=== PATIENT | male | born 1955 | race Hispanic/Latino ===

== ENCOUNTER 2020-08-20 14:26 | Emergency (ER) | payer SELFPAY ==
--- OUTSIDE RECORDS SUMMARY | 2020-08-20 14:30 | XMS REPORT | Continuity of Care Document ---
:1955 Author Organization [facility] t Address [address] [place] [address] Care Team Providers Name Role Phone UNKNOWN, REFFERING Primary Care Physician Unavailable Sky Michel MD Attending Clinician Claudia Kuhn Attending Clinician Unavailable Zay Knapp Attending Clinician Unavailable Orville Attending Clinician Unavailable Evelio Attending Clinician Unavailable ERIC Attending Clinician Unavailable Johana Attending Clinician Unavailable Mona Domingo Attending Clinician Unavailable Clair Attending Clinician Unavailable Sandy Vargas Attending Clinician Unavailable Justa Attending Clinician Unavailable Sandy ONEIL Attending Clinician Unavailable ERIC Admitting Clinician Unavailable Advance Directives Directive Decision Effective Date Termination Date Comments Sour ce Yes N/A [facility] Problems Condition Condition Condition Status Onset Resolution Last Treating Co mments Source Name Details Category Date Date Treatment Clinician Date Illness, Illness, 35081-7 Active 2020-03-04 unspecifie unspecifie 03-04 13:04:04 d d 00:00: (R69)Onset 00 : 04-Mar-2020 Encounter Encounter 50451-3 Active 2019-05-03 for for 05-02 20:46:01 observatio observatio 00:00: n for n for 00 other other suspected suspected diseases diseases and and conditions conditions ruled out ruled out (Z03.89)On set: 03-May-2019 Encounter Encounter 08915-6 Active 2018-07-24 for for 07-24 21:41:52 observatio observatio 00:00: n for n for 00 other other suspected suspected diseases diseases and and conditions conditions ruled out ruled out (Z03.89)On set: 9 Diagnosis Diagnosis 40009-5 Active 2016-09-09 deferred deferred 09-09 01:03:27 on axis II on axis 00:00: IIOnset: 00 7 Deferred Deferred 39920-4 Active 2015-03-11 diagnosis diagnosis 03-11 22:53:15 on axis II on axis 00:00: IIOnset: 00 6 Personalit Personalit 22494-0 Active 2013-04-20 y D/O NOS- y D/O NOS- 04-19 10:31:18 Cluster B Cluster 00:00: BOnset: 00 4 Personalit Personalit 36456-8 Active 2012-022013-02-19 y Disorder y Disorder 04-22 22:10:33 NOS NOSOnset: 00:00: 00 3 Diagnosis Diagnosis 03610-2 Active 2012-11-16 Deferred Deferred 11-16 00:20:04 on [place] II [place] 00:00: IIOnset: 00 3 Diagnosis Diagnosis 11980-4 Active 2012-08-03 Deferred Deferred 08-03 16:20:04 [place] II [place] 00:00: IIOnset: 00 03-Aug-2012 Diagnosis Diagnosis 46075-5 Active 2012-12-31 Deferred Deferred 21:59:45 on [place] II on [place] II History of Past Illness Condition Condition Condition Status Onset Resolution Last Treating Co mments Source Name Details Category Date Date Treatment Clinician Date Diagnosis Diagnosis 80736-3 Inactiv 2013-04-19 2013-04-19 Deferred Deferred e 07:39:37 07:39:37 on [place] II on [place] IIStatus: Inactive as of 4 7:39 Allergies, Adverse Reactions, Alerts This patient has no known allergies or adverse reactions. Social History Smoking Status Start Date Stop Date Source Tobacco smoking consumption [facility] unknown Medications Ordered Filled Start Stop Current Ordering Indication Dosage Frequency Signature Comments Components Source Medication Medication Date Date Medication? Clinician (SIG) Name Name TraZODone* 2020- Yes [id number] 50mg TraZODone* 03-12 [id number] ; 50 mg 08:34: PO/By 00 mouth for sleep Take 1 tablet by mouth at bedtime for insomnia (CRU)Start : 1Ordered: 1GJoaquin bowden Prazosin* 2020- Yes [id number] 2mg Prazosin*; 03-12 158963 2 mg PO/By 08:33: mouth for 00 nightmares Take 1 tablet by mouth at bedtime for nightmares (CRU)Start : 1Ordered: 1GJoaquin bowden QUEtiapine* Yes [id number] 200mg QUEtiapine 03-12 [id number] *; 200 mg 08:33: PO/By 00 mouth for psychosis Take 1 tablet by mouth twice daily and 2 tablets at bedtime for psychosis (CRU)Start : 1Ordered: 1GJoaquin bowden Milk of 2020-0 Yes [id number] 30ml Milk of NTE 120 Magnesia 1 102722 Magnesia; mL in 24 11:56: 30 ml PO hours 00 PRN q4hr for Constipati on NTE 120 mL in 24 hours RoutineSta rt: 05-Mar-2020 Ordered: 05-Mar-2020 Joaquin Jenkins ments: NTE 120 mL in 24 hours QUEtiapine Yes [id number] 50mg QUEtiapine NTE 2 00 03-05 [id number] ; 50 mg PO mg PRN 11:56: PRN q6hr Quetiapin 00 for midl e in 24 agitation hr period NTE 200 mg PRN Quetiapine in 24 hr period RoutineSta rt: 05-Mar-2020 Ordered: 05-Mar-2020 Joaquin Jenkins ments: NTE 200 mg PRN Quetiapine in 24 hr period SEROquel No [id number] 0 SEROquel 400 mg oral 03-04 [id number] 400 mg tablet 11:35: oral 31 tablet; qhsQuantit y: 0 Refills: 0Ordered: Evelyn ParisiGeneric Substituti on Allowed prazosin 2 No [id number] 0 prazosin 2 Home mg oral 03-04 [id number] mg oral Medicatio capsule 11:35: capsule; n stored 31 orally in once a day Pharmacy (at bedtime)Qu antity: 0 Refills: 0Ordered: 03-May-2019 Anetor, Linda KGeneric Substituti on AllowedCom ments: Home Medication stored in Pharmacy SEROquel No [id number] 0 SEROquel 300 mg oral 03-04 [id number] 300 mg tablet 11:35: oral 31 tablet; qamQuantit y: 0 Refills: 0Ordered: Evelyn ParisiGeneric Substituti on Allowed QUEtiapine No [id number] 0 QUEtiapine 100 mg oral 09-08 [id number] 100 mg tablet 23:20: oral 27 tablet; orallyQuan tity: 0 Refills: 0Ordered: [address] [place] [address] us: OtherGener ic Substituti on Allowed Zoloft 50 No [id number] 1{tab(s Zoloft 50 mg oral 09-08 534467 )} mg oral tablet 23:20: tablet; 1 27 tab(s) orally once a dayQuantit y: 0 Refills: 0Ordered: [address] [place] [address] [facility] us: OtherGener ic Substituti on Allowed Benadryl 25 No [id number] 0 Benadryl mg oral 09-08 [id number] 25 mg oral capsule 23:20: capsule; 27 orally onceQuanti ty: 0 Refills: 0Ordered: [address] [place] [address] [facility] us: OtherGener ic Substituti on Allowed traZODone No [id number] 0 traZODone 50 mg oral 09-08 [id number] 50 mg oral tablet 23:20: tablet; 27 orally onceQuanti ty: 0 Refills: 0Ordered: 6HJayna romero us: OtherGener ic Substituti on Allowed lisinopril No [id number] 1{tab(s lisinopril 10 mg oral 09-08 [id number] )} 10 mg oral tablet 23:20: tablet; 1 20 tab(s) orally once a dayQuantit y: 0 Refills: 0Ordered: 7Moore, TeriStart: 7Generic Substituti on Allowed Seroquel No [id number] 0 Seroquel 200mg 04-18 [id number] 200mg; po 00:00: qam and 00 qhs pt. received last dose at [facility] on 04/18/13 at 09:25Quant ity: 0 Refills: 0Ordered: 4Moore, TeriStart: 4Status: OtherGener ic Substituti on Allowed Zoloft No [id number] 0 Zoloft 100ng 04-18 [id number] 100ng; po 00:00: qam pt. 00 received last dose at [facility] on 04/18/13 at 0905Quanti ty: 0 Refills: 0Ordered: 4Moore, TeriStart: 4Status: OtherGener ic Substituti on Allowed Pt reports 2012-02 No [id number] 0 Pt reports "I have 04-22 "I have been off my 11:30: been off meds for 3 29 my meds years." for 3 years."Hayes ntity: 0 Refills: 0Ordered: 03-Aug-2012 Augustus Trammell us: Discontinu edGeneric Substituti on Allowed zoloft 100 2012-02 No [id number] 0 zoloft mg 04-22 [id number] 100 mg; po 00:00: everyday 00 last dose at home 02/18/13 , at [facility] 02/19/13Q uantity: 0 Refills: 0Ordered: 3DMary stantonStart: 3Status: Discontinu edGeneric Substituti on Allowed Risperdal 2 2012-02 No [id number] 1 Risperdal mg oral 04-22 [id number] 2 mg oral tablet 00:00: tablet; 1 00 orally Q AM LAST DOSE AT [facility] , AT HOME LAST DOSE 02/18/13Qu antity: 0 Refills: 0Ordered: Mary GuadarramaStart: 3Status: Discontinu edGeneric Substituti on Allowed Risperdal 4 2012-02 No [id number] 1 Risperdal mg oral 04-22 [id number] 4 mg oral tablet 00:00: tablet; 1 00 orally LAST DOSE 02/18/13 AT [facility] , AT HOME 02/17/13Q uantity: 0 Refills: 0Ordered: Mary GuadarramaStart: 3Status: Discontinu edGeneric Substituti on Allowed ATARX 25 2012-02 No [id number] 0 ATARX 25 MG 04-22 [id number] MG; PO 00:00: BID PRN 00 [facility] [facility] [place] Refills: 0Ordered: Mary GuadarramaStart: 3Status: Discontinu edGeneric Substituti on Allowed ATARAX 25 2012-02 No [id number] 0 ATARAX 25 MG 04-22 [id number] MG; PO 00:00: TID LAST 00 DOSE AT [facility] 02/19/13Qu antity: 0 Refills: 0Ordered: Mary GuadarramaStart: 3Status: Discontinu edGeneric Substituti on Allowed MULTI 2012-02 No [id number] 0 MULTI VITAMIN , 04-22 [id number] VITAMIN , FOLIC ACID 00:00: FOLIC 1 MG , 00 ACID 1 THIAMINE MG , 100 MG THIAMINE 100 MG; PO everyday [facility] Refills: 0Ordered: Mary GuadarramaStart: 3Status: Discontinu edGeneric Substituti on Allowed DENIES 2012-02 No [id number] 0 DENIES OTC/HERBAL 04-22 [id number] OTC/HERBAL HOME MEDS 00:00: HOME 00 MEDSQuanti ty: 0 Refills: 0Ordered: 3DMary stantonStart: 3Status: Discontinu edGeneric Substituti on Allowed Pt. denies No [id number] 0 Pt. denies current 11-15 [id number] current medications 00:00: medication 00 sQuantity: 0 Refills: 0Ordered: 3MCoteiStart: 3Status: Discontinu edGeneric Substituti on Allowed Procedures Procedure Date / Time Performed Performing Clinician Sourc e EKG and Rhythm Strip 2016-09-09 08:00:00 Mallory Martinez Bedswap/Room Change 2013-02-28 02:16:00 Jacob Dos Santos Bedswap/Room Change 2013-01-06 11:36:00 Jayna Durand Bedswap/Room Change 2012-08-10 08:31:00 Saniya Bal Bedswap/Room Change 2012-08-03 15:47:00 Katina Kapoor Plan of Care Planned Activity Planned Date Details Comments Source Diagnostic Test Pending 2020-03-15 10:19:00 Discharge Patient [code = DischargePatient] Diagnostic Test Pending 2020-03-13 11:40:00 Hepatic Function Panel [code = HepaticFunctionPanel] Diagnostic Test Pending 2020-03-11 13:05:00 Other-Nursing [code = Other-Nursing] Diagnostic Test Pending 2020-03-10 00:00:00 Transfer Patient Out [code = TransferPatientOut] Diagnostic Test Pending 2020-03-07 13:03:00 Brief Individual Intervention - Adult [code = BriefIndividualInterventi on-Adult] Diagnostic Test Pending 2020-03-06 11:13:00 Cardiac Diet/AHA (low fat/2g Na) [code = CardiacDiet/AHA(lowfat/2g Na)] Diagnostic Test Pending 2020-03-06 11:12:00 Dental Consult [code = DentalConsult] Diagnostic Test Pending 2020-03-06 11:12:00 Health Shakes [code = HealthShakes] Diagnostic Test Pending 2020-03-04 17:07:00 Management of Emotions [code = ManagementofEmotions] Diagnostic Test Pending 2020-03-04 17:07:00 Mgmt of Mental Illness (On Unit) [code = MgmtofMentalIllness(OnUni t)] Diagnostic Test Pending 2020-03-04 17:07:00 Spirituality [code = Spirituality] Diagnostic Test Pending 2020-03-04 17:07:00 Therapeutic Recreation [code = TherapeuticRecreation] Diagnostic Test Pending 2020-03-04 17:07:00 Substance Use Group 3B [code = GrapmmwluYykYvxgy0U] Diagnostic Test Pending 2020-03-04 16:33:00 Assess and involve in group therapy [code = Assessandinvolveingroupth erapy] Diagnostic Test Pending 2020-03-04 16:32:00 Special Observations [code = SpecialObservations] Diagnostic Test Pending 2020-03-04 16:32:00 Vital Signs [code = VitalSigns] Encounters Start End Encounter Admission Attending Care Care Encounter Source Date/Time Date/Time Type Type Clinicians Facility Department ID 2020-06-27 2020-06-27 Emergency [facility] [id number] 09:14:00 11:54:00 Sky Berry [id number] [place] [id number] [place] [id number] 2020-03-04 2020-03-15 Inpatient Kuhn, 1 [facility]-73- 0000 [id number] [place] 13:27:00 11:29:00 Claudia Xavier 36 [facility] 2019-07-27 2019-07-27 Inpatient Kuhn, 1 [facility]-1A-01- 0000 [id number] [place] 17:10:00 17:10:00 Claudia Guerrero A 18 [facility] 2019-07-22 2019-07-22 Inpatient Ra, 1 [facility]1A [id number] [place] 11:01:00 11:01:00 Bhavna [facility] 2019-07-21 2019-07-21 Inpatient Ra, 1 [facility]- [id number] [place] 23:27:00 23:27:00 Bhavna Xavier 45 [facility] 2019-05-03 2019-05-10 Inpatient Orville, 1 [facility]-77- [id number] [place] 21:27:00 11:12:00 Ady Xavier 36 [facility] 2019-05-04 2019-05-04 Emergency E [facility] [id number] [facility] 23:29:00 23:29:00 2019-05-03 2019-05-03 Emergency E [facility] 7502 [facility] 13:06:00 13:06:00 2018-07-24 2018-08-01 Inpatient Hattie, 1 [facility]-76- 0000 [id number] [place] 21:29:00 10:51:00 Claudia Villegas 67 [facility] 2017-11-14 2017-11-14 Inpatient Abeba Fraser 1 [facility]-06- 0 [id number] [place] 17:44:00 17:44:00 A 43 [facility] 2017-11-14 2017-11-14 Emergency [facility] [id number] [place] 06:19:00 06:19:00 [facility] 2017-08-19 2017-08-19 Outpatient [facility] [id number] [place] 00:00:00 00:00:00 [facility] 2017-07-28 2017-07-28 Outpatient [facility] [id number] [place] 00:00:00 00:00:00 [facility] 2017-06-16 2017-06-16 Outpatient [facility] [id number] [place] 00:00:00 00:00:00 [facility] 2017-06-06 2017-06-06 Emergency E [facility] [id number] 19:31:00 19:31:00 [facility] 2017-06-05 2017-06-05 Emergency E RASSOLI, [facility] [id number] 17:19:00 17:19:00 AMIR [facility] 2017-05-16 2017-05-16 Outpatient [facility] [id number] [place] 00:00:00 00:00:00 Health 2017-05-03 2017-05-03 Outpatient [facility] [id number] [place] 00:00:00 00:00:00 Health 2017-04-28 2017-04-28 Outpatient [facility] [id number] Call 15:13:12 15:13:12 [facility] 2016-12-30 2016-12-30 Outpatient [facility] [id number] Call 00:00:00 00:00:00 [facility] 2016-12-09 2016-12-09 Outpatient [facility] [id number] Call 00:00:00 00:00:00 [facility] 2016-12-09 2016-12-09 Outpatient [facility] [id number] Call 00:00:00 00:00:00 [facility] 2016-12-02 2016-12-02 Outpatient [facility] [id number] Call 08:56:02 08:56:02 [facility] 2016-12-02 2016-12-02 Outpatient [facility] [id number] Call 00:00:00 00:00:00 [facility] 2016-12-02 2016-12-02 Outpatient [facility] [id number] Call 00:00:00 00:00:00 [facility] 2016-11-19 2016-11-19 Outpatient [facility] [id number] Call 10:25:44 10:25:44 [facility] 2016-10-22 2016-10-22 Outpatient [facility] [id number] [place] 11:25:55 11:25:55 [facility] 2016-10-05 2016-10-05 Outpatient [facility] [id number] [place] 09:11:02 09:11:02 [facility] 2016-09-08 2016-09-23 Inpatient Kuhn, 1 [facility] 0000 [id number] [place] 22:39:00 10:35:00 Claudia Xavier 53 [facility] 2015-03-11 2015-03-20 Inpatient Annabellek, 1 [facility]-61- 0 [id number] [place] 16:12:00 13:16:00 Karlie Xavier 89 [facility] 2013-04-18 2013-04-24 Inpatient Smeal, 1 [facility] 0000 [id number] [place] 18:25:00 14:35:00 Sherrie Villegas 60 [facility] 2013-02-19 2013-03-06 Inpatient Smeal, 1 [facility]-78- 0000 [id number] [place] 10:26:00 17:35:00 Sherrie Xavier 34 [facility] 2012-12-30 2013-01-15 Inpatient Keenmon, 1 [facility]-67- 228 [id number] [place] 20:01:00 16:50:00 Stock[place] B 88 [facility] 2012-11-15 2012-11-29 Inpatient Sam, 1 [facility]-76- 0 [id number] Call 20:08:00 13:10:00 Tian Villegas 27 [facility] 2012-08-03 2012-08-10 Inpatient Adhia, 1 [facility]-2D-31- 0000 [id number] Call 14:39:00 15:15:00 Ritchie Duc 70 [facility] 1987-09-19 1987-09-23 Inpatient PAZZAGLIA, 1 [facility]-87- 0 [id number] Call 15:00:00 16:00:00 SHEELA Xavier 77 [facility] Results Test Description Test Time Test Comments Results Result Comments Source CBC w/ Diff w/ Plt 2020-03-08 15:10:00 Test Item Value Reference Range Interpretation Comme nts WBC Count (test code = WBCCount) 5.7 {x10E3/uL} zzzRBC Count (test code = zzzRBCCount) 4.05 {x10E6/uL} Hemoglobin (test code = Hemoglobin) 12.3 g/dL zzzHematocrit (test code = zzzHematocrit) 37.0 % MCV (test code = MCV) 91 fL MCH (test code = MCH) 30.4 pg MCHC (test code = MCHC) 33.2 g/dL RDW (test code = RDW) 13.9 % Platelets (test code = Platelets) 168 {x10E3/uL} Neutrophils (test code = Neutrophils) 38 % Lymphs (test code = Lymphs) 43 % Monocytes (test code = Monocytes) 12 % Eosinophils (test code = Eosinophils) 5 % Basophils (test code = Basophils) 1 % Neutrophils (Absolute) (test code = Neutrophils(Absolute)) 2.2 {x10 E3/uL} Lymphs(Absolute) (test code = Lymphs(Absolute)) 2.5 {x10E3/uL} Monocytes(Absolute) (test code = Monocytes(Absolute)) 0.7 {x10E3/uL } Eosinophils(Absolute) (test code = Eosinophils(Absolute)) 0.3 {x10E 3/uL} Basophils(Absolute) (test code = Basophils(Absolute)) 0.1 {x10E3/uL } Immature Granulocytes (test code = ImmatureGranulocytes) 1 % Immature Grans (Abs) (test code = ImmatureGrans(Abs)) 0.0 {x10E3/uL } Comprehensive Metabolic [id number] 14:47:00 Test Item Value Reference Range Interpretation Comments Glucose,Serum (test 99 mg/dL code = Glucose,Serum) BUN (test code = BUN) 12 mg/dL Creatinine,Serum 0.75 mg/dL (test code = Creatinine,Serum) eGFR If NonAfrican Am 98 mL/min/1.73 (001113) (test code = eGFRIfNonAfricanAm( 0791)) eGFR If Am 114 mL/min/1.73 (249651) (test code = eGFRIfAfricanAm(33832 7)) BUN/Creat Ratio (test 16 code = BUN/CreatRatio) Sodium (test code = 141 mmol/L Sodium) Potassium (test code 4.6 mmol/L = Potassium) Chloride (test code = 103 mmol/L Chloride) zzzCO2 (test code = 29 mmol/L zzzCO2) Calcium (test code = 9.1 mg/dL Calcium) Protein, Total (test 6.0 g/dL code = Protein,Total) Albumin (test code = 3.5 g/dL Albumin) Globulin, Total (test 2.5 g/dL code = Globulin,Total) A/G Ratio (test code 1.4 = A/GRatio) Bilirubin, Total <0.2 (test code = Bilirubin,Total) Alkaline Phosphatase 94 {IU/L} (test code = AlkalinePhosphatase) AST (test code = AST) 115 {IU/L} ALT (test code = ALT) 201 {IU/L} Client Requested Flag [id number] 14:47:00 Test Item Value Reference Range Interpretation Comments TSH (116592) (test code = 2.010 {uIU/mL} TSH(333029)) Lipid Panel with LDL/HDL [id number] 14:47:00 Test Item Value Reference Range Interpretation Comments zzzCholesterol, Total 146 mg/dL (test code = zzzCholesterol,Total) Triglycerides (test code 88 mg/dL = Triglycerides) zzzHDL Cholesterol (test 41 mg/dL code = zzzHDLCholesterol) VLDL Cholesterol 17 mg/dL Calculated (test code = VLDLCholesterolCalculate d) LDL Cholesterol ROSALIND 88 mg/dL ([facility]) (test code = LDLCholesterolCAL([facility])) LDL/HDL Ratio (229801) 2.1 {ratio} . (test code = LDL/HDLRatio(443441)) LDL/HDL Ratio Men Women 1/ 2 Avg.Risk 1.0 1.5 Avg.Risk 3.6 3.2 2X Avg.Risk 6.2 5.0 3X Avg.Risk 8.0 6.1 Comprehensive Metabolic [id number] 01:43:55 Test Item Value Reference Range Interpretation Comments Sodium Level (test code = Sodium 138.0 mmol/L 135.0-145.0 Level) Potassium Level (test code = 4.4 mmol/L 3.5-5.1 Potassium Level) Chloride Level (test code = 98 mmol/L 98-105 Chloride Level) CO2 (test code = CO2) 26 mmol/L 22-29 Anion Gap (test code = Anion 14 mmol/L 7-16 Gap) BUN (test code = BUN) 14.40 mg/dL 8.00-23.00 Creatinine Level (test code = 1.10 mg/dL 0.70-1.20 Creatinine Level) BUN/Creat Ratio (test code = 13 N BUN/Creat Ratio) Glucose Level (test code = 76 mg/dL 70-115 Glucose Level) Calcium Level (test code = 9.1 mg/dL 8.3-10.6 Calcium Level) Alk Phos (test code = Alk Phos) 92 U/L 40-129 Bilirubin Total (test code = 0.7 mg/dL 0.1-0.9 Bilirubin Total) Albumin Level (test code = 5.0 g/dL 3.5-5.2 Albumin Level) Protein Total (test code = 8.1 g/dL 6.4-8.3 Protein Total) ALT (test code = ALT) 175 U/L 1-41 H AST (test code = AST) 54 U/L 1-40 H Globulin (test code = Globulin) 3.1 g/dL 2.9-3.1 A/G Ratio (test code = A/G 1.6 ratio N Ratio) Comprehensive Metabolic [id number] 01:43:55 Test Item Value Reference Range Interpretation Comments Sodium Level (test 138.0 mmol/L 135.0-145.0 code = Sodium Level) Potassium Level 4.4 mmol/L 3.5-5.1 (test code = Potassium Level) Chloride Level (test 98 mmol/L 98-105 code = Chloride Level) CO2 (test code = 26 mmol/L 22-29 CO2) Anion Gap (test code 14 mmol/L 7-16 = Anion Gap) BUN (test code = 14.40 mg/dL 8.00-23.00 BUN) Creatinine Level 1.10 mg/dL 0.70-1.20 (test code = Creatinine Level) BUN/Creat Ratio 13 N (test code = BUN/Creat Ratio) Glucose Level (test 76 mg/dL 70-115 code = Glucose Level) Calcium Level (test 9.1 mg/dL 8.3-10.6 code = Calcium Level) Alk Phos (test code 92 U/L 40-129 = Alk Phos) Bilirubin Total 0.7 mg/dL 0.1-0.9 (test code = Bilirubin Total) Albumin Level (test 5.0 g/dL 3.5-5.2 code = Albumin Level) Protein Total (test 8.1 g/dL 6.4-8.3 code = Protein Total) ALT (test code = 175 U/L 1-41 H ALT) AST (test code = 54 U/L 1-40 H AST) Globulin (test code 3.1 g/dL 2.9-3.1 = Globulin) A/G Ratio (test code 1.6 ratio N = A/G Ratio) eGFR AA (test code = >60 N eGFR (e stimated eGFR AA) mL/min/1.73 m2 Glomerular Filtration Rate ) is an estimated va lue, calculated from the patient's serum creatinine usin g the MDRD equation. It is NOT the patient 's actual GFR. The eGFR provides a more clinically usef ul measure of kidn ey disease than se rum creatinine alone.This calculation rufino es sex and race in to account, if the information is provided. If th e race is not provided, and t he patient is -Sherrie n, multiply by 1.2 12. If sex is not provided, and t he patient is fema le, multiply by 0.7 42. Results for pat ients <18 years of ag e have not been validated by th e MDRD study and should be interpreted wit h caution. eGFR R esult Interpretation: eGFR > or = 60 is in the Normal RangeeGF R < 60 may mean kid mihir diseaseeGFR < 1 5 may mean kidney failure Rang es recommended by the National Kidney Foundation, http://nkdep.ni h.gov Alcohol [id number] 01:43:55 Test Item Value Reference Range Interpretation Comments Ethanol Level (test 0.17 g/dL 0.00-0.01 H Intoxica marek 0.080 g/dL code = Ethanol or more Level) Ethanol Inst (test 168 N code = Ethanol Inst) Comprehensive Metabolic [id number] 01:43:55 Test Item Value Reference Range Interpretation Comments Sodium Level (test 138.0 mmol/L 135.0-145.0 code = Sodium Level) Potassium Level 4.4 mmol/L 3.5-5.1 (test code = Potassium Level) Chloride Level (test 98 mmol/L 98-105 code = Chloride Level) CO2 (test code = 26 mmol/L 22-29 CO2) Anion Gap (test code 14 mmol/L 7-16 = Anion Gap) BUN (test code = 14.40 mg/dL 8.00-23.00 BUN) Creatinine Level 1.10 mg/dL 0.70-1.20 (test code = Creatinine Level) BUN/Creat Ratio 13 N (test code = BUN/Creat Ratio) Glucose Level (test 76 mg/dL 70-115 code = Glucose Level) Calcium Level (test 9.1 mg/dL 8.3-10.6 code = Calcium Level) Alk Phos (test code 92 U/L 40-129 = Alk Phos) Bilirubin Total 0.7 mg/dL 0.1-0.9 (test code = Bilirubin Total) Albumin Level (test 5.0 g/dL 3.5-5.2 code = Albumin Level) Protein Total (test 8.1 g/dL 6.4-8.3 code = Protein Total) ALT (test code = 175 U/L 1-41 H ALT) AST (test code = 54 U/L 1-40 H AST) Globulin (test code 3.1 g/dL 2.9-3.1 = Globulin) A/G Ratio (test code 1.6 ratio N = A/G Ratio) eGFR AA (test code = >60 N eGFR (e stimated eGFR AA) mL/min/1.73 m2 Glomerular Filtration Rate ) is an estimated va lue, calculated from the patient's serum creatinine usin g the MDRD equation. It is NOT the patient 's actual GFR. The eGFR provides a more clinically usef ul measure of kidn ey disease than se rum creatinine alone.This calculation rufino es sex and race in to account, if the information is provided. If th e race is not provided, and t he patient is -Sherrie n, multiply by 1.2 12. If sex is not provided, and t he patient is fema le, multiply by 0.7 42. Results for pat ients <18 years of ag e have not been validated by [facility] MDRD study and should be interpreted wit h caution. eGFR R esult Interpretation: eGFR > or = 60 is in the Normal RangeeGF R < 60 may mean kid mihir diseaseeGFR < 1 5 may mean kidney failure Rang es recommended by the National Kidney Foundation, http://nkdep.ni h.gov eGFR Non-AA (test >60.00 N eGFR (carissa mated code = eGFR Non-AA) mL/min/1.73 m2 Glomer ular Filtration Rate ) is an estimated va lue, calculated from the patient's serum creatinine usin g the MDRD equation. It is NOT the patient 's actual GFR. The eGFR provides a more clinically usef ul measure of kidn ey disease than se rum creatinine alone.This calculation rufino es sex and race in to account, if the information is provided. If th e race is not provided, and t he patient is -Sherrie n, multiply by 1.2 12. If sex is not provided, and t he patient is fema le, multiply by 0.7 42. Results for pat ients <18 years of ag e have not been validated by [facility] MDRD study and should be interpreted wit h caution. eGFR R esult Interpretation: eGFR > or = 60 is in the Normal RangeeGF R < 60 may mean kid mihir diseaseeGFR < 1 5 may mean kidney failure Rang es recommended by the National Kidney Foundation, http://nkdep.ni h.gov Complete Blood Count with [id number] 01:03:37 Test Item Value Reference Range Interpretation Comments WBC (test code = WBC) 8.2 x10 4.4-10.5 RBC (test code = RBC) 4.50 x10 4.10-5.70 Hgb (test code = Hgb) 13.7 g/dL 13.4-17.4 MCV (test code = MCV) 95.30 fL 80.00-100.00 Hct (test code = Hct) 42.9 % 38.7-52.0 MCHC (test code = 31.90 g/dL 32.00-37.50 L MCHC) RDW CV (test code = 16.2 % 11.5-14.5 H RDW CV) MCH (test code = MCH) 30.4 pg 27.0-32.5 Platelets (test code = 301.0 x10 140.0-440.0 Platelets) MPV (test code = MPV) 8.9 fL N Slide Review (test Auto Auto Result cr eated by code = Slide Review) GL_SJM_ SLIDE_REV_AUTO nRBC (test code = 0 N nRBC) NRBC Abs (test code = 0.00 x10 N NRBC Abs) IPF (test code = IPF) 0 % N Automated [id number] 01:03:37 Test Item Value Reference Range Interpretation Comments Neutro Auto (test code = Neutro 47.3 % 36.0-70.0 Auto) Lymph Auto (test code = Lymph Auto) 33.3 % 12.0-44.0 Blaine Auto (test code = Blaine Auto) 12.4 % 0.0-11.0 H Eos, Auto (test code = Eos, Auto) 5.6 % 0.0-7.0 Basophil Auto (test code = Basophil 1.2 % 0.0-2.0 Auto) Neutro Absolute (test code = Neutro 3.9 x10 1.6-7.4 Absolute) Lymph Absolute (test code = Lymph 2.73 x10 .50-4.60 Absolute) Blaine Absolute (test code = Blaine 1.02 x10 .00-1.20 Absolute) Eos Absolute (test code = Eos 0.46 x10 0.00-0.74 Absolute) Baso Absolute (test code = Baso 0.10 x10 0.00-0.21 Absolute) IG [id number] 01:03:37 Test Item Value Reference Range Interpretation Comments IG (test code = IG) 0.2 % 0.0-5.0 IG Abs (test code = IG Abs) 0 x10 N Urine Drug Screen [id number] 13:08:00 Test Item Value Reference Interpretation Comments Range Amphetamine Negative Amphetamine Methamphetmine test includes 929550 (test code = Amphetam ine and AmphetamineMethamphe Methamp hetamine [id number]) . Barbiturate (611416) Negative (test code = Barbiturate(414451)) Benzodiazepines Positive (742748) (test code = Benzodiazepines(7148 32)) Cocaine Metabolite Negative (157861) (test code = CocaineMetabolite(71 4857)) Phencyclidine Negative (875170) (test code = Phencyclidine(279479 )) Drug Screen Comment NOTE : .This analysis (test code = is performed by DrugScreenComment) immunoassay. Positivefindings are unconfirmed analytical test results; ifresults do not support expected clinical finding,confirmation by an alternate methodology is recommended.Patient metabolic variables, specific drug chemistry, andspecimen characteristics can affect test outcome.Technical consultation is available [email or web address], or call toll free [phone]. Cannabinoid (653631) Negative (test code = Cannabinoid(791326)) Opiates (582443) Negative Opiate test (test code = includes Opiates(871840)) Codeine and Morphine only. Comprehensive Metabolic [id number] 20:00:00 Test Item Value Reference Range Interpretation Comments Glucose,Serum (test code = 73 mg/dL Glucose,Serum) BUN (test code = BUN) 10 mg/dL Creatinine,Serum (test code = 0.85 mg/dL Creatinine,Serum) eGFR If NonAfrican Am 95 mL/min/1.73 (730652) (test code = eGFRIfNonAfricanAm(339293)) eGFR If Am (624700) 109 mL/min/1.73 (test code = eGFRIfAfricanAm(443389)) BUN/Creat Ratio (test code = 12 BUN/CreatRatio) Sodium (test code = Sodium) 145 mmol/L Potassium (test code = 3.9 mmol/L Potassium) Chloride (test code = 105 mmol/L Chloride) CO2 (test code = CO2) 20 mmol/L Calcium (test code = Calcium) 9.4 mg/dL Protein, Total (test code = 6.3 g/dL Protein,Total) Albumin (test code = Albumin) 4.2 g/dL Globulin, Total (test code = 2.1 g/dL Globulin,Total) A/G Ratio (test code = 2.0 A/GRatio) Bilirubin, Total (test code = 0.3 mg/dL Bilirubin,Total) Alkaline Phosphatase (test 92 {IU/L} code = AlkalinePhosphatase) AST (test code = AST) 71 {IU/L} ALT (test code = ALT) 83 {IU/L} Lipid Panel with LDL/HDL [id number] 20:00:00 Test Item Value Reference Range Interpretation Comments Cholesterol, Total (test 137 mg/dL code = Cholesterol,Total) Triglycerides (test code 53 mg/dL = Triglycerides) HDL Cholesterol (test 54 mg/dL code = HDLCholesterol) Cholesterol, VLDL 11 mg/dL (calculated) (test code = Cholesterol,VLDL(calcula marek)) Cholesterol, LDL 72 mg/dL (calculated) (test code = Cholesterol,LDL(calculat ed)) LDL/HDL Ratio (664441) 1.3 {ratio} . (test code = LDL/HDLRatio(914945)) LDL/HDL Ratio Men Women 1/ 2 Avg.Risk 1.0 1.5 Avg.Risk 3.6 3.2 2X Avg.Risk 6.2 5.0 3X Avg.Risk 8.0 6.1 Drug Screen, Urine # [id number] 14:29:00 Test Item Value Reference Interpretation Comments Range Amphetamine Negative Amphetamine Methamphetmine test includes 278772 (test code = Amphetam ine and AmphetamineMethamphe Methamp hetamine [id number]) . Barbiturate (427234) Negative (test code = Barbiturate(942289)) Benzodiazepines Negative (556706) (test code = Benzodiazepines(7148 32)) Cannabinoid (738841) Negative (test code = Cannabinoid(056899)) Cocaine Metabolite Negative (645484) (test code = CocaineMetabolite(71 4857)) Opiates (992565) Negative Opiate test (test code = includes Opiates(461518)) Codeine, Morphine, Hydromorphone, Hydrocodone. Phencyclidine Negative (868904) (test code = Phencyclidine(393118 )) Methadone Screen Negative (493638) (test code = MethadoneScreen(1234 57)) Propoxyphene, Urine Negative (858936) (test code = Propoxyphene,Urine(7 91178)) Drug Screen Comment NOTE : .This analysis (test code = is performed by DrugScreenComment) immunoassay. Positivefindings are unconfirmed analytical test results; ifresults do not support expected clinical finding,confirmation by an alternate methodology is recommended.Patient metabolic variables, specific drug chemistry, andspecimen characteristics can affect test outcome.Technical consultation is available [email or web address], or call toll free [phone]. [id number] 14:06:00 Test Item Value Reference Range Interpretation Comments TSH (039324) (test code = 1.770 {uIU/mL} TSH(555938)) CBC w/ Diff w/ [id number] 12:00:00 Test Item Value Reference Range Interpretation Comments WBC Count (test code = 7.2 {x10E3/uL} WBCCount) RBC Count (test code = 4.48 RBCCount) {x10E6/uL} Hemoglobin (test code 14.1 g/dL = Hemoglobin) Hematocrit (test code 40.3 % = Hematocrit) MCV (test code = MCV) 90 fL MCH (test code = MCH) 31.5 pg MCHC (test code = 35.0 g/dL MCHC) RDW (test code = RDW) 14.8 % Platelets (test code = 201 {x10E3/uL} P lease note Platelets) reference inter nhung change Neutrophils (test code 36 % = Neutrophils) Lymphs (test code = 46 % Lymphs) Monocytes (test code = 7 % Monocytes) Eosinophils (test code 10 % = Eosinophils) Basophils (test code = 1 % Basophils) Neutrophils (Absolute) 2.6 {x10E3/uL} (test code = Neutrophils(Absolute)) Lymphs(Absolute) (test 3.3 {x10E3/uL} code = Lymphs(Absolute)) Monocytes(Absolute) 0.5 {x10E3/uL} (test code = Monocytes(Absolute)) Eosinophils(Absolute) 0.7 {x10E3/uL} (test code = Eosinophils(Absolute)) Basophils(Absolute) 0.0 {x10E3/uL} (test code = Basophils(Absolute)) Immature Granulocytes 0 % (test code = ImmatureGranulocytes) Immature Grans (Abs) 0.0 {x10E3/uL} (test code = ImmatureGrans(Abs)) [id number] 22:27:00 Test Item Value Reference Range Interpretation Comments Potassium (test code = K) 4.0 mmol/L 3.5-5.1 N Alcohol/Ethanol, [id number] 19:26:00 Test Item Value Reference Range Interpretation Comments Alcohol, Ethyl 0.14 g/dL 0.00-0.01 H Intoxicated 0.080 g/dL (test code = ETOH) or more [id number] 19:06:00 Test Item Value Reference Range Interpretation Comments Amphetamine (test code Negative Negative N For d iagnostic purposes = AMPH) only, positive results should always b e assessedin conjunctionwith the patient's medic al history,clinica l examination and otherfindings.T o fulfill legal requirements, a more specific altern ate chemical method must be used inorder to obtain a Confirmed juaquin lytical result. GC/MS i s the preferred confi rmatory method. Barbiturates (test Negative Negative N code = TIA) Benzodiazepine (test Negative Negative N code = LOREN) Cocaine (test code = POSITIVE Negative A COCA) Methadone (test code = Negative Negative N MTHD) Opiates (test code = Negative Negative N OPIA) PCP (test code = PCP) Negative Negative N Propoxyphene (test Negative Negative N code = PROPOX) THC (test code = THC) Negative Negative N Urinalysis [id number] 19:06:00 Test Item Value Reference Range Interpretation Comments Color (test code = Yellow Yellow,Straw,Pl N COLOR) yellow Clarity (test code = Clear Clear N CLAR) Specific [place] (test 1.010 1.001-1.035 N code = SPGR) pH (test code = PH) 5.0 5.0-9.0 N Ketone (test code = 50 mg/dL Negative A KET) Glucose (test code = Negative mg/dL Negative N GLUCUR) Protein (test code = 500 mg/dL Negative A PROT) Bilirubin (test code = Negative mg/dL Negative N BILI) Occult Blood (test code Large Negative A = UDOB) Urobilinogen (test code 0.2 mg/dL 0.2-1.0 N = UROB) Nitrite (test code = Negative Negative N NIT) Leuk Esterase (test Negative Negative N code = LEUK) Ictotest (test code = Negative Negative,Confirmed N ICTOTEST) Negative Clinitest (test code = Not Indicated CLINITEST) Micros Exam (test code Indicated = MEXAM) Epithelial Cells (test 0-2 /LPF 0-30 A code = EPI) WBC, Urine (test code = 2-5 /HPF 0-5 A UWBC) RBC, Urine (test code = 2-5 /HPF 0-5 A URBC) Amorph Deposit (test None /HPF code = AMORD) Mucous, Urine (test Few /HPF code = UMUC) Bacteria (test code = Few /HPF BACT) Yeast (test code = None Seen /HPF YEAST) Trichomonas (test code None Seen /HPF = TRICH) Casts (test code = 0-2 Hyaline 0-1 CASTS) Fine Granular /HPF Crystals (test code = None /HPF SANTANA) Comprehensive Metabolic [id number] 19:05:00 Test Item Value Reference Range Interpretation Comments Sodium (test code = 127 mmol/L 135-145 L NA) Potassium (test 5.5 mmol/L 3.5-5.1 H grossly hemo lyzed code = K) Chloride (test code 81 mmol/L 98-105 L = CL) Carbon Dioxide 22 mmol/L 22-29 N (test code = CO2) Glucose (test code 118 mg/dL 70-115 H = GLU) Blood Urea Nitrogen 13 mg/dL 6-20 N (test code = BUN) Creatinine (test 0.9 mg/dL 0.7-1.2 N code = CREAT) Calcium (test code 9.3 mg/dL 8.3-10.5 N = CA) Prot Total (test 8.1 g/dL 6.4-8.3 N code = TP) Albumin (test code 4.8 g/dL 3.5-5.2 N = ALB) A/G Ratio (test 1.5 Ratio code = AGRATIO) Globulin (test code 3.3 2.9-3.1 H = GLOB) Bili Total (test 1.1 mg/dL 0.1-0.9 H code = TBIL) Alk Phos (test code 71 U/L 40-129 N = APHOS) AST (test code = 419 U/L 1-40 H AST) ALT (test code = 239 U/L 1-41 H ALT) BUN/Creatinine 14.4 Ratio (test code = BCRATIO) Anion Gap (test 24 mmol/L 7-16 H code = AGAP) Estimated GFR (test >60 eGFR (es timated code = GFR) mL/min/1.73m2 Glomerular Renato tration Rate) is an est imated value,calculate d from the patient's s butch creatinine usin g the MDRD equation.I t is NOT the patient 's actual GFR. The eGFR provides a more clinicallyusefu l measure of kidn ey disease than se rum creatinine alone.This calculation rufino es sex and race into account, if the informationis provided. If th e race is not provided , and the patient isAfrican-Ameri can, multiply by 1.2 12. If sex is not prov ided, and thepatient is female, multipl y by 0.742. Results for patients <18 ye ars ofage have not been validated by th e MDRD study and shoul d be interpretedwith caution.eGFR Re sult Interpretation: eGFR > or = 60 is in t he Normal RangeeGF R < 60 may mean kidney diseaseeGFR < 1 5 may mean kidney failureRange s recommended by the National Kidney Foundation,http ://nkd ep.nih.gov CBC with [id number] 18:49:00 Test Item Value Reference Range Interpretation Comments WBC (test code = WBC) 7.6 K/cumm 4.4-10.5 N RBC (test code = RBC) 5.51 M/cumm 4.10-5.70 N Hemoglobin (test code = HGB) 16.3 gm/dL 13.4-17.4 N Hematocrit (test code = HCT) 48.4 % 38.7-52.0 N MCV (test code = MCV) 87.8 fL 80-100 N MCH (test code = MCH) 29.5 pg 27.0-32.5 N MCHC (test code = MCHC) 33.6 g/dL 32.0-37.5 N RDW (test code = RDW) 13.7 % 11.5-14.5 N Platelet Count (test code = 126 K/cumm 140-440 L PLTCT) MPV (test code = MPV) 9.6 fL Diff Method (test code = DIFFM) Auto Neutrophil (test code = NEUT) 81.5 % 36-70 H Lymphocyte (test code = LYMPH) 11.6 % 12-44 L Monocyte (test code = MONO) 5.3 % 0-11 N Eosinophil (test code = EOS) 1.3 % 0-7 N Basophil (test code = BASO) 0.2 % 0-2 N Neutro Abs (test code = ANEUT) 6.2 K/cumm 1.6-7.4 N Lymph Abs (test code = ALYMPH) 0.9 K/cumm 0.5-4.6 N Blaine Abs (test code = AMONO) 0.4 K/cumm 0.0-1.2 N Eos Abs (test code = AEOS) 0.10 K/cumm 0.00-0.74 N Baso Abs (test code = ABASO) 0.0 K/cumm 0.00-0.21 N [place] [id number] 16:08:00 Test Item Value Reference Range Interpretation Comments [place] Level (test 0.6 mmol/L Detectio n Limit = 0.1 code = LithiumLevel) <0.1 indicates None Detected [id number] 16:25:00 Test Item Value Reference Range Interpretation Comments TSH (660521) (test code = 2.710 {uIU/mL} TSH(099183)) Drug Screen, Urine # [id number] 11:58:00 Test Item Value Reference Interpretation Comments Range Amphetamine Negative Amphetamine Methamphetmine test includes 858632 (test code = Amphetam ine AmphetamineMethamph and [id number]) Methamphetamin e. Barbiturate Negative (362003) (test code = Barbiturate(130883) ) Benzodiazepines Positive (457624) (test code = Benzodiazepines(714 832)) Cannabinoid Negative (691215) (test code = Cannabinoid(005864) ) Cocaine Metabolite Negative (327404) (test code = CocaineMetabolite(7 12440)) Opiates (002124) Negative Opiate test (test code = includes Opiates(483475)) Codeine, Morphine, Hydromorphone, Hydrocodone. Phencyclidine Negative (923088) (test code = Phencyclidine(13787 1)) Methadone Screen Negative (935448) (test code = MethadoneScreen(798 464)) Propoxyphene, Urine Negative (214907) (test code = Propoxyphene,Urine( 430071)) Drug Screen Comment NOTE : This assay (test code = provides a preliminary DrugScreenComment) unconfirmed analyticaltest result that may be suitable for the clinicalmanagement of patients in certain situations. [facility], preliminary positivefindings should always be confirmed by an alternativemethod. Some krcg-fkh-vywprqr medications, as well asadulterants, may cause inaccurate results. Screen Onlytesting does not meet the [employer]rine Drug Testing Program requirements as aforensic urine drug test for workplace testing. All clientsmust ensure that their testing program conforms toapplicable state and federal laws and employmentagreements. [id number] 11:46:00 Test Item Value Reference Range Interpretation Comments Specific [place] (test 1.005 code = SpecificGravity) pH (test code = pH) 8.0 Urine Color (test code Yellow = UrineColor) Appearance (test code = Clear Appearance) WBC Esterase (test code Negative = WBCEsterase) Protein,Urine (test Negative code = Protein,Urine) Glucose, Urine (test Negative code = Glucose,Urine) Ketones (test code = Negative Ketones) Occult Blood (test code Negative = OccultBlood) Bilirubin, Urine (test Negative code = Bilirubin,Urine) Urobilinogen (test code 0.2 mg/dL = Urobilinogen) Nitrite, Urine (test Negative code = Nitrite,Urine) Microscopic Exam (test NOTE : Microscopic not code = MicroscopicExam) indicated and not performed. Comprehensive Metabolic [id number] 11:34:00 Test Item Value Reference Range Interpretation Comments Glucose,Serum (test code = 101 mg/dL Glucose,Serum) BUN (test code = BUN) 7 mg/dL Creatinine,Serum (test code = 0.68 mg/dL Creatinine,Serum) eGFR If NonAfrican Am 105 mL/min/1.73 (725031) (test code = eGFRIfNonAfricanAm(302572)) eGFR If Am (121674) 122 mL/min/1.73 (test code = eGFRIfAfricanAm(450698)) BUN/Creat Ratio (test code = 10 BUN/CreatRatio) Sodium (test code = Sodium) 140 mmol/L Potassium (test code = 4.0 mmol/L Potassium) Chloride (test code = 99 mmol/L Chloride) CO2 (test code = CO2) 29 mmol/L Calcium (test code = Calcium) 9.8 mg/dL Protein, Total (test code = 7.0 g/dL Protein,Total) Albumin (test code = Albumin) 4.2 g/dL Globulin, Total (test code = 2.8 g/dL Globulin,Total) A/G Ratio (test code = 1.5 A/GRatio) Bilirubin, Total (test code = 0.4 mg/dL Bilirubin,Total) Alkaline Phosphatase (test 125 {IU/L} code = AlkalinePhosphatase) AST (test code = AST) 95 {IU/L} ALT (test code = ALT) 178 {IU/L} Lipid Panel with LDL/HDL [id number] 11:34:00 Test Item Value Reference Range Interpretation Comments Cholesterol, Total 204 mg/dL (test code = Cholesterol,Total) Triglycerides (test 186 mg/dL code = Triglycerides) HDL Cholesterol (test 63 mg/dL code = HDLCholesterol) Cholesterol, VLDL 37 mg/dL (calculated) (test code = Cholesterol,VLDL(calcul ated)) Cholesterol, LDL 104 mg/dL (calculated) (test code = Cholesterol,LDL(calcula marek)) LDL/HDL Ratio (843569) 1.7 {ratio . (test code = units} LDL/HDLRatio(181170)) LDL/HDL Ratio Men Women 1/2 Avg.Risk 1.0 1.5 Avg.Risk 3.6 3.2 2X Avg.Risk 6.2 5.0 3X Avg.Risk 8.0 6.1 CBC w/ Diff w/ [id number] 11:25:00 Test Item Value Reference Range Interpretation Comments WBC Count (test code = 4.1 {x10E3/uL} WBCCount) RBC Count (test code = 4.66 {x10E6/uL} RBCCount) Hemoglobin (test code = 14.9 g/dL Hemoglobin) Hematocrit (test code = 42.6 % Hematocrit) MCV (test code = MCV) 91 fL MCH (test code = MCH) 32.0 pg MCHC (test code = MCHC) 35.0 g/dL RDW (test code = RDW) 13.4 % Platelets (test code = 113 {x10E3/uL} Platelets) Neutrophils (test code = 43 % Neutrophils) Lymphs (test code = Lymphs) 40 % Monocytes (test code = 8 % Monocytes) Eosinophils (test code = 8 % Eosinophils) Basophils (test code = 1 % Basophils) Neutrophils (Absolute) (test 1.8 {x10E3/uL} code = Neutrophils(Absolute)) Lymphs(Absolute) (test code = 1.6 {x10E3/uL} Lymphs(Absolute)) Monocytes(Absolute) (test 0.3 {x10E3/uL} code = Monocytes(Absolute)) Eosinophils(Absolute) (test 0.3 {x10E3/uL} code = Eosinophils(Absolute)) Basophils(Absolute) (test 0.0 {x10E3/uL} code = Basophils(Absolute)) Immature Granulocytes (test 0 % code = ImmatureGranulocytes) Immature Grans (Abs) (test 0.0 {x10E3/uL} code = ImmatureGrans(Abs)) Drug Screen, Urine # [id number] 14:17:00 Test Item Value Reference Interpretation Comments Range Amphetamine (test Negative code = Amphetamine) Barbiturates (test Negative code = Barbiturates) Benzodiazepines Positive (test code = Benzodiazepines) Cannabinoid (test Negative code = Cannabinoid) Cocaine Metabolite Negative (test code = CocaineMetabolite) Opiate Screen (test Negative Opiate t est code = OpiateScreen) include s Codeine, Morphine, Hydromorphon e, Hydrocodone. Phencyclidine Negative (153805) (test code = Phencyclidine(204974 )) Methadone Level Negative (test code = MethadoneLevel) Propoxyphene, Urine Negative (514569) (test code = Propoxyphene,Urine(7 55228)) Drug Screen Comment NOTE : This assay (test code = provides a preliminary DrugScreenComment) unconfirmed analyticaltest result that may be suitable for the clinicalmanagement of patients in certain situations. [facility], preliminary positivefindings should always be confirmed by an alternativemethod. Some hexc-cxq-rhtvqhc medications, as well asadulterants, may cause inaccurate results. Screen Onlytesting does not meet the [employer] Urine Drug Testing Program requirements as aforensic urine drug test for workplace testing. All clientsmust ensure that their testing program conforms toapplicable state and federal laws and employmentagreements. [id number] 12:50:00 Test Item Value Reference Range Interpretation Comments TSH (966237) (test code = 1.930 {uIU/mL} TSH(157486)) CBC w/ Diff w/ [id number] 12:25:00 Test Item Value Reference Range Interpretation Comments WBC Count (test code = 7.5 {x10E3/uL} WBCCount) RBC Count (test code = 4.98 {x10E6/uL} RBCCount) Hemoglobin (test code = 14.9 g/dL Hemoglobin) Hematocrit (test code = 43.8 % Hematocrit) MCV (test code = MCV) 88 fL MCH (test code = MCH) 29.9 pg MCHC (test code = MCHC) 34.0 g/dL RDW (test code = RDW) 13.9 % Platelets (test code = 297 {x10E3/uL} Platelets) Neutrophils (test code = 40 % Neutrophils) Lymphs (test code = Lymphs) 38 % Monocytes (test code = 11 % Monocytes) Eosinophils (test code = 10 % Eosinophils) Basophils (test code = 1 % Basophils) Neutrophils (Absolute) (test 3.0 {x10E3/uL} code = Neutrophils(Absolute)) Lymphs(Absolute) (test code = 2.8 {x10E3/uL} Lymphs(Absolute)) Monocytes(Absolute) (test 0.8 {x10E3/uL} code = Monocytes(Absolute)) Eosinophils(Absolute) (test 0.8 {x10E3/uL} code = Eosinophils(Absolute)) Basophils(Absolute) (test 0.1 {x10E3/uL} code = Basophils(Absolute)) Immature Granulocytes (test 0 % code = ImmatureGranulocytes) Immature Grans (Abs) (test 0.0 {x10E3/uL} code = ImmatureGrans(Abs)) Comprehensive Metabolic [id number] 12:18:00 Test Item Value Reference Range Interpretation Comments Glucose,Serum (test code = 87 mg/dL Glucose,Serum) BUN (test code = BUN) 13 mg/dL Creatinine,Serum (test code = 0.89 mg/dL Creatinine,Serum) eGFR If NonAfrican Am 96 mL/min/1.73 (297458) (test code = eGFRIfNonAfricanAm(603071)) eGFR If Am (765522) 111 mL/min/1.73 (test code = eGFRIfAfricanAm(439422)) BUN/Creat Ratio (test code = 15 BUN/CreatRatio) Sodium (test code = Sodium) 138 mmol/L Potassium (test code = 4.5 mmol/L Potassium) Chloride (test code = 102 mmol/L Chloride) CO2 (test code = CO2) 26 mmol/L Calcium (test code = Calcium) 9.6 mg/dL Protein, Total (test code = 6.5 g/dL Protein,Total) Albumin (test code = Albumin) 4.0 g/dL Globulin, Total (test code = 2.5 g/dL Globulin,Total) A/G Ratio (test code = 1.6 A/GRatio) Bilirubin, Total (test code = 0.1 mg/dL Bilirubin,Total) Alkaline Phosphatase (test 68 {IU/L} code = AlkalinePhosphatase) AST (test code = AST) 12 {IU/L} ALT (test code = ALT) 25 {IU/L} Drug Screen, Urine # [id number] 14:27:00 Test Item Value Reference Interpretation Comments Range Amphetamine (test Negative code = Amphetamine) Barbiturates (test Negative code = Barbiturates) Benzodiazepines Negative (test code = Benzodiazepines) Cannabinoid (test Negative code = Cannabinoid) Cocaine Metabolite Negative (test code = CocaineMetabolite) Opiate Screen (test Negative Opiate t est code = OpiateScreen) include s Codeine, Morphine, Hydromorphon e, Hydrocodone. Phencyclidine Negative (224191) (test code = Phencyclidine(465708 )) Methadone Level Negative (test code = MethadoneLevel) Propoxyphene, Urine Negative (274006) (test code = Propoxyphene,Urine(7 [address])) Drug Screen Comment NOTE : This assay (test code = provides a preliminary DrugScreenComment) unconfirmed analyticaltest result that may be suitable for the clinicalmanagement of patients in certain situations. [facility], preliminary positivefindings should always be confirmed by an alternativemethod. Some arao-vdw-rhyabfh medications, as well asadulterants, may cause inaccurate results. Screen Onlytesting does not meet the [employer] requirements as aforensic urine drug test for workplace testing. All clientsmust ensure that their testing program conforms toapplicable state and federal laws and employmentagreements. [id number] 11:57:00 Test Item Value Reference Range Interpretation Comments Specific [place] (test 1.013 code = SpecificGravity) pH (test code = pH) 6.5 Urine Color (test code Yellow = UrineColor) Appearance (test code = Clear Appearance) WBC Esterase (test code Negative = WBCEsterase) Protein,Urine (test Negative code = Protein,Urine) Glucose, Urine (test Negative code = Glucose,Urine) Ketones (test code = Negative Ketones) Occult Blood (test code Negative = OccultBlood) Bilirubin, Urine (test Negative code = Bilirubin,Urine) Urobilinogen (test code 0.2 mg/dL = Urobilinogen) Nitrite, Urine (test Negative code = Nitrite,Urine) Microscopic Exam (test NOTE : Microscopic code = MicroscopicExam) follows if indicated. Drug Screen, Urine # [id number] 13:01:00 Test Item Value Reference Interpretation Comments Range Amphetamine (test Negative code = Amphetamine) Barbiturates (test Negative code = Barbiturates) Benzodiazepines Positive (test code = Benzodiazepines) Cannabinoid (test Negative code = Cannabinoid) Cocaine Metabolite Negative (test code = CocaineMetabolite) Opiate Screen (test Negative Opiate t est code = OpiateScreen) include s Codeine, Morphine, Hydromorphon e, Hydrocodone. Phencyclidine Negative (727716) (test code = Phencyclidine(406822 )) Methadone Level Negative (test code = MethadoneLevel) Propoxyphene, Urine Negative (966403) (test code = Propoxyphene,Urine(7 77854)) Drug Screen Comment NOTE : This assay (test code = provides a preliminary DrugScreenComment) unconfirmed analyticaltest result that may be suitable for the clinicalmanagement of patients in certain situations. Forworkplace drug testing programs, preliminary positivefindings should always be confirmed by an alternativemethod. Some uksb-ftt-lwsosqi medications, as well asadulterants, may cause inaccurate results. Screen Onlytesting does not meet the [employer] Testing [employer] requirements as aforensic urine drug test for workplace testing. All clientsmust ensure that their testing program conforms toapplicable state and federal laws and employmentagreements. [id number] 11:57:00 Test Item Value Reference Range Interpretation Comments Specific [place] (test 1.010 code = SpecificGravity) pH (test code = pH) 7.5 Urine Color (test code Yellow = UrineColor) Appearance (test code = Clear Appearance) WBC Esterase (test code Negative = WBCEsterase) Protein,Urine (test Negative code = Protein,Urine) Glucose, Urine (test Negative code = Glucose,Urine) Ketones (test code = Negative Ketones) Occult Blood (test code Negative = OccultBlood) Bilirubin, Urine (test Negative code = Bilirubin,Urine) Urobilinogen (test code 0.2 mg/dL = Urobilinogen) Nitrite, Urine (test Negative code = Nitrite,Urine) Microscopic Exam (test NOTE : Microscopic code = MicroscopicExam) follows if indicated. [id number] 14:12:00 Test Item Value Reference Range Interpretation Comments TSH (191847) (test code = 4.590 {uIU/mL} TSH(370132)) Comprehensive Metabolic [id number] 13:09:00 Test Item Value Reference Range Interpretation Comments Glucose,Serum (test code = 77 mg/dL Glucose,Serum) BUN (test code = BUN) 14 mg/dL Creatinine,Serum (test code = 0.87 mg/dL Creatinine,Serum) eGFR If NonAfrican Am 97 mL/min/1.73 (177651) (test code = eGFRIfNonAfricanAm(064389)) eGFR If Am (397420) 112 mL/min/1.73 (test code = eGFRIfAfricanAm(418652)) BUN/Creat Ratio (test code = 16 BUN/CreatRatio) Sodium (test code = Sodium) 140 mmol/L Potassium (test code = 4.2 mmol/L Potassium) Chloride (test code = 102 mmol/L Chloride) CO2 (test code = CO2) 23 mmol/L Calcium (test code = Calcium) 9.5 mg/dL Protein, Total (test code = 6.7 g/dL Protein,Total) Albumin (test code = Albumin) 4.2 g/dL Globulin, Total (test code = 2.5 g/dL Globulin,Total) A/G Ratio (test code = 1.7 A/GRatio) Bilirubin, Total (test code = 0.2 mg/dL Bilirubin,Total) Alkaline Phosphatase (test 72 {IU/L} code = AlkalinePhosphatase) AST (test code = AST) 23 {IU/L} ALT (test code = ALT) 33 {IU/L} CBC w/ Diff w/ [id number] 12:45:00 Test Item Value Reference Range Interpretation Comments WBC Count (test code = 9.1 {x10E3/uL} WBCCount) RBC Count (test code = 4.44 {x10E6/uL} RBCCount) Hemoglobin (test code = 13.4 g/dL Hemoglobin) Hematocrit (test code = 39.1 % Hematocrit) MCV (test code = MCV) 88 fL MCH (test code = MCH) 30.2 pg MCHC (test code = MCHC) 34.3 g/dL RDW (test code = RDW) 14.0 % Platelets (test code = 279 {x10E3/uL} Platelets) Neutrophils (test code = 47 % Neutrophils) Lymphs (test code = Lymphs) 33 % Monocytes (test code = 13 % Monocytes) Eosinophils (test code = 7 % Eosinophils) Basophils (test code = 0 % Basophils) Neutrophils (Absolute) (test 4.2 {x10E3/uL} code = Neutrophils(Absolute)) Lymphs(Absolute) (test code = 3.0 {x10E3/uL} Lymphs(Absolute)) Monocytes(Absolute) (test 1.2 {x10E3/uL} code = Monocytes(Absolute)) Eosinophils(Absolute) (test 0.6 {x10E3/uL} code = Eosinophils(Absolute)) Basophils(Absolute) (test 0.0 {x10E3/uL} code = Basophils(Absolute)) Immature Granulocytes (test 0 % code = ImmatureGranulocytes) Immature Grans (Abs) (test 0.0 {x10E3/uL} code = ImmatureGrans(Abs)) [place] [id number] 15:35:00 Test Item Value Reference Range Interpretation Comments [place] Level (test 0.5 mmol/L Detectio n Limit = 0.1 code = LithiumLevel) <0.1 indicates None Detected [id number] 13:40:00 Test Item Value Reference Range Interpretation Comments TSH (616650) (test code = 4.220 {uIU/mL} TSH(836141)) [id number] 13:40:00 Test Item Value Reference Range Interpretation Comments TSH (334925) (test code = 4.220 {uIU/mL} TSH(639881)) Basic Metabolic [id number] 12:47:00 Test Item Value Reference Range Interpretation Comments Glucose,Serum (test 66 mg/dL code = Glucose,Serum) BUN (test code = 12 mg/dL BUN) Creatinine,Serum 0.92 mg/dL (test code = Creatinine,Serum) BUN/Creat Ratio 13 (test code = BUN/CreatRatio) Sodium (test code = 144 mmol/L Sodium) Potassium (test code 4.4 mmol/L = Potassium) Chloride (test code 103 mmol/L = Chloride) CO2 (test code = 21 mmol/L Effective July CO2) 2012, the reference inter nhung for Carbon Dioxid e, Total will be changing to: 0 - 7 days 18 - 28 8 - 30 days 17 - 31 d - 5 months 15 - 6 m - up to 1 year 1 - 1 2 years - > 12 years Calcium (test code = 9.5 mg/dL Calcium) eGFR If NonAfrican 94 mL/min/1.73 Am (303968) (test code = eGFRIfNonAfricanAm(1 66219)) eGFR If Am 109 mL/min/1.73 (200429) (test code = eGFRIfAfricanAm(1007 97)) Comprehensive Metabolic [id number] 12:15:00 Test Item Value Reference Range Interpretation Comments Glucose,Serum (test 80 mg/dL code = Glucose,Serum) BUN (test code = BUN) 13 mg/dL Creatinine,Serum 0.93 mg/dL (test code = Creatinine,Serum) eGFR If NonAfrican Am 93 mL/min/1.73 (010241) (test code = eGFRIfNonAfricanAm(10 91)) eGFR If Am 107 mL/min/1.73 (002448) (test code = eGFRIfAfricanAm(82394 7)) BUN/Creat Ratio (test 14 code = BUN/CreatRatio) Sodium (test code = 140 mmol/L Sodium) Potassium (test code 4.2 mmol/L = Potassium) Chloride (test code = 101 mmol/L Chloride) CO2 (test code = CO2) 26 mmol/L Effe ctive August 14, 2012, the reference inter nhung for Carbon Dioxi de, Total will be changing to: 0 - 7 days 18 - 28 8 - 30 d ays 17 - 27 3 1 d - 5 months 15 - 26 6 m - u p to 1 year 15 - 25 1 - 12 yea rs 17 - 26 > 12 years 19 - 28 Calcium (test code = 9.7 mg/dL Calcium) Protein, Total (test 7.0 g/dL code = Protein,Total) Albumin (test code = 4.3 g/dL Albumin) Globulin, Total (test 2.7 g/dL code = Globulin,Total) A/G Ratio (test code 1.6 = A/GRatio) Bilirubin, Total 0.2 mg/dL (test code = Bilirubin,Total) Alkaline Phosphatase 70 {IU/L} (test code = AlkalinePhosphatase) AST (test code = AST) 42 {IU/L} ALT (test code = ALT) 60 {IU/L} CBC w/ Diff w/ [id number] 12:10:00 Test Item Value Reference Range Interpretation Comments WBC Count (test code = 8.4 {x10E3/uL} WBCCount) RBC Count (test code = 4.75 {x10E6/uL} RBCCount) Hemoglobin (test code = 14.6 g/dL Hemoglobin) Hematocrit (test code = 44.4 % Hematocrit) MCV (test code = MCV) 94 fL MCH (test code = MCH) 30.7 pg MCHC (test code = MCHC) 32.9 g/dL RDW (test code = RDW) 13.7 % Platelets (test code = 231 {x10E3/uL} Platelets) Neutrophils (test code = 57 % Neutrophils) Lymphs (test code = Lymphs) 28 % Monocytes (test code = 10 % Monocytes) Eosinophils (test code = 4 % Eosinophils) Basophils (test code = 1 % Basophils) Neutrophils (Absolute) (test 4.8 {x10E3/uL} code = Neutrophils(Absolute)) Lymphs(Absolute) (test code = 2.4 {x10E3/uL} Lymphs(Absolute)) Monocytes(Absolute) (test 0.8 {x10E3/uL} code = Monocytes(Absolute)) Eosinophils(Absolute) (test 0.4 {x10E3/uL} code = Eosinophils(Absolute)) Basophils(Absolute) (test 0.0 {x10E3/uL} code = Basophils(Absolute)) Immature Granulocytes (test 0 % code = ImmatureGranulocytes) Immature Grans (Abs) (test 0.0 {x10E3/uL} code = ImmatureGrans(Abs)) Drug Screen, Urine # [id number] 14:49:00 Test Item Value Reference Interpretation Comments Range Amphetamine (test Negative code = Amphetamine) Barbiturates (test Negative code = Barbiturates) Benzodiazepines Negative (test code = Benzodiazepines) Cannabinoid (test Negative code = Cannabinoid) Cocaine Metabolite Positive (test code = CocaineMetabolite) Opiate Screen (test Negative Opiate t est code = OpiateScreen) include s Codeine, Morphine, Hydromorphon e, Hydrocodone. Phencyclidine Negative (868174) (test code = Phencyclidine(241207 )) Methadone Level Negative (test code = MethadoneLevel) Propoxyphene, Urine Negative (705907) (test code = Propoxyphene,Urine(6 83309)) Drug Screen Comment NOTE : This assay (test code = provides a preliminary DrugScreenComment) unconfirmed analyticaltest result that may be suitable for the clinicalmanagement of patients in certain situations. Forworkplace drug testing programs, preliminary positivefindings should always be confirmed by an alternativemethod. Some mvoo-woi-jdmsesw medications, as well asadulterants, may cause inaccurate results. Screen Onlytesting does not meet the [employer] requirements as aforensic urine drug test for workplace testing. All clientsmust ensure that their testing program conforms toapplicable state and federal laws and employmentagreements. [id number] 14:09:00 Test Item Value Reference Range Interpretation Comments Specific [place] (test 1.011 code = SpecificGravity) pH (test code = pH) 8.0 Urine Color (test code Yellow = UrineColor) Appearance (test code = Turbid Appearance) WBC Esterase (test code Negative = WBCEsterase) Protein,Urine (test Negative code = Protein,Urine) Glucose, Urine (test Negative code = Glucose,Urine) Ketones (test code = Negative Ketones) Occult Blood (test code Negative = OccultBlood) Bilirubin, Urine (test Negative code = Bilirubin,Urine) Urobilinogen (test code 0.2 mg/dL = Urobilinogen) Nitrite, Urine (test Negative code = Nitrite,Urine) Microscopic Exam (test NOTE : Microscopic code = MicroscopicExam) follows if indicated.
[2020-08-20] MEDS ORDERED: NA CHLORIDE 0.9% 1,000 ML ONE (15:40)
[2020-08-20] MEDS ORDERED: ONDANSETRON 4 MG/2 ML VIAL ONE (15:40)
[2020-08-20] MEDS ORDERED: DIAZEPAM 10 MG/2 ML INJ SYRINGE ONE (15:40)
[2020-08-20 15:45] LABS: Absolute Lymphocytes (CBC) 1.1 K/uL (0.7-4.9); Basophils % 4.8 % (0-1.3); Hematocrit 43.6 % (39.6-49.0); Lymphocytes % 26.9 % (15.3-44.8); RBC Red Blood Cell Count 4.88 M/uL (4.33-5.43)
[2020-08-20 16:13] LABS: Albumin 4.1 g/dL (3.4-5.0); Alkaline Phosphatase 111 U/L (45-117); BUN Blood Urea Nitrogen 9 mg/dL (7-18); Bicarbonate 21 mmol/L (21-32); Bilirubin Direct < 0.1 mg/dL (0-0.2); Bilirubin Total 0.7 mg/dL (0.2-1.0); Glucose Level 80 mg/dL (74-106); Lipase 603 U/L (73-393); Protein, Total 8.4 g/dL (6.4-8.2); Sodium Level 132 mmol/L (136-145)
[2020-08-20 16:16] LABS: AST/SGOT 308 U/L (15-37); Potassium 4.4 mmol/L (3.5-5.1)
[2020-08-20 16:17] LABS: White Blood Cell Scan OK (OK)
[2020-08-20 16:18] LABS: Blood Morphology Comment NOT SEEN (NOT SEEN); Platelet Estimate ADEQ
[2020-08-20 16:19] LABS: ALT/SGPT 351 U/L (12-78)
--- NOTE | 2020-08-20 16:47 | EDPHYS ---
Physician Documentation [facility] Name: Jose Armando Gilliland Age: 64 yrs Sex: Male : 1955 Arrival Date: 08/20/2020 Time: 14:29 Bed 16 Private MD: None, None ED Physician Dalton Sharp HPI: 08/20 15:07 This 64 yrs old Male presents to ER via Wheelchair with complaints of Alcohol rn Detox. 15:14 Reports on a 20 day binge after was at detox facility. Drinks about 18 tallboys a day, rn last drink about an hour ago. Reports needs to quit. Has been to multiple detox facilities or taken for help and leaves prior to treatment. Reports "feels like crap", but no fever/chest pain/vomiting/diarrhea.. Onset: The symptoms/episode began/occurred at an unknown time. Severity of symptoms: At their worst the symptoms were moderate in the emergency department the symptoms are unchanged. The patient has experienced similar episodes in the past. The patient has not recently seen a physician. Historical: - Allergies: 14:51 No Known Allergies; tw2 - Home Meds: 14:51 trazodone 50 mg oral tab 1 tab 2 times per day [Active]; Seroquel 400 mg oral tab 1 tab tw2 2 times per day [Active]; - PMHx: 14:51 PTSD; Bipolar disorder; Alcoholism; Hypertension; tw2 - Immunization history:: Adult Immunizations. - Social history:: Smoking status: Patient reports the use of cigarette tobacco products, smokes two packs cigarettes per day. Patient uses alcohol, patient/guardian reports chronic longstanding heavy alcohol consumption. - Family history:: not pertinent. - Hospitalizations: : No recent hospitalization is reported. ROS: 15:14 Constitutional: Negative for fever, chills, and weight loss, Eyes: Negative for injury, rn pain, redness, and discharge, Neck: Negative for injury, pain, and swelling, Cardiovascular: Negative for chest pain, palpitations, and edema, Respiratory: Negative for shortness of breath, cough, wheezing, and pleuritic chest pain, Abdomen/GI: Negative for abdominal pain, nausea, vomiting, diarrhea, and constipation, Back: Negative for injury and pain, : Negative for injury, bleeding, discharge, and swelling, MS/Extremity: Negative for injury and deformity, Skin: Negative for injury, rash, and discoloration, Neuro: Negative for headache, numbness, tingling, and seizure. Exam: 15:14 Constitutional: This is a well developed, well nourished patient who is awake, alert, rn seems anxious. Head/Face: Normocephalic, atraumatic. Eyes: Periorbital areas with no swelling, redness, or edema. ENT: dry MM Cardiovascular: Tachycardic, regular. No pulse deficits. Respiratory: No increased work of breathing, no retractions or nasal flaring. Abdomen/GI: soft, non-tender Skin: Warm, dry MS/ Extremity: Pulses equal, no cyanosis. Neuro: Awake and alert, GCS 15, oriented to person, place, time, and situation. Slurred speech. Cranial nerves II-XII grossly intact. Motor strength 5/5 in all extremities. Sensory grossly intact. Vital Signs: 14:45 BP 162 / 103; Pulse 102; Resp 18; Temp 98.6(TE); Pulse Ox 96% on R/A; Weight 76.2 kg tw2 (R); Height 5 ft. 5 in. (165.10 cm); 16:30 BP 158 / 102; Pulse 78; Pulse Ox 98% on R/A; tr6 14:45 Body Mass Index 27.96 (76.20 kg, 165.10 cm) tw2 MDM: 14:54 Patient medically screened. rn 16:44 Differential Diagnosis alcohol intoxication, dehydration, ETOH dependence. . Data rn reviewed: vital signs, nurses notes, lab test result(s), and as a result, I will discharge patient. Counseling: I had a detailed discussion with the patient and/or guardian regarding: the historical points, exam findings, and any diagnostic results supporting the discharge/admit diagnosis, lab results, the need for outpatient follow up, to return to the emergency department if symptoms worsen or persist or if there are any questions or concerns that arise at home. Response to treatment: the patient's symptoms have mildly improved after treatment, and as a result, I will discharge patient. Special discussion: I discussed with the patient/guardian in detail that at this point there is no indication for admission to the hospital. It is understood, however, that if the symptoms persist or worsen the patient needs to return immediately for re-evaluation. ED course: Pt with ETOH dependence, is argumentative with staff and intoxicated, no signs of ETOH withdrawal at this time, patient not cooperative, will rehydrate and pre-medicate to ensure does not withdraw while here, will send back to group home given no current signs of withdrawal and patient non-compliant and not cooperative with treatment. Pt plans to go back to group home and continue to drink.. 08/20 15:06 Order name: CBC with Diff rn 08/20 15:06 Order name: Basic Metabolic Panel rn 08/20 15:06 Order name: LFT's rn 08/20 15:06 Order name: Lipase rn 08/20 15:06 Order name: ETOH Level rn 08/20 15:53 Order name: CBC with Automated Diff; Complete Time: 16:40 EDMS 08/20 16:18 Order name: CBC Smear Scan; Complete Time: 16:40 EDMS 08/20 16:20 Order name: Basic Metabolic Panel; Complete Time: 16:40 EDMS 08/20 16:20 Order name: Liver (Hepatic) Function; Complete Time: 16:40 EDMS 08/20 16:20 Order name: Lipase; Complete Time: 16:40 EDMS 08/20 16:44 Order name: Alcohol Serum/Plasma; Complete Time: 16:44 EDMS 08/20 15:06 Order name: IV Start; Complete Time: 15:11 rn 08/20 15:06 Order name: EKG; Complete Time: 15:06 rn 08/20 15:06 Order name: EKG - Nurse/Tech; Complete Time: 15:54 rn Administered Medications: 15:54 Drug: NS 0.9% 1000 ml Route: IV; Rate: 1000 ml; Site: left wrist; tr6 17:57 Follow up: Response: No adverse reaction; IV Intake: 1000ml tr6 15:54 Drug: Valium (diazepam) 5 mg Route: IVP; Site: left wrist; tr6 15:54 Drug: Zofran (Ondansetron) 4 mg Route: IVP; Site: left wrist; tr6 16:29 Drug: Banana Bag - (NS 0.9% 1000 ml, foLIC Acid 1 mg, Thiamine 100 mg, Multivitamin 1 tr6 amp) Route: IV; Rate: calculated rate; Site: left wrist; 16:52 Drug: Ativan (LORazepam) 1 mg Route: IVP; Site: left wrist; tr6 17:49 Follow up: Response: No adverse reaction; Anxiety unchanged tr6 Disposition: 08/20/20 16:47 Discharged to Home. Impression: Alcohol dependence with alcohol-induced mood disorder, Dehydration. - Condition is Stable. - Discharge Instructions: Chemical Dependency, Finding Treatment for Addiction, Alcohol Use Disorder, Dehydration, Adult. - Medication Reconciliation Form, Thank You Letter, Antibiotic Education, Prescription Opioid Use form. - Follow up: Private Physician; When: As needed; Reason: Recheck today's complaints, Re-evaluation by your physician. - Problem is new. - Symptoms have improved. Signatures: Dispatcher [employer] EDMS Dalton Sharp MD MD rn Wise, Tara, RN RN tw2 Ale Mcgrath RN RN tr6 Corrections: (The following items were deleted from the chart) 18:53 16:47 08/20/2020 16:47 Discharged to Home. Impression: Alcohol dependence with tr6 alcohol-induced mood disorder; Dehydration. Condition is Stable. Forms are Medication Reconciliation Form, Thank You Letter, Antibiotic Education, Prescription Opioid Use. Follow up: Private Physician; When: As needed; Reason: Recheck today's complaints, Re-evaluation by your physician. Problem is new. Symptoms have improved. rn
--- NOTE | 2020-08-20 16:47 | ER ---
Nurse's Notes [facility] Name: Jose Armando Gilliland Age: 64 yrs Sex: Male : 1955 Arrival Date: 08/20/2020 Time: 14:29 Bed 16 Private MD: None, None Diagnosis: Alcohol dependence with alcohol-induced mood disorder;Dehydration Presentation: 08/20 14:45 Chief complaint: Patient states: i actually have been drinking over 20 days. i got to tw2 the intermediate on the June. i drink bud ice which is 5.9 alcohol content and i drink about 3- 6pks a day. he stays at a intermediate and has been drinking for 20 days straight says licensed midwife of a intermediate. Coronavirus screen: At this time, the client does not indicate any symptoms associated with coronavirus-19. Ebola Screen: Patient denies travel to an Ebola-affected area in the 21 days before illness onset. Initial Sepsis Screen: Does the patient meet any 2 criteria? No. Patient's initial sepsis screen is negative. Does the patient have a suspected source of infection? No. Patient's initial sepsis screen is negative. Risk Assessment: Do you want to hurt yourself or someone else? Patient reports no desire to harm self or others. Onset of symptoms was August 20, 2020. 14:45 Method Of Arrival: Wheelchair tw2 14:45 Acuity: YESSENIA 2 tw2 Triage Assessment: 14:52 General: Appears in no apparent distress. Behavior is cooperative, appropriate for age, tw2 anxious. Pain: Denies pain. Historical: - Allergies: 14:51 No Known Allergies; tw2 - Home Meds: 14:51 trazodone 50 mg oral tab 1 tab 2 times per day [Active]; Seroquel 400 mg oral tab 1 tab tw2 2 times per day [Active]; - PMHx: 14:51 PTSD; Bipolar disorder; Alcoholism; Hypertension; tw2 - Immunization history:: Adult Immunizations. - Social history:: Smoking status: Patient reports the use of cigarette tobacco products, smokes two packs cigarettes per day. Patient uses alcohol, patient/guardian reports chronic longstanding heavy alcohol consumption. - Family history:: not pertinent. - Hospitalizations: : No recent hospitalization is reported. Screenin:52 Nutritional screening: No deficits noted. Tuberculosis screening: No symptoms or risk tr6 factors identified. Fall Risk Fall in past 12 months (25 points). Assessment: 16:00 General: Appears distressed, uncomfortable, unkempt, Behavior is cooperative, restless, tr6 Smells of alcohol. Pain: Denies pain. Neuro: Oriented to forgetful. Cardiovascular: No deficits noted. Respiratory: No deficits noted. GI: No deficits noted. : No deficits noted. EENT: No deficits noted. Derm: No deficits noted. Musculoskeletal: No deficits noted. 16:44 Reassessment: Patient and/or family updated on plan of care and expected duration. Pain tr6 level reassessed. pt requesting medications, states "i'm going through shakes." pt informed that he received meds recently and RN will inform MD of the way he is feeling. Pt in room screaming "this is bullshit!" Birdie monie called and pt informed that he will receive medications in a timely manner. MD Sharp at bedside to inform pt of results and POC. pt currently calm and resting comfortably in bed. Will continue to monitor. 17:41 Reassessment: pts ride called for shrimp picker by RNCathy Barr on his way shortly to pick pt tr6 up. 18:51 Reassessment: discharge instructions reviewed with pt. f/u care reviewed with pt and tr6 caregiver at bedside in length. pt verbalized understanding and states he will f/u with a clinic. Vital Signs: 14:45 BP 162 / 103; Pulse 102; Resp 18; Temp 98.6(TE); Pulse Ox 96% on R/A; Weight 76.2 kg tw2 (R); Height 5 ft. 5 in. (165.10 cm); 16:30 BP 158 / 102; Pulse 78; Pulse Ox 98% on R/A; tr6 14:45 Body Mass Index 27.96 (76.20 kg, 165.10 cm) tw2 ED Course: 14:29 Patient arrived in ED. ds1 14:30 None, None is Private Physician. ds1 14:48 Triage completed. tw2 14:52 Arm band placed on. tw2 14:54 Dalton Sharp MD is Attending Physician. rn 14:54 Ale Mcgrath, ANGELIQUE is Primary Nurse. tr6 18:52 No provider procedures requiring assistance completed. IV discontinued, intact, tr6 bleeding controlled, No redness/swelling at site. Pressure dressing applied. 18:53 Patient has correct armband on for positive identification. Bed in low position. Call tr6 light in reach. Side rails up X 1. Administered Medications: 15:54 Drug: NS 0.9% 1000 ml Route: IV; Rate: 1000 ml; Site: left wrist; tr6 17:57 Follow up: Response: No adverse reaction; IV Intake: 1000ml tr6 15:54 Drug: Valium (diazepam) 5 mg Route: IVP; Site: left wrist; tr6 15:54 Drug: Zofran (Ondansetron) 4 mg Route: IVP; Site: left wrist; tr6 16:29 Drug: Banana Bag - (NS 0.9% 1000 ml, foLIC Acid 1 mg, Thiamine 100 mg, Multivitamin 1 tr6 amp) Route: IV; Rate: calculated rate; Site: left wrist; 16:52 Drug: Ativan (LORazepam) 1 mg Route: IVP; Site: left wrist; tr6 17:49 Follow up: Response: No adverse reaction; Anxiety unchanged tr6 Intake: 17:57 IV: 1000ml; Total: 1000ml. tr6 Outcome: 16:47 Discharge ordered by . rn 18:52 Discharged to home ambulatory, with friend, friend, jose, at bedside tr6 18:52 Condition: unchanged 18:52 Discharge instructions given to patient, supervisor kennel, Instructed on discharge instructions, follow up and referral plans. no drinking with medication, safety practices, Demonstrated understanding of instructions, follow-up care. 18:53 Patient left the ED. tr6 Signatures: Jacqueline Gutierrez ds1 Dalton Sharp MD MD rn Wise, Tara, RN RN tw2 Ale Mcgrath RN RN tr6 Corrections: (The following items were deleted from the chart) 17:42 17:41 Reassessment: pts ride called for shrimp picker by RN tr6 tr6
[2020-08-20] MEDS ORDERED: FOLIC ACID 1 MG, MULTIVITAMINS INJ 10 ML, THIAMINE HCL 100 MG in NA CHLORIDE 0.9% 1,000 ML IV ONE (17:00)
[2020-08-20] MEDS ORDERED: LORazepam 2 MG/ML VIAL ONE (17:10)
[2020-08-20 19:24] VITALS: TEMP 98.6
[2020-08-20 19:25] VITALS: BP 158/102; O2SAT 98
--- NOTE | 2020-08-21 10:34 | EKG ---
Test Date: 2020-08-20 Test Time: 15:30:43 Engineering Aid: TTR MEASUREMENT RESULTS: Intervals: Rate: 80 UT: 180 QRSD: 114 QT: 396 QTc: 456 [place]: P: 47 UT: 180 QRS: 20 T: 28 INTERPRETIVE STATEMENTS: Normal sinus rhythm Normal ECG No previous ECG available for comparison Electronically Signed On 08-21-20 10:31:47 CDT by Nishant Kenney
--- NOTE | 2020-08-21 10:34 | EKG ---
Test Date: 2020-08-20 Test Time: 15:29:20 Musical Instrument Maker Or Repairer: TTR MEASUREMENT RESULTS: Intervals: Rate: 80 HI: 154 QRSD: 104 QT: 382 QTc: 440 [place]: P: HI: 154 QRS: 24 T: 36 INTERPRETIVE STATEMENTS: Normal sinus rhythm Normal ECG No previous ECG available for comparison Electronically Signed On 08-21-20 10:31:48 CDT by Nishant Kenney
== END 2020-08-20 18:53 | disposition home or self-care (01) ==
LOC: ER 14:26
DX: E86.0 Dehydration (principal); I10 Essential (primary) hypertension; F17.210 Nicotine dependence, cigarettes, uncomplicated
CPT/HCPCS: 36415; 80048; 80076; 80320; 83690; 85025; 93005; J2405; J3360; J3411; J7030

== ENCOUNTER 2020-08-25 18:11 | Emergency (ER) | payer SELFPAY ==
--- OUTSIDE RECORDS SUMMARY | 2020-08-25 18:14 | XMS REPORT | Continuity of Care Document ---
:1955 Author Organization [facility] t Address [address] [place] [address] Care Team Providers Name Role Phone UNKNOWN, [...] Termination Date Comments Sour ce Yes N/A [facility] Problems Condition Condition Condition Status Onset Resolution Last Treating Co mments Source Name Details Category Date Date Treatment Clinician Date Illness, Illness, 11266-4 Active 2020-03-04 unspecifie unspecifie 03-04 13:04:04 d d 00:00: (R69)Onset 00 : 04-Mar-2020 Encounter Encounter 65192-9 Active 2019-05-03 for for 05-02 20:46:01 observatio observatio 00:00: n for n for 00 other other suspected suspected diseases diseases and and conditions conditions ruled out ruled out (Z03.89)On set: 03-May-2019 Encounter Encounter 48095-7 Active 2018-07-24 for for 07-24 21:41:52 observatio observatio 00:00: n for n for 00 other other suspected suspected diseases diseases and and conditions conditions ruled out ruled out (Z03.89)On set: 9 Diagnosis Diagnosis 21194-9 Active 2016-09-09 deferred deferred 09-09 01:03:27 on axis II on axis 00:00: IIOnset: 00 7 Deferred Deferred 81099-9 Active 2015-03-11 diagnosis diagnosis 03-11 22:53:15 on axis II on axis 00:00: IIOnset: 00 6 Personalit Personalit 70586-6 Active 2013-04-20 y D/O NOS- y D/O NOS- 04-19 10:31:18 Cluster B Cluster 00:00: BOnset: 00 4 Personalit Personalit 22379-6 Active 2012-022013-02-19 y Disorder y Disorder 04-22 22:10:33 NOS NOSOnset: 00:00: 00 3 Diagnosis Diagnosis 83700-8 Active 2012-11-16 Deferred Deferred 11-16 00:20:04 on [place] II on [place] 00:00: IIOnset: 00 3 Diagnosis Diagnosis 36736-1 Active 2012-08-03 Deferred Deferred 08-03 16:20:04 on [place] II on [place] 00:00: IIOnset: 00 03-Aug-2012 Diagnosis Diagnosis 07555-7 Active 2012-12-31 Deferred Deferred 21:59:45 on [place] II on [place] II History of Past Illness Condition Condition Condition Status Onset Resolution Last Treating Co mments Source Name Details Category Date Date Treatment Clinician Date Diagnosis Diagnosis 62613-5 Inactiv 2013-04-19 2013-04-19 Deferred Deferred e 07:39:37 07:39:37 on [place] II on [place] IIStatus: Inactive as of 4 7:39 Allergies, Adverse Reactions, Alerts This patient has no known allergies or adverse reactions. Social History Smoking Status Start Date Stop Date Source Tobacco smoking consumption [facility] unknown Medications Ordered Filled Start Stop Current Ordering Indication Dosage Frequency Signature Comments Components Source Medication Medication Date Date Medication? Clinician (SIG) Name Name TraZODone* 2020- Yes [id number] 50mg TraZODone* 03-12 707258 ; 50 mg 08:34: PO/By 00 mouth for sleep Take 1 tablet by mouth at bedtime for insomnia (CRU)Start : 1Ordered: 1Gdennise Joaquin Rashawn Prazosin* 2020- Yes [id number] 2mg Prazosin*; 03-12 327352 2 mg PO/By 08:33: mouth for 00 nightmares Take 1 tablet by mouth at bedtime for nightmares (CRU)Start : 1Ordered: 1Gdennise Joaquin Morocho QUEtiapine* Yes [id number] 200mg QUEtiapine 03-12 099228 *; 200 mg 08:33: PO/By 00 mouth for psychosis Take 1 tablet by mouth twice daily and 2 tablets at bedtime for psychosis (CRU)Start : 1Ordered: 1GJoaquin bowden Milk of 0 Yes [id number] 30ml Milk of NTE 120 Magnesia 03-05 950630 Magnesia; mL in 24 11:56: 30 ml PO hours 00 PRN q4hr for Constipati on NTE 120 mL in 24 hours RoutineSta rt: 05-Mar-2020 Ordered: 05-Mar-2020 Joaquin Jenkins ments: NTE 120 mL in 24 hours QUEtiapine Yes [id number] 50mg QUEtiapine NTE 2 00 03-05 043697 ; 50 mg PO mg PRN 11:56: PRN q6hr Quetiapin 00 for midl e in 24 agitation hr period NTE 200 mg PRN Quetiapine in 24 hr period RoutineSta rt: 05-Mar-2020 Ordered: 05-Mar-2020 Joaquin Jenkins ments: NTE 200 mg PRN Quetiapine in 24 hr period SEROquel No [id number] 0 SEROquel 400 mg oral 03-04 990363 400 mg tablet 11:35: oral 31 tablet; qhsQuantit y: 0 Refills: 0Ordered: Evelyn ParisiGeneric Substituti on Allowed prazosin 2 No [id number] 0 prazosin 2 Home mg oral 1- 399036 mg oral Medicatio capsule 11:35: capsule; n stored 31 orally in once a day Pharmacy (at bedtime)Qu antity: 0 Refills: 0Ordered: 03-May-2019 Anetor, Linda KGeneric Substituti on AllowedCom ments: Home Medication stored in Pharmacy SEROquel No [id number] 0 SEROquel 300 mg oral 03-04 831916 300 mg tablet 11:35: oral 31 tablet; qamQuantit y: 0 Refills: 0Ordered: Evelyn ParisiGeneric Substituti on Allowed QUEtiapine No [id number] 0 QUEtiapine 100 mg oral 09-08 153636 100 mg tablet 23:20: oral 27 tablet; orallyQuan tity: 0 Refills: 0Ordered: [address] [place] [address] us: OtherGener ic Substituti on Allowed Zoloft 50 No [id number] 1{tab(s Zoloft 50 mg oral 09-08 879593 )} mg oral tablet 23:20: tablet; 1 27 tab(s) orally once a dayQuantit y: 0 Refills: 0Ordered: [address] [place] [address] [facility] us: OtherGener ic Substituti on Allowed Benadryl 25 No [id number] 0 Benadryl mg oral 09-08 494886 25 mg oral capsule 23:20: capsule; 27 orally onceQuanti ty: 0 Refills: 0Ordered: [address] [place] [address] [facility] us: OtherGener ic Substituti on Allowed traZODone No [id number] 0 traZODone 50 mg oral 09-08 274240 50 mg oral tablet 23:20: tablet; 27 orally onceQuanti ty: 0 Refills: 0Ordered: [address] [place] [address] [facility] us: OtherGener ic Substituti on Allowed lisinopril No [id number] 1{tab(s lisinopril 10 mg oral 09-08 070788 )} 10 mg oral tablet 23:20: tablet; 1 20 tab(s) orally once a dayQuantit y: 0 Refills: 0Ordered: 7Moore, TeriStart: 7Generic Substituti on Allowed Seroquel No [id number] 0 Seroquel 200mg 04-18 043769 200mg; po 00:00: qam and 00 qhs pt. received last dose at [facility] on 04/18/13 at 09:25Quant ity: 0 Refills: 0Ordered: 4Moore, TeriStart: 4Status: OtherGener ic Substituti on Allowed Zoloft No [id number] 0 Zoloft 100ng 04-18 426337 100ng; po 00:00: qam pt. 00 received last dose at [facility] on 04/18/13 at 0905Quanti ty: 0 Refills: 0Ordered: 4Moore, TeriStart: 4Status: OtherGener ic Substituti on Allowed Pt reports 2012-02 No [id number] 0 Pt reports "I have 04-22 "I have been off my 11:30: been off meds for 3 29 my meds years." for 3 years."Hayes ntity: 0 Refills: 0Ordered: 03-Aug-2012 Augustus Trammell us: Discontinu edGeneric Substituti on Allowed zoloft 100 2012-02 No [id number] 0 zoloft mg 04-22 274745 100 mg; po 00:00: everyday 00 last dose at home 02/18/13 , at [facility] 02/19/13Q uantity: 0 Refills: 0Ordered: 3DMary stantonStart: 3Status: Discontinu edGeneric Substituti on Allowed Risperdal 2 2012-02 No [id number] 1 Risperdal mg oral 04-22 265778 2 mg oral tablet 00:00: tablet; 1 00 orally Q AM LAST DOSE AT [facility] , AT HOME LAST DOSE 02/18/13Qu antity: 0 Refills: 0Ordered: Mary GuadarramaStart: 3Status: Discontinu edGeneric Substituti on Allowed Risperdal 4 2012-02 No [id number] 1 Risperdal mg oral 04-22 326215 4 mg oral tablet 00:00: tablet; 1 00 orally LAST DOSE 02/18/13 AT [facility] , AT HOME 02/17/13Q uantity: 0 Refills: 0Ordered: Mary GuadarramaStart: 3Status: Discontinu edGeneric Substituti on Allowed ATARX 25 2012-02 No [id number] 0 ATARX 25 MG 04-22 845405 MG; PO 00:00: BID PRN 00 LAST DOSE 02/18/13 AT HOMEQuanti ty: 0 Refills: 0Ordered: Mary GuadarramaStart: 3Status: Discontinu edGeneric Substituti on Allowed ATARAX 25 2012-02 No [id number] 0 ATARAX 25 MG 04-22 759530 MG; PO 00:00: TID LAST 00 DOSE AT [facility] 02/19/13Qu antity: 0 Refills: 0Ordered: Mary GuadarramaStart: 3Status: Discontinu edGeneric Substituti on Allowed MULTI 2012-02 No [id number] 0 MULTI VITAMIN , 04-22 254606 VITAMIN , FOLIC ACID 00:00: FOLIC 1 MG , 00 ACID 1 THIAMINE MG , 100 MG THIAMINE 100 MG; PO everyday [facility] Refills: 0Ordered: Mary GuadarramaStart: 3Status: Discontinu edGeneric Substituti on Allowed DENIES 2012-02 No [id number] 0 DENIES OTC/HERBAL 04-22 [id number] OTC/HERBAL HOME MEDS 00:00: HOME 00 MEDSQuanti ty: 0 Refills: 0Ordered: 3DKate stantonconstantine SalStart: 3Status: Discontinu edGeneric Substituti on Allowed Pt. denies No [id number] 0 Pt. denies current 11-15 081370 current medications 00:00: medication 00 sQuantity: 0 Refills: 0Ordered: 3Moore, TeriStart: 3Status: Discontinu edGeneric Substituti on Allowed Procedures [...] 17:07:00 Substance Use Group 3B [code = KtvccgotgZcpRvbyj9Y] Diagnostic Test Pending 2020-03-04 16:33:00 Assess and involve in group therapy [code = Assessandinvolveingroupth erapy] Diagnostic Test Pending 2020-03-04 16:32:00 Special Observations [code = SpecialObservations] Diagnostic Test Pending 2020-03-04 16:32:00 Vital Signs [code = VitalSigns] Encounters Start End Encounter Admission Attending Care Care Encounter Source Date/Time Date/Time Type Type Clinicians Facility Department ID 2020-06-27 2020-06-[address] [facility] [id number] 09:14:00 [facility]54:[id number] [place] [id number] [place] [id number] 2020-03-04 2020-03-15 Inpatient Kuhn, 1 [facility]-73- 0000 [id number] [place] 13:27:00 11:29:00 Claudia Guerrero A 36 [facility] 2019-07-27 2019-07-27 Inpatient Kuhn, 1 [facility]-01- 0000 [id number] [place] 17:10:00 17:10:00 Claudia T A 20 [facility] 2019-07-22 2019-07-22 Inpatient Ra, 1 [facility]- [id number] [place] 11:01:00 11:01:00 Rania M A 93 [facility] Psychia tric [facility] 2019-07-21 2019-07-21 Inpatient Ra, 1 [facility] [id number] [place] 23:27:00 23:27:00 Rania M A 45 [facility] Psychia tric Ctr 2019-05-03 2019-05-10 Inpatient Orville, 1 [facility]-77- [id number] [place] 21:27:00 11:12:00 Ady Xavier 36 [facility] Psychia tric Ctr 2019-05-04 2019-05-04 Emergency E [facility] [id number] [facility] 23:29:00 23:29:00 2019-05-03 2019-05-03 Emergency E [facility] 7502 [facility] 13:06:00 13:06:00 2018-07-24 2018-08-01 Inpatient Hattie, 1 [facility]-76- 0000 [id number] [place] 21:29:00 10:51:00 Claudia Villegas 69 [facility] Psychia tric Ctr 2017-11-14 2017-11-14 Inpatient Abeba Fraser 1 [facility]-06- 0 [id number] [place] 17:44:00 17:44:00 A 43 [facility] Psychia tric Ctr 2017-11-14 2017-11-14 Emergency [facility] MED [id number] [place] 06:19:00 06:19:00 [facility] 2017-08-19 2017-08-19 Outpatient [facility] [id number] [place] 00:00:00 00:00:00 [facility] 2017-07-28 2017-07-28 Outpatient [facility] [id number] [place] 00:00:00 00:00:00 [facility] 2017-06-16 2017-06-16 Outpatient [facility] [id number] [place] 00:00:00 00:00:00 [facility] 2017-06-06 2017-06-06 Emergency E [facility] MED [id number] 19:31:00 19:31:00 [facility] 2017-06-05 2017-06-05 Emergency E MICHOLI, [facility] MED [id number] 17:19:00 17:19:00 AMIR [facility] 2017-05-16 2017-05-16 Outpatient [facility] [id number] [place] 00:00:00 00:00:00 [facility] 2017-05-03 2017-05-03 Outpatient [facility] [id number] [place] 00:00:00 00:00:00 Health 2017-04-28 2017-04-28 Outpatient [facility] [id number] [place] 15:13:12 15:13:12 [facility] 2016-12-30 2016-12-30 Outpatient [facility] [id number] Call 00:00:00 00:00:00 [facility] 2016-12-09 2016-12-09 Outpatient [facility] [id number] Call 00:00:00 00:00:00 [facility] 2016-12-09 2016-12-09 Outpatient [facility] [id number] Call 00:00:00 00:00:00 [facility] 2016-12-02 2016-12-02 Outpatient [facility] [id number] [place] 08:56:02 08:56:02 [facility] 2016-12-02 2016-12-02 Outpatient [facility] [id number] [place] 00:00:00 00:00:00 [facility] 2016-12-02 2016-12-02 Outpatient [facility] [id number] Call 00:00:00 00:00:00 [facility] 2016-11-19 2016-11-19 Outpatient [facility] [id number] [place] 10:25:44 10:25:44 [facility] 2016-10-22 2016-10-22 Outpatient [facility] [id number] [place] 11:25:55 11:25:55 [facility] 2016-10-05 2016-10-05 Outpatient [facility] [id number] [place] 09:11:02 09:11:02 [facility] 2016-09-08 2016-09-23 Inpatient Kuhn, 1 [facility]- 0000 [id number] [place] 22:39:00 10:35:00 Claudia Xavier 53 [facility] Psych[facility] 2015-03-11 2015-03-20 Inpatient Scoutiak, 1 [facility]-61- 0 [id number] [place] 16:12:00 13:16:00 Karlie Xavier 89 [facility] Psychia tric [facility] 2013-04-18 2013-04-24 Inpatient Smeal, 1 [facility]- 0000 [id number] [place] 18:25:00 14:35:00 Sherrie Villegas 60 [facility] 2013-02-19 2013-03-06 Inpatient Smeal, 1 [facility]-78- 0000 [id number] [place] 10:26:00 17:35:00 Sherrie Xavier 36 [facility] 2012-12-30 2013-01-15 Inpatient Keenmon, 1 [facility]-67- [id number] [place] 20:01:00 16:50:00 Alice Villegas 88 [facility] Psychia tric Ctr 2012-11-15 2012-11-29 Inpatient Sam, 1 [facility]-76- 0 [id number] Call 20:08:00 13:10:00 Tian Villegas 29 [facility] Psychia [facility] Ctr 2012-08-03 2012-08-10 Inpatient Adhia, 1 [facility]2D-31- 0000 [id number] Call 14:39:00 15:15:00 Ritchie Xavier 70 [facility] Psychia tric Ctr 1987-09-19 1987-09-23 Inpatient PAZZAGLIA, 1 [facility]-87- 0 [id number] Call 15:00:00 16:00:00 SHEELA Delgado Duc 77 [facility] Psychia tric Ctr Results Test Description [...] = ImmatureGrans(Abs)) 0.0 {x10E3/uL } Comprehensive Metabolic [id number] 14:47:00 Test Item Value Reference Range Interpretation Comments Glucose,Serum (test 99 mg/dL code = Glucose,Serum) BUN (test code = BUN) 12 mg/dL Creatinine,Serum 0.75 mg/dL (test code = Creatinine,Serum) eGFR If NonAfrican Am 98 mL/min/1.73 (465633) (test code = eGFRIfNonAfricanAm(12 0491)) eGFR If Am 114 mL/min/1.73 (055222) (test code = eGFRIfAfricanAm(46596 7)) BUN/Creat Ratio (test 16 code = [...] = ALT) 201 {IU/L} Client Requested Flag [id number] 14:47:00 Test Item Value Reference Range Interpretation Comments TSH (300122) (test code = 2.010 {uIU/mL} TSH(593921)) Lipid Panel with LDL/HDL [id number] 14:47:00 Test Item Value Reference Range Interpretation Comments zzzCholesterol, Total 146 mg/dL (test code = zzzCholesterol,Total) Triglycerides (test code 88 mg/dL = Triglycerides) zzzHDL Cholesterol (test 41 mg/dL code = zzzHDLCholesterol) VLDL Cholesterol 17 mg/dL Calculated (test code = VLDLCholesterolCalculate d) LDL Cholesterol ROSALIND 88 mg/dL ([facility]) (test code = LDLCholesterolCAL([facility])) LDL/HDL Ratio (280016) 2.1 {ratio} . (test code = LDL/HDLRatio(939867)) LDL/HDL Ratio Men Women 1/ 2 Avg.Risk 1.0 1.5 Avg.Risk 3.6 3.2 2X Avg.Risk 6.2 5.0 3X Avg.Risk 8.0 6.1 Comprehensive Metabolic [id number] 01:43:55 Test Item Value Reference Range Interpretation [...] A/G 1.6 ratio N Ratio) Comprehensive Metabolic [id number] 01:43:55 Test Item Value Reference Range Interpretation [...] ag e have not been validated by e MDRD study and should be interpreted wit h caution. eGFR R esult Interpretation: eGFR > or = 60 is in the Normal RangeeGF R < 60 may mean kid mihir diseaseeGFR < 1 5 may mean kidney failure Rang es recommended by the National Kidney Foundation, http://nkdep.ni h.gov Alcohol [id number] 01:43:55 Test Item Value Reference Range Interpretation Comments Ethanol Level (test 0.17 g/dL 0.00-0.01 H Intoxica marek 0.080 g/dL code = Ethanol or more Level) Ethanol Inst (test 168 N code = Ethanol Inst) Comprehensive Metabolic [id number] 01:43:55 Test Item Value Reference Range Interpretation [...] ag e have not been validated by [facility] MDRD study and should be interpreted wit [...] ag e have not been validated by [facility] MDRD study and should be interpreted wit h caution. eGFR R esult Interpretation: eGFR > or = 60 is in the Normal RangeeGF R < 60 may mean kid mihir diseaseeGFR < 1 5 may mean kidney failure Rang es recommended by the National Kidney Foundation, http://nkdep.ni h.gov Complete Blood Count with [id number] 01:03:37 Test Item Value Reference Range Interpretation [...] code = IPF) 0 % N Automated [id number] 01:03:37 Test Item Value Reference Range Interpretation Comments Neutro Auto (test code = Neutro 47.3 % 36.0-70.0 Auto) Lymph Auto (test code = Lymph Auto) 33.3 % 12.0-44.0 Evans Auto (test code = Evans Auto) 12.4 % 0.0-11.0 H Eos, Auto (test code = Eos, Auto) 5.6 % 0.0-7.0 Basophil Auto (test code = Basophil 1.2 % 0.0-2.0 Auto) Neutro Absolute (test code = Neutro 3.9 x10 1.6-7.4 Absolute) Lymph Absolute (test code = Lymph 2.73 x10 .50-4.60 Absolute) Evans Absolute (test code = Evans 1.02 x10 .00-1.20 Absolute) Eos Absolute (test code = Eos 0.46 x10 0.00-0.74 Absolute) Baso Absolute (test code = Baso 0.10 x10 0.00-0.21 Absolute) IG [id number] 01:03:37 Test Item Value Reference Range Interpretation Comments IG (test code = IG) 0.2 % 0.0-5.0 IG Abs (test code = IG Abs) 0 x10 N Urine Drug Screen [id number] 13:08:00 Test Item Value Reference Interpretation Comments Range Amphetamine Negative Amphetamine Methamphetmine test includes 885648 (test code = Amphetam ine and AmphetamineMethamphe Methamp hetamine [id number]) . Barbiturate (988129) Negative (test code = Barbiturate(487355)) Benzodiazepines Positive (669210) (test code = Benzodiazepines(7148 32)) Cocaine Metabolite Negative (090441) (test code = CocaineMetabolite(71 4857)) Phencyclidine Negative (035759) (test code = Phencyclidine(533849 )) Drug Screen Comment NOTE : .This analysis (test code = is performed by DrugScreenComment) immunoassay. Positivefindings are unconfirmed analytical test results; ifresults do not support expected clinical finding,confirmation by an alternate methodology is recommended.Patient metabolic variables, specific drug chemistry, andspecimen characteristics can affect test outcome.Technical consultation is available [email or web address], or call toll free [phone]. Cannabinoid (500198) Negative (test code = Cannabinoid(222806)) Opiates (483242) Negative Opiate test (test code = includes Opiates(066399)) Codeine and Morphine only. Comprehensive Metabolic [id number] 20:00:00 Test Item Value Reference Range Interpretation Comments Glucose,Serum (test code = 73 mg/dL Glucose,Serum) BUN (test code = BUN) 10 mg/dL Creatinine,Serum (test code = 0.85 mg/dL Creatinine,Serum) eGFR If NonAfrican Am 95 mL/min/1.73 (840470) (test code = eGFRIfNonAfricanAm(652825)) eGFR If Am (892113) 109 mL/min/1.73 (test code = eGFRIfAfricanAm(257999)) BUN/Creat Ratio (test code = 12 BUN/CreatRatio) [...] ALT) 83 {IU/L} Lipid Panel with LDL/HDL [id number] 20:00:00 Test Item Value Reference Range Interpretation Comments Cholesterol, Total (test 137 mg/dL code = Cholesterol,Total) Triglycerides (test code 53 mg/dL = Triglycerides) HDL Cholesterol (test 54 mg/dL code = HDLCholesterol) Cholesterol, VLDL 11 mg/dL (calculated) (test code = Cholesterol,VLDL(calcula marek)) Cholesterol, LDL 72 mg/dL (calculated) (test code = Cholesterol,LDL(calculat ed)) LDL/HDL Ratio (579444) 1.3 {ratio} . (test code = LDL/HDLRatio(000225)) LDL/HDL Ratio Men Women 1/ 2 Avg.Risk 1.0 1.5 Avg.Risk 3.6 3.2 2X Avg.Risk 6.2 5.0 3X Avg.Risk 8.0 6.1 Drug Screen, Urine # [id number] 14:29:00 Test Item Value Reference Interpretation Comments Range Amphetamine Negative Amphetamine Methamphetmine test includes 417086 (test code = Amphetam ine and AmphetamineMethamphe Methamp hetamine [id number]) . Barbiturate (934749) Negative (test code = Barbiturate(928845)) Benzodiazepines Negative (703798) (test code = Benzodiazepines(7148 32)) Cannabinoid (599023) Negative (test code = Cannabinoid(161506)) Cocaine Metabolite Negative (483272) (test code = CocaineMetabolite(71 4857)) Opiates (123445) Negative Opiate test (test code = includes Opiates(108029)) Codeine, Morphine, Hydromorphone, Hydrocodone. Phencyclidine Negative (512754) (test code = Phencyclidine(620711 )) Methadone Screen Negative (370036) (test code = MethadoneScreen(7680 71)) Propoxyphene, Urine Negative (652039) (test code = Propoxyphene,Urine(7 82185)) Drug Screen Comment NOTE : .This analysis (test code = is performed by DrugScreenComment) immunoassay. Positivefindings are unconfirmed analytical test results; ifresults do not support expected clinical finding,confirmation by an alternate methodology is recommended.Patient metabolic variables, specific drug chemistry, andspecimen characteristics can affect test outcome.Technical consultation is available [email or web address], or call toll free [phone]. [id number] 14:06:00 Test Item Value Reference Range Interpretation Comments TSH (438725) (test code = 1.770 {uIU/mL} TSH(206584)) CBC w/ Diff w/ [id number] 12:00:00 Test Item Value Reference Range Interpretation [...] (Abs) 0.0 {x10E3/uL} (test code = ImmatureGrans(Abs)) [id number] 22:27:00 Test Item Value Reference Range Interpretation Comments Potassium (test code = K) 4.0 mmol/L 3.5-5.1 N Alcohol/Ethanol, [id number] 19:26:00 Test Item Value Reference Range Interpretation Comments Alcohol, Ethyl 0.14 g/dL 0.00-0.01 H Intoxicated 0.080 g/dL (test code = ETOH) or more [id number] 19:06:00 Test Item Value Reference Range Interpretation [...] code = THC) Negative Negative N Urinalysis [id number] 19:06:00 Test Item Value Reference Range Interpretation Comments Color (test code = Yellow Yellow,Straw,Pl N COLOR) yellow Clarity (test code = Clear Clear N CLAR) Specific [place] (test 1.010 1.001-1.035 N code = SPGR) [...] code = None /HPF SANTANA) Comprehensive Metabolic [id number] 19:05:00 Test Item Value Reference Range Interpretation [...] National Kidney Foundation,http ://nkd ep.nih.gov CBC with [id number] 18:49:00 Test Item Value Reference Range Interpretation [...] code = ALYMPH) 0.9 K/cumm 0.5-4.6 N Evans Abs (test code = AMONO) 0.4 K/cumm 0.0-1.2 N Eos Abs (test code = AEOS) 0.10 K/cumm 0.00-0.74 N Baso Abs (test code = ABASO) 0.0 K/cumm 0.00-0.21 N [place] [id number] 16:08:00 Test Item Value Reference Range Interpretation Comments [place] Level (test 0.6 mmol/L Detectio n Limit = 0.1 code = LithiumLevel) <0.1 indicates None Detected [id number] 16:25:00 Test Item Value Reference Range Interpretation Comments TSH (488788) (test code = 2.710 {uIU/mL} TSH(320061)) Drug Screen, Urine # [id number] 11:58:00 Test Item Value Reference Interpretation Comments Range Amphetamine Negative Amphetamine Methamphetmine test includes 505857 (test code = Amphetam ine AmphetamineMethamph and kbmsgx310031) Methamphetamin e. Barbiturate Negative (285517) (test code = Barbiturate(188676) ) Benzodiazepines Positive (701013) (test code = Benzodiazepines(714 832)) Cannabinoid Negative (168554) (test code = Cannabinoid(400839) ) Cocaine Metabolite Negative (207075) (test code = CocaineMetabolite(7 88093)) Opiates (155353) Negative Opiate test (test code = includes Opiates(630391)) Codeine, Morphine, Hydromorphone, Hydrocodone. Phencyclidine Negative (575549) (test code = Phencyclidine(97264 1)) Methadone Screen Negative (474124) (test code = MethadoneScreen(792 464)) Propoxyphene, Urine Negative (701556) (test code = Propoxyphene,Urine( 155594)) Drug Screen Comment NOTE : This assay (test code = provides a preliminary DrugScreenComment) unconfirmed analyticaltest result that may be suitable for the clinicalmanagement of patients in certain situations. [facility], preliminary positivefindings should always be confirmed by an alternativemethod. Some wqcj-dxa-fxwdmah medications, as well asadulterants, may cause inaccurate results. Screen Onlytesting does not meet the [employer] Testing [employer] requirements as aforensic urine drug test for workplace testing. All clientsmust ensure that their testing program conforms toapplicable state and federal laws and employmentagreements. [id number] 11:46:00 Test Item Value Reference Range Interpretation Comments Specific [place] (test 1.005 code = SpecificGravity) pH (test [...] MicroscopicExam) indicated and not performed. Comprehensive Metabolic [id number] 11:34:00 Test Item Value Reference Range Interpretation Comments Glucose,Serum (test code = 101 mg/dL Glucose,Serum) BUN (test code = BUN) 7 mg/dL Creatinine,Serum (test code = 0.68 mg/dL Creatinine,Serum) eGFR If NonAfrican Am 105 mL/min/1.73 (538745) (test code = eGFRIfNonAfricanAm(006826)) eGFR If Am (401920) 122 mL/min/1.73 (test code = eGFRIfAfricanAm(354418)) BUN/Creat Ratio (test code = 10 BUN/CreatRatio) [...] ALT) 178 {IU/L} Lipid Panel with LDL/HDL [id number] 11:34:00 Test Item Value Reference Range Interpretation Comments Cholesterol, Total 204 mg/dL (test code = Cholesterol,Total) Triglycerides (test 186 mg/dL code = Triglycerides) HDL Cholesterol (test 63 mg/dL code = HDLCholesterol) Cholesterol, VLDL 37 mg/dL (calculated) (test code = Cholesterol,VLDL(calcul ated)) Cholesterol, LDL 104 mg/dL (calculated) (test code = Cholesterol,LDL(calcula marek)) LDL/HDL Ratio (350620) 1.7 {ratio . (test code = units} LDL/HDLRatio(166856)) LDL/HDL Ratio Men Women 1/2 Avg.Risk 1.0 1.5 Avg.Risk 3.6 3.2 2X Avg.Risk 6.2 5.0 3X Avg.Risk 8.0 6.1 CBC w/ Diff w/ [id number] 11:25:00 Test Item Value Reference Range Interpretation [...] code = ImmatureGrans(Abs)) Drug Screen, Urine # [id number] 14:17:00 Test Item Value Reference Interpretation Comments Range Amphetamine (test Negative code = Amphetamine) Barbiturates (test Negative code = Barbiturates) Benzodiazepines Positive (test code = Benzodiazepines) Cannabinoid (test Negative code = Cannabinoid) Cocaine Metabolite Negative (test code = CocaineMetabolite) Opiate Screen (test Negative Opiate t est code = OpiateScreen) include s Codeine, Morphine, Hydromorphon e, Hydrocodone. Phencyclidine Negative (749751) (test code = Phencyclidine(053041 )) Methadone Level Negative (test code = MethadoneLevel) Propoxyphene, Urine Negative (021058) (test code = Propoxyphene,Urine(7 12671)) Drug Screen Comment NOTE : This assay (test code = provides a preliminary DrugScreenComment) unconfirmed analyticaltest result that may be suitable for the clinicalmanagement of patients in certain situations. [facility], preliminary positivefindings should always be confirmed by an alternativemethod. Some nldk-cor-epbddpd medications, as well asadulterants, may cause inaccurate results. Screen Onlytesting does not meet the [employer]rine Drug Testing [employer] requirements as aforensic urine drug test for workplace testing. All clientsmust ensure that their testing program conforms toapplicable state and federal laws and employmentagreements. [id number] 12:50:00 Test Item Value Reference Range Interpretation Comments TSH (284897) (test code = 1.930 {uIU/mL} TSH(645382)) CBC w/ Diff w/ [id number] 12:25:00 Test Item Value Reference Range Interpretation [...] 0.0 {x10E3/uL} code = ImmatureGrans(Abs)) Comprehensive Metabolic [id number] 12:18:00 Test Item Value Reference Range Interpretation Comments Glucose,Serum (test code = 87 mg/dL Glucose,Serum) BUN (test code = BUN) 13 mg/dL Creatinine,Serum (test code = 0.89 mg/dL Creatinine,Serum) eGFR If NonAfrican Am 96 mL/min/1.73 (502528) (test code = eGFRIfNonAfricanAm(485345)) eGFR If Am (596173) 111 mL/min/1.73 (test code = eGFRIfAfricanAm(845958)) BUN/Creat Ratio (test code = 15 BUN/CreatRatio) [...] ALT) 25 {IU/L} Drug Screen, Urine # [id number] 14:27:00 Test Item Value Reference Interpretation Comments Range Amphetamine (test Negative code = Amphetamine) Barbiturates (test Negative code = Barbiturates) Benzodiazepines Negative (test code = Benzodiazepines) Cannabinoid (test Negative code = Cannabinoid) Cocaine Metabolite Negative (test code = CocaineMetabolite) Opiate Screen (test Negative Opiate t est code = OpiateScreen) include s Codeine, Morphine, Hydromorphon e, Hydrocodone. Phencyclidine Negative (611714) (test code = Phencyclidine(927243 )) Methadone Level Negative (test code = MethadoneLevel) Propoxyphene, Urine Negative (235389) (test code = Propoxyphene,Urine(7 36108)) Drug Screen Comment NOTE : This assay (test code = provides a preliminary DrugScreenComment) unconfirmed analyticaltest result that may be suitable for the clinicalmanagement of patients in certain situations. [facility], preliminary positivefindings should always be confirmed by an alternativemethod. Some ngnf-qlu-hvfcxhw medications, as well asadulterants, may cause inaccurate results. Screen Onlytesting does not meet the [facility]rine Drug Testing Program requirements as aforensic urine drug test for workplace testing. All clientsmust ensure that their testing program conforms toapplicable state and federal laws and employmentagreements. [id number] 11:57:00 Test Item Value Reference Range Interpretation Comments Specific [place] (test 1.013 code = SpecificGravity) pH (test [...] follows if indicated. Drug Screen, Urine # [id number] 13:01:00 Test Item Value Reference Interpretation Comments Range Amphetamine (test Negative code = Amphetamine) Barbiturates (test Negative code = Barbiturates) Benzodiazepines Positive (test code = Benzodiazepines) Cannabinoid (test Negative code = Cannabinoid) Cocaine Metabolite Negative (test code = CocaineMetabolite) Opiate Screen (test Negative Opiate t est code = OpiateScreen) include s Codeine, Morphine, Hydromorphon e, Hydrocodone. Phencyclidine Negative (155487) (test code = Phencyclidine(069222 )) Methadone Level Negative (test code = MethadoneLevel) Propoxyphene, Urine Negative (354084) (test code = Propoxyphene,Urine(7 97445)) Drug Screen Comment NOTE : This assay (test code = provides a preliminary DrugScreenComment) unconfirmed analyticaltest result that may be suitable for the clinicalmanagement of patients in certain situations. [facility], preliminary positivefindings should always be confirmed by an alternativemethod. Some nnxp-mbo-glotvfn medications, as well asadulterants, may cause inaccurate results. Screen Onlytesting does not meet the [employer] [facility] Urine Drug Testing Program requirements as aforensic urine drug test for workplace testing. All clientsmust ensure that their testing program conforms toapplicable state and federal laws and employmentagreements. [id number] 11:57:00 Test Item Value Reference Range Interpretation Comments Specific [place] (test 1.010 code = SpecificGravity) pH (test [...] Microscopic code = MicroscopicExam) follows if indicated. [id number] 14:12:00 Test Item Value Reference Range Interpretation Comments TSH (517286) (test code = 4.590 {uIU/mL} TSH(274979)) Comprehensive Metabolic [id number] 13:09:00 Test Item Value Reference Range Interpretation Comments Glucose,Serum (test code = 77 mg/dL Glucose,Serum) BUN (test code = BUN) 14 mg/dL Creatinine,Serum (test code = 0.87 mg/dL Creatinine,Serum) eGFR If NonAfrican Am 97 mL/min/1.73 (956033) (test code = eGFRIfNonAfricanAm(533285)) eGFR If Am (133306) 112 mL/min/1.73 (test code = eGFRIfAfricanAm(862177)) BUN/Creat Ratio (test code = 16 BUN/CreatRatio) [...] ALT) 33 {IU/L} CBC w/ Diff w/ [id number] 12:45:00 Test Item Value Reference Range Interpretation [...] (Abs) (test 0.0 {x10E3/uL} code = ImmatureGrans(Abs)) [place] [id number] 15:35:00 Test Item Value Reference Range Interpretation Comments [place] Level (test 0.5 mmol/L Detectio n Limit = 0.1 code = LithiumLevel) <0.1 indicates None Detected [id number] 13:40:00 Test Item Value Reference Range Interpretation Comments TSH (981742) (test code = 4.220 {uIU/mL} TSH(604025)) [id number] 13:40:00 Test Item Value Reference Range Interpretation Comments TSH (899314) (test code = 4.220 {uIU/mL} TSH(133058)) Basic Metabolic [id number] 12:47:00 Test Item Value Reference Range Interpretation [...] CO2 (test code = 21 mmol/L Effective Katja CO2) 2012, the reference inter nhung for Carbon Dioxid e, Total will be changing to: 0 - 7 days 18 - 28 8 - 30 days 31 d - 5 months 15 - 6 m - up to 1 year 1 - 1 2 years - > 12 years Calcium (test code = 9.5 mg/dL Calcium) eGFR If NonAfrican 94 mL/min/1.73 Am (220076) (test code = eGFRIfNonAfricanAm(1 38517)) eGFR If Am 109 mL/min/1.73 (644023) (test code = eGFRIfAfricanAm(1007 97)) Comprehensive Metabolic [id number] 12:15:00 Test Item Value Reference Range Interpretation Comments Glucose,Serum (test 80 mg/dL code = Glucose,Serum) BUN (test code = BUN) 13 mg/dL Creatinine,Serum 0.93 mg/dL (test code = Creatinine,Serum) eGFR If NonAfrican Am 93 mL/min/1.73 (475720) (test code = eGFRIfNonAfricanAm(10 91)) eGFR If Am 107 mL/min/1.73 (968037) (test code = eGFRIfAfricanAm(76109 7)) BUN/Creat Ratio (test 14 code = [...] ALT) 60 {IU/L} CBC w/ Diff w/ [id number] 12:10:00 Test Item Value Reference Range Interpretation [...] code = ImmatureGrans(Abs)) Drug Screen, Urine # [id number] 14:49:00 Test Item Value Reference Interpretation Comments Range Amphetamine (test Negative code = Amphetamine) Barbiturates (test Negative code = Barbiturates) Benzodiazepines Negative (test code = Benzodiazepines) Cannabinoid (test Negative code = Cannabinoid) Cocaine Metabolite Positive (test code = CocaineMetabolite) Opiate Screen (test Negative Opiate t est code = OpiateScreen) include s Codeine, Morphine, Hydromorphon e, Hydrocodone. Phencyclidine Negative (711501) (test code = Phencyclidine(658731 )) Methadone Level Negative (test code = MethadoneLevel) Propoxyphene, Urine Negative (488972) (test code = Propoxyphene,Urine(2 85349)) Drug Screen Comment NOTE : This assay (test code = provides a preliminary DrugScreenComment) unconfirmed analyticaltest result that may be suitable for the clinicalmanagement of patients in certain situations. [facility], preliminary positivefindings should always be confirmed by an alternativemethod. Some ifsz-npe-vgcandy medications, as well asadulterants, may cause inaccurate results. Screen Onlytesting does not meet the [employer] Urine Drug Testing Program requirements as aforensic urine drug test for workplace testing. All clientsmust ensure that their testing program conforms toapplicable state and federal laws and employmentagreements. [id number] 14:09:00 Test Item Value Reference Range Interpretation Comments Specific [place] (test 1.011 code = SpecificGravity) pH (test [...]
--- NOTE | 2020-08-25 19:09 | RAD REPORT ---
EXAM DESCRIPTION: RAD - Chest Single View - 08/25/2020 6:52 pm CLINICAL HISTORY: syncope COMPARISON: None TECHNIQUE: AP portable chest image was obtained 08/25/2020 6:52 pm . FINDINGS: Lungs are clear. Heart and vasculature are normal. No measurable pleural effusion and no p neumothorax. No acute bony abnormality seen. No acute aortic findings suspected. IMPRESSION: No acute cardiopulmonary process.
[2020-08-25] MEDS ORDERED: LORazepam 2 MG/ML VIAL ONE ×2 (19:24→21:15)
[2020-08-25] MEDS ORDERED: THIAMINE 200 MG/2 ML INJ ONE (19:32)
[2020-08-25 19:33] LABS: Absolute Lymphocytes (CBC) 0.6 K/uL (0.7-4.9); Basophils % 1.3 % (0-1.3); Hematocrit 37.1 % (39.6-49.0); Lymphocytes % 25.4 % (15.3-44.8); MPV 8.3 fL (7.6-11.3); RBC Red Blood Cell Count 4.16 M/uL (4.33-5.43)
[2020-08-25] MEDS ORDERED: FOLIC ACID 5 MG/ML VIAL ONE (19:33)
[2020-08-25] MEDS ORDERED: MULTIVITAMINS 10 ML VIAL (INJ) IV ONE (19:33)
[2020-08-25] MEDS ORDERED: NA CHLORIDE 0.9% 1,000 ML ONE (19:33)
[2020-08-25 19:36] LABS: Protime INR 0.91
[2020-08-25 19:49] LABS: AST/SGOT 266 U/L (15-37); Albumin 3.5 g/dL (3.4-5.0); Alkaline Phosphatase 124 U/L (45-117); BUN Blood Urea Nitrogen 11 mg/dL (7-18); Bicarbonate 28 mmol/L (21-32); Bilirubin Direct 0.2 mg/dL (0-0.2); Bilirubin Total 0.5 mg/dL (0.2-1.0); Glucose Level 137 mg/dL (74-106); Magnesium 1.6 mg/dL (1.8-2.4); NT PRO-BNP 19 pg/mL (<125); Potassium 3.4 mmol/L (3.5-5.1); Sodium Level 136 mmol/L (136-145); Troponin (Emerg Dept Use Only) < 0.02 ng/mL (0.0-0.045)
[2020-08-25 19:51] LABS: ALT/SGPT 329 U/L (12-78)
--- NOTE | 2020-08-25 19:54 | RAD REPORT ---
EXAM DESCRIPTION: CT - CTHCSPWOC - 08/25/2020 7:14 pm CLINICAL HISTORY: SYNCOPE COMPARISON: No comparisons TECHNIQUE: Axial 5 mm thick images of the head were obtained. Axial 2 mm thick images of the cervic al spine were obtained with sagittal and coronal reconstruction images generated and reviewed. All CT scans are performed using dose optimization technique as appropriate and may include automated exposure control or mA/KV adjustment according to patient size. FINDINGS: No intracranial hemorrhage, mass, edema or acute intracranial finding. No suspicion for ac kendell infarction. No extra-axial fluid collections. Mild atrophy and chronic ischemic changes are prese nt. Ventricles are normal. Arterial calcifications are present. Mastoid air cells are clear. Mild muc osal thickening in the paranasal sinuses. No air-fluid level. No globe or orbit abnormality seen. No acute cervical fracture. Height loss and C5 is believed to be part of degenerative change. Patient has advanced C4-5, C5-6 and C6-7 disc space narrowing and degenerative change. Mild bony foraminal e ncroachment present at these levels. Central canal is borderline stenotic at C5-6. No pathologic bone process. Central canal detail is inherently limited. No paraspinal mass or hematoma. IMPRESSION: Mild atrophy and chronic ischemic change with no acute finding. Prominent cervical spine degenerative change without acute finding.
[2020-08-25 20:54] LABS: Blood Morphology Comment NOT SEEN (NOT SEEN); Platelet Estimate DECR; White Blood Cell Scan OK (OK)
--- NOTE | 2020-08-25 22:40 | ER ---
Nurse's Notes [facility] Name: Jose Armando Gilliland Age: 64 yrs Sex: Male : 1955 Arrival Date: 08/25/2020 Time: 18:19 Bed 7 Private MD: Diagnosis: Syncope Near; Alcohol abuse; Unspecified superficial injury of other part of head Presentation: 08/25 18:22 Chief complaint: EMS states: At [facility] for alcohol withdrawal and rehab since Tuesday, nurse called EMS for multiple syncopal episodes r/t possible accidental Seroquel overdose, EMS on scene witnessed one syncopal episode from chair that lasted approx 4 minutes followed by vomit x 1 and confusion. Small abrasion to left side of head from fall from chair. BP 80/64, SPO2 90 on RA, BGL 111. Coronavirus screen: At this time, the client does not indicate any symptoms associated with coronavirus-19. Ebola Screen: No symptoms or risks identified at this time. Initial Sepsis Screen: Does the patient meet any 2 criteria? No. Patient's initial sepsis screen is negative. Does the patient have a suspected source of infection? No. Patient's initial sepsis screen is negative. Risk Assessment: Do you want to hurt yourself or someone else? Patient reports no desire to harm self or others. Onset of symptoms was August 25, 2020. 18:22 Method Of Arrival: EMS: [facility] 18:22 Acuity: YESSENIA 2 hb Historical: - Allergies: 18:26 No Known Allergies; hb - Home Meds: 18:26 Seroquel 400 mg Oral tab 1 tab 2 times per day [Active]; trazodone 50 mg Oral tab 1 tab hb 2 times per day [Active]; - PMHx: 18:26 Bipolar disorder; Hypertension; PTSD; Alcoholism; hb - Immunization history:: Adult Immunizations up to date. - Social history:: Smoking status: Patient/guardian denies using tobacco. Screenin:26 Abuse screen: Denies threats or abuse. Denies injuries from another. Nutritional sv screening: No deficits noted. Tuberculosis screening: No symptoms or risk factors identified. Fall Risk None identified. Assessment: 18:24 Reassessment: Pt covered in vomit, cleaned and changed into pt gown. QASIM granados notified. 18:25 General: Appears in no apparent distress. Behavior is cooperative. Pain: Denies pain. hb Neuro: Level of Consciousness is awake, obeys commands, confused, Oriented to person, place, situation. Cardiovascular: Patient's skin is warm and dry. Respiratory: Respiratory effort is even, unlabored, Respiratory pattern is regular, symmetrical. GI: No signs and/or symptoms were reported involving the gastrointestinal system. : No signs and/or symptoms were reported regarding the genitourinary system. EENT: No signs and/or symptoms were reported regarding the EENT system. Derm: Skin is pink, warm \\T\\ dry. Musculoskeletal: No signs and/or symptoms reported regarding the musculoskeletal system. 18:45 Reassessment: Pt has needle phobia, has refused all bloodwork. COMFORT FILLER Lasha aware. hb 19:30 Reassessment: Patient appears in no apparent distress at this time. Patient and/or ad5 family updated on plan of care and expected duration. Pain level reassessed. Patient is alert, oriented x 3, equal unlabored respirations, skin warm/dry/pink. 19:30 General: Appears in no apparent distress. Behavior is calm, cooperative, appropriate ad5 for age. Neuro: No deficits noted. Cardiovascular: No deficits noted. Cardiovascular: Capillary refill < 3 seconds Patient's skin is warm and dry. Respiratory: No deficits noted. Airway is patent Respiratory effort is even, unlabored, Respiratory pattern is regular, symmetrical. 20:35 Reassessment: Patient appears in no apparent distress at this time. No changes from ad5 previously documented assessment. Patient and/or family updated on plan of care and expected duration. Pain level reassessed. Pt request for additional "ativan", provider aware. Pt resting comfortably in stretcher, resp with ease. VS remain stable. Bed low and locked, bedrails x 2, call light within reach. Will continue to monitor. 21:30 Reassessment: Patient appears in no apparent distress at this time. Pt given sandwich, ad5 jello and po fluids per request. NAD noted, will continue to monitor. 22:41 Reassessment: Shane [id number]. ea 23:07 Reassessment: Patient appears in no apparent distress at this time. Patient and/or ad5 family updated on plan of care and expected duration. Pain level reassessed. Patient is alert, oriented x 3, equal unlabored respirations, skin warm/dry/pink. Patient states feeling better. Vital Signs: 18:22 BP 108 / 60; Pulse 68; Resp 16; Temp 97.8; Pulse Ox 100% on R/A; Pain 2/10; hb 19:30 BP 110 / 83; Pulse 65; Resp 16 S; Pulse Ox 96% on R/A; ad5 20:32 BP 121 / 90; Pulse 69; Resp 18; Pulse Ox 98% ; ea 21:30 BP 134 / 93; Pulse 102; Resp 18 S; Pulse Ox 99% on R/A; ad5 22:20 BP 130 / 81; Pulse 76; Resp 18 S; Pulse Ox 95% on R/A; ad5 ED Course: 18:19 Patient arrived in ED. ds1 18:20 Alayna Boucher, ANGELIQUE is Primary Nurse. hb 18:25 Triage completed. hb 18:26 Lasha Coronado NP is PHCP. pm1 18:26 Dalton Sharp MD is Attending Physician. pm1 18:26 Arm band placed on. sv 18:26 Patient has correct armband on for positive identification. Bed in low position. Call sv light in reach. Side rails up X2. Pulse ox on. NIBP on. Door closed. Head of bed elevated. 18:51 XRAY Chest (1 view) In Process Unspecified. EDMS 18:58 EKG done, by ED staff, reviewed by Lasha Coronado NP. sv 19:00 Inserted saline lock: 22 gauge in right antecubital area, using aseptic technique. hb Blood collected. 19:06 Report given to Carrie MERINO and Sean MERINO. sv 19:14 Head C Spine Mpr Wo Con In Process Unspecified. EDMS 23:07 No provider procedures requiring assistance completed. IV discontinued, intact, ad5 bleeding controlled, No redness/swelling at site. Pressure dressing applied. Administered Medications: 19:04 Drug: Ativan (LORazepam) 1 mg Route: IVP; Site: right antecubital; hb 19:24 Follow up: Response: No adverse reaction ad5 19:20 Drug: Banana Bag - (NS 0.9% 1000 ml, foLIC Acid 1 mg, Thiamine 100 mg, Multivitamin 1 ea amp) Route: IV; Rate: calculated rate; Site: right antecubital; 22:55 Follow up: IV Status: Completed infusion; IV Intake: 1000ml ad5 21:10 Drug: Ativan (LORazepam) 1 mg Route: IVP; Site: right antecubital; ad5 22:55 Follow up: Response: No adverse reaction ad5 Intake: 22:55 IV: 1000ml; Total: 1000ml. ad5 Outcome: 22:40 Discharge ordered by . pm1 23:07 Discharged to Rehab Facility ad5 23:07 Condition: stable 23:07 Discharge instructions given to patient, Instructed on discharge instructions, follow up and referral plans. Demonstrated understanding of instructions, follow-up care. 23:22 Patient left the ED. ea Signatures: Dispatcher [employer] EDMS Poppy Cordoba RN RN Jacqueline Templeton ds1 Lasha Coronado NP COMFORT FILLER pm1 Alayna Boucher RN RN hb Antunez, Elena, RN RN ea Davidson, Andrea ad5 Corrections: (The following items were deleted from the chart) 18:26 18:22 Chief complaint: EMS states: At [facility] for alcohol withdrawal and rehab hb since Tuesday, nurse called EMS for multiple syncopal episodes r/t possible accidental Seroquel overdose, EMS on scene witnessed one syncopal episode from chair that lasted approx 4 minutes followed by vomit x 1 and confusion. Small abrasion to left side of head from fall from chair. hb
--- NOTE | 2020-08-25 22:40 | EDPHYS ---
Physician Documentation [facility] Name: Jose Armando Gilliland Age: 64 yrs Sex: Male : 1955 Arrival Date: 08/25/2020 Time: 18:19 Bed 7 Private MD: ED Physician Dalton Sharp Historical: - Allergies: 08/25 18:26 No Known Allergies; hb - Home Meds: 18:26 Seroquel 400 mg Oral tab 1 tab 2 times per day [Active]; trazodone 50 mg Oral tab 1 tab hb 2 times per day [Active]; - PMHx: 18:26 Bipolar disorder; Hypertension; PTSD; Alcoholism; hb - Immunization history:: Adult Immunizations up to date. - Social history:: Smoking status: Patient/guardian denies using tobacco. Vital Signs: 18:22 BP 108 / 60; Pulse 68; Resp 16; Temp 97.8; Pulse Ox 100% on R/A; Pain 2/10; hb 19:30 BP 110 / 83; Pulse 65; Resp 16 S; Pulse Ox 96% on R/A; ad5 20:32 BP 121 / 90; Pulse 69; Resp 18; Pulse Ox 98% ; ea 21:30 BP 134 / 93; Pulse 102; Resp 18 S; Pulse Ox 99% on R/A; ad5 22:20 BP 130 / 81; Pulse 76; Resp 18 S; Pulse Ox 95% on R/A; ad5 MDM: 18:36 Patient medically screened. pm1 22:39 Data reviewed: vital signs. Data interpreted: Pulse oximetry: on room air is 95 %. pm1 Interpretation: normal. Counseling: I had a detailed discussion with the patient and/or guardian regarding: the historical points, exam findings, and any diagnostic results supporting the discharge/admit diagnosis, lab results, radiology results, the need for outpatient follow up, to return to the emergency department if symptoms worsen or persist or if there are any questions or concerns that arise at home. 08/25 18:40 Order name: Basic Metabolic Panel; Complete Time: 20:02 pm1 08/25 18:40 Order name: CBC with Diff; Complete Time: 21:23 pm1 08/25 18:40 Order name: LFT's; Complete Time: 20:02 pm1 08/25 18:40 Order name: Magnesium; Complete Time: 20:02 pm1 08/25 18:40 Order name: NT PRO-BNP; Complete Time: 20:02 pm1 08/25 18:40 Order name: PT-INR; Complete Time: 20:02 pm1 08/25 18:40 Order name: Troponin (emerg Dept Use Only); Complete Time: 20:02 pm1 08/25 18:40 Order name: XRAY Chest (1 view); Complete Time: 19:12 pm1 08/25 18:47 Order name: ETOH Level; Complete Time: 20:02 pm1 08/25 19:11 Order name: Head C Spine Mpr Wo Con; Complete Time: 20:02 EDMS 08/25 20:25 Order name: CBC Smear Scan; Complete Time: 21:23 EDMS 08/25 18:40 Order name: EKG; Complete Time: 18:41 pm1 08/25 18:40 Order name: Cardiac monitoring; Complete Time: 18:47 pm1 08/25 18:40 Order name: EKG - Nurse/Tech; Complete Time: 19:00 pm1 08/25 18:40 Order name: IV Saline Lock; Complete Time: 18:47 pm08/25 18:40 Order name: Labs collected and sent; Complete Time: 19:00 pm1 08/25 18:40 Order name: O2 Per Protocol; Complete Time: 18:47 pm1 08/25 18:40 Order name: O2 Sat Monitoring; Complete Time: 18:47 pm1 Administered Medications: 19:04 Drug: Ativan (LORazepam) 1 mg Route: IVP; Site: right antecubital; hb 19:24 Follow up: Response: No adverse reaction ad5 19:20 Drug: Banana Bag - (NS 0.9% 1000 ml, foLIC Acid 1 mg, Thiamine 100 mg, Multivitamin 1 ea amp) Route: IV; Rate: calculated rate; Site: right antecubital; 22:55 Follow up: IV Status: Completed infusion; IV Intake: 1000ml ad5 21:10 Drug: Ativan (LORazepam) 1 mg Route: IVP; Site: right antecubital; ad5 22:55 Follow up: Response: No adverse reaction ad5 Disposition: 08/25/20 22:40 Discharged to Home. Impression: Syncope Near, Alcohol abuse, Unspecified superficial injury of other part of head. - Condition is Stable. - Discharge Instructions: Finding Treatment for Addiction, Syncope, Alcohol Abuse and Nutrition. - Medication Reconciliation Form, Thank You Letter, Antibiotic Education, Prescription Opioid Use form. - Follow up: Emergency Department; When: As needed; Reason: Worsening of condition. Follow up: Private Physician; When: 2 - 3 days; Reason: Recheck today's complaints, Continuance of care, Re-evaluation by your physician. - Problem is new. - Symptoms have improved. Addendum: 08/26/2020 09:54 Co-signature as Attending Physician, Dalton perez n 15:00 Addendum: HPI: This 64 yrs old Male presents to the ED via EMS with complaints of p m1 syncope. The patient presents with sleepiness and syncope. Onset: the symptoms started prior to arrival. Context: Patient is in rehabilitation for ETOH. He took his first dose of Seroquel. He has not taken it for 1 month and reports the Seroquel has to be titrated up slowly for him so that he does not get sleepy and pass out. This has happened to him before when he restarted taking Seroquel. Modifying factors: The symptoms are aggravated by restarting Seroquel. Associated signs and symptoms: positive for abrasion to left side of forehead. Patient fell to the floor. negative for abdominal pain, chest pain, shortness of breath. Severity of symptoms: the symptoms are resolved. Pain is 3/10 to left side of forehead. Patient took his first dose of Librium with Seroquel and vomited it. Patient is requesting a dose of Librium in th ER. 15:25 Addendum: ROS: Constitutional: negative for fever, chills, and weight loss. Neck: p m1 Negative for pain and decreased range of motion. Cardiovascular: negative for chest pain, palpitations, and edema. Respiratory: Negative for shortness of breath, cough. Back: Negative for injury and pain, Skin: positive for contusion left side of forehead. Negative for rash. Neuro: positive for headache and syncope, negative for weakness, numbness, and tingling. Abdomen/GI: Negative for abdominal pain and diarrhea. All other systems are negative. 15:27 Addendum: Exam: Constitutional: This is a well developed, well nourished patient who is p m1 awake, alert, and in no acute distress. Head/Face: Normocephalic. Mild contusion present to left side of forehead. Eyes: EOMI, conjunctiva normal, negative for injection. No discharge. ENT: Mouth, lips: Normal, mucous membranes pink moist intact. Neck: supple, no tenderness, FROM without pain. Chest/Axilla: Normal chest wall appearance and motion. Nontender. No crepitus. Cardiovascular: RRR, no pulse deficits. Respiratory: CTA bilaterally. No respiratory distress. No SOB. Abdomen: Appearance normal. Palpation: soft and non-tender in all quadrants. Back: No spinal tenderness. FROM. Skin: Warm, dry with normal turgor. Normal color with no rashes, no lesions, and no evidence of cellulitis. Neuro: Orientation is normal. Mentation is normal. Motor: moves all fours, strength 5/5 to all extremities. Sensation: No obvious gross deficits. Signatures: Dispatcher [employer] EDMS Dalton Sharp MD MD rn Marinas, Patrick, [employer] pm1 Alayna Boucher RN RN hb Antunez, Elena, RN RN ea Davidson, Andrea ad5 Corrections: (The following items were deleted from the chart) 08/25 19:11 18:41 Head Brain Wo [id number] ordered. [facility] EDTX 23:22 22:40 08/25/2020 22:40 Discharged to Home. Impression: Syncope and collapse; Alcohol ea abuse; Unspecified superficial injury of other part of head. Condition is Stable. Forms are Medication Reconciliation Form, Thank You Letter, Antibiotic Education, Prescription Opioid Use. Follow up: Emergency Department; When: As needed; Reason: Worsening of condition. Follow up: Private Physician; When: 2 - 3 days; Reason: Recheck today's complaints, Continuance of care, Re-evaluation by your physician. Problem is new. Symptoms have improved. pm1
[2020-08-25 23:28] VITALS: TEMP 97.8
[2020-08-25 23:34] VITALS: BP 130/81; O2SAT 95
--- NOTE | 2020-08-26 12:57 | EKG ---
Test Date: 2020-08-25 Test Time: 18:58:01 Naval Architect: PHOEBE MEASUREMENT RESULTS: Intervals: Rate: 62 IN: 226 QRSD: 110 QT: 410 QTc: 416 [place]: P: 51 IN: 226 QRS: 39 T: 52 INTERPRETIVE STATEMENTS: Sinus rhythm with 1st degree AV block Otherwise normal ECG Compared to ECG 08/20/2020 15:30:43 First degree AV block now present Electronically Signed On 08-26-20 12:53:56 CDT by Nishant Kenney
== END 2020-08-25 23:22 | disposition home or self-care (01) ==
LOC: ER 18:11
DX: S00.80XA Unspecified superficial injury of other part of head, initial encounter (principal); F10.20 Alcohol dependence, uncomplicated; I10 Essential (primary) hypertension
CPT/HCPCS: 36415; 70450; 71045; 72125; 80048; 80076; 80320; 83735; 83880; 84484; 85025; 85610; 93005; 96365; 96366; 96375; 99284; J3411; J7030

== ENCOUNTER 2021-02-05 12:18 | Emergency (ER) | payer SELFPAY ==
--- OUTSIDE RECORDS SUMMARY | 2021-02-05 12:24 | XMS REPORT | Continuity of Care Document ---
:[address] [facility] t Address [address] [place] [address] Care Team Providers Name Role Phone UNKNOWN, REFFERING Primary Care Physician Unavailable Guicho Michel MD Attending Clinician GUICHO MICHEL Attending Clinician Unavailable Claudia Kuhn Attending Clinician Unavailable Zay Knapp Attending Clinician Unavailable Orville Attending Clinician Unavailable Scott LEE Attending Clinician Unavailable HAYLIE OROPEZA Attending Clinician Unavailable Evelio Attending Clinician Unavailable ERIC Attending Clinician Unavailable Johana Attending Clinician Unavailable Mona Domingo Attending Clinician Unavailable Clair Attending Clinician Unavailable Sandy Vargas Attending Clinician Unavailable Justa Attending Clinician Unavailable Sandy ONEIL Attending Clinician Unavailable ERIC Admitting Clinician Unavailable Advance Directives Directive Decision Effective Date Termination Date Comments Sour ce Yes N/A [facility] Problems Condition Condition Condition Status Onset Resolution Last Treating Co mments Source Name Details Category Date Date Treatment Clinician Date Illness, Illness, 08596-4 Active 2020-03-04 unspecifie unspecifie 03-04 13:04:04 d d 00:00: (R69)Onset 00 : 04-Mar-2020 Encounter Encounter 83787-7 Active 2019-05-03 for for 05-02 20:46:01 observatio observatio 00:00: n for n for 00 other other suspected suspected diseases diseases and and conditions conditions ruled out ruled out (Z03.89)On set: 03-May-2019 Encounter Encounter 24155-5 Active 2018-07-24 for for 07-24 21:41:52 observatio observatio 00:00: n for n for 00 other other suspected suspected diseases diseases and and conditions conditions ruled out ruled out (Z03.89)On set: 9 Diagnosis Diagnosis 78549-6 Active 2016-09-09 deferred deferred 09-09 01:03:27 on axis II on axis 00:00: IIOnset: 00 7 Deferred Deferred 71142-6 Active 2015-03-11 diagnosis diagnosis 03-11 22:53:15 on axis II on axis 00:00: IIOnset: 00 6 Personalit Personalit 26346-3 Active 2013-04-20 y D/O NOS- y D/O NOS- 04-19 10:31:18 Cluster B Cluster 00:00: BOnset: 00 4 Personalit Personalit 83928-1 Active 2012-022013-02-19 y Disorder y Disorder 04-22 22:10:33 NOS NOSOnset: 00:00: 00 3 Diagnosis Diagnosis 29518-3 Active 2012-11-16 Deferred Deferred 11-16 00:20:04 [place] 00:00: IIOnset: 00 3 Diagnosis Diagnosis 75228-8 Active 2012-08-03 Deferred Deferred 08-03 16:20:04 [place] 00:00: IIOnset: 00 03-Aug-2012 Diagnosis Diagnosis 54144-9 Active 2012-12-31 Deferred Deferred 21:59:45 [place] II History of Past Illness Condition Condition Condition Status Onset Resolution Last Treating Co mments Source Name Details Category Date Date Treatment Clinician Date Diagnosis Diagnosis 13353-5 Inactiv 2013-04-19 2013-04-19 Deferred Deferred e 07:39:37 07:39:37 [place] IIStatus: Inactive as of 4 7:39 Allergies, Adverse Reactions, Alerts Allergy Allergy Status Severity Reaction(s) Onset Inactive Treating Comm ents Source Name Type Date Date Clinician NO KNOWN Drug Active Univers ALLERGJOSE L [facility] Social History Smoking Status Start Date Stop Date Source Tobacco smoking consumption [facility] unknown Medications Ordered Filled Start Stop Current Ordering Indication Dosage Frequency Signature Comments Components Source Medication Medication Date Date Medication? Clinician (SIG) Name Name TraZODone* 2020- Yes [id number] 50mg TraZODone* 03-12 404975 ; 50 mg 08:34: PO/By 00 mouth for sleep Take 1 tablet by mouth at bedtime for insomnia (CRU)Start : 1Ordered: 1GJoaquin bowden Prazosin* Yes [id number] 2mg Prazosin*; 03-12 950409 2 mg PO/By 08:33: mouth for 00 nightmares Take 1 tablet by mouth at bedtime for nightmares (CRU)Start : 1Ordered: 1GJoaquin bowden QUEtiapine* 2020- Yes [id number] 200mg QUEtiapine 03-12 256948 *; 200 mg 08:33: PO/By 00 mouth for psychosis Take 1 tablet by mouth twice daily and 2 tablets at bedtime for psychosis (CRU)Start : 1Ordered: 1GJoaquin bowden Milk of 2020-0 Yes [id number] 30ml Milk of NTE 120 Magnesia 03-05 399512 Magnesia; mL in 24 11:56: 30 ml PO hours 00 PRN q4hr for Constipati on NTE 120 mL in 24 hours RoutineSta rt: 05-Mar-2020 Ordered: 05-Mar-2020 Joaquin Jenkinsom ments: NTE 120 mL in 24 hours QUEtiapine Yes [id number] 50mg QUEtiapine NTE 2 00 03-05 507614 ; 50 mg PO mg PRN 11:56: PRN q6hr Quetiapin 00 for midl e in 24 agitation hr period NTE 200 mg PRN Quetiapine in 24 hr period RoutineSta rt: 05-Mar-2020 Ordered: 05-Mar-2020 Joaquin JenkinsKentondequan ments: NTE 200 mg PRN Quetiapine in 24 hr period SEROquel No [id number] 0 SEROquel 400 mg oral 1-05 068970 400 mg tablet 11:35: oral 31 tablet; qhsQuantit y: 0 Refills: 0Ordered: Evelyn ParisiGeneric Substituti on Allowed prazosin 2 No [id number] 0 prazosin 2 Home mg oral - 993043 mg oral Medicatio capsule 11:35: capsule; n stored 31 orally in once a day Pharmacy (at bedtime)Qu antity: 0 Refills: 0Ordered: 03-May-2019 Linda Shields KGeneric Substituti on AllowedCom ments: Home Medication [facility] [id number] 0 SEROquel 300 mg oral - 181713 300 mg tablet 11:35: oral 31 tablet; qamQuantit y: 0 Refills: 0Ordered: Evelny ParisiGeneric Substituti on Allowed QUEtiapine No [id number] 0 QUEtiapine 100 mg oral 09-08 842725 100 mg tablet 23:20: oral 27 tablet; orallyQuan tity: 0 Refills: 0Ordered: [address] [place] [address] [facility] us: OtherGener ic Substituti on Allowed Zoloft 50 No [id number] 1{tab(s Zoloft 50 mg oral 09-08 568144 )} mg oral tablet 23:20: tablet; 1 27 tab(s) orally once a dayQuantit y: 0 Refills: 0Ordered: [address] [place] [address] Jayna [facility] us: OtherGener ic Substituti on Allowed Benadryl 25 No [id number] 0 Benadryl mg oral 09-08 133300 25 mg oral capsule 23:20: capsule; 27 orally onceQuanti ty: 0 Refills: 0Ordered: 6HJayna roemro us: OtherGener ic Substituti on Allowed traZODone No [id number] 0 traZODone 50 mg oral 09-08 891856 50 mg oral tablet 23:20: tablet; 27 orally onceQuanti ty: 0 Refills: 0Ordered: 6HJayna romero us: OtherGener ic Substituti on Allowed lisinopril No [id number] 1{tab(s lisinopril 10 mg oral 09-08 031732 )} 10 mg oral tablet 23:20: tablet; 1 20 tab(s) orally once a dayQuantit y: 0 Refills: 0Ordered: 7Moore, TeriStart: 7Generic Substituti on Allowed Seroquel No [id number] 0 Seroquel 200mg 04-18 148067 200mg; po 00:00: qam and 00 qhs pt. received last dose at [facility] on 04/18/13 at 09:25Quant ity: 0 Refills: 0Ordered: 4Moore, TeriStart: 4Status: OtherGener ic Substituti on Allowed Zoloft No [id number] 0 Zoloft 100ng 04-18 860576 100ng; po 00:00: qam pt. 00 received last dose at [facility] on 04/18/13 at 0905Quanti ty: 0 Refills: 0Ordered: 4Moore, TeriStart: 4Status: OtherGener ic Substituti on Allowed Pt reports 2012-02 No [id number] 0 Pt reports "I have 04-22 "I have been off my 11:30: been off meds for 3 29 my meds years." for 3 years."Hayes ntity: 0 Refills: 0Ordered: 03-Aug-2012 Augustus Trammell us: Discontinu edGeneric Substituti on Allowed zoloft 100 2012-02 No [id number] 0 zoloft mg 04-22 579394 100 mg; po 00:00: everyday 00 last dose at home 02/18/13 , at [facility] 02/19/13Q uantity: 0 Refills: 0Ordered: Mary GuadarramaStart: 3Status: Discontinu edGeneric Substituti on Allowed Risperdal 2 2012-02 No [id number] 1 Risperdal mg oral 2- 485671 2 mg oral tablet 00:00: tablet; 1 00 orally Q AM LAST DOSE AT [facility] , AT HOME LAST DOSE 02/18/13Qu antity: 0 Refills: 0Ordered: Mary GuadarramaStart: 3Status: Discontinu edGeneric Substituti on Allowed Risperdal 4 2012-02 No [id number] 1 Risperdal mg oral 2- 763705 4 mg oral tablet 00:00: tablet; 1 00 orally LAST DOSE 02/18/13 AT [facility] , AT HOME 02/17/13Q uantity: 0 Refills: 0Ordered: Mary GuadarramaStart: 3Status: Discontinu edGeneric Substituti on Allowed ATARX 25 2012-02 No [id number] 0 ATARX 25 MG 2-23 916254 MG; PO 00:00: BID PRN 00 LAST DOSE 02/18/13 AT HOMEQuanti ty: 0 Refills: 0Ordered: Mary GuadarramaStart: 3Status: Discontinu edGeneric Substituti on Allowed ATARAX 25 2012-02 No [id number] 0 ATARAX 25 MG 2-23 413946 MG; PO 00:00: TID LAST 00 DOSE AT [facility] 02/19/13Qu antity: 0 Refills: 0Ordered: Mary GuadarramaStart: 3Status: Discontinu edGeneric Substituti on Allowed MULTI 2012-02 No [id number] 0 MULTI VITAMIN , 2-23 620115 VITAMIN , FOLIC ACID 00:00: FOLIC 1 MG , 00 ACID 1 THIAMINE MG , 100 MG THIAMINE 100 MG; PO everyday LAST DOSE 02/19/13 AT NPCQuantit y: 0 Refills: 0Ordered: 3DMary stantonStart: 3Status: Discontinu edGeneric Substituti on Allowed DENIES 2012-02 No [id number] 0 DENIES OTC/HERBAL 04-22 234100 OTC/HERBAL HOME MEDS 00:00: HOME 00 MEDSQuanti ty: 0 Refills: 0Ordered: 3DMary stantonStart: 3Status: Discontinu edGeneric Substituti on Allowed Pt. denies No [id number] 0 Pt. denies current 11-15 227375 current medications 00:00: medication 00 sQuantity: 0 Refills: 0Ordered: 3Moore, TeriStart: 3Status: Discontinu edGeneric Substituti on Allowed Procedures Procedure Date / Time Performed Performing Clinician Sour e EKG and Rhythm Strip 2016-09-09 08:00:00 Michelle Mallory Bedswap/Room Change 2013-02-28 02:16:00 Jacob Dos Santos Bedswap/Room Change 2013-01-06 11:36:00 Jayna Durand Bedswap/Room Change 2012-08-10 08:31:00 ValerianoSaniya cardoza Kaitlin Bedswap/Room Change 2012-08-03 15:47:00 Katina Kapoor Plan [...] 17:07:00 Substance Use Group 3B [code = AmmdxjibiNpsHpllx8H] Diagnostic Test Pending 2020-03-04 16:33:00 Assess and involve in group therapy [code = Assessandinvolveingroupth erapy] Diagnostic Test Pending 2020-03-04 16:32:00 Special Observations [code = SpecialObservations] Diagnostic Test Pending 2020-03-04 16:32:00 Vital Signs [code = VitalSigns] Encounters Start End Encounter Admission Attending Care Care Encounter Source Date/Time Date/Time Type Type Clinicians Facility Department ID 2020-06-27 2020-06-27 [id number] 09:14:00 11:54:00 Guicho Hays [id number] [place] [id number] [place] [id number] 2020-06-27 2020-06-27 [facility] [id number] Univers 09:14:00 09:14:00 GUICHO chambelrain [facility] 2020-03-04 2020-03-15 [facility] [id number] [place] 13:27:00 11:29:00 Claudia Xavier [facility] 2019-07-27 2019-07-27 Inpatient Kuhn, 1 [facility]-1A-01- 0000 [id number] [place] 17:10:00 17:10:00 Claudia Xavier [facility] 2019-07-22 2019-07-22 Inpatient Ra, 1 [facility] [id number] [place] 11:01:00 11:01:00 Vin[facility] 2019-07-21 2019-07-21 Inpatient Ra, 1 [facility] [id number] [place] 23:27:00 23:27:00 Vinia Zay [facility] 2019-05-03 2019-05-10 Inpatient Orville, 1 [facility]-1B-77- [id number] [place] 21:27:00 11:12:00 Ady [facility] 2019-05-04 2019-05-04 Emergency E JESUS, [facility] [id number] [facility] 23:29:00 23:29:00 ZA 2019-05-03 2019-05-03 Emergency E SANDIP, [facility]NW [facility] 7502 [facility] 13:06:00 15:43:00 CASSELBERRY 2018-07-24 2018-08-01 Inpatient Kuhn, 1 [facility]-3B-76- 0000 [id number] [place] 21:29:00 10:51:00 Claudia Villegas 69 [place] [facility] 2017-11-14 2017-11-14 Inpatient Abeba Fraser 1 [facility]-1A-06- 0 [id number] [place] 17:44:00 17:44:00 [facility] 2017-11-14 2017-11-14 Emergency [facility] [id number] [place] 06:19:00 06:19:00 [facility] 2017-08-19 2017-08-19 Outpatient [facility] [id number] [place] 00:00:00 00:00:00 [facility] 2017-07-28 2017-07-28 Outpatient [facility] [id number] [place] 00:00:00 00:00:00 [facility] 2017-06-16 2017-06-16 Outpatient [facility] [id number] [place] 00:00:00 00:00:00 [facility] 2017-06-06 2017-06-06 Emergency E [facility] [id number] 19:31:00 19:31:00 [facility] 2017-06-05 2017-06-05 Emergency E ERIC, [facility] [id number] 17:19:00 17:19:[address] [facility] 2017-05-16 2017-05-16 Outpatient [facility] [id number] Call 00:00:00 00:00:00 Health 2017-05-03 2017-05-03 Outpatient [facility] [id number] Call 00:00:00 00:00:00 Health 2017-04-28 2017-04-28 Outpatient [facility] [id number] [place] 15:13:12 15:13:12 [facility] 2016-12-30 2016-12-30 Outpatient [facility] [id number] Call 00:00:00 00:00:00 [facility] 2016-12-09 2016-12-09 Outpatient [facility] [id number] [place] 00:00:00 00:00:00 [facility] 2016-12-09 2016-12-09 Outpatient [facility] [id number] Call 00:00:00 00:00:00 [facility] 2016-12-02 2016-12-02 Outpatient [facility] [id number] [place] 08:56:02 08:56:02 [facility] 2016-12-02 2016-12-02 Outpatient [facility] [id number] [place] 00:00:00 00:00:00 [facility] 2016-12-02 2016-12-02 Outpatient [facility] [id number] Call 00:00:00 00:00:00 [facility] 2016-11-19 2016-11-19 Outpatient [facility] [id number] [place] 10:25:44 10:25:44 Health 2016-10-22 2016-10-22 Outpatient [facility] [id number] Call 11:25:55 11:25:55 Health 2016-10-05 2016-10-05 Outpatient [facility] [id number] Call 09:11:02 09:11:02 [facility] 2016-09-08 2016-09-23 Inpatient Hattie, 1 [facility]-3B-72- 0000 [id number] Call 22:39:00 10:35:00 Claudia Xavier [facility] 2015-03-11 2015-03-20 Inpatient Johana, 1 [facility]-3E-61- 0 [id number] Call 16:12:00 13:16:00 Karlie Hernandez [facility]tr 2013-04-18 2013-04-24 Inpatient Smeal, 1 [facility]72- 0000 [id number] [place] 18:25:00 14:35:00 Sherrie Dunn B 60 [place] Psychia tric [facility] 2013-02-19 2013-03-06 Inpatient Smeal, 1 [facility]-2B-78- 0000 [id number] [place] 10:26:00 17:35:00 Sherrie Dunn A 36 Count Psychia tric [facility] 2012-12-30 2013-01-15 Inpatient Keenmon, 1 [facility]-2E-67- 104 [id number] [place] 20:01:00 16:50:00 Alice B 88 [facility] Psychia tric [facility] 2012-11-15 2012-11-29 Inpatient Sam, 1 [facility]76- 0 [id number] [place] 20:08:00 13:10:00 Tian Villegas 29 [address] Psychia tric [facility] 2012-08-03 2012-08-10 Inpatient Adhia, 1 [facility]-2D-31- 0000 [id number] [place] 14:39:00 15:15:00 Ritchie A 70 [facility] Psychia tric [facility] 1987-09-19 1987-09-23 Inpatient PAZZAGLIA, 1 [facility]-1B-87- 0 [id number] [place] 15:00:00 16:00:00 SHEELA Xavier 77 [facility] Psychia tric [facility] Results Test Description Test Time Test Comments [...] = ImmatureGrans(Abs)) 0.0 {x10E3/uL } Comprehensive Metabolic [id number] 14:47:00 Test Item Value Reference Range Interpretation Comments Glucose,Serum (test 99 mg/dL code = Glucose,Serum) BUN (test code = BUN) 12 mg/dL Creatinine,Serum 0.75 mg/dL (test code = Creatinine,Serum) eGFR If NonAfrican Am 98 mL/min/1.73 (748689) (test code = eGFRIfNonAfricanAm(10 0791)) eGFR If Am 114 mL/min/1.73 (190324) (test code = eGFRIfAfricanAm(81933 7)) BUN/Creat Ratio (test 16 code = [...] = ALT) 201 {IU/L} Client Requested Flag [id number] 14:47:00 Test Item Value Reference Range Interpretation Comments TSH (858827) (test code = 2.010 {uIU/mL} TSH(453850)) Lipid Panel with LDL/HDL [id number] 14:47:00 Test Item Value Reference Range Interpretation Comments zzzCholesterol, Total 146 mg/dL (test code = zzzCholesterol,Total) Triglycerides (test code 88 mg/dL = Triglycerides) zzzHDL Cholesterol (test 41 mg/dL code = zzzHDLCholesterol) VLDL Cholesterol 17 mg/dL Calculated (test code = VLDLCholesterolCalculate d) LDL Cholesterol ROSALIND 88 mg/dL ([facility]) (test code = LDLCholesterolCAL([facility])) LDL/HDL Ratio (913098) 2.1 {ratio} . (test code = LDL/HDLRatio(805952)) LDL/HDL Ratio Men Women 1/ 2 Avg.Risk 1.0 1.5 Avg.Risk 3.6 3.2 2X Avg.Risk 6.2 5.0 3X Avg.Risk 8.0 6.1 Comprehensive Metabolic [id number] 01:43:55 Test Item Value Reference Range Interpretation [...] A/G 1.6 ratio N Ratio) Comprehensive Metabolic [id number] 01:43:55 Test Item Value Reference Range Interpretation [...] the National Kidney Foundation, http://nkdep.ni h.gov Alcohol [id number] 01:43:55 Test Item Value Reference Range Interpretation Comments Ethanol Level (test 0.17 g/dL 0.00-0.01 H Intoxica marek 0.080 g/dL code = Ethanol or more Level) Ethanol Inst (test 168 N code = Ethanol Inst) Comprehensive Metabolic [id number] 01:43:55 Test Item Value Reference Range Interpretation [...] disease than se rum creatinine alone.This calculation ruifno es sex and race in to account, [...] Foundation, http://nkdep.ni h.gov Complete Blood Count with [id number] 01:03:37 Test Item Value Reference Range Interpretation [...] code = IPF) 0 % N Automated [id number] 01:03:37 Test Item Value Reference Range Interpretation Comments Neutro Auto (test code = Neutro 47.3 % 36.0-70.0 Auto) Lymph Auto (test code = Lymph Auto) 33.3 % 12.0-44.0 Jack Auto (test code = Jack Auto) 12.4 % 0.0-11.0 H Eos, Auto (test code = Eos, Auto) 5.6 % 0.0-7.0 Basophil Auto (test code = Basophil 1.2 % 0.0-2.0 Auto) Neutro Absolute (test code = Neutro 3.9 x10 1.6-7.4 Absolute) Lymph Absolute (test code = Lymph 2.73 x10 .50-4.60 Absolute) Jack Absolute (test code = Jack 1.02 x10 .00-1.20 Absolute) Eos Absolute (test code = Eos 0.46 x10 0.00-0.74 Absolute) Baso Absolute (test code = Baso 0.10 x10 0.00-0.21 Absolute) IG [id number] 01:03:37 Test Item Value Reference Range Interpretation Comments IG (test code = IG) 0.2 % 0.0-5.0 IG Abs (test code = IG Abs) 0 x10 N Urine Drug Screen [id number] 13:08:00 Test Item Value Reference Interpretation Comments Range Amphetamine Negative Amphetamine Methamphetmine test includes 484676 (test code = Amphetam ine and AmphetamineMethamphe Methamp hetamine [id number]) . Barbiturate (376703) Negative (test code = Barbiturate(334427)) Benzodiazepines Positive (425514) (test code = Benzodiazepines(7148 32)) Cocaine Metabolite Negative (860141) (test code = CocaineMetabolite(71 4857)) Phencyclidine Negative (750178) (test code = Phencyclidine(832592 )) Drug Screen Comment NOTE : .This analysis (test code = is performed by DrugScreenComment) immunoassay. Positivefindings are unconfirmed analytical test results; ifresults do not support expected clinical finding,confirmation by an alternate methodology is recommended.Patient metabolic variables, specific drug chemistry, andspecimen characteristics can affect test outcome.Technical consultation is available [email or web address], or call toll free [phone]. Cannabinoid (516024) Negative (test code = Cannabinoid(191779)) Opiates (919069) Negative Opiate test (test code = includes Opiates(022412)) Codeine and Morphine only. Comprehensive Metabolic [id number] 20:00:00 Test Item Value Reference Range Interpretation Comments Glucose,Serum (test code = 73 mg/dL Glucose,Serum) BUN (test code = BUN) 10 mg/dL Creatinine,Serum (test code = 0.85 mg/dL Creatinine,Serum) eGFR If NonAfrican Am 95 mL/min/1.73 (181998) (test code = eGFRIfNonAfricanAm(160403)) eGFR If Am (736040) 109 mL/min/1.73 (test code = eGFRIfAfricanAm(601236)) BUN/Creat Ratio (test code = 12 BUN/CreatRatio) [...] ALT) 83 {IU/L} Lipid Panel with LDL/HDL [id number] 20:00:00 Test Item Value Reference Range Interpretation Comments Cholesterol, Total (test 137 mg/dL code = Cholesterol,Total) Triglycerides (test code 53 mg/dL = Triglycerides) HDL Cholesterol (test 54 mg/dL code = HDLCholesterol) Cholesterol, VLDL 11 mg/dL (calculated) (test code = Cholesterol,VLDL(calcula marek)) Cholesterol, LDL 72 mg/dL (calculated) (test code = Cholesterol,LDL(calculat ed)) LDL/HDL Ratio (360878) 1.3 {ratio} . (test code = LDL/HDLRatio(202204)) LDL/HDL Ratio Men Women 1/ 2 Avg.Risk 1.0 1.5 Avg.Risk 3.6 3.2 2X Avg.Risk 6.2 5.0 3X Avg.Risk 8.0 6.1 Drug Screen, Urine # [id number] 14:29:00 Test Item Value Reference Interpretation Comments Range Amphetamine Negative Amphetamine Methamphetmine test includes 107157 (test code = Amphetam ine and AmphetamineMethamphe Methamp hetamine [id number]) . Barbiturate (753794) Negative (test code = Barbiturate(703500)) Benzodiazepines Negative (037572) (test code = Benzodiazepines(7148 32)) Cannabinoid (030507) Negative (test code = Cannabinoid(691371)) Cocaine Metabolite Negative (917065) (test code = CocaineMetabolite(71 4857)) Opiates (427827) Negative Opiate test (test code = includes Opiates(739985)) Codeine, Morphine, Hydromorphone, Hydrocodone. Phencyclidine Negative (713420) (test code = Phencyclidine(098810 )) Methadone Screen Negative (616548) (test code = MethadoneScreen(7978 54)) Propoxyphene, Urine Negative (473468) (test code = Propoxyphene,Urine(7 69938)) Drug Screen Comment NOTE : .This analysis (test code = is performed by DrugScreenComment) immunoassay. Positivefindings are unconfirmed analytical test results; ifresults do not support expected clinical finding,confirmation by an alternate methodology is recommended.Patient metabolic variables, specific drug chemistry, andspecimen characteristics can affect test outcome.Technical consultation is available [email or web address], or call toll free [phone]. [id number] 14:06:00 Test Item Value Reference Range Interpretation Comments TSH (964929) (test code = 1.770 {uIU/mL} TSH(967557)) CBC w/ Diff w/ [id number] 12:00:00 Test Item Value Reference Range Interpretation [...] (Abs) 0.0 {x10E3/uL} (test code = ImmatureGrans(Abs)) [id number] 22:27:00 Test Item Value Reference Range Interpretation Comments Potassium (test code = K) 4.0 mmol/L 3.5-5.1 N Alcohol/Ethanol, [id number] 19:26:00 Test Item Value Reference Range Interpretation Comments Alcohol, Ethyl 0.14 g/dL 0.00-0.01 H Intoxicated 0.080 g/dL (test code = ETOH) or more [id number] 19:06:00 Test Item Value Reference Range Interpretation [...] code = THC) Negative Negative N Urinalysis [id number] 19:06:00 Test Item Value Reference Range Interpretation Comments Color (test code = Yellow Yellow,Straw,Pl N COLOR) yellow Clarity (test code = Clear Clear N CLAR) Specific [place] (test 1.010 1.001-1.035 N code = SPGR) [...] code = None /HPF SANTANA) Comprehensive Metabolic [id number] 19:05:00 Test Item Value Reference Range Interpretation [...] validated by th e MDRD study and newul d be interpretedwith caution.eGFR Re sult Interpretation: eGFR > or = 60 is in t he Normal RangeeGF R < 60 may mean kidney diseaseeGFR < 1 5 may mean kidney failureRange s recommended by the National Kidney Foundation,http ://nkd ep.nih.gov CBC with [id number] 18:49:00 Test Item Value Reference Range Interpretation [...] code = ALYMPH) 0.9 K/cumm 0.5-4.6 N Jack Abs (test code = AMONO) 0.4 K/cumm 0.0-1.2 N Eos Abs (test code = AEOS) 0.10 K/cumm 0.00-0.74 N Baso Abs (test code = ABASO) 0.0 K/cumm 0.00-0.21 N Harding [id number] 16:08:00 Test Item Value Reference Range Interpretation Comments Harding Level (test 0.6 mmol/L Detectio n Limit = 0.1 code = LithiumLevel) <0.1 indicates None Detected [id number] 16:25:00 Test Item Value Reference Range Interpretation Comments TSH (965308) (test code = 2.710 {uIU/mL} TSH(284683)) Drug Screen, Urine # [id number] 11:58:00 Test Item Value Reference Interpretation Comments Range Amphetamine Negative Amphetamine Methamphetmine test includes 270854 (test code = Amphetam ine AmphetamineMethamph and [id number]) Methamphetamin e. Barbiturate Negative (884880) (test code = Barbiturate(772772) ) Benzodiazepines Positive (129498) (test code = Benzodiazepines(714 832)) Cannabinoid Negative (232758) (test code = Cannabinoid(020165) ) Cocaine Metabolite Negative (767900) (test code = CocaineMetabolite(7 94680)) Opiates (403146) Negative Opiate test (test code = includes Opiates(998162)) Codeine, Morphine, Hydromorphone, Hydrocodone. Phencyclidine Negative (522084) (test code = Phencyclidine(98473 1)) Methadone Screen Negative (992012) (test code = MethadoneScreen(796 464)) Propoxyphene, Urine Negative (275752) (test code = Propoxyphene,Urine( 870166)) Drug Screen Comment NOTE : This assay (test code = provides a preliminary DrugScreenComment) unconfirmed analyticaltest result that may be suitable for the clinicalmanagement of patients in certain situations. [facility], preliminary positivefindings should always be confirmed by an alternativemethod. Some zats-ucw-tdgxxat medications, as well asadulterants, may cause inaccurate results. Screen Onlytesting does not meet the [employer] Drug Testing Program requirements as aforensic urine drug test for workplace testing. All clientsmust ensure that their testing program conforms toapplicable state and federal laws and employmentagreements. [id number] 11:46:00 Test Item Value Reference Range Interpretation Comments Specific [place] (test 1.005 code = SpecificGravity) pH (test [...] MicroscopicExam) indicated and not performed. Comprehensive Metabolic [id number] 11:34:00 Test Item Value Reference Range Interpretation Comments Glucose,Serum (test code = 101 mg/dL Glucose,Serum) BUN (test code = BUN) 7 mg/dL Creatinine,Serum (test code = 0.68 mg/dL Creatinine,Serum) eGFR If NonAfrican Am 105 mL/min/1.73 (409305) (test code = eGFRIfNonAfricanAm(957819)) eGFR If Am (889115) 122 mL/min/1.73 (test code = eGFRIfAfricanAm(161493)) BUN/Creat Ratio (test code = 10 BUN/CreatRatio) [...] ALT) 178 {IU/L} Lipid Panel with LDL/HDL [id number] 11:34:00 Test Item Value Reference Range Interpretation Comments Cholesterol, Total 204 mg/dL (test code = Cholesterol,Total) Triglycerides (test 186 mg/dL code = Triglycerides) HDL Cholesterol (test 63 mg/dL code = HDLCholesterol) Cholesterol, VLDL 37 mg/dL (calculated) (test code = Cholesterol,VLDL(calcul ated)) Cholesterol, LDL 104 mg/dL (calculated) (test code = Cholesterol,LDL(calcula marek)) LDL/HDL Ratio (374916) 1.7 {ratio . (test code = units} LDL/HDLRatio(638455)) LDL/HDL Ratio Men Women 1/2 Avg.Risk 1.0 1.5 Avg.Risk 3.6 3.2 2X Avg.Risk 6.2 5.0 3X Avg.Risk 8.0 6.1 CBC w/ Diff w/ [id number] 11:25:00 Test Item Value Reference Range Interpretation [...] code = ImmatureGrans(Abs)) Drug Screen, Urine # [id number] 14:17:00 Test Item Value Reference Interpretation Comments Range Amphetamine (test Negative code = Amphetamine) Barbiturates (test Negative code = Barbiturates) Benzodiazepines Positive (test code = Benzodiazepines) Cannabinoid (test Negative code = Cannabinoid) Cocaine Metabolite Negative (test code = CocaineMetabolite) Opiate Screen (test Negative Opiate t est code = OpiateScreen) include s Codeine, Morphine, Hydromorphon e, Hydrocodone. Phencyclidine Negative (969740) (test code = Phencyclidine(431113 )) Methadone Level Negative (test code = MethadoneLevel) Propoxyphene, Urine Negative (547762) (test code = Propoxyphene,Urine(7 67525)) Drug Screen Comment NOTE : This assay (test code = provides a preliminary DrugScreenComment) unconfirmed analyticaltest result that may be suitable for the clinicalmanagement of patients in certain situations. [facility], preliminary positivefindings should always be confirmed by an alternativemethod. Some ezee-rlh-xjwdvgf medications, as well asadulterants, may cause inaccurate results. Screen Onlytesting does not meet the [employer] Drug Testing Program requirements as aforensic urine drug test for workplace testing. All clientsmust ensure that their testing program conforms toapplicable state and federal laws and employmentagreements. [id number] 12:50:00 Test Item Value Reference Range Interpretation Comments TSH (358771) (test code = 1.930 {uIU/mL} TSH(437292)) CBC w/ Diff w/ [id number] 12:25:00 Test Item Value Reference Range Interpretation [...] 0.0 {x10E3/uL} code = ImmatureGrans(Abs)) Comprehensive Metabolic [id number] 12:18:00 Test Item Value Reference Range Interpretation Comments Glucose,Serum (test code = 87 mg/dL Glucose,Serum) BUN (test code = BUN) 13 mg/dL Creatinine,Serum (test code = 0.89 mg/dL Creatinine,Serum) eGFR If NonAfrican Am 96 mL/min/1.73 (365934) (test code = eGFRIfNonAfricanAm(195990)) eGFR If Am (307897) 111 mL/min/1.73 (test code = eGFRIfAfricanAm(504579)) BUN/Creat Ratio (test code = 15 BUN/CreatRatio) [...] ALT) 25 {IU/L} Drug Screen, Urine # [id number] 14:27:00 Test Item Value Reference Interpretation Comments Range Amphetamine (test Negative code = Amphetamine) Barbiturates (test Negative code = Barbiturates) Benzodiazepines Negative (test code = Benzodiazepines) Cannabinoid (test Negative code = Cannabinoid) Cocaine Metabolite Negative (test code = CocaineMetabolite) Opiate Screen (test Negative Opiate t est code = OpiateScreen) include s Codeine, Morphine, Hydromorphon e, Hydrocodone. Phencyclidine Negative (445445) (test code = Phencyclidine(591453 )) Methadone Level Negative (test code = MethadoneLevel) Propoxyphene, Urine Negative (177028) (test code = Propoxyphene,Urine(7 94077)) Drug Screen Comment NOTE : This assay (test code = provides a preliminary DrugScreenComment) unconfirmed analyticaltest result that may be suitable for the clinicalmanagement of patients in certain situations. [facility], preliminary positivefindings should always be confirmed by an alternativemethod. Some wmwi-dbj-xwqyhcm medications, as well asadulterants, may cause inaccurate results. Screen Onlytesting does not meet the [employer] Urine Drug Testing Program requirements as aforensic urine drug test for workplace testing. All clientsmust ensure that their testing program conforms toapplicable state and federal laws and employmentagreements. [id number] 11:57:00 Test Item Value Reference Range Interpretation Comments Specific [place] (test 1.013 code = SpecificGravity) pH (test [...] follows if indicated. Drug Screen, Urine # [id number] 13:01:00 Test Item Value Reference Interpretation Comments Range Amphetamine (test Negative code = Amphetamine) Barbiturates (test Negative code = Barbiturates) Benzodiazepines Positive (test code = Benzodiazepines) Cannabinoid (test Negative code = Cannabinoid) Cocaine Metabolite Negative (test code = CocaineMetabolite) Opiate Screen (test Negative Opiate t est code = OpiateScreen) include s Codeine, Morphine, Hydromorphon e, Hydrocodone. Phencyclidine Negative (641282) (test code = Phencyclidine(609668 )) Methadone Level Negative (test code = MethadoneLevel) Propoxyphene, Urine Negative (743943) (test code = Propoxyphene,Urine(7 10036)) Drug Screen Comment NOTE : This assay (test code = provides a preliminary DrugScreenComment) unconfirmed analyticaltest result that may be suitable for the clinicalmanagement of patients in certain situations. [facility], preliminary positivefindings should always be confirmed by an alternativemethod. Some yflp-vdu-xiwrksr medications, as well asadulterants, may cause inaccurate results. Screen Onlytesting does not meet the [employer] Urine Drug Testing Program requirements as aforensic urine drug test for workplace testing. All clientsmust ensure that their testing program conforms toapplicable state and federal laws and employmentagreements. [id number] 11:57:00 Test Item Value Reference Range Interpretation Comments Specific [place] (test 1.010 code = SpecificGravity) pH (test [...] Microscopic code = MicroscopicExam) follows if indicated. [id number] 14:12:00 Test Item Value Reference Range Interpretation Comments TSH (153210) (test code = 4.590 {uIU/mL} TSH(217851)) Comprehensive Metabolic [id number] 13:09:00 Test Item Value Reference Range Interpretation Comments Glucose,Serum (test code = 77 mg/dL Glucose,Serum) BUN (test code = BUN) 14 mg/dL Creatinine,Serum (test code = 0.87 mg/dL Creatinine,Serum) eGFR If NonAfrican Am 97 mL/min/1.73 (585614) (test code = eGFRIfNonAfricanAm(788429)) eGFR If Am (993345) 112 mL/min/1.73 (test code = eGFRIfAfricanAm(496309)) BUN/Creat Ratio (test code = 16 BUN/CreatRatio) [...] ALT) 33 {IU/L} CBC w/ Diff w/ [id number] 12:45:00 Test Item Value Reference Range Interpretation [...] (Abs) (test 0.0 {x10E3/uL} code = ImmatureGrans(Abs)) Harding [id number] 15:35:00 Test Item Value Reference Range Interpretation Comments Harding Level (test 0.5 mmol/L Detectio n Limit = 0.1 code = LithiumLevel) <0.1 indicates None Detected [id number] 13:40:00 Test Item Value Reference Range Interpretation Comments TSH (981062) (test code = 4.220 {uIU/mL} TSH(334890)) [id number] 13:40:00 Test Item Value Reference Range Interpretation Comments TSH (565186) (test code = 4.220 {uIU/mL} TSH(216529)) Basic Metabolic [id number] 12:47:00 Test Item Value Reference Range Interpretation [...] 30 days 31 d - 5 months 6 m - up to 1 year 1 - 1 2 years > 12 years Calcium (test code = 9.5 mg/dL Calcium) eGFR If NonAfrican 94 mL/min/1.73 Am (890328) (test code = eGFRIfNonAfricanAm(1 07743)) eGFR If Am 109 mL/min/1.73 (550225) (test code = eGFRIfAfricanAm(1007 97)) Comprehensive Metabolic [id number] 12:15:00 Test Item Value Reference Range Interpretation Comments Glucose,Serum (test 80 mg/dL code = Glucose,Serum) BUN (test code = BUN) 13 mg/dL Creatinine,Serum 0.93 mg/dL (test code = Creatinine,Serum) eGFR If NonAfrican Am 93 mL/min/1.73 (165688) (test code = eGFRIfNonAfricanAm(10 0791)) eGFR If Am 107 mL/min/1.73 (682308) (test code = eGFRIfAfricanAm(28639 7)) BUN/Creat Ratio (test 14 code = [...] - 28 8 - 30 d ays 3 1 d - 5 months 6 m - u p to 1 year 1 - 12 yea rs > 12 years Calcium (test code = 9.7 mg/dL Calcium) [...] ALT) 60 {IU/L} CBC w/ Diff w/ [id number] 12:10:00 Test Item Value Reference Range Interpretation [...] code = ImmatureGrans(Abs)) Drug Screen, Urine # [id number] 14:49:00 Test Item Value Reference Interpretation Comments Range Amphetamine (test Negative code = Amphetamine) Barbiturates (test Negative code = Barbiturates) Benzodiazepines Negative (test code = Benzodiazepines) Cannabinoid (test Negative code = Cannabinoid) Cocaine Metabolite Positive (test code = CocaineMetabolite) Opiate Screen (test Negative Opiate t est code = OpiateScreen) include s Codeine, Morphine, Hydromorphon e, Hydrocodone. Phencyclidine Negative (644497) (test code = Phencyclidine(367180 )) Methadone Level Negative (test code = MethadoneLevel) Propoxyphene, Urine Negative (959912) (test code = Propoxyphene,Urine(7 49946)) Drug Screen Comment NOTE : This assay (test code = provides a preliminary DrugScreenComment) unconfirmed analyticaltest result that may be suitable for the clinicalmanagement of patients in certain situations. [facility], preliminary positivefindings should always be confirmed by an alternativemethod. Some dgdb-pvj-zbdyfox medications, as well asadulterants, may cause inaccurate results. Screen Onlytesting does not meet the [employer] Urine Drug Testing Program requirements as aforensic urine drug test for workplace testing. All clientsmust ensure that their testing program conforms toapplicable state and federal laws and employmentagreements. [id number] 14:09:00 Test Item Value Reference Range Interpretation Comments Specific [place] (test 1.011 code = SpecificGravity) pH (test [...]
[2021-02-05] MEDS ORDERED: HYDROMORPHONE HCL 1 MG/ML INJ ONE ×3 (12:37→13:55)
[2021-02-05] MEDS ORDERED: ONDANSETRON 4 MG/2 ML VIAL ONE (12:38)
--- NOTE | 2021-02-05 13:13 | RAD REPORT ---
EXAM DESCRIPTION: CT - CTHCSPWOC - 02/05/2021 12:52 pm CLINICAL HISTORY: SMASH INJURY COMPARISON: Head C Spine Mpr Wo Con dated 08/25/2020 TECHNIQUE: Axial 5 mm thick images of the head were obtained. Axial 2 mm thick images of the cervic al spine were obtained with sagittal and coronal reconstruction images generated and reviewed. All CT scans are performed using dose optimization technique as appropriate and may include automated exposure control or mA/KV adjustment according to patient size. FINDINGS: No intracranial hemorrhage, mass, edema or acute intracranial finding. No suspicion for ac chefornak infarction. No extra-axial fluid collections. Mastoid air cells are clear. Patchy ethmoid air phil l mucosal thickening present. No globe or orbit abnormality seen. Patient has very minimal atrophy an d chronic ischemic change. Intracranial findings are similar to August 25. Cervical bodies are normal in height. No fracture or acute vertebral body finding seen. Slight anteri or subluxation C3 on C4 noted stable. C4-5, C5-6 and C6-7 levels show significant degenerative endpla te change and disc space narrowing. There are associated endplate spurs with bony foraminal encroachm ent. Prominent facet joint degenerative changes are present this patient. No fracture or acute bony a bnormality. Cervical spine findings are similar to comparison study. Central canal detail is inherent ly limited. No paraspinal mass or hematoma. IMPRESSION: Negative CT head examination for acute or significant finding. No significant change fro m August 17. Negative CT cervical spine examination for acute finding. Patient has prominent cervical spine degen erative change as detailed. No significant change from August 25.
--- NOTE | 2021-02-05 13:15 | RAD REPORT ---
EXAM DESCRIPTION: RAD - Shoulder Left 2 View - 02/05/2021 1:05 pm CLINICAL HISTORY: SMASH INJURY COMPARISON: No comparisons TECHNIQUE: Internal and external rotation views of the left shoulder were obtained. FINDINGS: Oblique fracture is present through the midshaft left clavicle with at least 1 free fractu re fragment present. No significant distraction or angulation component seen. Degenerative changes ar e present at the AC joint with no AC separation. Sternoclavicular joint intact. Degenerative change p resent at the glenohumeral joint and slight narrowing of the acromial humeral joint space. No patholo gic bone process. No pneumothorax is seen. IMPRESSION: Comminuted midshaft left clavicle fracture without significant distraction or angulation .
--- NOTE | 2021-02-05 13:18 | RAD REPORT ---
EXAM DESCRIPTION: CT - Thorax Wo Con - 02/05/2021 12:52 pm CLINICAL HISTORY: SMASH INJURY COMPARISON: Shoulder Left 2 View dated 02/05/2021 TECHNIQUE: Axial 5 mm thick images of the chest were obtained without IV contrast. All CT scans are performed using dose optimization technique as appropriate and may include automated exposure control or mA/KV adjustment according to patient size. FINDINGS: No mass or infiltrate in the lung parenchyma. No pleural thickening or pleural effusion. N o pneumothorax. No abnormal mediastinal or hilar masses or lymphadenopathy seen. No gross aortic or pulmonary artery finding suspected. Assessment is limited in the absence of IV contrast. No cardiomegaly or pericardi al effusion. Patient has a comminuted fracture in the lateral shaft. There is 115 millimeter free fracture fragmen t. No significant distraction or angulation component seen. Sternoclavicular and acromioclavicular radha ints is are intact. There is degenerative change at the left AC joint and glenohumeral joint. No kp articular mass or hematoma. No other fracture changes seen. Patient has prominent spurs in the mid and lower thoracic spine but n o compression deformity. Sternum and scapula are intact. IMPRESSION: Comminuted fracture in the lateral shaft of the left clavicle without significant distra ction or angulation component.
--- NOTE | 2021-02-05 13:43 | EDPHYS ---
Physician Documentation [facility] Name: Jose Armando Gilliland Age: 65 yrs Sex: Male : 1955 Arrival Date: 02/05/2021 Time: 12:19 Bed 14 Private MD: ED Physician Julio Cesar Mane HPI: 02/05 12:34 This 65 yrs old Male presents to ER via Wheelchair with complaints of Fall sp3 Injury. 12:34 65-year-old male with history of hypertension presents immediately after a fall injury sp3 off a ladder on a second story level. Patient landed on his left shoulder and then hit his head posteriorly on the ground. Patient says he "saw stars" but did not have loss of consciousness. No other injuries reported. Patient denies neck pain, shortness of breath, back pain, abdominal pain, nausea, vomiting, diarrhea, or any other ROS at this time. Patient has had reconstruction surgery on his left forearm from a prior fall. Fall was entirely mechanical and patient denies any medical symptoms or syncope prior to the event. Fall was witnessed by a coworker.. Historical: - Allergies: 12:37 No Known Allergies; ss - PMHx: 12:37 Alcoholism; Bipolar disorder; Hypertension; PTSD; ss - Immunization history:: Client reports receiving the 2nd dose of the Covid vaccine. - Social history:: Smoking status: Patient reports the use of cigarette tobacco products, smokes one-half pack cigarettes per day. ROS: 12:39 Constitutional: Negative for fever, chills, and weight loss, Eyes: Negative for injury, sp3 pain, redness, and discharge, ENT: Negative for injury, pain, and discharge, Neck: Negative for injury, pain, and swelling, Cardiovascular: Negative for chest pain, palpitations, and edema, Respiratory: Negative for shortness of breath, cough, wheezing, and pleuritic chest pain, Abdomen/GI: Negative for abdominal pain, nausea, vomiting, diarrhea, and constipation, Back: Negative for injury and pain, Skin: Negative for injury, rash, and discoloration, Neuro: Negative for headache, weakness, numbness, tingling, and seizure. 12:39 All other systems are negative. Exam: 12:40 Constitutional: This is a well developed, well nourished patient who is awake, alert, sp3 and in no acute distress. Head/Face: Normocephalic, atraumatic. Eyes: Pupils equal round and reactive to light, extra-ocular motions intact. Lids and lashes normal. Conjunctiva and sclera are non-icteric and not injected. Cornea within normal limits. Periorbital areas with no swelling, redness, or edema. ENT: Nares patent. No nasal discharge, no septal abnormalities noted. External auditory canals are clear. Oropharynx with no redness, swelling, or masses, exudates, or evidence of obstruction, uvula midline. Mucous membranes moist. Neck: Trachea midline, no thyromegaly or masses palpated, and no cervical lymphadenopathy. Supple, full range of motion without nuchal rigidity, or vertebral point tenderness. No Meningismus. Cardiovascular: Regular rate and rhythm with a normal S1 and S2. No gallops, murmurs, or rubs. Normal PMI, no JVD. No pulse deficits. Respiratory: Lungs have equal breath sounds bilaterally, clear to auscultation and percussion. No rales, rhonchi or wheezes noted. No increased work of breathing, no retractions or nasal flaring. Abdomen/GI: Soft, non-tender, with normal bowel sounds. No distension or tympany. No guarding or rebound. No evidence of tenderness throughout. Skin: Warm, dry with normal turgor. Normal color with no rashes, no lesions, and no evidence of cellulitis. Neuro: Awake and alert, GCS 15, oriented to person, place, time, and situation. Cranial nerves II-XII grossly intact. Motor strength 5/5 in all extremities. Sensory grossly intact. Cerebellar exam normal. Normal gait. Psych: Awake, alert, with orientation to person, place and time. Behavior, mood, and affect are within normal limits. 12:40 Chest/axilla: Left upper anterior shoulder painful to palpation diffusely. No crepitus noted.. 12:40 Musculoskeletal/extremity: Left upper extremity with pain on abduction and pain on palpation to the anterior and superior shoulder as well as the lateral left clavicle. Distal pulses in the left upper extremity are normal patient can make an okay sign.. Vital Signs: 12:20 BP 182 / 102; Pulse 74; Resp 23; Temp 97.9(O); Pulse Ox 97% on R/A; Weight 75.75 kg; ss Height 5 ft. 5 in. (165.10 cm); Pain 10/10; 12:45 BP 182 / 102; Pulse 77; Resp 18; Pulse Ox 98% on R/A; ld1 13:59 BP 165 / 84; Pulse 74; Resp 18; Pulse Ox 98% on R/A; ld1 12:20 Body Mass Index 27.79 (75.75 kg, 165.10 cm) ss [place] Coma Score: 12:20 Eye Response: spontaneous(4). Verbal Response: oriented(5). Motor Response: obeys ss commands(6). Total: 15. Trauma Score (Adult): 12:20 Eye Response: spontaneous(1); Verbal Response: oriented(1); Motor Response: obeys ss commands(2); Systolic BP: > 89 mm Hg(4); Respiratory Rate: 10 to 29 per min(4); Francy Score: 15; Trauma Score: 12 MDM: 12:33 Patient medically screened. sp3 12:41 Data reviewed: vital signs, nurses notes. ED course: Trauma alert was called after sp3 mechanism of injury identified by nursing staff. Will obtain CT scans of the head, C-spine, chest and x-rays of the left shoulder. Dilaudid and Zofran for IV pain control. Laboratory values pending. I meant highly suspicious the patient has a critical injury ultimate disposition is based on imaging results.. 13:42 ED course: CT scans all negative except for lateral clavicle comminuted fracture on the sp3 left side. Will place patient in a sling and have him follow-up with orthopedics. Pain medicine prescription will be given.. 12 12:33 Order name: CT Head C Spine; Complete Time: 13:34 sp3 02/05 12:33 Order name: CT Chest Wo Con; Complete Time: 13:34 sp3 12 12:33 Order name: Shoulder Left (2 View) XRAY; Complete Time: 13:34 sp3 02/05 12:33 Order name: IV Saline Lock; Complete Time: 12:41 sp3 12 13:42 Order name: Sling; Complete Time: 13:48 sp3 Administered Medications: 12:41 Drug: Dilaudid (HYDROmorphone) 1 mg Route: IVP; Site: right antecubital; ld1 12:42 Follow up: Response: No adverse reaction ld1 12:41 Drug: Zofran (Ondansetron) 4 mg Route: IVP; Site: right antecubital; ld1 12:42 Follow up: Response: No adverse reaction ld1 13:03 Drug: Dilaudid (HYDROmorphone) 1 mg Route: IVP; Site: right antecubital; ld1 13:04 Follow up: Response: No adverse reaction ld1 13:59 Drug: Dilaudid (HYDROmorphone) 1 mg Route: IVP; Site: right antecubital; ld1 13:59 Follow up: Response: No adverse reaction ld1 Disposition Summary: 02/05/21 13:43 Discharge Ordered Location: Home sp3 Condition: Stable sp3 Diagnosis - Fracture of clavicle sp3 Followup: sp3 - With: Casey Vega MD - When: Upon discharge from the Emergency Department - Reason: Recheck today's complaints Discharge Instructions: - Discharge Summary Sheet sp3 - Clavicle Fracture sp3 Forms: - Medication Reconciliation Form sp3 - Thank You Letter sp3 - Antibiotic Education sp3 - Prescription Opioid Use sp3 Prescriptions: - Tramadol 50 mg Oral Tablet - take 1 tablet by ORAL route every 8 hours as needed; 12 tablet; Refills: 0, sp3 Product Selection Permitted Signatures: Dispatcher [employer] Ella Lambert RN RN ss Barbara Weldon RN RN ld1 Julio Cesar Mane MD MD sp3 Corrections: (The following items were deleted from the chart) 12:46 12:34 C Spine Wo Con+CT.RAD.BRZ ordered. EDMS EDMS
--- NOTE | 2021-02-05 13:43 | ER ---
Nurse's Notes [facility] Name: Jose Armando Gilliland Age: 65 yrs Sex: Male : 1955 Arrival Date: 02/05/2021 Time: 12:19 Bed 14 Private MD: Diagnosis: Fracture of clavicle Presentation: 02/05 12:20 Chief complaint: Patient states: Fell 5 feet off of a ladder. Pt reports he slammed his ss L shoulder into the wall before falling onto his back on the floor and hit the back of his head. Denies LOC. Pt states that his most pain is to his L shoulder/ clavicle. Care prior to arrival: None. Mechanism of Injury: Fall from ladder. Trauma event details: Injury occurred in the [facility], Injury occurred: February 05, 2021. 12:20 Acuity: YESSENIA 2 ss 12:20 Method Of Arrival: Wheelchair ss 12:20 Coronavirus screen: Client denies travel out of the [place] in the last 14 days. Ebola ss Screen: Patient denies exposure to infectious person. Patient denies travel to an Ebola-affected area in the 21 days before illness onset. Initial Sepsis Screen: Does the patient meet any 2 criteria? No. Patient's initial sepsis screen is negative. Does the patient have a suspected source of infection? No. Patient's initial sepsis screen is negative. Risk Assessment: Do you want to hurt yourself or someone else? Patient reports no desire to harm self or others. Onset of symptoms was February 05, 2021. Trauma Activation: Alert Physician: ED Physician; Name: ; Notified At: ; Arrived At: Physician: General Surgeon; Name: ; Notified At: ; Arrived At: Physician: Radiology; Name: ; Notified At: ; Arrived At: Physician: Respiratory; Name: ; Notified At: ; Arrived At: Physician: Lab; Name: ; Notified At: ; Arrived At: Historical: - Allergies: 12:37 No Known Allergies; ss - PMHx: 12:37 Alcoholism; Bipolar disorder; Hypertension; PTSD; ss - Immunization history:: Client reports receiving the 2nd dose of the Covid vaccine. - Social history:: Smoking status: Patient reports the use of cigarette tobacco products, smokes one-half pack cigarettes per day. Screenin:20 Abuse screen: Denies threats or abuse. Denies injuries from another. Tuberculosis ss screening: Never had TB. 12:45 Nutritional screening: No deficits noted. Fall Risk None identified. ld1 Primary Survey: 12:20 NO uncontrolled hemorrhage observed. A: The patient is alert. Airway: patent, No ss supplemental oxygen in use on arrival. Oral cavity: clear, Trachea midline. Breathing/Chest: Respiratory pattern: regular, Respiratory effort: spontaneous, unlabored, Chest inspection: symmetrical rise and fall of the chest. Circulation: Pulses: palpable right radial artery, right posterior tibial artery, left radial artery and left posterior tibial artery. Skin temperature: warm. Disability Alert. Exposure/Environment: There is no evidence of uncontrolled external bleeding. Secondary Survey: 12:20 HEENT: Face No injury/deformity Eyes: No injury or deformity noted. Ears: clear Nose: ss clear Throat: No injury or deformity noted. Gastrointestinal: Abdomen is soft, Palpation No deficit noted. : No signs and/or symptoms were reported regarding the genitourinary system. Musculoskeletal: Circulation, motion, and sensation intact. Range of motion: limited in left shoulder. Assessment: 12:45 General: Appears in no apparent distress. uncomfortable, Behavior is cooperative, ld1 appropriate for age, agitated, anxious. Pain: Complains of pain in scalp and left arm Pain does not radiate. Pain currently is 10 out of 10 on a pain scale. Quality of pain is described as sharp, stabbing, throbbing, Pain began suddenly, Is continuous. 12:45 Neuro: Level of Consciousness is awake, alert, obeys commands, Oriented to person, ld1 place, time, situation, Appropriate for age. Cardiovascular: Capillary refill < 3 seconds Patient's skin is warm and dry. Cardiovascular: Rhythm is regular. Respiratory: Airway is patent Respiratory effort is even, unlabored, Respiratory pattern is regular, symmetrical. GI: Abdomen is round non-distended. : No signs and/or symptoms were reported regarding the genitourinary system. EENT: No signs and/or symptoms were reported regarding the EENT system. Derm: No signs and/or symptoms reported regarding the dermatologic system. Musculoskeletal: Range of motion: limited in left shoulder. 13:59 Reassessment: Patient appears in no apparent distress at this time. Patient and/or ld1 family updated on plan of care and expected duration. Pain level reassessed. Patient is alert, oriented x 3, equal unlabored respirations, skin warm/dry/pink. Vital Signs: 12:20 BP 182 / 102; Pulse 74; Resp 23; Temp 97.9(O); Pulse Ox 97% on R/A; Weight 75.75 kg; ss Height 5 ft. 5 in. (165.10 cm); Pain 10/10; 12:45 BP 182 / 102; Pulse 77; Resp 18; Pulse Ox 98% on R/A; ld1 13:59 BP 165 / 84; Pulse 74; Resp 18; Pulse Ox 98% on R/A; ld1 12:20 Body Mass Index 27.79 (75.75 kg, 165.10 cm) ss Francy Coma Score: 12:20 Eye Response: spontaneous(4). Verbal Response: oriented(5). Motor Response: obeys ss commands(6). Total: 15. Trauma Score (Adult): 12:20 Eye Response: spontaneous(1); Verbal Response: oriented(1); Motor Response: obeys ss commands(2); Systolic BP: > 89 mm Hg(4); Respiratory Rate: 10 to 29 per min(4); Francy Score: 15; Trauma Score: 12 ED Course: 12:19 Patient arrived in ED. ds1 12:20 Patient has correct armband on for positive identification. Bed in low position. Call ss light in reach. Side rails up X 1. campus monitor on. Pulse ox on. NIBP on. 12:20 Patient maintains SpO2 saturation greater than 95% on room air. Thermoregulation: warm ss blanket given to patient. 12:21 Julio Cesar Mane MD is Attending Physician. sp3 12:23 aBrbara Weldon, ANGELIQUE is Primary Nurse. ld1 12:33 Triage completed. ss 12:37 Arm band placed on right wrist. ss 12:41 Inserted saline lock: 20 gauge in right antecubital area, using aseptic technique. ld1 Blood collected. 12:52 CT Chest Wo Con In Process Unspecified. EDMS 12:52 CT Head C Spine In Process Unspecified. EDMS 13:05 Shoulder Left (2 View) XRAY In Process Unspecified. EDMS 13:43 Casey Vega MD is Referral Physician. sp3 13:59 No provider procedures requiring assistance completed. IV discontinued, intact, ld1 bleeding controlled, No redness/swelling at site. Administered Medications: 12:41 Drug: Dilaudid (HYDROmorphone) 1 mg Route: IVP; Site: right antecubital; ld1 12:42 Follow up: Response: No adverse reaction ld1 12:41 Drug: Zofran (Ondansetron) 4 mg Route: IVP; Site: right antecubital; ld1 12:42 Follow up: Response: No adverse reaction ld1 13:03 Drug: Dilaudid (HYDROmorphone) 1 mg Route: IVP; Site: right antecubital; ld1 13:04 Follow up: Response: No adverse reaction ld1 13:59 Drug: Dilaudid (HYDROmorphone) 1 mg Route: IVP; Site: right antecubital; ld1 13:59 Follow up: Response: No adverse reaction ld1 Outcome: 13:43 Discharge ordered by . sp3 13:59 Discharged to home via wheelchair, with friend. ld1 13:59 Condition: stable 13:59 Discharge instructions given to patient, family, Instructed on discharge instructions, follow up and referral plans. medication usage, Demonstrated understanding of instructions, follow-up care, medications, Prescriptions given X 1. 14:07 Patient left the ED. ld1 Signatures: Dispatcher [employer] EDLA Jacqueline Gutierrez ds1 Ella Guardado RN RN ss Barbara Weldon RN RN ld1 Julio Cesar Mane MD MD sp3
[2021-02-05 14:17] VITALS: TEMP 97.9
[2021-02-05 14:18] VITALS: O2SAT 98
[2021-02-05 14:19] VITALS: BP 165/84
== END 2021-02-05 14:07 | disposition home or self-care (01) ==
LOC: ER 12:18
DX: S42.022A Displaced fracture of shaft of left clavicle, initial encounter for closed fracture (principal); W11.XXXA Fall on and from ladder, initial encounter; I10 Essential (primary) hypertension; F10.20 Alcohol dependence, uncomplicated; F17.210 Nicotine dependence, cigarettes, uncomplicated
CPT/HCPCS: 70450; 71250; 72125; 96374; 96375; 99285; J1170; J2405

== ENCOUNTER 2021-07-16 18:17 | Emergency (ER) | payer OTHER, SELFPAY ==
--- OUTSIDE RECORDS SUMMARY | 2021-07-16 18:21 | XMS REPORT | Continuity of Care Document ---
:1955 Author Organization [facility] t Address [address] [place] [address] Care Team Providers Name Role Phone Pcp, Patient Does Not Have A Primary Care Physician [id number] Franki CARTER S Attending Clinician Doctor Unassigned, Name Attending Clinician Unavailable Raffy HAMPTON L Attending Clinician Silvana DOAN Attending Clinician Unavailable Anand HAMPTON Attending Clinician Yolanda Kuhn Attending Clinician Unavailable Zay Knapp Attending Clinician Unavailable Orville Attending Clinician Unavailable Scott LEE Attending Clinician Unavailable HAYLIE OROPEZA Attending Clinician Unavailable Evelio Attending Clinician Unavailable ERIC Attending Clinician Unavailable Johana Attending Clinician Unavailable Mona Domingo Attending Clinician Unavailable Clair Attending Clinician Unavailable Sandy Vargas Attending Clinician Unavailable Justa Attending Clinician Unavailable Sandy ONEIL Attending Clinician Unavailable ERIC Admitting Clinician Unavailable Problems Condition Condition Condition Status Onset Resolution Last Treating Co mments Source Name Details Category Date Date Treatment Clinician Date Illness, Illness, 81001-7 Active 2020-03-04 unspecifie unspecifie 03-04 13:04:04 d d 00:00: (R69)Onset 00 : 04-Mar-2020 Encounter Encounter 83268-6 Active 2019-05-03 for for 05-02 20:46:01 observatio observatio 00:00: n for n for 00 other other suspected suspected diseases diseases and and conditions conditions ruled out ruled out (Z03.89)On set: 03-May-2019 Encounter Encounter 14731-1 Active 2018-07-24 for for 07-24 21:41:52 observatio observatio 00:00: n for n for 00 other other suspected suspected diseases diseases and and conditions conditions ruled out ruled out (Z03.89)On set: 9 Diagnosis Diagnosis 61985-4 Active 2016-09-09 deferred deferred 09-09 01:03:27 on axis II on axis 00:00: IIOnset: 00 7 Deferred Deferred 30352-8 Active 2015-03-11 diagnosis diagnosis 03-11 22:53:15 on axis II on axis 00:00: IIOnset: 00 6 Personalit Personalit 33712-5 Active 2013-04-20 y D/O NOS- y D/O NOS- -20 10:31:18 Cluster B Cluster 00:00: BOnset: 00 4 Personalit Personalit 56038-2 Active 2012-022013-02-19 y Disorder y Disorder 04-22 22:10:33 NOS NOSOnset: 00:00: 00 3 Diagnosis Diagnosis 57961-2 Active 2012-11-16 Deferred Deferred 11-16 00:20:04 on Shonto II on Shonto 00:00: IIOnset: 00 3 Diagnosis Diagnosis 37027-9 Active 2012-08-03 Deferred Deferred 08-03 16:20:04 on Shonto II on Shonto 00:00: IIOnset: 00 03-Aug-2012 Diagnosis Diagnosis 04041-2 Active 2012-12-31 Deferred Deferred 21:59:45 on Shonto II on Shonto II No known No known Disease Unive rs active active ity of problems problems [facility] History of Past Illness Condition Condition Condition Status Onset Resolution Last Treating Co mments Source Name Details Category Date Date Treatment Clinician Date Diagnosis Diagnosis 90881-1 Inactiv 2013-04-19 2013-04-19 Deferred Deferred e 07:39:37 07:39:37 on Shonto II on Shonto IIStatus: Inactive as of 4 7:39 Allergies, Adverse Reactions, Alerts Allergy Allergy Status Severity Reaction(s) Onset Inactive Treating Comm ents Source Name Type Date Date Clinician No Known Drug Active [facility] NO KNOWN Drug Active [facility] ity of [facility] Social History Social Habit Start Date Stop Date Quantity Comments Source Exposure to Not sure [facility] SARS-CoV-2 [facility] (event) Branch Tobacco use and 2021-03-17 2021-03-17 Never used Universit y of exposure 00:00:00 00:00:00 [facility] Alcohol intake 2021-03-17 2021-03-17 Lifetime University of 00:00:00 00:00:00 non-drinker [facility] (finding) [place] Sex Ass[birth year] At [birth year] Universit y of 00:00:00 00:00:00 [facility] Smoking Status Start Date Stop Date Source Tobacco smoking consumption [facility] unknown Never smoker [facility] Medications Ordered Filled Start Stop Current Ordering Indication Dosage Frequency Signature Comments Components Source Medication Medication Date Date Medication? Clinician (SIG) Name Name valarie 2020-02 Yes 4647 1{tbl} Take 1 Un roger en-codeine 2-15 tablet by ity of (TYLENOL-CO 00:00: mouth [place] DEINE #3) 00 every 4 Medical 300-30 mg (four) Branch tablet hours as needed for Pain (scale 4-6) or Pain (scale 7-10). Indication s: acute pain acetaminoph 2020-02 Yes 4647 1{tbl} Take 1 Un roger en-codeine 2-15 tablet by ity of (TYLENOL-CO 00:00: mouth [place] DEINE #3) 00 every 4 Medical 300-30 mg (four) Branch tablet hours as needed for Pain (scale 4-6) or Pain (scale 7-10). Indication s: acute pain acetaminoph 2020-02 Yes 4647 1{tbl} Take 1 Un roger en-codeine 2-15 tablet by ity of (TYLENOL-CO 00:00: mouth [place] DEINE #3) 00 every 4 Medical 300-30 mg (four) Branch tablet hours as needed for Pain (scale 4-6) or Pain (scale 7-10). Indication s: acute pain acetaminoph 2020-02 Yes 4647 1{tbl} Take 1 Un roger en-codeine 2-15 tablet by ity of (TYLENOL-CO 00:00: mouth [place] DEINE #3) 00 every 4 Medical 300-30 mg (four) Branch tablet hours as needed for Pain (scale 4-6) or Pain (scale 7-10). Indication s: acute pain acetaminoph 2020-02 Yes 4647 1{tbl} Take 1 Un roger en-codeine 2-15 tablet by ity of (TYLENOL-CO 00:00: mouth [place] DEINE #3) 00 every 4 Medical 300-30 mg (four) Branch tablet hours as needed for Pain (scale 4-6) or Pain (scale 7-10). Indication s: acute pain ibuprofen 0 Yes [id number] 600mg Take 1 U nivers 600 mg 4-30 tablet by ity of tablet 00:00: mouth [place] 00 every 6 Medical (six) Branch hours as needed for Pain (scale 4-6). ibuprofen 2020-0 Yes [id number] 600mg Take 1 U nivers 600 mg 4-30 tablet by ity of tablet 00:00: mouth [place] 00 every 6 Medical (six) Branch hours as needed for Pain (scale 4-6). ibuprofen 0 Yes [id number] 600mg Take 1 U nivers 600 mg 4-30 tablet by ity of tablet 00:00: mouth [place] 00 every 6 Medical (six) Branch hours as needed for Pain (scale 4-6). ibuprofen 2020-0 Yes [id number] 600mg Take 1 U nivers 600 mg 4-30 tablet by ity of tablet 00:00: mouth [place] 00 every 6 Medical (six) Branch hours as needed for Pain (scale 4-6). ibuprofen 2020-0 Yes [id number] 600mg Take 1 U nivers 600 mg 4-30 tablet by ity of tablet 00:00: mouth [place] 00 every 6 Medical (six) Branch hours as needed for Pain (scale 4-6). TraZODone* 2020-0 Yes [id number] 50mg TraZODone* 03-12 [id number] ; 50 mg 08:34: PO/By 00 mouth for sleep Take 1 tablet by mouth at bedtime for insomnia (CRU)Start : 1Ordered: EveclintonJoaquin Rashawn Prazosin* 2020-0 Yes [id number] 2mg Prazosin*; 03-12 [id number] 2 mg PO/By 08:33: mouth for 00 nightmares Take 1 tablet by mouth at bedtime for nightmares (CRU)Start : 1Ordered: 1GJaoquin bowden Rashawn QUEtiapine* 2020-0 Yes [id number] 200mg QUEtiapine 03-12 [id number] *; 200 mg 08:33: PO/By 00 mouth for psychosis Take 1 tablet by mouth twice daily and 2 tablets at bedtime for psychosis (CRU)Start : 1Ordered: 1GJoaquin bowden Milk of 2020-0 Yes [id number] 30ml Milk of NTE 120 Magnesia 1 034263 Magnesia; mL in 24 11:56: 30 ml PO hours 00 PRN q4hr for Constipati on NTE 120 mL in 24 hours RoutineSta rt: 05-Mar-2020 Ordered: 05-Mar-2020 Joaquin Jenkins ments: NTE 120 mL in 24 hours QUEtiapine 2020-0 Yes [id number] 50mg QUEtiapine NTE 2 00 03-05 799012 ; 50 mg PO mg PRN 11:56: PRN q6hr Quetiapin 00 for midl e in 24 agitation hr period NTE 200 mg PRN Quetiapine in 24 hr period RoutineSta rt: 05-Mar-2020 Ordered: 05-Mar-2020 Joaquin Jenkins ments: NTE 200 mg PRN Quetiapine in 24 hr period SEROquel 2020-0 No [id number] 0 SEROquel 400 mg oral 03-04 [id number] 400 mg tablet 11:35: oral 31 tablet; qhsQuantit y: 0 Refills: 0Ordered: Evelyn ParisiGeneric Substituti on Allowed prazosin 2 No [id number] 0 prazosin 2 Home mg oral - 084108 mg oral Medicatio capsule 11:35: capsule; n stored 31 orally in once a day Pharmacy (at bedtime)Qu antity: 0 Refills: 0Ordered: 03-May-2019 Anetor, Linda KGeneric Substituti on AllowedCom ments: Home Medication stored in Pharmacy SEROquel No [id number] 0 SEROquel 300 mg oral 03-04 [id number] 300 mg tablet 11:35: oral 31 tablet; qamQuantit y: 0 Refills: 0Ordered: Evelyn ParisiGeneric Substituti on Allowed QUEtiapine No [id number] 0 QUEtiapine 100 mg oral 09-08 [id number] 100 mg tablet 23:20: oral 27 tablet; orallyQuan tity: 0 Refills: 0Ordered: [address] [place] [address] us: OtherGener ic Substituti on Allowed Zoloft 50 No [id number] 1{tab(s Zoloft 50 mg oral 09-08 822871 )} mg oral tablet 23:20: tablet; 1 27 tab(s) orally once a dayQuantit y: 0 Refills: 0Ordered: [address] [place] [address] us: OtherGener ic Substituti on Allowed Benadryl 25 No [id number] 0 Benadryl mg oral 09-08 [id number] 25 mg oral capsule 23:20: capsule; 27 orally onceQuanti ty: 0 Refills: 0Ordered: [address] [place] [address] us: OtherGener ic Substituti on Allowed traZODone No [id number] 0 traZODone 50 mg oral 09-08 173949 50 mg oral tablet 23:20: tablet; 27 orally onceQuanti ty: 0 Refills: 0Ordered: [address] [place] [address] us: OtherGener ic Substituti on Allowed lisinopril No [id number] 1{tab(s lisinopril 10 mg oral 09-08 566283 )} 10 mg oral tablet 23:20: tablet; 1 20 tab(s) orally once a dayQuantit y: 0 Refills: 0Ordered: 7Moore, TeriStart: 7Generic Substituti on Allowed Seroquel No [id number] 0 Seroquel 200mg 04-18 [id number] 200mg; po 00:00: qam and 00 qhs pt. received last dose at [facility] on 04/18/13 at 09:25Quant ity: 0 Refills: 0Ordered: 4Moore, TeriStart: 4Status: OtherGener ic Substituti on Allowed Zoloft No [id number] 0 Zoloft 100ng 04-18 111160 100ng; po 00:00: qam pt. 00 received last dose at [facility] on 04/18/13 at 0905Quanti ty: 0 Refills: 0Ordered: 4Moore, TeriStart: 4Status: OtherGener ic Substituti on Allowed Pt reports 2012-02 No [id number] 0 Pt reports "I have 04-22 "I have been off my 11:30: been off meds for 3 29 my meds years." for 3 years."Hayes ntity: 0 Refills: 0Ordered: 03-Aug-2012 Augustus Trammell us: Discontinu edGeneric Substituti on Allowed zoloft 100 2012-02 No [id number] 0 zoloft mg 04-22 920517 100 mg; po 00:00: everyday 00 last dose at home 02/18/13 , at [facility] 02/19/13Q uantity: 0 Refills: 0Ordered: 3DMary stantonStart: 3Status: Discontinu edGeneric Substituti on Allowed Risperdal 2 2012-02 No [id number] 1 Risperdal mg oral 04-22 046285 2 mg oral tablet 00:00: tablet; 1 00 orally Q AM LAST DOSE AT [facility] , AT HOME LAST DOSE 02/18/13Qu antity: 0 Refills: 0Ordered: Mary GuadarramaStart: 3Status: Discontinu edGeneric Substituti on Allowed Risperdal 4 2012-02 No [id number] 1 Risperdal mg oral 04-22 845754 4 mg oral tablet 00:00: tablet; 1 00 orally LAST DOSE 02/18/13 AT [facility] , AT HOME 02/17/13Q uantity: 0 Refills: 0Ordered: Mary GuadarramaStart: 3Status: Discontinu edGeneric Substituti on Allowed ATARX 25 2012-02 No [id number] 0 ATARX 25 MG 04-22 [id number] MG; PO 00:00: BID PRN 00 LAST DOSE 02/18/13 AT [facility] [place]: 0 Refills: 0Ordered: Mary GuadarramaStart: 3Status: Discontinu edGeneric Substituti on Allowed ATARAX 25 2012-02 No [id number] 0 ATARAX 25 MG 04-22 [id number] MG; PO 00:00: TID LAST 00 DOSE AT [facility] 02/19/13Qu antity: 0 Refills: 0Ordered: Mary GuadarramaStart: 3Status: Discontinu edGeneric Substituti on Allowed MULTI 2012-02 No [id number] 0 MULTI VITAMIN , 04-22 522050 VITAMIN , FOLIC ACID 00:00: FOLIC 1 MG , 00 ACID 1 THIAMINE MG , 100 MG THIAMINE 100 MG; PO everyday [facility] Refills: 0Ordered: Mary GuadarramaStart: 3Status: Discontinu edGeneric Substituti on Allowed DENIES 2012-02 No [id number] 0 DENIES OTC/HERBAL 04-22 [id number] OTC/HERBAL HOME MEDS 00:00: HOME 00 MEDSQuanti ty: 0 Refills: 0Ordered: 3DMary stantonCathyStart: 3Status: Discontinu edGeneric Substituti on Allowed Pt. denjovan No [id number] 0 Pt. denies current 11-15 032972 current medications 00:00: medication 00 sQuantity: 0 Refills: 0Ordered: 3Moore, TeriStart: 3Status: Discontinu edGeneric Substituti on Allowed Vital Signs Vital Name Observation Time Observation Value Comments Source Systolic blood 2021-03-17 181 mm[Hg] reports [facility] pressure 19:41:00 elevated b/p [facility] Diastolic blood 2021-03-17 117 mm[Hg] reports [facility] f pressure 19:41:00 elevated b/p [facility] Heart rate 2021-03-17 86 /min University 19:41:00 [facility] Body height 2021-03-17 166.4 cm University 19:41:00 [facility] Body weight 2021-03-17 79.379 kg University of 19:41:00 [facility] BMI 2021-03-17 28.68 kg/m2 University 19:41:00 [facility] Height/Length 2021-03-17 167 cm Measured 10:41:43 Height/Length 2021-03-17 167 cm Measured 10:41:22 Height/Length 2021-03-17 167 cm Measured 10:41:21 Height/Length 2021-03-17 167 cm Measured 10:41:20 Height/Length 2019-07-31 Measured 23:52:46 Procedures Procedure Date / Time Performed Performing Clinician [facility] e REFERRAL- 2021-04-21 06:01:00 Doctor Unassigned, No [facility] REQUEST/RESPONSE Name [facility] XR CLAVICLE COMP LEFT 2021-03-17 19:58:00 Surjit Akbar [facility] EKG and Rhythm Strip 2016-09-09 08:00:00 Mallory [...] 17:07:00 Substance Use Group 3B [code = LclplahiwWoaYkeop8R] Diagnostic Test Pending 2020-03-04 16:33:00 Assess and involve in group therapy [code = Assessandinvolveingroupth erapy] Diagnostic Test Pending 2020-03-04 16:32:00 Special Observations [code = SpecialObservations] Diagnostic Test Pending 2020-03-04 16:32:00 Vital Signs [code = VitalSigns] Encounters Start End Encounter Admission Attending Care Care Encounter Source Date/Time Date/Time Type Type Clinicians Facility Department ID 2021-04-22 2021-04-22 [facility] [id number] Univers 00:00:00 00:00:00 Leonora JIMENEZ 350.1.13.10 it y of [place] 4.2.7.2.686 Gamaliel as ADELSO?BLEA [id number] Md britt GRUBER 198 [facility] OFFICE [facility] 2021-04-21 2021-04-21 Orders Doctor FELIPA [id number] Univers 00:00:00 00:00:00 Only Unassigned, WENDIE 350.1.13.10 ity of [place] [facility] 4.2.7.2.686 Gamaliel as [id number] [address] 2021-03-17 2021-03-17 [facility] [id number] Univers 13:45:48 23:59:00 Encounter Surjit JIMENEZ 350.1.13.10 [facility] 4.2.7.2.686 Gamaliel as ADELSO?BLEA [id number] Md britt GRUBER 809 [facility] 2021-03-17 2021-03-17 Outpatient R FRANKI [facility] [id number] Univers 13:30:00 14:15:06 LEONORA ity of [facility] 2021-03-17 2021-03-17 [facility] [id number] Univers 13:30:00 13:45:00 Visit Leonora JIMENEZ 350.1.13.10 it y of [place] 4.2.7.2.686 Gamaliel as ADELSO?BLEA [id number] Md britt GRU[address] 198 [facility] OFFICE [facility] 2020-06-27 2020-06-27 Emergency [facility] [id number] 09:14:00 11:54:00 Sky Richton 350.1.13.10 Olga 4.2.7.2.686 [place] [id number] 2020-03-04 2020-03-15 Inpatient Kuhn, 1 [facility]-73- 0000 [id number] [place] 13:27:00 11:29:00 Claudia Xavier [facility] 2019-07-31 2019-07-31 Emergency [facility] NATHALY [id number] 23:32:00 23:32:00 [facility] 2019-07-31 2019-07-31 Emergency [facility] [id number] 23:32:00 23:32:00 -[id number] Torres [facility] 2019-07-27 2019-07-27 Inpatient Kuhn, 1 [facility]-01- 0000 [id number] [place] 17:10:00 17:10:00 Claudia Xavier [facility] 2019-07-22 2019-07-22 Inpatient Ra, 1 [facility] [id number] [place] 11:01:00 11:01:00 Vinia M A [facility] 2019-07-21 2019-07-21 Inpatient Ra, 1 [facility]- [id number] [place] 23:27:00 23:27:00 Vinia Zay A [facility] 2019-05-03 2019-05-10 Inpatient Shahani, 1 [facility]-77- [id number] [place] 21:27:00 11:12:00 Ady A [facility] 2019-05-04 2019-05-04 [id number] 23:29:00 23:29:00 ZA 2019-05-03 2019-05-03 Emergency E SANDIP, [facility] 7502 [facility] 13:06:00 15:43:00 SLOANE 2018-07-24 2018-08-01 Inpatient Kuhn, 1 [facility]-76- 0000 [id number] [facility] [place] 21:29:00 10:51:00 Claudia Villegas [facility] 2017-11-14 2017-11-14 Inpatient Abeba Fraser 1 [facility]-06- 0 [id number] [facility] [place] 17:44:00 17:44:00 [facility] 2017-11-14 2017-11-14 Emergency [facility] [id number] [place] 06:19:00 06:19:00 [facility] 2017-08-19 2017-08-19 Outpatient [facility] [id number] Call 00:00:00 00:00:00 [facility] 2017-07-28 2017-07-28 Outpatient [facility] [id number] Call 00:00:00 00:00:00 [facility] 2017-06-16 2017-06-16 Outpatient [facility] [id number] Call 00:00:00 00:00:00 [facility] 2017-06-06 2017-06-06 Emergency E [facility] [id number] [facility] 19:31:00 19:31:00 [facility] 2017-06-05 2017-06-05 Emergency E ERIC, [facility] [id number] 17:19:00 17:19:00 AMIR [facility] 2017-05-16 2017-05-16 Outpatient [facility] [id number] Call 00:00:00 00:00:00 [facility] 2017-05-03 2017-05-03 Outpatient [facility] [id number] Call 00:00:00 00:00:00 [facility] 2017-04-28 2017-04-28 Outpatient [facility] [id number] Call 15:13:12 15:13:12 [facility] 2016-12-30 2016-12-30 Outpatient [facility] [id number] Call 00:00:00 00:00:00 [facility] 2016-12-09 2016-12-09 Outpatient [facility] [id number] Call 00:00:00 00:00:00 [facility] 2016-12-09 2016-12-09 Outpatient [facility] [id number] Call 00:00:00 00:00:00 [facility] 2016-12-02 2016-12-02 Outpatient [facility] [id number] Call 08:56:02 08:56:02 [facility] 2016-12-02 2016-12-02 Outpatient [facility] [id number] Call 00:00:00 00:00:00 [facility] 2016-12-02 2016-12-02 Outpatient [facility] [id number] Call 00:00:00 00:00:00 [facility] 2016-11-19 2016-11-19 Outpatient [facility] [id number] Call 10:25:44 10:25:44 [facility] 2016-10-22 2016-10-22 Outpatient [facility] [id number] Call 11:25:55 11:25:55 [facility] 2016-10-05 2016-10-05 Outpatient [facility] [id number] Call 09:11:02 09:11:02 Health 2016-09-08 2016-09-23 Inpatient Hattie, 1 [facility]- 0000 [id number] [place] 22:39:00 10:35:00 Claudia Xavier [facility] 2015-03-11 2015-03-20 Inpatient Johana, 1 [facility]-61- 0 [id number] [facility] [place] 16:12:00 13:16:00 Karlie Duc [address] [facility] Psychia tric [facility] 2013-04-18 2013-04-24 Inpatient Smeal, 1 [facility]72- 0000 [id number] [place] 18:25:00 14:35:00 Sherrie Villegas 60 Count y Psychia tric [facility] 2013-02-19 2013-03-06 Inpatient Smeal, 1 [facility]78- 0000 [id number] [place] 10:26:00 17:35:00 Sherrie Xavier 36 Count y Psychia tric [facility] 2012-12-30 2013-01-15 Inpatient Clair, 1 [facility]-67- [id number] [facility] [place] 20:01:00 16:50:00 Alice Villegas [address] [facility] Psychia tric [facility] 2012-11-15 2012-11-29 Inpatient Sam, 1 [facility]76- 0 [id number] [facility] 20:08:00 13:10:00 Tian Villegas 29 Coun Psychia tric [facility] 2012-08-03 2012-08-10 Inpatient Adhia, 1 [facility]- 0000 [id number] [facility] 14:39:00 15:15:00 Ritchie Xavier [address] [facility] Psychia tric [facility] 1987-09-19 1987-09-23 Inpatient PAZZAGLIA, 1 [facility]-87- 0 [id number] [facility] 15:00:00 16:00:00 SHEELA Xavier [address] [facility] Results Test Description Test [...] = ImmatureGrans(Abs)) 0.0 {x10E3/uL } Comprehensive Metabolic [id number] 14:47:00 Test Item Value Reference Range Interpretation Comments Glucose,Serum (test 99 mg/dL code = Glucose,Serum) BUN (test code = BUN) 12 mg/dL Creatinine,Serum 0.75 mg/dL (test code = Creatinine,Serum) eGFR If NonAfrican Am 98 mL/min/1.73 (210372) (test code = eGFRIfNonAfricanAm(10 0791)) eGFR If Am 114 mL/min/1.73 (911347) (test code = eGFRIfAfricanAm(13235 7)) BUN/Creat Ratio (test 16 code = [...] = ALT) 201 {IU/L} Client Requested Flag [id number] 14:47:00 Test Item Value Reference Range Interpretation Comments TSH (312112) (test code = 2.010 {uIU/mL} TSH(235850)) Lipid Panel with LDL/HDL [id number] 14:47:00 Test Item Value Reference Range Interpretation Comments zzzCholesterol, Total 146 mg/dL (test code = zzzCholesterol,Total) Triglycerides (test code 88 mg/dL = Triglycerides) zzzHDL Cholesterol (test 41 mg/dL code = zzzHDLCholesterol) VLDL Cholesterol 17 mg/dL Calculated (test code = VLDLCholesterolCalculate d) LDL Cholesterol ROSALIND 88 mg/dL ([facility]) (test code = LDLCholesterolCAL([facility])) LDL/HDL Ratio (298663) 2.1 {ratio} . (test code = LDL/HDLRatio(382845)) LDL/HDL Ratio Men Women 1/ 2 Avg.Risk 1.0 1.5 Avg.Risk 3.6 3.2 2X Avg.Risk 6.2 5.0 3X Avg.Risk 8.0 6.1 Comprehensive Metabolic [id number] 01:43:55 Test Item Value Reference Range Interpretation [...] A/G 1.6 ratio N Ratio) Comprehensive Metabolic [id number] 01:43:55 Test Item Value Reference Range Interpretation [...] the National Kidney Foundation, http://nkdep.ni h.gov Alcohol [id number] 01:43:55 Test Item Value Reference Range Interpretation Comments Ethanol Level (test 0.17 g/dL 0.00-0.01 H Intoxica marek 0.080 g/dL code = Ethanol or more Level) Ethanol Inst (test 168 N code = Ethanol Inst) Comprehensive Metabolic [id number] 01:43:55 Test Item Value Reference Range Interpretation [...] Foundation, http://nkdep.ni h.gov Complete Blood Count with [id number] 01:03:37 Test Item Value Reference Range Interpretation [...] code = IPF) 0 % N Automated [id number] 01:03:37 Test Item Value Reference Range Interpretation Comments Neutro Auto (test code = Neutro 47.3 % 36.0-70.0 Auto) Lymph Auto (test code = Lymph Auto) 33.3 % 12.0-44.0 Person Auto (test code = Person Auto) 12.4 % 0.0-11.0 H Eos, Auto (test code = Eos, Auto) 5.6 % 0.0-7.0 Basophil Auto (test code = Basophil 1.2 % 0.0-2.0 Auto) Neutro Absolute (test code = Neutro 3.9 x10 1.6-7.4 Absolute) Lymph Absolute (test code = Lymph 2.73 x10 .50-4.60 Absolute) Person Absolute (test code = Person 1.02 x10 .00-1.20 Absolute) Eos Absolute (test code = Eos 0.46 x10 0.00-0.74 Absolute) Baso Absolute (test code = Baso 0.10 x10 0.00-0.21 Absolute) IG [id number] 01:03:37 Test Item Value Reference Range Interpretation Comments IG (test code = IG) 0.2 % 0.0-5.0 IG Abs (test code = IG Abs) 0 x10 N Urine Drug Screen [id number] 13:08:00 Test Item Value Reference Interpretation Comments Range Amphetamine Negative Amphetamine Methamphetmine test includes 280861 (test code = Amphetam ine and AmphetamineMethamphe Methamp hetamine udbrt215689) . Barbiturate (234112) Negative (test code = Barbiturate(243383)) Benzodiazepines Positive (632065) (test code = Benzodiazepines(7148 32)) Cocaine Metabolite Negative (428370) (test code = CocaineMetabolite(71 4857)) Phencyclidine Negative (873468) (test code = Phencyclidine(484206 )) Drug Screen Comment NOTE : .This analysis (test code = is performed by DrugScreenComment) immunoassay. Positivefindings are unconfirmed analytical test results; ifresults do not support expected clinical finding,confirmation by an alternate methodology is recommended.Patient metabolic variables, specific drug chemistry, andspecimen characteristics can affect test outcome.Technical consultation is available [email or web address], or call toll free [phone]. Cannabinoid (847626) Negative (test code = Cannabinoid(137892)) Opiates (508930) Negative Opiate test (test code = includes Opiates(519439)) Codeine and Morphine only. Comprehensive Metabolic [id number] 20:00:00 Test Item Value Reference Range Interpretation Comments Glucose,Serum (test code = 73 mg/dL Glucose,Serum) BUN (test code = BUN) 10 mg/dL Creatinine,Serum (test code = 0.85 mg/dL Creatinine,Serum) eGFR If NonAfrican Am 95 mL/min/1.73 (831313) (test code = eGFRIfNonAfricanAm(927168)) eGFR If Am (796521) 109 mL/min/1.73 (test code = eGFRIfAfricanAm(579430)) BUN/Creat Ratio (test code = 12 BUN/CreatRatio) [...] ALT) 83 {IU/L} Lipid Panel with LDL/HDL [id number] 20:00:00 Test Item Value Reference Range Interpretation Comments Cholesterol, Total (test 137 mg/dL code = Cholesterol,Total) Triglycerides (test code 53 mg/dL = Triglycerides) HDL Cholesterol (test 54 mg/dL code = HDLCholesterol) Cholesterol, VLDL 11 mg/dL (calculated) (test code = Cholesterol,VLDL(calcula marek)) Cholesterol, LDL 72 mg/dL (calculated) (test code = Cholesterol,LDL(calculat ed)) LDL/HDL Ratio (198977) 1.3 {ratio} . (test code = LDL/HDLRatio(931147)) LDL/HDL Ratio Men Women 1/ 2 Avg.Risk 1.0 1.5 Avg.Risk 3.6 3.2 2X Avg.Risk 6.2 5.0 3X Avg.Risk 8.0 6.1 Drug Screen, Urine # [id number] 14:29:00 Test Item Value Reference Interpretation Comments Range Amphetamine Negative Amphetamine Methamphetmine test includes 653219 (test code = Amphetam ine and AmphetamineMethamphe Methamp hetamine [id number]) . Barbiturate (037038) Negative (test code = Barbiturate(639964)) Benzodiazepines Negative (654371) (test code = Benzodiazepines(7148 32)) Cannabinoid (451211) Negative (test code = Cannabinoid(715285)) Cocaine Metabolite Negative (132419) (test code = CocaineMetabolite(71 4857)) Opiates (704603) Negative Opiate test (test code = includes Opiates(356547)) Codeine, Morphine, Hydromorphone, Hydrocodone. Phencyclidine Negative (935618) (test code = Phencyclidine(981442 )) Methadone Screen Negative (631363) (test code = MethadoneScreen(9444 38)) Propoxyphene, Urine Negative (284630) (test code = Propoxyphene,Urine(1 66819)) Drug Screen Comment NOTE : .This analysis (test code = is performed by DrugScreenComment) immunoassay. Positivefindings are unconfirmed analytical test results; ifresults do not support expected clinical finding,confirmation by an alternate methodology is recommended.Patient metabolic variables, specific drug chemistry, andspecimen characteristics can affect test outcome.Technical consultation is available [email or web address], or call toll free [phone]. [id number] 14:06:00 Test Item Value Reference Range Interpretation Comments TSH (641653) (test code = 1.770 {uIU/mL} TSH(719174)) CBC w/ Diff w/ [id number] 12:00:00 Test Item Value Reference Range Interpretation [...] (Abs) 0.0 {x10E3/uL} (test code = ImmatureGrans(Abs)) [id number] 22:27:00 Test Item Value Reference Range Interpretation Comments Potassium (test code = K) 4.0 mmol/L 3.5-5.1 N Alcohol/Ethanol, [id number] 19:26:00 Test Item Value Reference Range Interpretation Comments Alcohol, Ethyl 0.14 g/dL 0.00-0.01 H Intoxicated 0.080 g/dL (test code = ETOH) or more [id number] 19:06:00 Test Item Value Reference Range Interpretation [...] code = THC) Negative Negative N Urinalysis [id number] 19:06:00 Test Item Value Reference Range Interpretation Comments Color (test code = Yellow Yellow,Straw,Pl N COLOR) yellow Clarity (test code = Clear Clear N CLAR) Specific [place] (test 1.010 1.001-1.035 N code = SPGR) [...] code = None /HPF SANTANA) Comprehensive Metabolic [id number] 19:05:00 Test Item Value Reference Range Interpretation [...] is not provided , and the patient isGenesis can, multiply by 1.2 12. If sex is not prov ided, and thepatient is female, multipl y by 0.742. Results for patients <18 ye ars ofage have not been validated by th e MDRD study and karis d be interpretedwith caution.eGFR Re sult Interpretation: eGFR > or = 60 is in t he Normal RangeeGF R < 60 may mean kidney diseaseeGFR < 1 5 may mean kidney failureRange s recommended by the National Kidney Foundation,http ://nkd ep.nih.gov CBC with [id number] 18:49:00 Test Item Value Reference Range Interpretation [...] code = ALYMPH) 0.9 K/cumm 0.5-4.6 N Person Abs (test code = AMONO) 0.4 K/cumm 0.0-1.2 N Eos Abs (test code = AEOS) 0.10 K/cumm 0.00-0.74 N Baso Abs (test code = ABASO) 0.0 K/cumm 0.00-0.21 N [place] [id number] 16:08:00 Test Item Value Reference Range Interpretation Comments [place] Level (test 0.6 mmol/L Detectio n Limit = 0.1 code = LithiumLevel) <0.1 indicates None Detected [id number] 16:25:00 Test Item Value Reference Range Interpretation Comments TSH (825457) (test code = 2.710 {uIU/mL} TSH(992891)) Drug Screen, Urine # [id number] 11:58:00 Test Item Value Reference Interpretation Comments Range Amphetamine Negative Amphetamine Methamphetmine test includes 349057 (test code = Amphetam ine AmphetamineMethamph and [id number]) Methamphetamin e. Barbiturate Negative (915648) (test code = Barbiturate(586564) ) Benzodiazepines Positive (037259) (test code = Benzodiazepines(714 832)) Cannabinoid Negative (313397) (test code = Cannabinoid(713294) ) Cocaine Metabolite Negative (883971) (test code = CocaineMetabolite(7 48947)) Opiates (273089) Negative Opiate test (test code = includes Opiates(141253)) Codeine, Morphine, Hydromorphone, Hydrocodone. Phencyclidine Negative (755462) (test code = Phencyclidine(18107 1)) Methadone Screen Negative (236583) (test code = MethadoneScreen(631 549)) Propoxyphene, Urine Negative (933571) (test code = Propoxyphene,Urine( 694882)) Drug Screen Comment NOTE : This assay (test code = provides a preliminary DrugScreenComment) unconfirmed analyticaltest result that may be suitable for the clinicalmanagement of patients in certain situations. [facility], preliminary positivefindings should always be confirmed by an alternativemethod. Some dlku-aea-iuubkwh medications, as well asadulterants, may cause inaccurate results. Screen Onlytesting does not meet the [employer] requirements as aforensic urine drug test for workplace testing. All clientsmust ensure that their testing program conforms toapplicable state and federal laws and employmentagreements. [id number] 11:46:00 Test Item Value Reference Range Interpretation Comments Specific [place] (test 1.005 code = SpecificGravity) pH (test [...] MicroscopicExam) indicated and not performed. Comprehensive Metabolic [id number] 11:34:00 Test Item Value Reference Range Interpretation Comments Glucose,Serum (test code = 101 mg/dL Glucose,Serum) BUN (test code = BUN) 7 mg/dL Creatinine,Serum (test code = 0.68 mg/dL Creatinine,Serum) eGFR If NonAfrican Am 105 mL/min/1.73 (298219) (test code = eGFRIfNonAfricanAm(473042)) eGFR If Am (227869) 122 mL/min/1.73 (test code = eGFRIfAfricanAm(933915)) BUN/Creat Ratio (test code = 10 BUN/CreatRatio) [...] ALT) 178 {IU/L} Lipid Panel with LDL/HDL [id number] 11:34:00 Test Item Value Reference Range Interpretation Comments Cholesterol, Total 204 mg/dL (test code = Cholesterol,Total) Triglycerides (test 186 mg/dL code = Triglycerides) HDL Cholesterol (test 63 mg/dL code = HDLCholesterol) Cholesterol, VLDL 37 mg/dL (calculated) (test code = Cholesterol,VLDL(calcul ated)) Cholesterol, LDL 104 mg/dL (calculated) (test code = Cholesterol,LDL(calcula marek)) LDL/HDL Ratio (787285) 1.7 {ratio . (test code = units} LDL/HDLRatio(074254)) LDL/HDL Ratio Men Women 1/2 Avg.Risk 1.0 1.5 Avg.Risk 3.6 3.2 2X Avg.Risk 6.2 5.0 3X Avg.Risk 8.0 6.1 CBC w/ Diff w/ [id number] 11:25:00 Test Item Value Reference Range Interpretation [...] code = ImmatureGrans(Abs)) Drug Screen, Urine # [id number] 14:17:00 Test Item Value Reference Interpretation Comments Range Amphetamine (test Negative code = Amphetamine) Barbiturates (test Negative code = Barbiturates) Benzodiazepines Positive (test code = Benzodiazepines) Cannabinoid (test Negative code = Cannabinoid) Cocaine Metabolite Negative (test code = CocaineMetabolite) Opiate Screen (test Negative Opiate t est code = OpiateScreen) include s Codeine, Morphine, Hydromorphon e, Hydrocodone. Phencyclidine Negative (930726) (test code = Phencyclidine(877522 )) Methadone Level Negative (test code = MethadoneLevel) Propoxyphene, Urine Negative (480887) (test code = Propoxyphene,Urine(7 76769)) Drug Screen Comment NOTE : This assay (test code = provides a preliminary DrugScreenComment) unconfirmed analyticaltest result that may be suitable for the clinicalmanagement of patients in certain situations. [facility], preliminary positivefindings should always be confirmed by an alternativemethod. Some vuer-lmg-lzsqqzx medications, as well asadulterants, may cause inaccurate results. Screen Onlytesting does not meet the [employer] requirements as aforensic urine drug test for workplace testing. All clientsmust ensure that their testing program conforms toapplicable state and federal laws and employmentagreements. [id number] 12:50:00 Test Item Value Reference Range Interpretation Comments TSH (823116) (test code = 1.930 {uIU/mL} TSH(496013)) CBC w/ Diff w/ [id number] 12:25:00 Test Item Value Reference Range Interpretation [...] 0.0 {x10E3/uL} code = ImmatureGrans(Abs)) Comprehensive Metabolic [id number] 12:18:00 Test Item Value Reference Range Interpretation Comments Glucose,Serum (test code = 87 mg/dL Glucose,Serum) BUN (test code = BUN) 13 mg/dL Creatinine,Serum (test code = 0.89 mg/dL Creatinine,Serum) eGFR If NonAfrican Am 96 mL/min/1.73 (339361) (test code = eGFRIfNonAfricanAm(915761)) eGFR If Am (323371) 111 mL/min/1.73 (test code = eGFRIfAfricanAm(248614)) BUN/Creat Ratio (test code = 15 BUN/CreatRatio) [...] ALT) 25 {IU/L} Drug Screen, Urine # [id number] 14:27:00 Test Item Value Reference Interpretation Comments Range Amphetamine (test Negative code = Amphetamine) Barbiturates (test Negative code = Barbiturates) Benzodiazepines Negative (test code = Benzodiazepines) Cannabinoid (test Negative code = Cannabinoid) Cocaine Metabolite Negative (test code = CocaineMetabolite) Opiate Screen (test Negative Opiate t est code = OpiateScreen) include s Codeine, Morphine, Hydromorphon e, Hydrocodone. Phencyclidine Negative (738718) (test code = Phencyclidine(885155 )) Methadone Level Negative (test code = MethadoneLevel) Propoxyphene, Urine Negative (705491) (test code = Propoxyphene,Urine(7 23422)) Drug Screen Comment NOTE : This assay (test code = provides a preliminary DrugScreenComment) unconfirmed analyticaltest result that may be suitable for the clinicalmanagement of patients in certain situations. [facility], preliminary positivefindings should always be confirmed by an alternativemethod. Some zzmy-rih-uqxkvqo medications, as well asadulterants, may cause inaccurate results. Screen Onlytesting does not meet the [employer] requirements as aforensic urine drug test for workplace testing. All clientsmust ensure that their testing program conforms toapplicable state and federal laws and employmentagreements. [id number] 11:57:00 Test Item Value Reference Range Interpretation Comments Specific [place] (test 1.013 code = SpecificGravity) pH (test [...] follows if indicated. Drug Screen, Urine # [id number] 13:01:00 Test Item Value Reference Interpretation Comments Range Amphetamine (test Negative code = Amphetamine) Barbiturates (test Negative code = Barbiturates) Benzodiazepines Positive (test code = Benzodiazepines) Cannabinoid (test Negative code = Cannabinoid) Cocaine Metabolite Negative (test code = CocaineMetabolite) Opiate Screen (test Negative Opiate t est code = OpiateScreen) include s Codeine, Morphine, Hydromorphon e, Hydrocodone. Phencyclidine Negative (994103) (test code = Phencyclidine(480432 )) Methadone Level Negative (test code = MethadoneLevel) Propoxyphene, Urine Negative (283014) (test code = Propoxyphene,Urine(7 16789)) Drug Screen Comment NOTE : This assay (test code = provides a preliminary DrugScreenComment) unconfirmed analyticaltest result that may be suitable for the clinicalmanagement of patients in certain situations. [facility], preliminary positivefindings should always be confirmed by an alternativemethod. Some eztm-gyw-vbmdhao medications, as well asadulterants, may cause inaccurate results. Screen Onlytesting does not meet the [employer] requirements as aforensic urine drug test for workplace testing. All clientsmust ensure that their testing program conforms toapplicable state and federal laws and employmentagreements. [id number] 11:57:00 Test Item Value Reference Range Interpretation Comments Specific [place] (test 1.010 code = SpecificGravity) pH (test [...] Microscopic code = MicroscopicExam) follows if indicated. [id number] 14:12:00 Test Item Value Reference Range Interpretation Comments TSH (032002) (test code = 4.590 {uIU/mL} TSH(331720)) Comprehensive Metabolic [id number] 13:09:00 Test Item Value Reference Range Interpretation Comments Glucose,Serum (test code = 77 mg/dL Glucose,Serum) BUN (test code = BUN) 14 mg/dL Creatinine,Serum (test code = 0.87 mg/dL Creatinine,Serum) eGFR If NonAfrican Am 97 mL/min/1.73 (047926) (test code = eGFRIfNonAfricanAm(159152)) eGFR If Am (217879) 112 mL/min/1.73 (test code = eGFRIfAfricanAm(793707)) BUN/Creat Ratio (test code = 16 BUN/CreatRatio) [...] ALT) 33 {IU/L} CBC w/ Diff w/ [id number] 12:45:00 Test Item Value Reference Range Interpretation [...] (Abs) (test 0.0 {x10E3/uL} code = ImmatureGrans(Abs)) [place] [id number] 15:35:00 Test Item Value Reference Range Interpretation Comments [place] Level (test 0.5 mmol/L Detectio n Limit = 0.1 code = LithiumLevel) <0.1 indicates None Detected [id number] 13:40:00 Test Item Value Reference Range Interpretation Comments TSH (571154) (test code = 4.220 {uIU/mL} TSH(046556)) [id number] 13:40:00 Test Item Value Reference Range Interpretation Comments TSH (492658) (test code = 4.220 {uIU/mL} TSH(792421)) Basic Metabolic [id number] 12:47:00 Test Item Value Reference Range Interpretation [...] 31 d - 5 months 15 - 26 6 m - up to 1 year 15 - 1 - 1 2 years 17 - > 12 years - Calcium (test code = 9.5 mg/dL Calcium) eGFR If NonAfrican 94 mL/min/1.73 Am (902412) (test code = eGFRIfNonAfricanAm(1 86293)) eGFR If Am 109 mL/min/1.73 (923188) (test code = eGFRIfAfricanAm(1007 97)) Comprehensive Metabolic [id number] 12:15:00 Test Item Value Reference Range Interpretation Comments Glucose,Serum (test 80 mg/dL code = Glucose,Serum) BUN (test code = BUN) 13 mg/dL Creatinine,Serum 0.93 mg/dL (test code = Creatinine,Serum) eGFR If NonAfrican Am 93 mL/min/1.73 (697774) (test code = eGFRIfNonAfricanAm(10 0791)) eGFR If Am 107 mL/min/1.73 (070016) (test code = eGFRIfAfricanAm(39344 7)) BUN/Creat Ratio (test 14 code = [...] 27 3 1 d - 5 months - 6 m - u p to 1 year 1 - 12 yea rs - > 12 years 19 - 28 Calcium [...] ALT) 60 {IU/L} CBC w/ Diff w/ [id number] 12:10:00 Test Item Value Reference Range Interpretation [...] code = ImmatureGrans(Abs)) Drug Screen, Urine # [id number] 14:49:00 Test Item Value Reference Interpretation Comments Range Amphetamine (test Negative code = Amphetamine) Barbiturates (test Negative code = Barbiturates) Benzodiazepines Negative (test code = Benzodiazepines) Cannabinoid (test Negative code = Cannabinoid) Cocaine Metabolite Positive (test code = CocaineMetabolite) Opiate Screen (test Negative Opiate t est code = OpiateScreen) include s Codeine, Morphine, Hydromorphon e, Hydrocodone. Phencyclidine Negative (940245) (test code = Phencyclidine(813911 )) Methadone Level Negative (test code = MethadoneLevel) Propoxyphene, Urine Negative (540160) (test code = Propoxyphene,Urine(7 50984)) Drug Screen Comment NOTE : This assay (test code = provides a preliminary DrugScreenComment) unconfirmed analyticaltest result that may be suitable for the clinicalmanagement of patients in certain situations. [facility], preliminary positivefindings should always be confirmed by an alternativemethod. Some zmhm-akb-tuhchjx medications, as well asadulterants, may cause inaccurate results. Screen Onlytesting does not meet the [employer] requirements as aforensic urine drug test for workplace testing. All clientsmust ensure that their testing program conforms toapplicable state and federal laws and employmentagreements. [id number] 14:09:00 Test Item Value Reference Range Interpretation Comments Specific [place] (test 1.011 code = SpecificGravity) pH (test [...]
[2021-07-16] MEDS ORDERED: LORazepam 2 MG/ML VIAL ONE (18:59)
[2021-07-16 19:01] LABS: Absolute Lymphocytes (CBC) 2.8 K/uL (0.7-4.9); Hematocrit 46.5 % (39.6-49.0); Lymphocytes % 34.7 % (15.3-44.8); MPV 6.7 fL (7.6-11.3); RBC Red Blood Cell Count 5.37 M/uL (4.33-5.43)
[2021-07-16 19:18] LABS: ALT/SGPT 45 U/L (12-78); AST/SGOT 31 U/L (15-37); Alkaline Phosphatase 111 U/L (45-117); BUN Blood Urea Nitrogen 8 mg/dL (7-18); Bicarbonate 25 mmol/L (21-32); Bilirubin Total 0.4 mg/dL (0.2-1.0); Glomerular Filtration Rate 96 ml/min (=/>90); Glucose Level 99 mg/dL (74-106); Potassium 3.8 mmol/L (3.5-5.1); Protein, Total 8.2 g/dL (6.4-8.2); Sodium Level 137 mmol/L (136-145)
[2021-07-16 19:21] LABS: Bilirubin Direct < 0.1 mg/dL (0-0.2)
[2021-07-16 19:23] LABS: Urine Blood Trace-intact (Negative); Urine Glucose Negative (Negative); Urine Protein Trace (Negative); Urine Specific Gravity <=1.005 (1.005-1.030)
[2021-07-16] MEDS ORDERED: THIAMINE 200 MG/2 ML INJ ONE (19:35)
[2021-07-16] MEDS ORDERED: NA CHLORIDE 0.9% 1,000 ML ONE (19:35)
[2021-07-16] MEDS ORDERED: MULTIVITAMINS 10 ML VIAL (INJ) IV ONE (19:36)
[2021-07-16] MEDS ORDERED: FOLIC ACID 5 MG/ML VIAL ONE (19:37)
[2021-07-16 19:45] LABS: Protime INR 0.97
[2021-07-16 19:47] LABS: Barbiturates NEGATIVE (NEGATIVE); Benzodiazepines NEGATIVE (NEGATIVE); Cocaine NEGATIVE (NEGATIVE); METHAMPHETAM NEGATIVE (NEGATIVE); Methadone NEGATIVE (NEGATIVE); Opiates NEGATIVE (NEGATIVE); Phencyclidine NEGATIVE (NEGATIVE); THC Cannibis NEGATIVE (NEGATIVE)
[2021-07-16] MEDS ORDERED: HALOPERIDOL LACT 5 MG/ML INJ ONE (20:41)
--- NOTE | 2021-07-16 23:51 | ER ---
Nurse's Notes [facility] Name: Jose Armando Gilliland Age: 65 yrs Sex: Male : 1955 Arrival Date: 07/16/2021 Time: 18:19 Bed 6 Private MD: Diagnosis: Alcohol abuse with intoxication Presentation: 07/16 18:20 Chief complaint: EMS states: drinking X 6 days, hx of PTSD, bipolar, has not been iw taking his psych meds since he started drinking. Coronavirus screen: At this time, the client does not indicate any symptoms associated with coronavirus-19. Ebola Screen: Patient negative for fever greater than or equal to 101.5 degrees Fahrenheit, and additional compatible Ebola Virus Disease symptoms Patient denies exposure to infectious person. Patient denies travel to an Ebola-affected area in the 21 days before illness onset. No symptoms or risks identified at this time. Onset of symptoms was July 16, 2021. 18:20 Method Of Arrival: EMS: [facility] iw 18:20 Acuity: YESSENIA 2 iw 18:34 Initial Sepsis Screen: Does the patient meet any 2 criteria? No. Patient's initial jl7 sepsis screen is negative. Does the patient have a suspected source of infection? No. Patient's initial sepsis screen is negative. Risk Assessment: Do you want to hurt yourself or someone else? Patient reports no desire to harm self or others. 18:37 Care prior to arrival: IV initiated. 20 GA, in the right antecubital area, Glucose jl7 check: 169. Triage Assessment: 18:34 General: Appears in no apparent distress. uncomfortable, unkempt, Behavior is jl7 cooperative, inappropriate for age, uncooperative. Pain: Denies pain. Neuro: Oriented to person, place, time, situation, Moves all extremities. Full function Gait is unsteady, Speech is slurred. Cardiovascular: Patient's skin is warm and dry. Rhythm is regular. Respiratory: Airway is patent Respiratory effort is even, unlabored, Respiratory pattern is regular, symmetrical. Derm: Skin is pink, warm \\T\\ dry. Historical: - Allergies: 18:19 No Known Allergies; iw - PMHx: 18:19 Alcoholism; Bipolar disorder; Hypertension; PTSD; iw - Immunization history:: Adult Immunizations unknown. - Social history:: Smoking status: unknown Patient uses alcohol, on a daily basis. "Round the clock." Beer, last drink this morning. Screenin:44 Abuse screen: Denies threats or abuse. Denies injuries from another. Nutritional jl7 screening: No deficits noted. Tuberculosis screening: No symptoms or risk factors identified. Fall Risk No fall in past 12 months (0 pts). Secondary diagnosis (15 points) impaired mobility, IV access (20 points). Ambulatory Aid- None/Bed Rest/Nurse Assist (0 pts). Gait- Impaired (20 pts.). Mental Status- Overestimates/Forgets Limitations (15 pts.). Total Miguel Fall Scale indicates High Risk Score (45 or more points). Fall prevention measures have been instituted. Side Rails Up X 2 Placed Close to Nursing Station Frequent Obs/Assessments Occuring As available patient and family educated on Fall Prevention Program and Strategies. Assessment: 20:12 Reassessment: Pt appears aggitated. Is pacing around the room, shouting at staff and jb4 guest as they pass. Pt shouting " I want to smoke. I know yall have a smoking area! I will just smoke here!" Pt trying to find a maintenance construction helper and attempting to light his cigarette, Birdie sullivan called. 20:35 Reassessment: Pt continues to act in an agitated manner continues pacing and shouting. jb4 Provider notified, see MAR for orders. 21:15 Reassessment: Pt has begun to calm down. Is now laying in bed. Respirations are even jb4 and unlabored. Is no longer shouting at staff and other visitors. 22:12 Reassessment: Pt is resting in bed with eyes closed, no s/s of pain or distress noted. jb4 Respirations are even and unlabored. 07/17 00:22 Reassessment: Patient appears in no apparent distress at this time. Patient and/or jb4 family updated on plan of care and expected duration. Pain level reassessed. Patient is alert, oriented x 3, equal unlabored respirations, skin warm/dry/pink. Pt called for ride home. Pt currently waiting in ER room for ride home to arrive. Psych: 07/16 18:38 [place] Suicide Severity Screening: In the past month, have you wished you were jl7 or wished you could go to sleep and not wake up? Patient responds "No." "In the past month, have you actually had any thoughts of killing yourself?" Patient responds "no." "In your lifetime, have you ever done anything, started to do anything, or prepared to do anything to end your life?" Patient responds "no.". Subjective: Patient's mood is elevated, irritable, Delusions are denied, Hallucinations are denied. Objective: Patient is cooperative, belligerent, challenging, defensive, irritable, Speech is slurred, Affect is inappropriate. Interventions: Searched person for dangerous items. Safety Checks: Personal items have not been removed. Door is open. No visitors are present at this time. Patient uses "Round the clock, beer." of beer, daily. Patient has a history of DTs. Vital Signs: 18:34 BP 186 / 114; Pulse 78; Resp 15; Temp 97.9; Pulse Ox 100% ; jl7 22:12 BP 116 / 71; Pulse 75; Resp 16; Pulse Ox 98% on R/A; jb4 ED Course: 18:19 Patient arrived in ED. 18:19 Benny Elder RN is Primary Nurse. jl7 18:20 Triage completed. 18:26 Kuldip Santana PA is PHCP. [facility] 18:26 Dalton Sharp MD is Attending Physician. [facility] 18:29 Attending Physician role handed off by Dalton Sharp MD [facility] 18:29 Cayetano Mejia MD is Attending Physician. [facility] 18:34 Arm band placed on right wrist. jl7 18:44 Patient has correct armband on for positive identification. Bed in low position. Call [facility] light in reach. Side rails up X2. Client placed on continuous cardiac and pulse oximetry monitoring. NIBP monitoring applied. 18:44 Maintain EMS IV. Dressing intact. Good blood return noted. Site clean \\T\\ dry. Gauge \\T\\ jl 7 site: 20 R AC. 19:04 EKG done, by ED staff, reviewed by Kuldip LAN. [facility] 07/17 00:22 No provider procedures requiring assistance completed. IV discontinued, intact, jb4 bleeding controlled, No redness/swelling at site. Pressure dressing applied. Administered Medications: 07/16 19:00 Drug: Ativan (LORazepam) 2 mg Route: IVP; Site: right antecubital; jl7 19:43 Drug: Banana Bag - (NS 0.9% 1000 ml, foLIC Acid 1 mg, Thiamine 100 mg, Multivitamin 1 vc1 amp) Route: IV; Rate: calculated rate; Site: right antecubital; 20:45 Drug: HALdol (haloperidol) 5 mg Route: IVP; Site: right antecubital; vc1 Medication: 18:44 VIS not applicable for this client. jl7 Outcome: 23:51 Discharge ordered by MD. del angel 07/17 01:02 Patient left the ED. jb4 Signatures: Cayetano Mejia MD MD cha Mickail, Joel, PA PA Jud Leon, ANGELIQUE RN Kaz Cole RN RN jb4 Benny Elder RN RN jl7 Bonnie Rowland [facility] Emma Morrison RN RN vc1 Corrections: (The following items were deleted from the chart) 07/16 22:18 22:12 Reassessment: Pt is resting in bed with eyes closed, no s/s of pain or distress jb4 noted. jb4
--- NOTE | 2021-07-16 23:52 | EDPHYS ---
Physician Documentation [facility] Name: Jose Armando Gilliland Age: 65 yrs Sex: Male : 1955 Arrival Date: 07/16/2021 Time: 18:19 Bed 6 Private MD: WILMA Physician Cayetano Mejia HPI: 07/16 23:48 Is a 65-year-old male with a history of alcoholism, bipolar, hypertension, PTSD the jmm presents emerged department with complaints of difficulty sleeping, alcohol intoxication wanting to receive treatment for this. Patient states he has not taken his Seroquel approximately 6 days. Denies abdominal pain, chest pain, shortness of breath, vomiting, diarrhea.. Historical: - Allergies: 18:19 No Known Allergies; iw - PMHx: 18:19 Alcoholism; Bipolar disorder; Hypertension; PTSD; iw - Immunization history:: Adult Immunizations unknown. - Social history:: Smoking status: unknown Patient uses alcohol, on a daily basis. "Round the clock." Beer, last drink this morning. ROS: 23:48 Constitutional: Negative for fever, chills, and weight loss, Cardiovascular: Negative jmm for chest pain, palpitations, and edema, Respiratory: Negative for shortness of breath, cough, wheezing, and pleuritic chest pain. 23:48 All other systems are negative. Exam: 23:48 Constitutional: This is a well developed, well nourished patient who is awake, alert, jmm and in no acute distress. Head/Face: atraumatic. Eyes: EOMI, no conjunctival erythema appreciated ENT: Moist Mucus Membranes Neck: Trachea midline, Supple Chest/axilla: Normal chest wall appearance and motion. Cardiovascular: Regular rate and rhythm. No edema appreciated Respiratory: Normal respirations, no respiratory distress appreciated Abdomen/GI: Non distended, soft Back: Normal ROM Skin: General appearance color normal MS/ Extremity: Moves all extremities, no obvious deformities appreciated, no edema noted to the lower extremities Neuro: Awake and alert 23:48 Psych: Behavior/mood is cooperative, anxious, aggressive. Vital Signs: 18:34 BP 186 / 114; Pulse 78; Resp 15; Temp 97.9; Pulse Ox 100% ; jl7 22:12 BP 116 / 71; Pulse 75; Resp 16; Pulse Ox 98% on R/A; jb4 MDM: 18:29 Patient medically screened. [facility] 23:51 Data reviewed: vital signs, nurses notes. Counseling: I had a detailed discussion with mer the patient and/or guardian regarding: the historical points, exam findings, and any diagnostic results supporting the discharge/admit diagnosis, lab results, the need for outpatient follow up, to return to the emergency department if symptoms worsen or persist or if there are any questions or concerns that arise at home. 07/16 18:40 Order name: Acetaminophen; Complete Time: 19:23 [facility] 07/16 18:40 Order name: Basic Metabolic Panel; Complete Time: 19:23 [facility] 07/16 18:40 Order name: CBC with Diff; Complete Time: 19:02 [facility] 07/16 18:40 Order name: ETOH Level; Complete Time: 19:23 [facility] 07/16 18:40 Order name: Hepatic Function; Complete Time: 19:23 [facility] 07/16 18:40 Order name: PT-INR; Complete Time: 19:54 [facility] 07/16 18:40 Order name: Ptt, Activated; Complete Time: 19:54 [facility] 07/16 18:40 Order name: Salicylate; Complete Time: 19:23 [facility] 07/16 18:40 Order name: Urine Drug Screen; Complete Time: 19:54 [facility] 07/16 18:40 Order name: EKG; Complete Time: 18:41 [facility] 07/16 19:24 Order name: Urine Dipstick-Ancillary; Complete Time: 19:25 [facility] 07/16 18:40 Order name: EKG - Nurse/Tech; Complete Time: 19:05 [facility] 07/16 18:40 Order name: IV Saline Lock; Complete Time: 18:46 [facility] 07/16 18:40 Order name: Labs collected and sent; Complete Time: 18:46 [facility] 07/16 18:40 Order name: Suicide Screening ([place]); Complete Time: 18:46 [facility] 07/16 18:40 Order name: Urine Dipstick-Ancillary (obtain specimen); Complete Time: 19:44 [facility] 07/16 19:05 Order name: Labs - recollect needed: recollect blue top please; Complete Time: 19:23 em1 Administered Medications: 19:00 Drug: Ativan (LORazepam) 2 mg Route: IVP; Site: right antecubital; jl7 19:43 Drug: Banana Bag - (NS 0.9% 1000 ml, foLIC Acid 1 mg, Thiamine 100 mg, Multivitamin 1 vc1 amp) Route: IV; Rate: calculated rate; Site: right antecubital; 20:45 Drug: HALdol (haloperidol) 5 mg Route: IVP; Site: right antecubital; vc1 Disposition Summary: 07/16/21 23:51 Discharge Ordered Location: Home [facility] Condition: Stable jm Diagnosis - Alcohol abuse with intoxication [facility] Followup: jm - With: Private Physician - When: 2 - 3 days - Reason: Recheck today's complaints, Continuance of care, Re-evaluation by your physician Discharge Instructions: - Discharge Summary Sheet [facility] - Alcohol Intoxication [facility] - Alcohol Abuse and Nutrition [facility] Forms: - Medication Reconciliation Form [facility] - Thank You Letter [facility] - Antibiotic Education [facility] - Prescription Opioid Use [facility] Prescriptions: - chlordiazepoxide HCl 25 mg Oral capsule - take 1 capsule by ORAL route as directed Please take 50 mg by mouth every 6 jmm hours on day 1, then take 25 mg every 6 hours on day 2, then take 25 mg every 12 hours on day 3, then take 25 mg at night on day 4; 15 capsule; Refills: 0, Product Selection Permitted Signatures: Dispatcher [employer] EDCayetano Silva MD MD cha Mickail, Joel, PA PA jmm Williams, Irene, RN Peter Jefferson em1 Benny Elder RN RN jl7 Emma Morrison RN RN vc1 Latisha Apple PA PA sb3
[2021-07-17 01:28] VITALS: TEMP 97.9
[2021-07-17 01:29] VITALS: BP 116/71; O2SAT 98
--- NOTE | 2021-07-18 11:08 | EKG ---
Test Date: 2021-07-16 Test Time: 18:44:23 Road Grader Operator: BOBBI MEASUREMENT RESULTS: Intervals: Rate: 77 WA: 188 QRSD: 114 QT: 362 QTc: 409 [place]: P: 70 WA: 188 QRS: 55 T: 64 INTERPRETIVE STATEMENTS: Normal sinus rhythm Normal ECG Compared to ECG 08/25/2020 18:58:01 First degree AV block no longer present Electronically Signed On 07-18-21 11:06:59 CDT by Nishant Kenney
== END 2021-07-17 01:02 | disposition home or self-care (01) ==
LOC: ER 18:17
DX: F10.229 Alcohol dependence with intoxication, unspecified (principal); F31.9 Bipolar disorder, unspecified; F43.10 Post-traumatic stress disorder, unspecified; I10 Essential (primary) hypertension
CPT/HCPCS: 36415; 80048; 80076; 80307; 80320; 80329; 81003; 85025; 85610; 85730; 93005; 96374; 96375; 99284; J1630; J3411; J7030

== ENCOUNTER 2021-08-09 19:07 | Emergency (ER) | payer SELFPAY ==
--- OUTSIDE RECORDS SUMMARY | 2021-08-09 19:12 | XMS REPORT | Continuity of Care Document ---
:1955 Author Organization [facility] t Address [address] [place] [address] Care Team Providers Name Role Phone Pcp, Patient Does Not Have A Primary Care Physician [id number] Franki CARTER S Attending Clinician Doctor Unassigned, Name Attending Clinician Unavailable Raffy HAMPTON, L Attending Clinician Silvana DOAN Attending Clinician Unavailable Anand HAMPTON Attending Clinician Chelsie Kuhn Attending Clinician Unavailable Zay Knapp Attending [...] Date Date Treatment Clinician Date Illness, Illness, 33981-7 Active 2020-03-04 unspecifie unspecifie 03-04 13:04:04 d d 00:00: (R69)Onset 00 : 04-Mar-2020 Encounter Encounter 06888-4 Active 2019-05-03 for for 05-02 20:46:01 observatio observatio 00:00: n for n for 00 other other suspected suspected diseases diseases and and conditions conditions ruled out ruled out (Z03.89)On set: 03-May-2019 Encounter Encounter 77623-0 Active 2018-07-24 for for 07-24 21:41:52 observatio observatio 00:00: n for n for 00 other other suspected suspected diseases diseases and and conditions conditions ruled out ruled out (Z03.89)On set: 9 Diagnosis Diagnosis 28859-0 Active 2016-09-09 deferred deferred 09-09 01:03:27 on axis II on axis 00:00: IIOnset: 00 7 Deferred Deferred 52195-9 Active 2015-03-11 diagnosis diagnosis 03-11 22:53:15 on axis II on axis 00:00: IIOnset: 00 6 Personalit Personalit 09621-0 Active 2013-04-20 y D/O NOS- y D/O NOS- 2-20 10:31:18 Cluster B Cluster 00:00: BOnset: 00 4 Personalit Personalit 04535-0 Active 2012-022013-02-19 y Disorder y Disorder - 22:10:33 NOS NOSOnset: 00:00: 00 3 Diagnosis Diagnosis 46040-4 Active 2012-11-16 Deferred Deferred 11-16 00:20:04 on Natalbany II on Natalbany 00:00: IIOnset: 00 3 Diagnosis Diagnosis 02125-6 Active 2012-08-03 Deferred Deferred 08-03 16:20:04 on Natalbany II on Natalbany 00:00: IIOnset: 00 03-Aug-2012 Diagnosis Diagnosis 00102-9 Active 2012-12-31 Deferred Deferred 21:59:45 on Natalbany II on Natalbany II No known No known Disease Unive rs active active ity of problems problems [facility] History of Past Illness Condition Condition Condition Status Onset Resolution Last Treating Co mments Source Name Details Category Date Date Treatment Clinician Date Diagnosis Diagnosis 29358-9 Inactiv 2013-04-19 2013-04-19 Deferred Deferred e 07:39:37 07:39:37 on Natalbany II on Natalbany IIStatus: Inactive as of 4 7:39 Allergies, Adverse Reactions, Alerts Allergy Allergy Status Severity Reaction(s) Onset Inactive Treating Comm ents Source Name Type Date Date Clinician No Known Drug [facility] Social History Social Habit Start Date Stop Date Quantity Comments Source Exposure to Not sure [facility] SARS-CoV-2 [facility] (event) Branch Tobacco use and 2021-03-17 2021-03-17 Never used Universit y of exposure 00:00:00 00:00:00 [facility] Alcohol intake 2021-03-17 2021-03-17 Lifetime University of 00:00:00 00:00:00 non-drinker [facility] (finding) [place] Sex Ass[birth year] At [birth year] Universit y of 00:00:00 00:00:00 [facility] Smoking Status Start Date Stop Date Source Tobacco smoking consumption [facility] unknown Never smoker [facility] Medications Ordered Filled Start Stop Current Ordering [...] (scale 7-10). Indication s: acute pain ibuprofen 2020-0 Yes [id number] 600mg Take 1 U nivers 600 mg 4-30 tablet by ity of tablet 00:00: mouth [place] 00 every 6 Medical (six) Branch hours as needed for Pain (scale 4-6). ibuprofen 202-0 Yes [id number] 600mg Take 1 U nivers 600 mg 4-30 tablet by ity of tablet 00:00: mouth [place] 00 every 6 Medical (six) Branch hours as needed for Pain (scale 4-6). ibuprofen 202-0 Yes [id number] 600mg Take 1 U nivers 600 mg 4-30 tablet by ity of tablet 00:00: mouth [place] 00 every 6 Medical (six) Branch hours as needed for Pain (scale 4-6). ibuprofen 202-0 Yes [id number] 600mg Take 1 U nivers 600 mg 4-30 tablet by ity of tablet 00:00: mouth [place] 00 every 6 Medical (six) Branch hours as needed for Pain (scale 4-6). ibuprofen 202-0 Yes [id number] 600mg Take 1 U nivers 600 mg 4-30 tablet by ity of tablet 00:00: mouth [place] 00 every 6 Medical (six) Branch hours as needed for Pain (scale 4-6). TraZODone* 2020-0 Yes [id number] 50mg TraZODone* 03-12 [id number] ; 50 mg 08:34: PO/By 00 mouth for sleep Take 1 tablet by mouth at bedtime for insomnia (CRU)Start : 1Ordered: 1GJoaquin bowdenchelsie Prazosin* 2020-0 Yes [id number] 2mg Prazosin*; 03-12 [id number] 2 mg PO/By 08:33: mouth for 00 nightmares Take 1 tablet by mouth at bedtime for nightmares (CRU)Start : 1Ordered: 1GJoaquin bowden QUEtiapine* 2020-0 Yes [id number] 200mg QUEtiapine 03-12 [id number] *; 200 mg 08:33: PO/By 00 mouth for psychosis Take 1 tablet by mouth twice daily and 2 tablets at bedtime for psychosis (CRU)Start : 1Ordered: 1GdenniseJoaquin Rashawn Milk of 2020-0 Yes [id number] 30ml Milk of NTE 120 Magnesia 1 [id number] Magnesia; mL in 24 11:56: 30 ml PO hours 00 PRN q4hr for Constipati on NTE 120 mL in 24 hours RoutineSta rt: 05-Mar-2020 Ordered: 05-Mar-2020 Joaquin Jenkins ments: NTE 120 mL in 24 hours QUEtiapine Yes [id number] 50mg QUEtiapine NTE 2 00 03-05 [id number] ; 50 mg PO mg PRN 11:56: PRN q6hr Quetiapin 00 for midl e in 24 agitation hr period NTE 200 mg PRN Quetiapine in 24 hr period RoutineSta rt: 05-Mar-2020 Ordered: 05-Mar-2020 Joaquin Jenkins ments: NTE 200 mg PRN Quetiapine in 24 hr period SEROquel 2020- No [id number] 0 SEROquel 400 mg oral 03-04 [id number] 400 mg tablet 11:35: oral 31 tablet; qhsQuantit y: 0 Refills: 0Ordered: Evelyn ParisiGeneric Substituti on Allowed prazosin 2 No [id number] 0 prazosin 2 Home mg oral 1- 613525 mg oral Medicatio capsule 11:35: capsule; n stored 31 orally in once a day Pharmacy (at bedtime)Qu antity: 0 Refills: 0Ordered: 03-May-2019 Anetor, Linda KGeneric Substituti on AllowedCom ments: Home Medication stored in Pharmacy SEROquel No [id number] 0 SEROquel 300 mg oral - [id number] 300 mg tablet 11:35: oral 31 tablet; qamQuantit y: 0 Refills: 0Ordered: Evelyn ParisiGeneric Substituti on Allowed QUEtiapine No [id number] 0 QUEtiapine 100 mg oral 09-08 [id number] 100 mg tablet 23:20: oral 27 tablet; orallyQuan tity: 0 Refills: 0Ordered: [address] [place] [address] us: OtherGener ic Substituti on Allowed Zoloft 50 No [id number] 1{tab(s Zoloft 50 mg oral 09-08 954533 )} mg oral tablet 23:20: tablet; 1 27 tab(s) orally once a dayQuantit y: 0 Refills: 0Ordered: [address] [place] [address] [facility] us: OtherGener ic Substituti on Allowed Benadryl 25 No [id number] 0 Benadryl mg oral 09-08 [id number] 25 mg oral capsule 23:20: capsule; 27 orally onceQuanti ty: 0 Refills: 0Ordered: [address] [place] [address] [facility] us: OtherGener ic Substituti on Allowed traZODone No [id number] 0 traZODone 50 mg oral 09-08 [id number] 50 mg oral tablet 23:20: tablet; 27 orally onceQuanti ty: 0 Refills: 0Ordered: [address] [place] [address] [facility] us: OtherGener ic Substituti on Allowed lisinopril No [id number] 1{tab(s lisinopril 10 mg oral 09-08 374491 )} 10 mg oral tablet 23:20: tablet; 1 20 tab(s) orally once a dayQuantit y: 0 Refills: 0Ordered: 7Moore, TeriStart: 7Generic Substituti on Allowed Seroquel No [id number] 0 Seroquel 200mg 04-18 787032 200mg; po 00:00: qam and 00 qhs pt. received last dose at [facility] on 04/18/13 at 09:25Quant ity: 0 Refills: 0Ordered: 4Moore, TeriStart: 4Status: OtherGener ic Substituti on Allowed Zoloft No [id number] 0 Zoloft 100ng 04-18 [id number] 100ng; po 00:00: qam pt. 00 received last dose at [facility] on 04/18/13 at 0905Quanti ty: 0 Refills: 0Ordered: 4Moore, TeriStart: 4Status: OtherGener ic Substituti on Allowed Pt reports 2012-02 No [id number] 0 Pt reports "I have 04-22 "I have been off my 11:30: been off meds for 3 29 my meds years." for 3 years."Hayes ntity: 0 Refills: 0Ordered: 03-Aug-2012 Augustus Trammell us: Discontinu edGeneric Substituti on Allowed zoloft 100 2012-02 No [id number] 0 zoloft mg 04-22 [id number] 100 mg; po 00:00: everyday 00 last dose at home 02/18/13 , at [facility] 02/19/13Q uantity: 0 Refills: 0Ordered: 3DMary stantonStart: 3Status: Discontinu edGeneric Substituti on Allowed Risperdal 2 2012-02 No [id number] 1 Risperdal mg oral 04-22 [id number] 2 mg oral tablet 00:00: tablet; 1 00 orally Q AM LAST DOSE AT [facility] , AT HOME LAST DOSE 02/18/13Qu antity: 0 Refills: 0Ordered: Mary GuadarramaStart: 3Status: Discontinu edGeneric Substituti on Allowed Risperdal 4 2012-02 No [id number] 1 Risperdal mg oral 04-22 [id number] 4 mg oral tablet 00:00: tablet; 1 00 orally LAST DOSE 02/18/13 AT [facility] , AT HOME 02/17/13Q uantity: 0 Refills: 0Ordered: Mary GuadarramaStart: 3Status: Discontinu edGeneric Substituti on Allowed ATARX 25 2012-02 No [id number] 0 ATARX 25 MG 04-22 [id number] MG; PO 00:00: BID PRN 00 [facility] Refills: 0Ordered: Mary GuadarramaStart: 3Status: Discontinu edGeneric Substituti on Allowed ATARAX 25 2012-02 No [id number] 0 ATARAX 25 MG 04-22 [id number] MG; PO 00:00: TID LAST 00 DOSE AT [facility] 02/19/13Qu antity: 0 Refills: 0Ordered: aMry GuadarramaStart: 3Status: Discontinu edGeneric Substituti on Allowed MULTI 2012-02 No [id number] 0 MULTI VITAMIN , 04-22 675612 VITAMIN , FOLIC ACID 00:00: FOLIC 1 MG , 00 ACID 1 THIAMINE MG , 100 MG THIAMINE 100 MG; PO everyday [facility] Refills: 0Ordered: Mary GuadarramaStart: 3Status: Discontinu edGeneric Substituti on Allowed DENIES 2012-02 No [id number] 0 DENIES OTC/HERBAL 04-22 [id number] OTC/HERBAL HOME MEDS 00:00: HOME 00 MEDSQuanti ty: 0 Refills: 0Ordered: 3DMary stantonStart: 3Status: Discontinu edGeneric Substituti on Allowed Pt. denies No [id number] 0 Pt. denies current 11-15 [id number] current medications 00:00: medication 00 sQuantity: 0 Refills: 0Ordered: 3Moore, TeriStart: 3Status: Discontinu edGeneric Substituti on Allowed Vital Signs Vital Name Observation Time Observation Value Comments Source Systolic blood 2021-03-17 181 mm[Hg] reports [facility] pressure 19:41:00 elevated b/p [facility] Diastolic blood 2021-03-17 117 mm[Hg] reports [place] o f pressure 19:41:00 elevated b/p [facility] Heart rate 2021-03-17 86 /min University 19:41:00 [facility] Body height 2021-03-17 166.4 cm University 19:41:00 [facility] Body weight 2021-03-17 79.379 kg University 19:41:00 [facility] BMI 2021-03-17 28.68 kg/m2 University 19:41:00 [facility] Height/Length 2021-03-17 167 cm Measured 10:41:43 Height/Length 2021-03-17 167 cm Measured 10:41:22 Height/Length 2021-03-17 167 cm Measured 10:41:21 Height/Length 2021-03-17 167 cm Measured 10:41:20 Height/Length 2019-07-31 Measured 23:52:46 Procedures Procedure Date / Time Performed Performing Clinician [facility] e REFERRAL- 2021-04-21 06:01:00 Doctor Unassigned, No [facility] REQUEST/RESPONSE Name [facility] XR CLAVICLE COMP LEFT 2021-03-17 19:58:00 Surjit Akbar [facility] EKG and Rhythm Strip 2016-09-09 08:00:00 Mallory [...] 17:07:00 Substance Use Group 3B [code = [id number]] Diagnostic Test Pending 2020-03-04 16:33:00 Assess and involve in group therapy [code = Assessandinvolveingroupth erapy] Diagnostic Test Pending 2020-03-04 16:32:00 Special Observations [code = SpecialObservations] Diagnostic Test Pending 2020-03-04 16:32:00 Vital Signs [code = VitalSigns] Encounters Start End Encounter Admission Attending Care Care Encounter Source Date/Time Date/Time Type Type Clinicians Facility Department ID 2021-04-22 2021-04-22 Telephone Franki [facility] [id number] Univers 00:00:00 00:00:00 Leonora JIMENEZ 350.1.13.10 it y of [place] 4.2.7.2.686 Gamaliel as ADELSO?BLEA [id number] Ny britt GRUBER 198 [facility] OFFICE [facility] 2021-04-21 2021-04-21 Orders Doctor FELIPA [id number] Univers 00:00:00 00:00:00 Only Unassigned, WENDIE 350.1.13.10 ity of [place] [facility] 4.2.7.2.686 Gamaliel as [id number] [address] 2021-03-17 2021-03-17 [facility] [id number] Univers 13:45:48 23:59:00 Encounter Surjit Chavez Drawn to Scale 350.1.13.10 [facility] 4.2.7.2.686 Gamaliel as ADELSO?BLEA [id number] Ny britt GRUBER 809 [facility] 2021-03-17 2021-03-17 Outpatient R FRANKI [facility] [id number] Univers 13:30:00 14:15:06 LEONORA ity of [facility] 2021-03-17 2021-03-17 [facility] [id number] Univers 13:30:00 13:45:[address] [facility] 350.1.13.10 it y of [place] 4.2.7.2.686 Gamaliel as ADELSO?BLEA [id number] Ny britt GRUBER 198 [facility] 2020-06-27 2020-06-27 [facility] [id number] 09:14:00 11:54:00 Sky [place] 350.1.13.10 [place] 4.2.7.2.686 [place] [id number] 2020-03-04 2020-03-15 Inpatient Kuhn, 1 [facility]-3B-73- 0000 [id number] [place] 13:27:00 11:29:00 Claudia Xavier [facility] 2019-07-31 2019-07-31 Emergency [facility] NATHALY [id number] 23:32:00 23:32:00 [facility] 2019-07-31 2019-07-31 Emergency [facility] N[place] [id number] 23:32:00 23:32:00 -[id number] [facility] 2019-07-27 2019-07-27 Inpatient Kuhn, 1 [facility]- 0000 [id number] [place] 17:10:00 17:10:00 Claudia Xavier [facility] 2019-07-22 2019-07-22 Inpatient Ra, 1 [facility] [id number] [place] 11:01:00 11:01:00 Vinia Zay [facility] 2019-07-21 2019-07-21 Inpatient Ra, 1 [facility] [id number] [place] 23:27:00 23:27:00 Vinia Zay A [facility] 2019-05-03 2019-05-10 Inpatient Shahani, 1 [facility]-1B-77- [id number] [place] 21:27:00 11:12:00 Ady A [facility] 2019-05-04 2019-05-04 [id number] 23:29:00 23:29:00 ZA 2019-05-03 2019-05-03 Emergency E SANDIP, [facility] 7502 [facility] 13:06:00 15:43:00 [place] 2018-07-24 2018-08-01 Inpatient Kuhn, 1 [facility]-3B-76- 0000 [id number] [place] 21:29:00 10:51:00 Claudia Villegas [facility] 2017-11-14 2017-11-14 Inpatient Abeba Fraser 1 [facility]-1A-06- 0 [id number] [place] 17:44:00 17:44:00 A [facility] 2017-11-14 2017-11-14 Emergency [facility] [id number] Call 06:19:00 06:19:00 [facility] 2017-08-19 2017-08-19 Outpatient [facility] [id number] Call 00:00:00 00:00:00 [facility] 2017-07-28 2017-07-28 Outpatient [facility] [id number] Call 00:00:00 00:00:00 [facility] 2017-06-16 2017-06-16 Outpatient [facility] [id number] Call 00:00:00 00:00:00 [facility] 2017-06-06 2017-06-06 Emergency E [facility] [id number] 19:31:00 19:31:00 [facility] 2017-06-05 2017-06-05 Emergency E RASSOLI, [facility] [id number] 17:19:00 17:19:00 AMIR [facility] 2017-05-16 2017-05-16 Outpatient [facility] [id number] Call 00:00:00 00:00:00 [facility] 2017-05-03 2017-05-03 Outpatient [facility] [id number] Call 00:00:00 00:00:00 [facility] 2017-04-28 2017-04-28 Outpatient [facility] [id number] Call 15:13:12 15:13:12 [facility] 2016-12-30 2016-12-30 Outpatient [facility] [id number] Call 00:00:00 00:00:00 [facility] 2016-12-09 2016-12-09 Outpatient [facility] [id number] Call 00:00:00 00:00:00 [facility] 2016-12-09 2016-12-09 Outpatient [facility] [id number] Call 00:00:00 00:00:00 [facility] 2016-12-02 2016-12-02 Outpatient [facility] [id number] Call 08:56:02 08:56:02 [facility] 2016-12-02 2016-12-02 Outpatient [facility] [id number] Call 00:00:00 00:00:00 [facility] 2016-12-02 2016-12-02 Outpatient [facility] [id number] Call 00:00:00 00:00:00 [facility] 2016-11-19 2016-11-19 Outpatient [facility] [id number] Call 10:25:44 10:25:44 Health 2016-10-22 2016-10-22 Outpatient [facility] [id number] Call 11:25:55 11:25:55 [facility] 2016-10-05 2016-10-05 Outpatient [facility] [id number] [place] 09:11:02 09:11:02 Health 2016-09-08 2016-09-23 Inpatient Hattie, 1 [facility]72- 0000 [id number] [place] 22:39:00 10:35:00 Claudia Xavier 53 [facility] 2015-03-11 2015-03-20 Inpatient Johana, 1 [facility]-3E-61- 0 [id number] [place] 16:12:00 13:16:00 Karlie A 89 [facility] Psychia tric [facility] 2013-04-18 2013-04-24 Inpatient Smeal, 1 [facility]72- 0000 [id number] [place] 18:25:00 14:35:00 Sherrie Villegas 60 [place] Psychia tric [facility] 2013-02-19 2013-03-06 Inpatient Smeal, 1 [facility]-2B-78- 0000 [id number] [place] 10:26:00 17:35:00 Sherrie Xavier 36 [place] Psychia tric [facility] 2012-12-30 2013-01-15 Inpatient Ceasarmon, 1 [facility]-2E-67- [id number] [place] 20:01:00 16:50:00 Alice Villegas 88 [facility] Psychia tric [facility] 2012-11-15 2012-11-29 Inpatient Sam, 1 [facility]76- 0 [id number] [place] 20:08:00 13:10:00 Tian Villegas 29 Coun Psychia tric [facility] 2012-08-03 2012-08-10 Inpatient Adhia, 1 [facility]-2D-31- 0000 [id number] [place] 14:39:00 15:15:00 Ritchie Xavier 70 [facility] Psychia tric [facility] 1987-09-19 1987-09-23 Inpatient PAZZAGLIA, 1 [facility]-1B-87- 0 [id number] [place] 15:00:00 16:00:00 SHEELA Xavier 77 [facility] Results Test Description Test Time Test Comments Results Result Comments Source LIPID PANEL 2021-08-03 01:35:20 Test Item Value Reference Range Interpretation Comme nts CHOLESTEROL (test code = 2210) 187 MG/DL <200 TRIGLYCERIDES (test code = 2232) 86 MG/DL <150 HDL CHOLESTEROL (test code = 53 MG/DL >39 2220) CALC LDL CHOL (test code = 2237) 115 MG/DL <100 H NOTE: CALCULATED LDL IS BASED ON TOMAS-ONTIVEROS METHOD WHICHINCLUDES A DJUSTABLE TRIGLYCERIDE:VL DL CHOLESTEROL RATIO.THIS FACT OR VARIES BY MEASURED TRIGLY CERIDE AND NON-HDLCHOLESTE ROL CONCENTRATIONS WITH INCREASED CALCULATED LDL SEENIN HIGHER T RIGLYCERIDE OR LOWER NON-HDL S PECIMENS. FOR MOREINFORMATION , SEE CLIENT ANNOUNCEMENT AT [email or web address] RATIO LDL/HDL (test code = 2.17 RATIO <3.55 2237) COMPREHENSIVE METABOLIC [id number] 01:35:20 Test Item Value Reference Range Interpretation Comments GLUCOSE (test code = 88 MG/DL 70-99 2216) BUN (test code = 5 MG/DL 8-23 L 2207) CREATININE (test 0.90 MG/DL 0.80-1.40 code = 2214) eGFR (2020 CKD-EPI) 96 >60 (test code = 11740) ML/MIN/1.73 CALC BUN/CREAT (test 6 RATIO 6-28 code = 2235) SODIUM (test code = 141 MEQ/L 692-114 6726) POTASSIUM (test code 4.2 MEQ/L 3.5-5.4 = 2227) CHLORIDE (test code 100 MEQ/L 95-107 = 221) CARBON DIOXIDE (test 23 MEQ/L 19-31 code = 2206) CALCIUM (test code = 9.5 MG/DL 8.5-10.5 2208) PROTEIN, TOTAL (test 8.1 G/DL 6.1-8.3 code = 2229) ALBUMIN (test code = 4.9 G/DL 3.5-5.2 2200) CALC GLOBULIN (test 3.2 G/DL 1.9-3.7 code = 2240) CALC A/G RATIO (test 1.5 RATIO 1.0-2.6 code = 2234) BILIRUBIN, TOTAL 0.4 MG/DL See_Comment [Automated message] (test code = 2207) The [employer] which generated this result transmitted ref erence range: <=1.2. T he reference range was not used to int erpret this result as normal/abnormal . ALKALINE PHOSPHATASE 119 U/L 40-123 (test code = 2204) AST (test code = 120 U/L 9-50 H 2218) ALT (test code = 148 U/L 5-50 H UNLE SS 2219) OTHERWISE INDIC ATED, ALL TESTING PER FORMED ATCLINICAL PATH [facility], I [address] [place] [address] LABORATORY DIRE CTOR: ANDERSON STEIN M.D. CLIA NUMBER [id number] CAP ACCREDITATION N O. [id number] CBC w/ Diff w/ [id number] 15:10:00 Test Item Value Reference Range Interpretation Comments WBC Count (test code = 5.7 {x10E3/uL} WBCCount) zzzRBC Count (test code = 4.05 {x10E6/uL} zzzRBCCount) Hemoglobin (test code = 12.3 g/dL Hemoglobin) zzzHematocrit (test code = 37.0 % zzzHematocrit) MCV (test code = MCV) 91 fL MCH (test code = MCH) 30.4 pg MCHC (test code = MCHC) 33.2 g/dL RDW (test code = RDW) 13.9 % Platelets (test code = 168 {x10E3/uL} Platelets) Neutrophils (test code = 38 % Neutrophils) Lymphs (test code = Lymphs) 43 % Monocytes (test code = 12 % Monocytes) Eosinophils (test code = 5 % Eosinophils) Basophils (test code = 1 % Basophils) Neutrophils (Absolute) (test 2.2 {x10E3/uL} code = Neutrophils(Absolute)) Lymphs(Absolute) (test code = 2.5 {x10E3/uL} Lymphs(Absolute)) Monocytes(Absolute) (test 0.7 {x10E3/uL} code = Monocytes(Absolute)) Eosinophils(Absolute) (test 0.3 {x10E3/uL} code = Eosinophils(Absolute)) Basophils(Absolute) (test 0.1 {x10E3/uL} code = Basophils(Absolute)) Immature Granulocytes (test 1 % code = ImmatureGranulocytes) Immature Grans (Abs) (test 0.0 {x10E3/uL} code = ImmatureGrans(Abs)) Comprehensive Metabolic [id number] 14:47:00 Test Item Value Reference Range Interpretation Comments Glucose,Serum (test 99 mg/dL code = Glucose,Serum) BUN (test code = BUN) 12 mg/dL Creatinine,Serum 0.75 mg/dL (test code = Creatinine,Serum) eGFR If NonAfrican Am 98 mL/min/1.73 (656396) (test code = eGFRIfNonAfricanAm(12 0491)) eGFR If Am 114 mL/min/1.73 (884721) (test code = eGFRIfAfricanAm(31772 7)) BUN/Creat Ratio (test 16 code = [...] = ALT) 201 {IU/L} Client Requested Flag [id number] 14:47:00 Test Item Value Reference Range Interpretation Comments TSH (776773) (test code = 2.010 {uIU/mL} TSH(248569)) Lipid Panel with LDL/HDL [id number] 14:47:00 Test Item Value Reference Range Interpretation Comments zzzCholesterol, Total 146 mg/dL (test code = zzzCholesterol,Total) Triglycerides (test code 88 mg/dL = Triglycerides) zzzHDL Cholesterol (test 41 mg/dL code = zzzHDLCholesterol) VLDL Cholesterol 17 mg/dL Calculated (test code = VLDLCholesterolCalculate d) LDL Cholesterol ROSALIND 88 mg/dL (NIH) (test code = LDLCholesterolCAL(NIH)) LDL/HDL Ratio (947626) 2.1 {ratio} . (test code = LDL/HDLRatio(079250)) LDL/HDL Ratio Men Women 1/ 2 Avg.Risk 1.0 1.5 Avg.Risk 3.6 3.2 2X Avg.Risk 6.2 5.0 3X Avg.Risk 8.0 6.1 Comprehensive Metabolic [id number] 01:43:55 Test Item Value Reference Range Interpretation [...] A/G 1.6 ratio N Ratio) Comprehensive Metabolic [id number] 01:43:55 Test Item Value Reference Range Interpretation [...] the National Kid[employer] Foundation, http://nkdep.ni h.gov Alcohol [id number] 01:43:55 Test Item Value Reference Range Interpretation Comments Ethanol Level (test 0.17 g/dL 0.00-0.01 H Intoxica marek 0.080 g/dL code = Ethanol or more Level) Ethanol Inst (test 168 N code = Ethanol Inst) Comprehensive Metabolic [id number] 01:43:55 Test Item Value Reference Range Interpretation [...] ag e have not been validated by [facility] MDRD study and should be interpreted [...] ag e have not been validated by [facility] MDRD study and should be interpreted wit h caution. eGFR R esult Interpretation: eGFR > or = 60 is in the Normal RangeeGF R < 60 may mean kid mihir diseaseeGFR < 1 5 may mean kidney failure Rang es recommended by the National Kidney Foundation, http://nkdep.ni h.gov Complete Blood Count with [id number] 01:03:37 Test Item Value Reference Range Interpretation [...] code = IPF) 0 % N Automated [id number] 01:03:37 Test Item Value Reference Range Interpretation Comments Neutro Auto (test code = Neutro 47.3 % 36.0-70.0 Auto) Lymph Auto (test code = Lymph Auto) 33.3 % 12.0-44.0 Hart Auto (test code = Hart Auto) 12.4 % 0.0-11.0 H Eos, Auto (test code = Eos, Auto) 5.6 % 0.0-7.0 Basophil Auto (test code = Basophil 1.2 % 0.0-2.0 Auto) Neutro Absolute (test code = Neutro 3.9 x10 1.6-7.4 Absolute) Lymph Absolute (test code = Lymph 2.73 x10 .50-4.60 Absolute) Hart Absolute (test code = Hart 1.02 x10 .00-1.20 Absolute) Eos Absolute (test code = Eos 0.46 x10 0.00-0.74 Absolute) Baso Absolute (test code = Baso 0.10 x10 0.00-0.21 Absolute) IG [id number] 01:03:37 Test Item Value Reference Range Interpretation Comments IG (test code = IG) 0.2 % 0.0-5.0 IG Abs (test code = IG Abs) 0 x10 N Urine Drug Screen 13:08:00 Test Item Value Reference Interpretation Comments Range Amphetamine Negative Amphetamine Methamphetmine test includes 830164 (test code = Amphetam ine and AmphetamineMethamphe Methamp hetamine [id number]) . Barbiturate (112399) Negative (test code = Barbiturate(277817)) Benzodiazepines Positive (319314) (test code = Benzodiazepines(7148 32)) Cocaine Metabolite Negative (963480) (test code = CocaineMetabolite(71 4857)) Phencyclidine Negative (992107) (test code = Phencyclidine(873892 )) Drug Screen Comment NOTE : .This analysis (test code = is performed by DrugScreenComment) immunoassay. Positivefindings are unconfirmed analytical test results; ifresults do not support expected clinical finding,confirmation by an alternate methodology is recommended.Patient metabolic variables, specific drug chemistry, andspecimen characteristics can affect test outcome.Technical consultation is available [email or web address], or call toll free [phone]. Cannabinoid (543050) Negative (test code = Cannabinoid(715754)) Opiates (765891) Negative Opiate test (test code = includes Opiates(395047)) Codeine and Morphine only. Comprehensive Metabolic [id number] 20:00:00 Test Item Value Reference Range Interpretation Comments Glucose,Serum (test code = 73 mg/dL Glucose,Serum) BUN (test code = BUN) 10 mg/dL Creatinine,Serum (test code = 0.85 mg/dL Creatinine,Serum) eGFR If NonAfrican Am 95 mL/min/1.73 (815613) (test code = eGFRIfNonAfricanAm(091915)) eGFR If Am (347798) 109 mL/min/1.73 (test code = eGFRIfAfricanAm(708230)) BUN/Creat Ratio (test code = 12 BUN/CreatRatio) [...] ALT) 83 {IU/L} Lipid Panel with LDL/HDL [id number] 20:00:00 Test Item Value Reference Range Interpretation Comments Cholesterol, Total (test 137 mg/dL code = Cholesterol,Total) Triglycerides (test code 53 mg/dL = Triglycerides) HDL Cholesterol (test 54 mg/dL code = HDLCholesterol) Cholesterol, VLDL 11 mg/dL (calculated) (test code = Cholesterol,VLDL(calcula marek)) Cholesterol, LDL 72 mg/dL (calculated) (test code = Cholesterol,LDL(calculat ed)) LDL/HDL Ratio (766190) 1.3 {ratio} . (test code = LDL/HDLRatio(063221)) LDL/HDL Ratio Men Women 1/ 2 Avg.Risk 1.0 1.5 Avg.Risk 3.6 3.2 2X Avg.Risk 6.2 5.0 3X Avg.Risk 8.0 6.1 Drug Screen, Urine # [id number] 14:29:00 Test Item Value Reference Interpretation Comments Range Amphetamine Negative Amphetamine Methamphetmine test includes 350571 (test code = Amphetam ine and AmphetamineMethamphe Methamp hetamine [id number]) . Barbiturate (083019) Negative (test code = Barbiturate(709192)) Benzodiazepines Negative (536174) (test code = Benzodiazepines(7148 32)) Cannabinoid (806682) Negative (test code = Cannabinoid(180478)) Cocaine Metabolite Negative (111288) (test code = CocaineMetabolite(71 4857)) Opiates (702190) Negative Opiate test (test code = includes Opiates(670292)) Codeine, Morphine, Hydromorphone, Hydrocodone. Phencyclidine Negative (089278) (test code = Phencyclidine(572952 )) Methadone Screen Negative (673061) (test code = MethadoneScreen(7951 37)) Propoxyphene, Urine Negative (290876) (test code = Propoxyphene,Urine(7 37715)) Drug Screen Comment NOTE : .This analysis (test code = is performed by DrugScreenComment) immunoassay. Positivefindings are unconfirmed analytical test results; ifresults do not support expected clinical finding,confirmation by an alternate methodology is recommended.Patient metabolic variables, specific drug chemistry, andspecimen characteristics can affect test outcome.Technical consultation is available [email or web address], or call toll free [phone]. [id number] 14:06:00 Test Item Value Reference Range Interpretation Comments TSH (314447) (test code = 1.770 {uIU/mL} TSH(478533)) CBC w/ Diff w/ [id number] 12:00:00 Test Item Value Reference Range Interpretation [...] (Abs) 0.0 {x10E3/uL} (test code = ImmatureGrans(Abs)) [id number] 22:27:00 Test Item Value Reference Range Interpretation Comments Potassium (test code = K) 4.0 mmol/L 3.5-5.1 N Alcohol/Ethanol, [id number] 19:26:00 Test Item Value Reference Range Interpretation Comments Alcohol, Ethyl 0.14 g/dL 0.00-0.01 H Intoxicated 0.080 g/dL (test code = ETOH) or more [id number] 19:06:00 Test Item Value Reference Range Interpretation [...] code = THC) Negative Negative N Urinalysis [id number] 19:06:00 Test Item Value Reference Range Interpretation Comments Color (test code = Yellow Yellow,Straw,Pl N COLOR) yellow Clarity (test code = Clear Clear N CLAR) Specific [place] (test 1.010 1.001-1.035 N code = SPGR) [...] code = None /HPF SANTANA) Comprehensive Metabolic [id number] 19:05:00 Test Item Value Reference Range Interpretation [...] National Kidney Foundation,http :[email or web address] ep.nih.gov CBC with [id number] 18:49:00 Test Item Value Reference Range Interpretation [...] code = ALYMPH) 0.9 K/cumm 0.5-4.6 N Hart Abs (test code = AMONO) 0.4 K/cumm 0.0-1.2 N Eos Abs (test code = AEOS) 0.10 K/cumm 0.00-0.74 N Baso Abs (test code = ABASO) 0.0 K/cumm 0.00-0.21 N [place] [id number] 16:08:00 Test Item Value Reference Range Interpretation Comments [place] Level (test 0.6 mmol/L Detectio n Limit = 0.1 code = LithiumLevel) <0.1 indicates None Detected [id number] 16:25:00 Test Item Value Reference Range Interpretation Comments TSH (834086) (test code = 2.710 {uIU/mL} TSH(458401)) Drug Screen, Urine # [id number] 11:58:00 Test Item Value Reference Interpretation Comments Range Amphetamine Negative Amphetamine Methamphetmine test includes 129515 (test code = Amphetam ine AmphetamineMethamph and [id number]) Methamphetamin e. Barbiturate Negative (615184) (test code = Barbiturate(541225) ) Benzodiazepines Positive (872426) (test code = Benzodiazepines(872 868)) Cannabinoid Negative (554236) (test code = Cannabinoid(048113) ) Cocaine Metabolite Negative (412471) (test code = CocaineMetabolite(7 17196)) Opiates (839245) Negative Opiate test (test code = includes Opiates(620432)) Codeine, Morphine, Hydromorphone, Hydrocodone. Phencyclidine Negative (244783) (test code = Phencyclidine(10863 1)) Methadone Screen Negative (822759) (test code = MethadoneScreen(851 264)) Propoxyphene, Urine Negative (979126) (test code = Propoxyphene,Urine( 297804)) Drug Screen Comment NOTE : This assay (test code = provides a preliminary DrugScreenComment) unconfirmed analyticaltest result that may be suitable for the clinicalmanagement of patients in certain situations. [facility], preliminary positivefindings should always be confirmed by an alternativemethod. Some fyip-fgn-etcykwh medications, as well asadulterants, may cause inaccurate results. Screen Onlytesting does not meet the [employer] requirements as aforensic urine drug test for workplace testing. All clientsmust ensure that their testing program conforms toapplicable state and federal laws and employmentagreements. [id number] 11:46:00 Test Item Value Reference Range Interpretation Comments Specific [place] (test 1.005 code = SpecificGravity) pH (test [...] MicroscopicExam) indicated and not performed. Comprehensive Metabolic [id number] 11:34:00 Test Item Value Reference Range Interpretation Comments Glucose,Serum (test code = 101 mg/dL Glucose,Serum) BUN (test code = BUN) 7 mg/dL Creatinine,Serum (test code = 0.68 mg/dL Creatinine,Serum) eGFR If NonAfrican Am 105 mL/min/1.73 (786910) (test code = eGFRIfNonAfricanAm(549640)) eGFR If Am (582267) 122 mL/min/1.73 (test code = eGFRIfAfricanAm(279656)) BUN/Creat Ratio (test code = 10 BUN/CreatRatio) [...] ALT) 178 {IU/L} Lipid Panel with LDL/HDL [id number] 11:34:00 Test Item Value Reference Range Interpretation Comments Cholesterol, Total 204 mg/dL (test code = Cholesterol,Total) Triglycerides (test 186 mg/dL code = Triglycerides) HDL Cholesterol (test 63 mg/dL code = HDLCholesterol) Cholesterol, VLDL 37 mg/dL (calculated) (test code = Cholesterol,VLDL(calcul ated)) Cholesterol, LDL 104 mg/dL (calculated) (test code = Cholesterol,LDL(calcula marek)) LDL/HDL Ratio (379794) 1.7 {ratio . (test code = units} LDL/HDLRatio(782705)) LDL/HDL Ratio Men Women 1/2 Avg.Risk 1.0 1.5 Avg.Risk 3.6 3.2 2X Avg.Risk 6.2 5.0 3X Avg.Risk 8.0 6.1 CBC w/ Diff w/ [id number] 11:25:00 Test Item Value Reference Range Interpretation [...] code = ImmatureGrans(Abs)) Drug Screen, Urine # [id number] 14:17:00 Test Item Value Reference Interpretation Comments Range Amphetamine (test Negative code = Amphetamine) Barbiturates (test Negative code = Barbiturates) Benzodiazepines Positive (test code = Benzodiazepines) Cannabinoid (test Negative code = Cannabinoid) Cocaine Metabolite Negative (test code = CocaineMetabolite) Opiate Screen (test Negative Opiate t est code = OpiateScreen) include s Codeine, Morphine, Hydromorphon e, Hydrocodone. Phencyclidine Negative (488129) (test code = Phencyclidine(080145 )) Methadone Level Negative (test code = MethadoneLevel) Propoxyphene, Urine Negative (903979) (test code = Propoxyphene,Urine(7 24863)) Drug Screen Comment NOTE : This assay (test code = provides a preliminary DrugScreenComment) unconfirmed analyticaltest result that may be suitable for the clinicalmanagement of patients in certain situations. Forworkplace drug testing programs, preliminary positivefindings should always be confirmed by an alternativemethod. Some jvfo-hjv-itzlkzo medications, as well asadulterants, may cause inaccurate results. Screen Onlytesting does not meet the [employer] Drug [employer] requirements as aforensic urine drug test for workplace testing. All clientsmust ensure that their testing program conforms toapplicable state and federal laws and employmentagreements. [id number] 12:50:00 Test Item Value Reference Range Interpretation Comments TSH (000195) (test code = 1.930 {uIU/mL} TSH(647034)) CBC w/ Diff w/ [id number] 12:25:00 Test Item Value Reference Range Interpretation [...] 0.0 {x10E3/uL} code = ImmatureGrans(Abs)) Comprehensive Metabolic [id number] 12:18:00 Test Item Value Reference Range Interpretation Comments Glucose,Serum (test code = 87 mg/dL Glucose,Serum) BUN (test code = BUN) 13 mg/dL Creatinine,Serum (test code = 0.89 mg/dL Creatinine,Serum) eGFR If NonAfrican Am 96 mL/min/1.73 (481724) (test code = eGFRIfNonAfricanAm(338097)) eGFR If Am (666572) 111 mL/min/1.73 (test code = eGFRIfAfricanAm(737423)) BUN/Creat Ratio (test code = 15 BUN/CreatRatio) [...] ALT) 25 {IU/L} Drug Screen, Urine # [id number] 14:27:00 Test Item Value Reference Interpretation Comments Range Amphetamine (test Negative code = Amphetamine) Barbiturates (test Negative code = Barbiturates) Benzodiazepines Negative (test code = Benzodiazepines) Cannabinoid (test Negative code = Cannabinoid) Cocaine Metabolite Negative (test code = CocaineMetabolite) Opiate Screen (test Negative Opiate t est code = OpiateScreen) include s Codeine, Morphine, Hydromorphon e, Hydrocodone. Phencyclidine Negative (515032) (test code = Phencyclidine(785291 )) Methadone Level Negative (test code = MethadoneLevel) Propoxyphene, Urine Negative (567464) (test code = Propoxyphene,Urine(2 70847)) Drug Screen Comment NOTE : This assay (test code = provides a preliminary DrugScreenComment) unconfirmed analyticaltest result that may be suitable for the clinicalmanagement of patients in certain situations. [facility], preliminary positivefindings should always be confirmed by an alternativemethod. Some oxce-qcj-yiilygr medications, as well asadulterants, may cause inaccurate results. Screen Onlytesting does not meet the [employer] Drug Testing [employer] requirements as aforensic urine drug test for workplace testing. All clientsmust ensure that their testing program conforms toapplicable state and federal laws and employmentagreements. [id number] 11:57:00 Test Item Value Reference Range Interpretation Comments Specific [place] (test 1.013 code = SpecificGravity) pH (test [...] follows if indicated. Drug Screen, Urine # [id number] 13:01:00 Test Item Value Reference Interpretation Comments Range Amphetamine (test Negative code = Amphetamine) Barbiturates (test Negative code = Barbiturates) Benzodiazepines Positive (test code = Benzodiazepines) Cannabinoid (test Negative code = Cannabinoid) Cocaine Metabolite Negative (test code = CocaineMetabolite) Opiate Screen (test Negative Opiate t est code = OpiateScreen) include s Codeine, Morphine, Hydromorphon e, Hydrocodone. Phencyclidine Negative (801082) (test code = Phencyclidine(031391 )) Methadone Level Negative (test code = MethadoneLevel) Propoxyphene, Urine Negative (869876) (test code = Propoxyphene,Urine(7 84886)) Drug Screen Comment NOTE : This assay (test code = provides a preliminary DrugScreenComment) unconfirmed analyticaltest result that may be suitable for the clinicalmanagement of patients in certain situations. [facility], preliminary positivefindings should always be confirmed by an alternativemethod. Some rjnh-wka-jaqxdpp medications, as well asadulterants, may cause inaccurate results. Screen Onlytesting does not meet the [employer] Drug Testing [employer] requirements as aforensic urine drug test for workplace testing. All clientsmust ensure that their testing program conforms toapplicable state and federal laws and employmentagreements. [id number] 11:57:00 Test Item Value Reference Range Interpretation Comments Specific [place] (test 1.010 code = SpecificGravity) pH (test [...] Microscopic code = MicroscopicExam) follows if indicated. [id number] 14:12:00 Test Item Value Reference Range Interpretation Comments TSH (869702) (test code = 4.590 {uIU/mL} TSH(637168)) Comprehensive Metabolic [id number] 13:09:00 Test Item Value Reference Range Interpretation Comments Glucose,Serum (test code = 77 mg/dL Glucose,Serum) BUN (test code = BUN) 14 mg/dL Creatinine,Serum (test code = 0.87 mg/dL Creatinine,Serum) eGFR If NonAfrican Am 97 mL/min/1.73 (552649) (test code = eGFRIfNonAfricanAm(451520)) eGFR If Am (557775) 112 mL/min/1.73 (test code = eGFRIfAfricanAm(206312)) BUN/Creat Ratio (test code = 16 BUN/CreatRatio) [...] ALT) 33 {IU/L} CBC w/ Diff w/ [id number] 12:45:00 Test Item Value Reference Range Interpretation [...] (Abs) (test 0.0 {x10E3/uL} code = ImmatureGrans(Abs)) [place] [id number] 15:35:00 Test Item Value Reference Range Interpretation Comments [place] Level (test 0.5 mmol/L Detectio n Limit = 0.1 code = LithiumLevel) <0.1 indicates None Detected [id number] 13:40:00 Test Item Value Reference Range Interpretation Comments TSH (887650) (test code = 4.220 {uIU/mL} TSH(360197)) [id number] 13:40:00 Test Item Value Reference Range Interpretation Comments TSH (324947) (test code = 4.220 {uIU/mL} TSH(463728)) Basic Metabolic [id number] 12:47:00 Test Item Value Reference Range Interpretation [...] Calcium) eGFR If NonAfrican 94 mL/min/1.73 Am (818964) (test code = eGFRIfNonAfricanAm(1 32332)) eGFR If Am 109 mL/min/1.73 (220932) (test code = eGFRIfAfricanAm(1007 97)) Comprehensive Metabolic [id number] 12:15:00 Test Item Value Reference Range Interpretation Comments Glucose,Serum (test 80 mg/dL code = Glucose,Serum) BUN (test code = BUN) 13 mg/dL Creatinine,Serum 0.93 mg/dL (test code = Creatinine,Serum) eGFR If NonAfrican Am 93 mL/min/1.73 (415296) (test code = eGFRIfNonAfricanAm(10 91)) eGFR If Am 107 mL/min/1.73 (474438) (test code = eGFRIfAfricanAm(35178 7)) BUN/Creat Ratio (test 14 code = [...] 1 d - 5 months 15 - 6 m - u p to 1 year 15 - 1 - 12 yea rs 17 - > 12 years 19 - 28 [...] ALT) 60 {IU/L} CBC w/ Diff w/ [id number] 12:10:00 Test Item Value Reference Range Interpretation [...] code = ImmatureGrans(Abs)) Drug Screen, Urine # [id number] 14:49:00 Test Item Value Reference Interpretation Comments Range Amphetamine (test Negative code = Amphetamine) Barbiturates (test Negative code = Barbiturates) Benzodiazepines Negative (test code = Benzodiazepines) Cannabinoid (test Negative code = Cannabinoid) Cocaine Metabolite Positive (test code = CocaineMetabolite) Opiate Screen (test Negative Opiate t est code = OpiateScreen) include s Codeine, Morphine, Hydromorphon e, Hydrocodone. Phencyclidine Negative (495468) (test code = Phencyclidine(992867 )) Methadone Level Negative (test code = MethadoneLevel) Propoxyphene, Urine Negative (819587) (test code = Propoxyphene,Urine(7 41444)) Drug Screen Comment NOTE : This assay (test code = provides a preliminary DrugScreenComment) unconfirmed analyticaltest result that may be suitable for the clinicalmanagement of patients in certain situations. [facility], preliminary positivefindings should always be confirmed by an alternativemethod. Some nvzd-puc-wqnuqwx medications, as well asadulterants, may cause inaccurate results. Screen Onlytesting does not meet the [employer] Drug Testing [employer] requirements as aforensic urine drug test for workplace testing. All clientsmust ensure that their testing program conforms toapplicable state and federal laws and employmentagreements. [id number] 14:09:00 Test Item Value Reference Range Interpretation Comments Specific [place] (test 1.011 code = SpecificGravity) pH (test [...]
[2021-08-09] MEDS ORDERED: PROMETHAZINE INJ 25 MG/ML AMP ONE (19:50)
[2021-08-09] MEDS ORDERED: PANTOPRAZOLE 40 MG INJ ONE (19:51)
[2021-08-09] MEDS ORDERED: LORazepam 2 MG/ML VIAL ONE ×2 (19:51→22:10)
[2021-08-09] MEDS ORDERED: THIAMINE 200 MG/2 ML INJ ONE (19:51)
[2021-08-09] MEDS ORDERED: NA CHLORIDE 0.9% 1,000 ML ONE (19:52)
[2021-08-09] MEDS ORDERED: MULTIVITAMINS 10 ML VIAL (INJ) IV ONE (19:52)
[2021-08-09] MEDS ORDERED: FOLIC ACID 5 MG/ML VIAL ONE (19:53)
[2021-08-09 20:12] LABS: Absolute Lymphocytes (CBC) 0.7 K/uL (0.7-4.9); Hematocrit 46.7 % (39.6-49.0); Lymphocytes % 9.3 % (15.3-44.8); MPV 7.4 fL (7.6-11.3); RBC Red Blood Cell Count 5.37 M/uL (4.33-5.43)
[2021-08-09 20:14] LABS: Protime INR 0.96
--- NOTE | 2021-08-09 20:40 | RAD REPORT ---
EXAM DESCRIPTION: CT - Abdomen Pelvis W Contrast - 08/09/2021 8:26 pm CLINICAL HISTORY: Abdominal pain COMPARISON: none. TECHNIQUE: Computed axial tomography of the abdomen pelvis was obtained. 100 cc Isovue-300 was admin istered intravenously. Oral contrast was not requested which limits evaluation of bowel and appendix All CT scans are performed using dose optimization technique as appropriate and may include automated exposure control or mA/KV adjustment according to patient size. FINDINGS: Markedly fatty liver. 1 centimeter enhancing lesion right lobe liver. Spleen, pancreas, adrenal and kidneys appear unremarkable. There is no evidence of diverticulitis. Normal appendix. Small bilateral inguinal hernias Small amount ascites Mild anterior subluxation L5 on S1. Spondylosis L5. Small umbilical hernia IMPRESSION: Markedly fatty liver 1 centimeter enhancing lesion right lobe of liver. MRI of the liver recommended
[2021-08-09 21:00] LABS: Albumin 3.9 g/dL (3.4-5.0); Alkaline Phosphatase 100 U/L (45-117); BUN Blood Urea Nitrogen 14 mg/dL (7-18); Bicarbonate 23 mmol/L (21-32); Bilirubin Direct 0.2 mg/dL (0-0.2); Bilirubin Total 0.9 mg/dL (0.2-1.0); Glomerular Filtration Rate 87 ml/min (=/>90); Glucose Level 85 mg/dL (74-106); Lipase 308 U/L (73-393); Potassium 4.1 mmol/L (3.5-5.1); Protein, Total 7.7 g/dL (6.4-8.2); Sodium Level 132 mmol/L (136-145)
[2021-08-09 21:10] LABS: ALT/SGPT 140 U/L (12-78); AST/SGOT 71 U/L (15-37)
[2021-08-09 21:20] LABS: Urine Blood 2+ (Negative); Urine Glucose Negative (Negative); Urine Protein 2+ (Negative); Urine Specific Gravity 1.025 (1.005-1.030); Urine pH 5.5 (5.0-7.0)
[2021-08-09 21:32] LABS: Barbiturates NEGATIVE (NEGATIVE); Benzodiazepines NEGATIVE (NEGATIVE); Cocaine NEGATIVE (NEGATIVE); METHAMPHETAM NEGATIVE (NEGATIVE); Methadone NEGATIVE (NEGATIVE); Opiates NEGATIVE (NEGATIVE); Phencyclidine NEGATIVE (NEGATIVE); THC Cannibis NEGATIVE (NEGATIVE)
[2021-08-09] MEDS ORDERED: D5 0.9 NS 1,000 ML IV ONE (22:11)
--- NOTE | 2021-08-10 00:46 | EDPHYS ---
Physician Documentation [facility] Name: Jose Armando Gilliland Age: 65 yrs Sex: Male : 1955 Arrival Date: 08/09/2021 Time: 19:15 Bed 14 Private MD: ED Physician Adrian Knutson HPI: 08/09 19:26 This 65 yrs old Male presents to ER via Unassigned with complaints of mh7 Nausea.Vomiting. Diarrhea. 19:26 The patient presents to the emergency department with nausea, that is moderate, mh7 vomiting, that is intermittent, described as clear fluid, diarrhea, that is intermittent, abdominal pain, of the suprapubic area, right lower quadrant and left lower quadrant, described as intermittent, vague,\\E\\ waxing and waning, and radiates to the right flank. Onset: The symptoms/episode began/occurred 3 day(s) ago. Possible causes: unknown. The symptoms are aggravated by alcohol, The symptoms are alleviated by nothing. Associated signs and symptoms: Pertinent negatives: anorexia, belching, constipation, dysuria, fever, flatulence, GI bleeding, hematuria. Severity of symptoms: At their worst the symptoms were moderate yesterday, in the emergency department the symptoms are unchanged. States that he usually drinks multiple large sized beers daily but has not been able to do so due to the recent vomiting.. Historical: - Allergies: 19:29 No Known Allergies; ll3 - PMHx: 19:29 Alcoholism; Bipolar disorder; Hypertension; PTSD; ll3 - Immunization history:: Client reports having NOT received the Covid vaccine. - Social history:: Smoking status: Patient reports the use of cigarette tobacco products, smokes one-half pack cigarettes per day. ROS: 19:26 Constitutional: Negative for fever, chills, and weight loss, Eyes: Negative for injury, mh7 pain, redness, and discharge, ENT: Negative for injury, pain, and discharge, Neck: Negative for injury, pain, and swelling, Cardiovascular: Negative for chest pain, palpitations, and edema, Respiratory: Negative for shortness of breath, cough, wheezing, and pleuritic chest pain, : Negative for injury, bleeding, discharge, and swelling, MS/Extremity: Negative for injury and deformity, Skin: Negative for injury, rash, and discoloration, Neuro: Negative for headache, weakness, numbness, tingling, and seizure, Psych: Negative for depression, anxiety, suicide ideation, homicidal ideation, and hallucinations, Allergy/Immunology: Negative for hives, rash, and allergies, Endocrine: Negative for neck swelling, polydipsia, polyuria, polyphagia, and marked weight changes, Hematologic/Lymphatic: Negative for swollen nodes, abnormal bleeding, and unusual bruising. Exam: 19:26 Head/Face: Normocephalic, atraumatic. Eyes: Pupils equal round and reactive to light, mh7 extra-ocular motions intact. Lids and lashes normal. Conjunctiva and sclera are non-icteric and not injected. Cornea within normal limits. Periorbital areas with no swelling, redness, or edema. Neck: Trachea midline, no thyromegaly or masses palpated, and no cervical lymphadenopathy. Supple, full range of motion without nuchal rigidity, or vertebral point tenderness. No Meningismus. Chest/axilla: Normal chest wall appearance and motion. Nontender with no deformity. No lesions are appreciated. Cardiovascular: Regular rate and rhythm with a normal S1 and S2. No gallops, murmurs, or rubs. Normal PMI, no JVD. No pulse deficits. Respiratory: Lungs have equal breath sounds bilaterally, clear to auscultation and percussion. No rales, rhonchi or wheezes noted. No increased work of breathing, no retractions or nasal flaring. 19:26 Skin: Warm, dry with normal turgor. Normal color with no rashes, no lesions, and no evidence of cellulitis. MS/ Extremity: Pulses equal, no cyanosis. Neurovascular intact. Full, normal range of motion. Neuro: Awake and alert, GCS 15, oriented to person, place, time, and situation. Cranial nerves II-XII grossly intact. Motor strength 5/5 in all extremities. Sensory grossly intact. Cerebellar exam normal. Normal gait. Psych: Awake, alert, with orientation to person, place and time. Behavior, mood, and affect are within normal limits. 19:26 Constitutional: The patient appears in no acute distress, alert, awake, uncomfortable, tremulous 19:26 Abdomen/GI: Inspection: abdomen appears normal, Bowel sounds: normal, in all quadrants, Palpation: moderate abdominal tenderness, in all quadrants, mass, is not appreciated, rebound tenderness, is not appreciated, voluntary guarding, is not appreciated, involuntary guarding, is not appreciated, no appreciated organomegaly, Rectal exam: the exam is deferred, because of patient request, Indicators: McBurney's point is not tender, Loyd's sign is negative, Rovsing's sign is negative, Obturator sign is negative, Psoas sign is negative, Liver: no appreciated palpable abnormalities, Hernia: not appreciated. 19:26 Back: normal spinal alignment noted, CVA tenderness, that is moderate, is noted on the right, vertebral tenderness, is not appreciated, muscle spasm, is not present. Vital Signs: 19:20 BP 150 / 101; Pulse 88; Resp 19; Temp 98.6(O); Pulse Ox 96% on R/A; Weight 68.95 kg ll3 (R); Height 5 ft. 5 in. (165.10 cm) (R); Pain 8/10; 21:00 BP 133 / 98; Pulse 84; Resp 20; Pulse Ox 98% on R/A; ll3 22:30 BP 145 / 89; Pulse 82; Resp 18; Pulse Ox 98% on R/A; ll3 23:50 BP 155 / 102; Pulse 64; Resp 18; Pulse Ox 97% on R/A; ll3 08/10 00:34 BP 153 / 85; Pulse 54; Resp 17; Pulse Ox 97% on R/A; ll3 08/09 19:20 Body Mass Index 25.29 (68.95 kg, 165.10 cm) ll3 MDM: 00:42 Differential diagnosis: Nonspecific abd pain, gastritis, cholecystitis, pancreatitis, mh7 appendicitis, diverticulitis, viral gastroenteritis, gastroenteritis. Data reviewed: vital signs, nurses notes, old medical records, lab test result(s), CBC, electrolytes, urinalysis, EKG, radiologic studies, CT scan. Data interpreted: Pulse oximetry: on room air is 97 %. Interpretation: normal. Counseling: I had a detailed discussion with the patient and/or guardian regarding: the historical points, exam findings, and any diagnostic results supporting the discharge/admit diagnosis, the presence of at least one elevated blood pressure reading (>120/80) during this emergency department visit, lab results, radiology results, the need for outpatient follow up, to return to the emergency department if symptoms worsen or persist or if there are any questions or concerns that arise at home. Response to treatment: the patient's symptoms have resolved after treatment, the patient's blood pressure is in an acceptable range, mental status has returned to baseline, the patient no longer shows bradycardia, the patient is not short of breath, the patient is not tachycardic, the patient's pain is gone, the patient's temperature has normalized, Tolerating PO intake without difficulty. 00:45 Patient medically screened. [facility] 00:53 ED course: Discussed findings of CT abdomen/pelvis of 1 cm liver lesion with [facility] recommendation of MRI liver and need to follow with his doctor to order the study. He verbalized that he understood the information as presented.. 08/09 19:24 Order name: Acetaminophen; Complete Time: :33 [facility] 08/09 19:24 Order name: Basic Metabolic Panel; Complete Time: :33 [facility] 08/09 19:24 Order name: CBC with Diff; Complete Time: 20:26 [facility] 08/09 19:24 Order name: ETOH Level; Complete Time: 20:44 [facility] 08/09 19:24 Order name: Hepatic Function; Complete Time: 21:33 [facility] 08/09 19:24 Order name: PT-INR; Complete Time: 20:26 [facility] 08/09 19:24 Order name: Ptt, Activated; Complete Time: 20:26 [facility] 08/09 19:24 Order name: Salicylate; Complete Time: 20:26 [facility] 08/09 19:24 Order name: Urine Drug Screen; Complete Time: 21:33 [facility] 08/09 19:24 Order name: Lipase; Complete Time: :33 [facility] 08/09 19:24 Order name: CT Abd/Pelvis - IV Contrast Only; Complete Time: 20:44 [facility] 08/09 19:25 Order name: COVID-19 SARS RT PCR (Document "Date of Onset" if Symptomatic); Complete [facility] Time: :44 08/09 21:20 Order name: Urine Dipstick-Ancillary; Complete Time: 21:33 [facility] 08/09 23:41 Order name: CREATININE WHOLE BLOOD; Complete Time: 23:41 [facility] 08/09 19:24 Order name: EKG; Complete Time: 19:25 [facility] 08/09 19:24 Order name: EKG - Nurse/Tech; Complete Time: 20:01 [facility] 08/09 19:24 Order name: IV Saline Lock; Complete Time: 19:51 [facility] 08/09 19:24 Order name: Labs collected and sent; Complete Time: 19:51 [facility] 08/09 19:24 Order name: Suicide Screening (Gillespie); Complete Time: 00:49 [facility] 08/09 19:24 Order name: Urine Dipstick-Ancillary (obtain specimen); Complete Time: 21:15 [facility] Administered Medications: 08/09 20:00 Drug: Banana Bag - (NS 0.9% 1000 ml, foLIC Acid 1 mg, Thiamine 100 mg, Multivitamin 1 ll3 amp) Route: IV; Rate: calculated rate; Site: right antecubital; 23:00 Follow up: Response: No adverse reaction; IV Status: Completed infusion; IV Intake: ll3 1000ml 20:00 Drug: ProTONIX (pantoprazole) 40 mg Route: IVP; Site: right antecubital; ll3 22:59 Follow up: Response: No adverse reaction ll3 20:05 Drug: Ativan (LORazepam) 2 mg Route: IVP; Site: right antecubital; ll3 23:00 Follow up: Response: No adverse reaction ll3 20:14 Not Given (Physician discressionn): Zofran (Ondansetron) 4 mg IVP once; over 2 minutes ll3 20:15 Drug: Phenergan (promethazine) 12.5 mg Route: IVP; Site: right antecubital; ll3 22:59 Follow up: Response: No adverse reaction ll3 22:10 Drug: Ativan (LORazepam) 2 mg Route: IVP; Site: right antecubital; ll3 22:59 Follow up: Response: No adverse reaction ll3 22:30 Drug: D5-NS 1000 ml Route: IV; Rate: bolus; Site: right antecubital; ll3 08/10 01:05 Follow up: Response: No adverse reaction; IV Status: Completed infusion; IV Intake: ll3 1000ml 01:00 Drug: Librium - chlordiazePOXIDE 50 mg Route: PO; ll3 01:18 Follow up: Response: No adverse reaction ll3 Disposition Summary: 08/10/21 00:45 Discharge Ordered Location: Home [facility] Problem: new [facility] Symptoms: have improved [facility] Condition: Stable mh7 Diagnosis - Gastroenteritis mh7 - Alcohol dependence with withdrawal [facility] Followup: [facility] - With: Private Physician - When: 1 - 2 days - Reason: Worsening of condition, Recheck today's complaints, Continuance of care, Re-evaluation by your physician Followup: [facility] - With: Oneil Kwong MD - When: 1 - 2 days - Reason: Worsening of condition, Recheck today's complaints, Continuance of care, Re-evaluation by your physician Discharge Instructions: - Discharge Summary Sheet [facility] - Viral Gastroenteritis, Adult, [id number] [facility] - Alcohol Withdrawal Syndrome, [id number] [facility] - Alcohol Abuse and Dependence Information, Adult [facility] - Fatty Liver Disease [facility] Forms: - Medication Reconciliation Form [facility] - Thank You Letter [facility] - Antibiotic Education [facility] - Prescription Opioid Use [facility] Prescriptions: - chlordiazepoxide HCl 25 mg Oral capsule - take 1 capsule by ORAL route as directed Day 1: Take 50 mg every 6 hours, Day mh7 2: take 25 mg every 6 hours, Day 3: take 25 mg every 12 hours, Day 4: take 25 mg at night; 15 capsule; Refills: 0, Product Selection Permitted - ondansetron 4 mg Oral tablet,disintegrating - place 1 tablet by TRANSLINGUAL route every 8 hours As needed; 12 tablet; [facility] Refills: 0, Product Selection Permitted - Pepcid 20 mg Oral Tablet - take 1 tablet by ORAL route once daily for 10 days; 10 tablet; Refills: 0, [facility] Product Selection Permitted Signatures: Dispatcher [employer] Adrian Cárdenas MD MD [facility] Ardian Briones RN RN ll3
--- NOTE | 2021-08-10 00:46 | ER ---
Nurse's Notes [facility] Name: Jose Armando Gilliland Age: 65 yrs Sex: Male : 1955 Arrival Date: 08/09/2021 Time: 19:15 Bed 14 Private MD: Diagnosis: Gastroenteritis;Alcohol dependence with withdrawal Presentation: 08/09 19:20 Chief complaint: EMS states: Toned out for N/V/D, cold sweats, shaking for the past 4 ll3 days, Pt states he is going to rehab on Tuesday for alcoholism, pt states he was drinking 15-17 malt liquor beers every day for the past 3-4 weeks, c/o abdominal and right flank pain 10/07. Coronavirus screen: Vaccine status: Patient reports being unvaccinated. diarrhea, vomiting. Ebola Screen: No symptoms or risks identified at this time. Initial Sepsis Screen: Does the patient meet any 2 criteria? No. Patient's initial sepsis screen is negative. Does the patient have a suspected source of infection? No. Patient's initial sepsis screen is negative. Risk Assessment: Do you want to hurt yourself or someone else? Patient reports no desire to harm self or others. Onset of symptoms is unknown. Care prior to arrival: Medication(s) given: zofran 4 mg, Thiamine 100 MG IV initiated. 20 GA, in the right antecubital area. Activity prior to arrival: vomiting. 19:20 Method Of Arrival: EMS: [facility] 3 19:20 Acuity: YESSENIA 3 ll3 Triage Assessment: 19:29 General: Appears uncomfortable, ill, Behavior is cooperative, anxious, Smells of ll3 alcohol. Pain: Complains of pain in left lower quadrant and right lower quadrant and suprapubic area Pain currently is 8 out of 10 on a pain scale. Quality of pain is described as aching, Pain began 2-3 days ago. Is continuous. Neuro: Level of Consciousness is awake, alert, obeys commands, Oriented to person, place, time, situation, Reports Shakiness . Cardiovascular: Reports vomiting, Patient's skin is warm and dry. Respiratory: Respiratory effort is even, unlabored, Respiratory pattern is regular, symmetrical. GI: Stools are reported to be diarrhea. Abdomen is tender to palpation X 4 quads. Reports lower abdominal pain, upper abdominal pain, diarrhea, intolerance of fluids, intolerance of food, nausea, vomiting, since X4 days. Derm: Skin is clammy. Historical: - Allergies: 19:29 No Known Allergies; ll3 - PMHx: 19:29 Alcoholism; Bipolar disorder; Hypertension; PTSD; ll3 - Immunization history:: Client reports having NOT received the Covid vaccine. - Social history:: Smoking status: Patient reports the use of cigarette tobacco products, smokes one-half pack cigarettes per day. Screenin:02 Abuse screen: Denies threats or abuse. Nutritional screening: No deficits noted. ll3 Tuberculosis screening: No symptoms or risk factors identified. Fall Risk No fall in past 12 months (0 pts). No secondary diagnosis (0 pts). IV access (20 points). Ambulatory Aid- None/Bed Rest/Nurse Assist (0 pts). Gait- Weak (10 pts.). Mental Status- Overestimates/Forgets Limitations (15 pts.). Total Miguel Fall Scale indicates High Risk Score (45 or more points). Fall prevention measures have been instituted. Side Rails Up X 2 Placed Close to Nursing Station Frequent Obs/Assessments Occuring As available patient and family educated on Fall Prevention Program and Strategies. Assessment: 19:34 General: See triage assessment. ll3 20:45 Reassessment: No changes from previously documented assessment. Patient and/or family ll3 updated on plan of care and expected duration. Pain level reassessed. Patient is alert, oriented x 3, equal unlabored respirations, skin warm/dry/pink. 22:00 Reassessment: Patient and/or family updated on plan of care and expected duration. Pain ll3 level reassessed. Patient is alert, oriented x 3, equal unlabored respirations, skin warm/dry/pink. Nausea has improved. 22:30 Reassessment: Pt requested food, states he hasn't been able to eat in 4 days, Dr. isra Knutson notified, VO for clear liquids and to advance as tolerated. 23:00 Reassessment: PO challenge tolerated well, pt denies and nausea or vomiting, Dr. Eamon dhaliwal notified. 08/10 00:32 Reassessment: No changes from previously documented assessment. Patient and/or family ll3 updated on plan of care and expected duration. Pain level reassessed. Patient is alert, oriented x 3, equal unlabored respirations, skin warm/dry/pink. Pt requested more nausea medicine, Dr. Knutson notifed. Vital Signs: 08/09 19:20 BP 150 / 101; Pulse 88; Resp 19; Temp 98.6(O); Pulse Ox 96% on R/A; Weight 68.95 kg ll3 (R); Height 5 ft. 5 in. (165.10 cm) (R); Pain 8/10; 21:00 BP 133 / 98; Pulse 84; Resp 20; Pulse Ox 98% on R/A; ll3 22:30 BP 145 / 89; Pulse 82; Resp 18; Pulse Ox 98% on R/A; ll3 23:50 BP 155 / 102; Pulse 64; Resp 18; Pulse Ox 97% on R/A; ll3 08/10 00:34 BP 153 / 85; Pulse 54; Resp 17; Pulse Ox 97% on R/A; ll3 08/09 19:20 Body Mass Index 25.29 (68.95 kg, 165.10 cm) ll3 ED Course: 08/09 19:15 Patient arrived in ED. jd3 19:20 Adrian Briones, RN is Primary Nurse. ll3 19:23 Adrian Knutson MD is Attending Physician. mh7 19:29 Triage completed. ll3 19:29 Arm band placed on Patient placed in an exam room, on a stretcher, on phototypesetting equipment monitor, ll3 on pulse oximetry. 19:51 Lipase Sent. zm 19:51 Basic Metabolic Panel Sent. zm 19:51 CBC with Diff Sent. zm 19:51 ETOH Level Sent. zm 19:51 Hepatic Function Sent. zm 19:51 PT-INR Sent. zm 19:51 Ptt, Activated Sent. zm 19:51 Salicylate Sent. zm 19:51 Acetaminophen Sent. zm 20:28 CT Abd/Pelvis - IV Contrast Only In Process Unspecified. EDMS 23:03 Patient has correct armband on for positive identification. Bed in low position. Call ll3 light in reach. Side rails up X2. Client placed on continuous cardiac and pulse oximetry monitoring. NIBP monitoring applied. Noise minimized. Lights dimmed. Warm blanket given. Pillow given. PO fluids given. Head of bed lowered. 08/10 00:43 Oneil Kwong MD is Referral Physician. 7 01:06 No provider procedures requiring assistance completed. IV discontinued, intact, ll3 bleeding controlled, No redness/swelling at site. Pressure dressing applied. Administered Medications: 08/09 20:00 Drug: Banana Bag - (NS 0.9% 1000 ml, foLIC Acid 1 mg, Thiamine 100 mg, Multivitamin 1 ll3 amp) Route: IV; Rate: calculated rate; Site: right antecubital; 23:00 Follow up: Response: No adverse reaction; IV Status: Completed infusion; IV Intake: ll3 1000ml 20:00 Drug: ProTONIX (pantoprazole) 40 mg Route: IVP; Site: right antecubital; ll3 22:59 Follow up: Response: No adverse reaction ll3 20:05 Drug: Ativan (LORazepam) 2 mg Route: IVP; Site: right antecubital; ll3 23:00 Follow up: Response: No adverse reaction ll3 20:14 Not Given (Physician discressionn): Zofran (Ondansetron) 4 mg IVP once; over 2 minutes ll3 20:15 Drug: Phenergan (promethazine) 12.5 mg Route: IVP; Site: right antecubital; ll3 22:59 Follow up: Response: No adverse reaction ll3 22:10 Drug: Ativan (LORazepam) 2 mg Route: IVP; Site: right antecubital; ll3 22:59 Follow up: Response: No adverse reaction ll3 22:30 Drug: D5-NS 1000 ml Route: IV; Rate: bolus; Site: right antecubital; ll3 08/10 01:05 Follow up: Response: No adverse reaction; IV Status: Completed infusion; IV Intake: ll3 1000ml 01:00 Drug: Librium - chlordiazePOXIDE 50 mg Route: PO; ll3 01:18 Follow up: Response: No adverse reaction ll3 Medication: 08/09 23:03 VIS not applicable for this client. ll3 Intake: 23:00 IV: 1000ml; Total: 1000ml. ll3 08/10 01:05 IV: 1000ml; Total: 2000ml. ll3 Outcome: 00:45 Discharge ordered by MD. vanegas 01:18 Discharged to home ambulatory. ll3 01:18 Condition: stable 01:18 Discharge instructions given to patient, Instructed on discharge instructions, follow up and referral plans. medication usage, Demonstrated understanding of instructions, follow-up care, medications, Prescriptions given X 3. 01:19 Patient left the ED. ll3 Signatures: Dispatcher [employer] Jamaal May RN RN jd3 Holmes, Maurice, MD MD 7 Adrian Briones RN RN ll3 Maeylin Patrick Corrections: (The following items were deleted from the chart) 00:30 06/ 22:45 Reassessment: Pt requested food, states he hasn't been able to eat in 4 ll3 days, Dr. Knutson notified, VO for clear liquids and to advance as tolerated. ll3 08/10 00:32 06/12 22:30 Reassessment: Pt requested food, states he hasn't been able to eat in 4 ll3 days, Dr. Knutson notified, VO for clear liquids and to advance as tolerated. ll3
[2021-08-10] MEDS ORDERED: chlordiazePOXIDE HCl 25 MG CAP ONE (01:01)
[2021-08-10 01:35] VITALS: TEMP 98.6
[2021-08-10 01:42] VITALS: O2SAT 97
[2021-08-10 01:43] VITALS: BP 153/85
--- NOTE | 2021-08-10 13:34 | EKG ---
Test Date: 2021-08-09 Test Time: 19:55:52 Industrial Energy Engineer: SALVADOR MEASUREMENT RESULTS: Intervals: Rate: 73 KS: 196 QRSD: 96 QT: 384 QTc: 423 [place]: P: 56 KS: 196 QRS: 55 T: 70 INTERPRETIVE STATEMENTS: Normal sinus rhythm Anterior infarct, age undetermined Abnormal ECG Compared to ECG 07/16/2021 18:44:23 Myocardial infarct finding now present Electronically Signed On 08-10-21 13:33:15 CDT by Alexander Vera
== END 2021-08-10 01:19 | disposition home or self-care (01) ==
LOC: ER 19:07
DX: K52.9 Noninfective gastroenteritis and colitis, unspecified (principal); F10.239 Alcohol dependence with withdrawal, unspecified; Z20.822 Contact with and (suspected) exposure to COVID-19; I10 Essential (primary) hypertension; F43.10 Post-traumatic stress disorder, unspecified; F31.9 Bipolar disorder, unspecified; F17.210 Nicotine dependence, cigarettes, uncomplicated
CPT/HCPCS: 36415; 74177; 80048; 80076; 80307; 80320; 80329; 81003; 82565; 83690; 85025; 85610; 85730; 93005; 96361; 96365; 96366; 96375; 99284; C9113; J2550; J3411; J7030; J7042; Q9967; U0003

== ENCOUNTER → 2023-05-17 | Emergency (ER) | payer OTHER, SELFPAY ==
[~2023-05-17] MED LIST: GABAPENTIN 300 MG CAP ONE; HYDROCODONE/APAP 5/325 MG TAB ONE; KETOROLAC 30 MG/ML INJ ONE; MORPHINE 4 MG/ML SYR ONE; dexAMETHasone 10 MG/ML VIAL ONE
--- OUTSIDE RECORDS SUMMARY | 2023-05-17 13:45 | XMS REPORT | Continuity of Care Document ---
Author Name Unknown Address [address] [facility] [address] [place] [address] [facility] Address [address] [facility] [address] [place] [address] Care Team Providers Care Salesperson Furs Name Role Phone PCP, PATIENT DOES NOT HAVE A Primary Care Physic beto Unavailable Leonora Kat Attending Clinician [phone] Doctor Unassigned, [place] Attending Clinician U Surjit Acharya MD Attending Clinician [phone] LEONORA DOAN Attending Clinician Unavailable GUICHO MICHEL Attending Clinician Unavailable Guicho Michel MD Attending Clinician [phone] Claudia Kuhn Attending Clinician Unavaila Bhavna Kenny Attending Clinician UnavailAdy Perez Attending Clinician Unavailable Abeba Fraser Attending Clinician Unavailable CIPRIANO REYES Attending Clinician Unavailable Karlie Vaughn Attending Clinician UnavailSherrie Andersen Attending Clinician Unavailable Alice Self Attending Clinician Unavailable Tian Vargas Attending Clinician Unavail able Ritchie Marr Attending Clinician Unavailable SHEELA ONEIL Attending Clinician Unavailab GUICHO Cochran Admitting Clinician Unavailable CIPRIANO REYES Admitting Clinician Unavailable Problems Condition Name Condition Details Condition Category Status Onset Date Resolution Date Last Treatment Date Treating Clinician Comments Source Illness, unspecifie d Illness, unspecifie d (R69)Onset : 04-Mar-2020 97351-9 Active 03-04 00:00: 00 2020-03-04 13:04:04 Encounter for observatio n for other suspected diseases and conditions ruled out Encounter for observatio n for other suspected diseases and conditions ruled out (Z03.89)On set: 03-May-2019 33648-8 Active 05-02 00:00: 00 2019-05-03 20:46:01 Encounter for observatio n for other suspected diseases and conditions ruled out Encounter for observatio n for other suspected diseases and conditions ruled out (Z03.89)On set: 9 00342-9 Active 07-24 00:00: 00 2018-07-24 21:41:52 Diagnosis deferred on axis II Diagnosis deferred on axis IIOnset: 7 00353-1 Active 09-09 00:00: 00 2016-09-09 01:03:27 Deferred diagnosis on axis II Deferred diagnosis on axis IIOnset: 6 12761-2 Active 03-11 00:00: 00 2015-03-11 22:53:15 Personalit y D/O NOS- Cluster B Personalit y D/O NOS- Cluster BOnset: 4 62853-5 Active 04-19 00:00: 00 2013-04-20 10:31:18 Personalit y Disorder NOS Personalit y Disorder NOSOnset: 3 40358-4 Active 2012-02 00:00: 00 2013-02-19 22:10:33 Diagnosis Deferred on Sasabe II Diagnosis Deferred on Sasabe IIOnset: 3 48402-1 Active 11-16 00:00: 00 2012-11-16 00:20:04 Diagnosis Deferred on Sasabe II Diagnosis Deferred on Sasabe IIOnset: 03-Aug-2012 69273-8 Active 08-03 00:00: 00 2012-08-03 16:20:04 Diagnosis Deferred on Sasabe II Diagnosis Deferred on Sasabe II 06809-3 Active 2012-12-31 21:59:45 No known active problems No known active problems Disease Univers [facility] History of Past Illness Condition Name Condition Details Condition Category Status Onset Date Resolution Date Last Treatment Date Treating Clinician Comments Source Diagnosis Deferred on Sasabe II Diagnosis Deferred on Sasabe IIStatus: Inactive as of 4 7:39 58486-2 Inactiv e 2013-04-19 07:39:37 2013-04-19 07:39:37 Allergies, Adverse Reactions, Alerts Allergy Name Allergy Type Status Severity Reaction(s) Onset Date Inactive Date Treating Clinician Comments Source No Known Medicati on Allergie s Drug Active [facility] NO KNOWN ALLERGIE S Drug Class Active [facility] Social History Social Habit Start Date Stop Date Quantity Comments Source Exposure to SARS-CoV-2 (event) Not sure [facility] Tobacco use and exposure 2021-03-17 00:00:00 2021-03-17 00:00:00 Never used [facility] Alcohol intake 2021-03-17 00:00:00 2021-03-17 00:00:00 Lifetime non-drinker (finding) [facility] Sex Assigned At 1955 00:00:00 1955 00:00:00 [facility] Smoking Status Start Date Stop Date Source Tobacco smoking consumption unknown [facility] Never smoker [facility] Medications Ordered Medication Name Filled Medication Name Start Date Stop Date Current Medication? Ordering Clinician Indication Dosage Frequency Signature (SIG) Comments Components Source acetaminoph en-codeine (TYLENOL-CO DEINE #3) 300-30 mg tablet 2020-02 00:00: 00 Yes 4647 1{tbl} Take 1 tablet by mouth every 4 (four) hours as needed for Pain (scale 4-6) or Pain (scale 7-10). Indication s: acute pain [facility] acetaminoph en-codeine (TYLENOL-CO DEINE #3) 300-30 mg tablet 2020-02 00:00: 00 Yes 4647 1{tbl} Take 1 tablet by mouth every 4 (four) hours as needed for Pain (scale 4-6) or Pain (scale 7-10). Indication s: acute pain [facility] acetaminoph en-codeine (TYLENOL-CO DEINE #3) 300-30 mg tablet 2020-02 2-15 00:00: 00 Yes 4647 1{tbl} Take 1 tablet by mouth every 4 (four) hours as needed for Pain (scale 4-6) or Pain (scale 7-10). Indication s: acute pain [facility] acetaminoph en-codeine (TYLENOL-CO DEINE #3) 300-30 mg tablet 2020-02 2-15 00:00: 00 Yes 4647 1{tbl} Take 1 tablet by mouth every 4 (four) hours as needed for Pain (scale 4-6) or Pain (scale 7-10). Indication s: acute pain [facility] acetaminoph en-codeine (TYLENOL-CO DEINE #3) 300-30 mg tablet 2020-0215 00:00: 00 Yes 4647 1{tbl} Take 1 tablet by mouth every 4 (four) hours as needed for Pain (scale 4-6) or Pain (scale 7-10). Indication s: acute pain [facility] ibuprofen 600 mg tablet 30 00:00: 00 Yes [id number] 600mg Take 1 tablet by mouth every 6 (six) hours as needed for Pain (scale 4-6). [facility] ibuprofen 600 mg tablet 0 430 00:00: 00 Yes [id number] 600mg Take 1 tablet by mouth every 6 (six) hours as needed for Pain (scale 4-6). [facility] ibuprofen 600 mg tablet 0 4-30 00:00: 00 Yes [id number] 600mg Take 1 tablet by mouth every 6 (six) hours as needed for Pain (scale 4-6). [facility] ibuprofen 600 mg tablet 2020-0 4-30 00:00: 00 Yes [id number] 600mg Take 1 tablet by mouth every 6 (six) hours as needed for Pain (scale 4-6). [facility] ibuprofen 600 mg tablet 2020-0 4-30 00:00: 00 Yes [id number] 600mg Take 1 tablet by mouth every 6 (six) hours as needed for Pain (scale 4-6). [facility] TraZODone* - 08:34: 00 Yes [id number] 50mg TraZODone* ; 50 mg PO/By mouth for sleep Take 1 tablet by mouth at bedtime for insomnia (CRU)Start : 1Ordered: 1Gdennise Joaquin Morocho Prazosin* - 08:33: 00 Yes [id number] 2mg Prazosin*; 2 mg PO/By mouth for nightmares Take 1 tablet by mouth at bedtime for nightmares (CRU)Start : 1Ordered: 1GJoaquin bowden QUEtiapine* 03-12 08:33: 00 Yes [id number] 200mg QUEtiapine *; 200 mg PO/By mouth for psychosis Take 1 tablet by mouth twice daily and 2 tablets at bedtime for psychosis (CRU)Start : 1Ordered: 1GJoaquin bowden Milk of Magnesia - 11:56: 00 Yes [id number] 30ml Milk of Magnesia; 30 ml PO PRN q4hr for Constipati on NTE 120 mL in 24 hours RoutineSta rt: 05-Mar-2020 Ordered: 05-Mar-2020 Joaquin Jenkins ments: NTE 120 mL in 24 hours NTE 120 mL in 24 hours QUEtiapine - 11:56: 00 Yes [id number] 50mg QUEtiapine ; 50 mg PO PRN q6hr for midl agitation NTE 200 mg PRN Quetiapine in 24 hr period RoutineSta rt: 05-Mar-2020 Ordered: 05-Mar-2020 Joaquin Jenkins ments: NTE 200 mg PRN Quetiapine in 24 hr period NTE 200 mg PRN Quetiapin e in 24 hr period SEROquel 400 mg oral tablet 03-04 11:35: 31 No [id number] 0 SEROquel 400 mg oral tablet; qhsQuantit y: 0 Refills: 0Ordered: Evelyn ParisiGeneric Substituti on Allowed prazosin 2 mg oral capsule 03-04 11:35: 31 No [id number] 0 prazosin 2 mg oral capsule; orally once a day (at bedtime)Qu antity: 0 Refills: 0Ordered: 03-May-2019 Anetor, Linda KGeneric Substituti on AllowedCom ments: Home Medication stored in Pharmacy Home Medicatio n stored in Pharmacy SEROquel 300 mg oral tablet 03-04 11:35: 31 No [id number] 0 SEROquel 300 mg oral tablet; qamQuantit y: 0 Refills: 0Ordered: Evelyn ParisiGeneric Substituti on Allowed QUEtiapine 100 mg oral tablet 09-08 23:20: 27 No [id number] 0 QUEtiapine 100 mg oral tablet; orallyQuan tity: 0 Refills: 0Ordered: [address] [place] [address] [facility] us: OtherGener ic Substituti on Allowed Zoloft 50 mg oral tablet 09-08 23:20: 27 No [id number] 1{tab(s )} Zoloft 50 mg oral tablet; 1 tab(s) orally once a dayQuantit y: 0 Refills: 0Ordered: [address] [place] [address] [facility] us: OtherGener ic Substituti on Allowed Benadryl 25 mg oral capsule 09-08 23:20: 27 No [id number] 0 Benadryl 25 mg oral capsule; orally onceQuanti ty: 0 Refills: 0Ordered: [address] [place] [address] Jayna Ely us: OtherGener ic Substituti on Allowed traZODone 50 mg oral tablet 09-08 23:20: 27 No [id number] 0 traZODone 50 mg oral tablet; orally onceQuanti ty: 0 Refills: 0Ordered: [address] [place] [address] [facility] us: OtherGener ic Substituti on Allowed lisinopril 10 mg oral tablet 09-08 23:20: 20 No [id number] 1{tab(s )} lisinopril 10 mg oral tablet; 1 tab(s) orally once a dayQuantit y: 0 Refills: 0Ordered: 7Moore, TeriStart: 7Generic Substituti on Allowed Seroquel 200mg 04-18 00:00: 00 No [id number] 0 Seroquel 200mg; po qam and qhs pt. received last dose at [facility] on 04/18/13 at 09:25Quant ity: 0 Refills: 0Ordered: 4Moore, TeriStart: 4Status: OtherGener ic Substituti on Allowed Zoloft 100ng 04-18 00:00: 00 No [id number] 0 Zoloft 100ng; po qam pt. received last dose at [facility] on 04/18/13 at 0905Quanti ty: 0 Refills: 0Ordered: 4Moore, TeriStart: 4Status: OtherGener ic Substituti on Allowed Pt reports "I have been off my meds for 3 years." 2012-02 11:30: 29 No [id number] [id number] 0 Pt reports "I have been off my meds for 3 years."Hayes ntity: 0 Refills: 0Ordered: 03-Aug-2012 Augustus Trammell us: Discontinu edGeneric Substituti on Allowed zoloft 100 mg 2012-02 00:00: 00 No [id number] 0 zoloft 100 mg; po everyday last dose at home 02/18/13 , at [facility] 02/19/13Qu antity: 0 Refills: 0Ordered: 3DMary stantonStart: 3Status: Discontinu edGeneric Substituti on Allowed Risperdal 2 mg oral tablet 2012-02 00:00: 00 No [id number] 1 Risperdal 2 mg oral tablet; 1 orally Q AM LAST DOSE AT [facility] , AT HOME LAST DOSE 02/18/13Qu antity: 0 Refills: 0Ordered: Mary GuadarramaStart: 3Status: Discontinu edGeneric Substituti on Allowed Risperdal 4 mg oral tablet 2012-02 00:00: 00 No [id number] 1 Risperdal 4 mg oral tablet; 1 orally LAST DOSE 02/18/13 AT [facility] , AT HOME 02/17/13Qu antity: 0 Refills: 0Ordered: Mary GuadarramaStart: 3Status: Discontinu edGeneric Substituti on Allowed ATARX 25 MG 2012-02 00:00: 00 No [id number] 0 ATARX 25 MG; PO BID PRN LAST DOSE 02/18/13 AT USKQuanti ty: 0 Refills: 0Ordered: Mary GuadarramaStart: 3Status: Discontinu edGeneric Substituti on Allowed ATARAX 25 MG 2012-02 00:00: 00 No [id number] 0 ATARAX 25 MG; PO TID LAST DOSE AT [facility] 02/19/13Qu antity: 0 Refills: 0Ordered: Mary GuadarramaStart: 3Status: Discontinu edGeneric Substituti on Allowed MULTI VITAMIN , FOLIC ACID 1 MG , THIAMINE 100 MG 2012-02 00:00: 00 No [id number] 0 MULTI VITAMIN , FOLIC ACID 1 MG , THIAMINE 100 MG; PO everyday [facility]19/13 [facility] Refills: 0Ordered: Mary GuadarramaStart: 3Status: Discontinu edGeneric Substituti on Allowed DENIES OTC/HERBAL HOME MEDS 2012-02 00:00: 00 No [id number] 0 DENIES OTC/HERBAL HOME MEDSQuanti ty: 0 Refills: 0Ordered: 3DMary stantonStart: 3Status: Discontinu edGeneric Substituti on Allowed Pt. denies current medications 11-15 00:00: 00 No [id number] 0 Pt. denies current medication sQuantity: 0 Refills: 0Ordered: 3MoorPandyaiStart: 3Status: Discontinu edGeneric Substituti on Allowed Vital Signs Vital Name Observation Time Observation Value Comments S ource Systolic blood pressure 2021-03-17 19:41:00 181 mm[Hg] reports elevated b/p [facility] Diastolic blood pressure 2021-03-17 19:41:00 117 mm[Hg] reports elevated b/p [facility] Heart rate 2021-03-17 19:41:00 86 /min [facility] Body height 2021-03-17 19:41:00 166.4 cm [facility] Body weight 2021-03-17 19:41:00 79.379 kg [facility] BMI 2021-03-17 19:41:00 28.68 kg/m2 [facility] Height/Length Measured 2021-03-17 10:41:43 167 cm Height/Length Measured 2021-03-17 10:41:22 167 cm Height/Length Measured 2021-03-17 10:41:21 167 cm Height/Length Measured 2021-03-17 10:41:20 167 cm Height/Length Measured 2019-07-31 23:52:46 Procedures Procedure Date / Time Performed Performing Clinicia n Source REFERRAL- REQUEST/RESPONSE 2021-04-21 06:01:00 Doctor Unassigned, [place] [facility] XR CLAVICLE COMP LEFT 2021-03-17 19:58:00 Glynn Akbar [facility] EKG and Rhythm Strip 2016-09-09 08:00:00 Mallory Martinez Bedswap/Room Change 2013-02-28 02:16:00 Juan José Dos Santos Bedswap/Room Change 2013-01-06 11:36:00 Jayna Durand Bedswap/Room Change 2012-08-10 08:31:00 Saniya Bal Bedswap/Room Change 2012-08-03 15:47:00 Katina Kapoor Plan of Care Planned Activity Planned Date Details Comments Source Diagnostic Test Pending 2020-03-15 10:19:00 Disc harge Patient [code = DischargePatient] Diagnostic Test Pending 2020-03-13 11:40:00 Hepa tic Function Panel [code = HepaticFunctionPanel] Diagnostic Test Pending 2020-03-11 13:05:00 Othe r-Nursing [code = Other-Nursing] Diagnostic Test Pending 2020-03-10 00:00:00 Morgan sfer Patient Out [code = TransferPatientOut] Diagnostic Test Pending 2020-03-07 13:03:00 Tressa ernandez Individual Intervention - Adult [code = BriefIndividualInterventi on-Adult] Diagnostic Test Pending 2020-03-06 11:13:00 Card iac Diet/AHA (low fat/2g Na) [code = CardiacDiet/AHA(lowfat/2g Na)] Diagnostic Test Pending 2020-03-06 11:12:00 [place] Consult [code = DentalConsult] Diagnostic Test Pending 2020-03-06 11:12:00 Heal th Shakes [code = HealthShakes] Diagnostic Test Pending 2020-03-04 17:07:00 Marely gement of Emotions [code = ManagementofEmotions] Diagnostic Test Pending 2020-03-04 17:07:00 Mgmt of Mental Illness (On Unit) [code = MgmtofMentalIllness(OnUni t)] Diagnostic Test Pending 2020-03-04 17:07:00 Spir ituality [code = Spirituality] Diagnostic Test Pending 2020-03-04 17:07:00 Ther apeutic Recreation [code = TherapeuticRecreation] Diagnostic Test Pending 2020-03-04 17:07:00 Subs tance Use Group 3B [code = ZvsbhgermHwyRnmjt0T] Diagnostic Test Pending 2020-03-04 16:33:00 Asse ss and involve in group therapy [code = Assessandinvolveingroupth erapy] Diagnostic Test Pending 2020-03-04 16:32:00 Spec ial Observations [code = SpecialObservations] Diagnostic Test Pending 2020-03-04 16:32:00 Erna l Signs [code = VitalSigns] Encounters Start Date/Time End Date/Time Encounter Type Admission Type Attending [facility] Care Department Encounter ID Source 2023-04-04 11:57:49 2023-04-04 11:57:49 Outpatient SFA SFA [id number] Gregory Olivier 2022-12-27 13:46:25 2022-12-27 13:46:25 Outpatient SFA SFA [id number] Gregory Olivier 2022-12-15 16:26:17 2022-12-15 16:26:17 Outpatient SFA SFA [id number] Gregory Olivier 2022-11-03 13:46:19 2022-11-03 13:46:19 Outpatient KATHY SFA [id number] Gregory Olivier 2022-10-07 13:27:59 2022-10-07 13:27:59 Outpatient KATHY [place] [id number] Gregory Olivier 2022-07-07 13:12:53 2022-07-07 13:12:53 Outpatient SFA SFA [id number] Gregory Olivier 2022-06-07 13:23:05 2022-06-07 13:23:05 Outpatient SFA SFA [id number] Greogry Olivier 2022-03-08 13:40:33 2022-03-08 13:40:33 Outpatient SFA SFA [id number] Gregory Olivier 2022-02-04 13:17:24 2022-02-04 13:17:24 Outpatient SFA SFA [id number] Gregory Olivier 2022-01-28 14:48:56 2022-01-28 14:48:56 Outpatient SFA SFA [id number] Gregory Olivier 2021-04-22 00:00:00 2021-04-22 00:00:00 Telephone Leonora Doan [facility] [id number] 350.1.13.10 4.2.7.2.686 [id number] [facility] 2021-04-21 00:00:00 2021-04-21 00:00:00 Orders Only Doctor Unassigned, [place] [facility] 1.0.114 350.1.13.10 4.2.7.2.686 [id number] [facility] 2021-03-17 13:45:48 2021-03-17 23:59:00 Hospital Encounter Surjit Akbar [facility] 1.114 350.1.13.10 4.2.7.2.686 [id number] [facility] 2021-03-17 13:30:00 2021-03-17 14:15:06 Outpatient R FRANKI [facility] [id number] [facility] 2021-03-17 13:30:00 2021-03-17 13:45:00 Office Visit [facility] 1.84.114 350.1.13.10 4.2.7.2.686 [id number] [facility] 2021-03-17 13:30:00 2021-03-17 13:30:00 Outpatient R FRANKI [facility] [id number] [facility] 2021-03-17 00:00:00 2021-03-17 00:00:00 Orders Only Doctor Unassigned, [place] [facility] 1.114 350.1.13.10 4.2.7.2.686 [id number] [facility] 2021-02-11 14:30:00 2021-02-11 15:00:00 Office Visit [facility] 1.84114 350.1.13.10 4.2.7.2.686 [id number] [facility] 2021-02-11 14:30:00 2021-02-11 14:30:00 Outpatient LEONORA MARTINES [facility] [id number] [facility] 2021-02-11 00:00:00 2021-02-11 00:00:00 Orders Only Doctor Unassigned, [place] [facility] 1.2.840.114 350.1.13.10 4.2.7.2.686 [id number] [facility] 2021-02-10 13:30:00 2021-02-10 13:30:00 Outpatient LEONORA MARTINES [facility] [id number] [facility] 2020-06-27 09:14:00 2020-06-27 11:54:00 Emergency Hali GUICHO [facility] [id number] [facility] 2020-06-27 09:14:00 2020-06-27 11:54:00 Emergency Guicho Michel [facility] [id number] 350.1.13.10 4.2.7.2.686 [id number] 2020-06-27 09:14:00 2020-06-27 09:14:00 Emergency Hali GUICHO [facility] ERT [id number] [facility] 2020-03-04 13:27:00 2020-03-15 11:29:00 Inpatient Belkis Kuhnzabeth Yolanda Blake [facility]-3B-73- A [id number] [facility] 2019-07-31 23:32:00 2019-07-31 23:32:00 Emergency [facility] NATHALY [id number] [facility] 2019-07-31 23:32:00 2019-07-31 23:32:00 Emergency [facility] NATHALY [id number] [facility] 2019-07-27 17:10:00 2019-07-27 17:10:00 Inpatient Belkis Kuhnzabeth Yolanda 1 [facility]-1A-01- A [id number] [facility] 2019-07-22 11:01:00 2019-07-22 11:01:00 Inpatient Bhavna Knapp 1 [facility]-1A-11- A [id number] [facility] 2019-07-21 23:27:00 2019-07-21 23:27:00 Inpatient Bhavna Knapp 1 [facility]-1A-11- A [id number] [facility] 2019-05-03 21:27:00 2019-05-10 11:12:00 Inpatient Ady Jacinto 1 [facility]-1B-77- A [id number] [facility] 2018-07-24 21:29:00 2018-08-01 10:51:00 Inpatient Claudia Kuhn 1 [facility]-3B-76- B [id number] [facility] 2017-11-14 17:44:00 2017-11-14 17:44:00 Inpatient Abeba Fraser 1 [facility]-1A-06- A [id number] [facility] 2017-11-14 06:19:00 2017-11-14 06:19:00 Emergency [facility] [id number] [facility] 2017-08-19 00:00:00 2017-08-19 00:00:00 Outpatient [facility] [id number] [facility] 2017-07-28 00:00:00 2017-07-28 00:00:00 Outpatient [facility] [id number] [facility] 2017-06-16 00:00:00 2017-06-16 00:00:00 Outpatient [facility] [id number] [facility] 2017-06-06 19:31:00 2017-06-06 19:31:00 Emergency E [facility] [id number] [facility] 2017-06-05 17:19:00 2017-06-05 17:19:00 Emergency E CIPRIANO REYES [facility] [id number] [facility] 2017-05-16 00:00:00 2017-05-16 00:00:00 Outpatient [facility] [id number] [facility] 2017-05-03 00:00:00 2017-05-03 00:00:00 Outpatient [facility] [id number] [facility] 2017-04-28 15:13:12 2017-04-28 15:13:12 Outpatient [facility] [id number] [facility] 2016-12-30 00:00:00 2016-12-30 00:00:00 Outpatient [facility] [id number] [facility] 2016-12-09 00:00:00 2016-12-09 00:00:00 Outpatient [facility] [id number] [facility] 2016-12-09 00:00:00 2016-12-09 00:00:00 Outpatient [facility] [id number] [facility] 2016-12-02 08:56:02 2016-12-02 08:56:02 Outpatient [facility] [id number] [facility] 2016-12-02 00:00:00 2016-12-02 00:00:00 Outpatient [facility] [id number] [facility] 2016-12-02 00:00:00 2016-12-02 00:00:00 Outpatient [facility] [id number] [facility] 2016-11-19 10:25:44 2016-11-19 10:25:44 Outpatient [facility] [id number] [facility] 2016-10-22 11:25:55 2016-10-22 11:25:55 Outpatient [facility] [id number] [facility] 2016-10-05 09:11:02 2016-10-05 09:11:02 Outpatient [facility] [id number] [facility] 2016-09-08 22:39:00 2016-09-23 10:35:00 Inpatient Claudia Kuhn 1 [facility]-3B-72- A [id number] [facility] 2015-03-11 16:12:00 2015-03-20 13:16:00 Inpatient Karlie Vaughn 1 [facility]-3E-61- A [id number] [facility] 2013-04-18 18:25:00 2013-04-24 14:35:00 Inpatient Reubeneal Sherrie L. 1 [facility]-3B-72- B [id number] [facility] 2013-02-19 10:26:00 2013-03-06 17:35:00 Inpatient Smeal, Sherrie L. 1 [facility]-2B-78- A [id number] [facility] 2012-12-30 20:01:00 2013-01-15 16:50:00 Inpatient Alice Self 1 [facility]-2E-67- B [id number] [facility] 2012-11-15 20:08:00 2012-11-29 13:10:00 Inpatient Tian Vargas 1 [facility]-3B-76- B [id number] [facility] 2012-08-03 14:39:00 2012-08-10 15:15:00 Inpatient Ritchie Marr 1 [facility]-2D-31- A [id number] 70 [facility] 1987-09-19 15:00:00 1987-09-23 16:00:00 Inpatient SHEELA ONEIL 1 [facility]-1B-87- A [id number] 77 [facility] Results Test Description Test Time Test Comments Results Result Co [facility] CBC W/AUTO DIFF WITH [id number] 12:35:33* Test Item Value Reference Range Interpretation Comme nts WBC (test code = 1001) TEST NOT PERFORMED K/UL 3.5-11.0 Unable to perform testing, specimen clotted.Charges adjusted as applicable. RBC (test code = 1002) TEST NOT PERFORMED M/UL 4.50-6.10 HEMOGLOBIN (test code = 1003) TEST NOT PERFORMED G/DL 13.5-17.0 HEMATOCRIT (test code = 1004) TEST NOT PERFORMED % 40.0-51.0 MCV (test code = 1005) TEST NOT PERFORMED fL 80.0-99.0 MCH (test code = 1006) TEST NOT PERFORMED PG 25.0-33.0 MCHC (test code = 1007) TEST NOT PERFORMED G/DL 31.0-36.0 RDW (test code = 1038) TEST NOT PERFORMED % 11.5-15.0 NEUTROPHILS (test code = 1008) TEST NOT PERFORMED % LYMPHOCYTES (test code = 1010) TEST NOT PERFORMED % MONOCYTES (test code = 1011) TEST NOT PERFORMED % EOSINOPHILS (test code = 1012) TEST NOT PERFORMED % BASOPHILS (test code = 1013) TEST NOT PERFORMED % PLATELET COUNT (test code = 1015) TEST NOT PERFORMED K/UL 130-400 ABSOLUTE NEUTROPHILS (test code = 1066) TEST NOT PERFORMED K/UL 1.50-7.50 ABSOLUTE LYMPHOCYTES (test code = 1067) TEST NOT PERFORMED K/UL 1.00-4.00 ABSOLUTE MONOCYTES (test code = 1068) TEST NOT PERFORMED K/UL 0.20-1.00 ABSOLUTE EOSINOPHILS (test code = 1040) TEST NOT PERFORMED K/UL 0.00-0.50 ABSOLUTE BASOPHILS (test code = 1069) TEST NOT PERFORMED K/UL 0.00-0.20 UNLESS OTHERWISE INDICATED, ALL TESTING PERFORMED [facility] [address] [place] [id number] AUTOMOTIVE SERVICE DIRECTOR: ANDERSON HUITRON M.D. [place] NUMBER [id number] [facility] [place]. [id number] COMPREHENSIVE METABOLIC [id number] 03:28:14* Test Item Value Reference Range Interpretation Comme nts GLUCOSE (test code = 2217) 87 MG/DL 70-99 BUN (test code = 220) 7 MG/DL 8-23 L CREATININE (test code = 221) 0.97 MG/DL 0.80-1.40 eGFR (2020 CKD-EPI) (test code = 53851) 88 ML/MIN/1.73 >60 CALC BUN/CREAT (test code = 2235) 7 RATIO 6-28 SODIUM (test code = 223) 136 MEQ/L 133-146 POTASSIUM (test code = 2228) 4.1 MEQ/L 3.5-5.4 CHLORIDE (test code = 2215) 99 MEQ/L 95-107 CARBON DIOXIDE (test code = 2206) 23 MEQ/L 19-31 CALCIUM (test code = 2209) 9.5 MG/DL 8.5-10.5 PROTEIN, TOTAL (test code = 2229) 7.3 G/DL 6.1-8.3 ALBUMIN (test code = 2201) 4.5 G/DL 3.5-5.2 CALC GLOBULIN (test code = 2240) 2.8 G/DL 1.9-3.7 CALC A/G RATIO (test code = 2234) 1.6 RATIO 1.0-2.6 BILIRUBIN, TOTAL (test code = 2207) 0.4 MG/DL See_Comment [Automated me ssage] The system which generated this result transmitted reference range: <=1.2. The reference range was not used to interpret this result as normal/abnormal. ALKALINE PHOSPHATASE (test code = 2204) 75 U/L 40-123 AST (test code = 2218) 16 U/L 9-50 ALT (test code = 2219) 23 U/L 5-50 LIPID [id number] 01:35:20* Test Item Value Reference Range Interpretation Comme nts CHOLESTEROL (test code = 2210) 187 MG/DL <200 TRIGLYCERIDES (test code = 2232) 86 MG/DL <150 HDL CHOLESTEROL (test code = 2220) 53 MG/DL >39 CALC LDL CHOL (test code = 2237) 115 MG/DL <100 H NOTE: CALCULATED LDL IS BASED ON TOMAS-ONTIVEROS METHOD WHICHINCLUDES ADJUSTABLE TRIGLYCERIDE:VLDL CHOLESTEROL RATIO.THIS FACTOR VARIES BY MEASURED TRIGLYCERIDE AND NON-HDLCHOLESTEROL CONCENTRATIONS WITH INCREASED CALCULATED LDL SEENIN HIGHER TRIGLYCERIDE OR LOWER NON-HDL SPECIMENS. FOR MOREINFORMATION, SEE CLIENT ANNOUNCEMENT AT [email or web address] RATIO LDL/HDL (test code = 2238) 2.17 RATIO <3.55 COMPREHENSIVE METABOLIC [id number] 01:35:20* Test Item Value Reference Range Interpretation Comme nts GLUCOSE (test code = 2217) 88 MG/DL 70-99 BUN (test code = 2207) 5 MG/DL 8-23 L CREATININE (test code = 2214) 0.90 MG/DL 0.80-1.40 eGFR (2020 CKD-EPI) (test code = 82124) 96 ML/MIN/1.73 >60 CALC BUN/CREAT (test code = 2235) 6 RATIO 6-28 SODIUM (test code = 223) 141 MEQ/L 133-146 POTASSIUM (test code = 2228) 4.2 MEQ/L 3.5-5.4 CHLORIDE (test code = 2215) 100 MEQ/L 95-107 CARBON DIOXIDE (test code = 2206) 23 MEQ/L 19-31 CALCIUM (test code = 2209) 9.5 MG/DL 8.5-10.5 PROTEIN, TOTAL (test code = 222) 8.1 G/DL 6.1-8.3 ALBUMIN (test code = 2201) 4.9 G/DL 3.5-5.2 CALC GLOBULIN (test code = 2240) 3.2 G/DL 1.9-3.7 CALC A/G RATIO (test code = 2234) 1.5 RATIO 1.0-2.6 BILIRUBIN, TOTAL (test code = 2206) 0.4 MG/DL See_Comment [Automated me ssage] The system which generated this result transmitted reference range: <=1.2. The reference range was not used to interpret this result as normal/abnormal. ALKALINE PHOSPHATASE (test code = 2204) 119 U/L 40-123 AST (test code = 2218) 120 U/L 9-50 H ALT (test code = 2219) 148 U/L 5-50 H UNLESS OTHERWISE INDICATED, ALL TESTING PERFORMED [facility] [address] [place] [address] AUTOMOTIVE SERVICE DIRECTOR: ANDERSON HUITRON M.D. [place] NUMBER [id number] [facility] [place]. [id number] CBC w/ Diff w/ [id number] 15:10:00* Test Item Value Reference Range Interpretation Comme [...] Neutrophils (Absolute) (test code = Neutrophils(Absolute)) 2.2 {x10E3/uL} Lymphs(Absolute) (test code = Lymphs(Absolute)) 2.5 {x10E3/uL} Monocytes(Absolute) (test code = Monocytes(Absolute)) 0.7 {x10E3/uL} Eosinophils(Absolute) (test code = Eosinophils(Absolute)) 0.3 {x10E3/uL} Basophils(Absolute) (test code = Basophils(Absolute)) 0.1 {x10E3/uL} Immature Granulocytes (test code = ImmatureGranulocytes) 1 % Immature Grans (Abs) (test code = ImmatureGrans(Abs)) 0.0 {x10E3/uL} Comprehensive Metabolic [id number] 14:47:00* Test Item Value Reference Range Interpretation Comme [facility] Glucose,Serum (test code = Glucose,Serum) 99 mg/dL BUN (test code = BUN) 12 mg/dL Creatinine,Serum (test code = Creatinine,Serum) 0.75 mg/dL eGFR If NonAfrican Am (590625) (test code = eGFRIfNonAfricanAm(12 0491)) 98 mL/min/1.73 eGFR If Am (387426) (test code = eGFRIfAfricanAm(44127 7)) 114 mL/min/1.73 BUN/Creat Ratio (test code = BUN/CreatRatio) 16 Sodium (test code = Sodium) 141 mmol/L Potassium (test code = Potassium) 4.6 mmol/L Chloride (test code = Chloride) 103 mmol/L zzzCO2 (test code = zzzCO2) 29 mmol/L Calcium (test code = Calcium) 9.1 mg/dL Protein, Total (test code = Protein,Total) 6.0 g/dL Albumin (test code = Albumin) 3.5 g/dL Globulin, Total (test code = Globulin,Total) 2.5 g/dL A/G Ratio (test code = A/GRatio) 1.4 Bilirubin, Total (test code = Bilirubin,Total) <0.2 Alkaline Phosphatase (test code = AlkalinePhosphatase) 94 {IU/L} AST (test code = AST) 115 {IU/L} ALT (test code = ALT) 201 {IU/L} Cli ent Requested Flag [id number] 14:47:00* Test Item Value Reference Range Interpretation Comme [facility] TSH (001393) (test code = TSH(982913)) 2.010 {uIU/mL} Lipid Panel with LDL/HDL [id number] 14:47:00* Test Item Value Reference Range Interpretation Comme [facility] zzzCholesterol, Total (test code = zzzCholesterol,Total) 146 mg/dL Triglycerides (test code = Triglycerides) 88 mg/dL zzzHDL Cholesterol (test code = zzzHDLCholesterol) 41 mg/dL VLDL Cholesterol Calculated (test code = VLDLCholesterolCalculate d) 17 mg/dL LDL Cholesterol ROSALIND ([facility]) (test code = LDLCholesterolCAL([facility])) 88 mg/dL LDL/HDL Ratio (990123) (test code = LDL/HDLRatio(907954)) 2.1 {ratio} . LDL/HDL Ratio Men Women 1/2 Avg.Risk 1.0 1.5 Avg.Risk 3.6 3.2 2X Avg.Risk 6.2 5.0 3X Avg.Risk 8.0 6.1 Comprehensive Metabolic [id number] 01:43:55* Test Item Value Reference Range Interpretation Comme nts Sodium Level (test code = So dium Level) 138.0 mmol/L 135.0-145.0 Potassium Level (test code = Potassium Level) 4.4 mmol/L 3.5-5.1 Chloride Level (test code = Chloride Level) 98 mmol/L 98-105 CO2 (test code = CO2) 26 mmol/L 22-29 Anion Gap (test code = Anion Gap) 14 mmol/L 7-16 BUN (test code = BUN) 14.40 mg/dL 8.00-23.00 Creatinine Level (test code = Creatinine Level) 1.10 mg/dL 0.70-1.20 BUN/Creat Ratio (test code = BUN/Creat Ratio) 13 N Glucose Level (test code = Glucose Level) 76 mg/dL 70-115 Calcium Level (test code = Calcium Level) 9.1 mg/dL 8.3-10.6 Alk Phos (test code = Alk Phos) 92 U/L 40-129 Bilirubin Total (test code = Bilirubin Total) 0.7 mg/dL 0.1-0.9 Albumin Level (test code = Albumin Level) 5.0 g/dL 3.5-5.2 Protein Total (test code = Protein Total) 8.1 g/dL 6.4-8.3 ALT (test code = ALT) 175 U/L 1-41 H AST (test code = AST) 54 U/L 1-40 H Globulin (test code = Globulin) 3.1 g/dL 2.9-3.1 A/G Ratio (test code = A/G Ratio) 1.6 ratio N Comprehensive Metabolic [id number] 01:43:55* Test Item Value Reference Range Interpretation Comme nts Sodium Level (test code = Sodium Level) 138.0 mmol/L 135.0-145.0 Potassium Level (test code = Potassium Level) 4.4 mmol/L 3.5-5.1 Chloride Level (test code = Chloride Level) 98 mmol/L 98-105 CO2 (test code = CO2) 26 mmol/L 22-29 Anion Gap (test code = Anion Gap) 14 mmol/L 7-16 BUN (test code = BUN) 14.40 mg/dL 8.00-23.00 Creatinine Level (test code = Creatinine Level) 1.10 mg/dL 0.70-1.20 BUN/Creat Ratio (test code = BUN/Creat Ratio) 13 N Glucose Level (test code = Glucose Level) 76 mg/dL 70-115 Calcium Level (test code = Calcium Level) 9.1 mg/dL 8.3-10.6 Alk Phos (test code = Alk Phos) 92 U/L 40-129 Bilirubin Total (test code = Bilirubin Total) 0.7 mg/dL 0.1-0.9 Albumin Level (test code = Albumin Level) 5.0 g/dL 3.5-5.2 Protein Total (test code = Protein Total) 8.1 g/dL 6.4-8.3 ALT (test code = ALT) 175 U/L 1-41 H AST (test code = AST) 54 U/L 1-40 H Globulin (test code = Globulin) 3.1 g/dL 2.9-3.1 A/G Ratio (test code = A/G Ratio) 1.6 ratio N eGFR AA (test code = eGFR AA) >60 mL/min/1.73 m2 N eGFR (estimated Glomerular Filtration Rate) is an estimated value, calculated from the patient's serum creatinine using the MDRD equation. It is NOT the patient's actual GFR. The eGFR provides a more clinically useful measure of kidney disease than serum creatinine alone.This calculation takes sex and race into account, if the information is provided. If the race is not provided, and the patient is -[place], multiply by 1.212. If sex is not provided, and the patient is female, multiply by 0.742. Results for patients <18 years of age have not been validated by the MDRD study and should be interpreted with caution. eGFR Result Interpretation:eGFR > or = 60 is in the Normal RangeeGFR < 60 may mean kidney diseaseeGFR < 15 may mean kidney failure Ranges recommended by the National Kidney Foundation, http://nkdep.nih.gov Alcohol [id number] 01:43:55* Test Item Value Reference Range Interpretation Comme nts Ethanol Level (test code = Ethanol Level) 0.17 g/dL 0.00-0.01 H Intoxicated 0.08 0 g/dL or more Ethanol Inst (test code = Ethanol Inst) 168 N Comprehensive Metabolic [id number] 01:43:55* Test Item Value Reference Range Interpretation Comme nts Sodium Level (test code = Sodium Level) 138.0 mmol/L 135.0-145.0 Potassium Level (test code = Potassium Level) 4.4 mmol/L 3.5-5.1 Chloride Level (test code = Chloride Level) 98 mmol/L 98-105 CO2 (test code = CO2) 26 mmol/L 22-29 Anion Gap (test code = Anion Gap) 14 mmol/L 7-16 BUN (test code = BUN) 14.40 mg/dL 8.00-23.00 Creatinine Level (test code = Creatinine Level) 1.10 mg/dL 0.70-1.20 BUN/Creat Ratio (test code = BUN/Creat Ratio) 13 N Glucose Level (test code = Glucose Level) 76 mg/dL 70-115 Calcium Level (test code = Calcium Level) 9.1 mg/dL 8.3-10.6 Alk Phos (test code = Alk Phos) 92 U/L 40-129 Bilirubin Total (test code = Bilirubin Total) 0.7 mg/dL 0.1-0.9 Albumin Level (test code = Albumin Level) 5.0 g/dL 3.5-5.2 Protein Total (test code = Protein Total) 8.1 g/dL 6.4-8.3 ALT (test code = ALT) 175 U/L 1-41 H AST (test code = AST) 54 U/L 1-40 H Globulin (test code = Globulin) 3.1 g/dL 2.9-3.1 A/G Ratio (test code = A/G Ratio) 1.6 ratio N eGFR AA (test code = eGFR AA) >60 mL/min/1.73 m2 N eGFR (estimated Glomerular Filtration Rate) is an estimated value, calculated from the patient's serum creatinine using the MDRD equation. It is NOT the patient's actual GFR. The eGFR provides a more clinically useful measure of kidney disease than serum creatinine alone.This calculation takes sex and race into account, if the information is provided. If the race is not provided, and the patient is -[place], multiply by 1.212. If sex is not provided, and the patient is female, multiply by 0.742. Results for patients <18 years of age have not been validated by the MDRD study and should be interpreted with caution. eGFR Result Interpretation:eGFR > or = 60 is in the Normal RangeeGFR < 60 may mean kidney diseaseeGFR < 15 may mean kidney failure Ranges recommended by the National Kidney Foundation, http://nkdep.nih.gov eGFR Non-AA (test code = eGFR Non-AA) >60.00 mL/min/1.73 m2 N eGFR (estimated Glomerular Filtration Rate) is an estimated value, calculated from the patient's serum creatinine using the MDRD equation. It is NOT the patient's actual GFR. The eGFR provides a more clinically useful measure of kidney disease than serum creatinine alone.This calculation takes sex and race into account, if the information is provided. If the race is not provided, and the patient is -[place], multiply by 1.212. If sex is not provided, and the patient is female, multiply by 0.742. Results for patients <18 years of age have not been validated by the MDRD study and should be interpreted with caution. eGFR Result Interpretation:eGFR > or = 60 is in the Normal RangeeGFR < 60 may mean kidney diseaseeGFR < 15 may mean kidney failure Ranges recommended by the National Kidney Foundation, http://nkdep.nih.gov Complete Blood Count with [id number] 01:03:37* Test Item Value Reference Range Interpretation Comme nts WBC (test code = WBC) 8.2 x10 4.4-10.5 RBC (test code = RBC) 4.50 x10 4.10-5.70 Hgb (test code = Hgb) 13.7 g/dL 13.4-17.4 MCV (test code = MCV) 95.30 fL 80.00-100.00 Hct (test code = Hct) 42.9 % 38.7-52.0 MCHC (test code = MCHC) 31.90 g/dL 32.00-37.50 L RDW CV (test code = RDW CV) 16.2 % 11.5-14.5 H MCH (test code = MCH) 30.4 pg 27.0-32.5 Platelets (test code = Platelets) 301.0 x10 140.0-440.0 MPV (test code = MPV) 8.9 fL N Slide Review (test code = Slide Review) Auto Auto Result crea marek by GL_SJM_SLIDE_REV_AUTO nRBC (test code = nRBC) 0 N NRBC Abs (test code = NRBC Abs) 0.00 x10 N IPF (test code = IPF) 0 % N Automated [id number] 01:03:37* Test Item Value Reference Range Interpretation Comme nts Neutro Auto (test code = [place] tro Auto) 47.3 % 36.0-70.0 Lymph Auto (test code = Lymph Auto) 33.3 % 12.0-44.0 [place] Auto (test code = [place] Auto) 12.4 % 0.0-11.0 H Eos, Auto (test code = Eos, Auto) 5.6 % 0.0-7.0 Basophil Auto (test code = B asophil Auto) 1.2 % 0.0-2.0 Neutro Absolute (test code = Neutro Absolute) 3.9 x10 1.6-7.4 Lymph Absolute (test code = Lymph Absolute) 2.73 x10 .50-4.60 [place] Absolute (test code = M priti Absolute) 1.02 x10 .00-1.20 Eos Absolute (test code = Eo s Absolute) 0.46 x10 0.00-0.74 Baso Absolute (test code = B aso Absolute) 0.10 x10 0.00-0.21 IG [id number] 01:03:37* Test Item Value Reference Range Interpretation Comme nts IG (test code = IG) 0.2 % 0.0-5.0 IG Abs (test code = IG Abs) 0 x10 N Urine Drug Screen [id number] 13:08:00* Test Item Value Reference Range Interpretation Comments Amphetamine Methamphetmine 581166 (test code = AmphetamineMethamphe [id number]) Negative Amphetamine test includes Amphetamine and Methamphetamine . Barbiturate (310132) (test code = Barbiturate(390391)) Negative Benzodiazepines (655134) (test code = Benzodiazepines(7148 32)) Positive Cocaine Metabolite (912243) (test code = CocaineMetabolite(71 4857)) Negative Phencyclidine (360300) (test code = Phencyclidine(410530 )) Negative Drug Screen Comment (test code = DrugScreenComment) NOTE : .This analysis is performed by immunoassay. Positivefindings are unconfirmed analytical test results; ifresults do not support expected clinical finding,confirmation by an alternate methodology is recommended.Patient metabolic variables, specific drug chemistry, andspecimen characteristics can affect test outcome.Technical consultation is available [email or web address], or call toll free [phone]. Cannabinoid (406702) (test code = Cannabinoid(486599)) Negative Opiates (236320) (test code = Opiates(650804)) Negative Opiate test includes Codeine and Morphine only. Comprehensive Metabolic [id number] 20:00:00* Test Item Value Reference Range Interpretation Comme nts Glucose,Serum (test code = Glucose,Serum) 73 mg/dL BUN (test code = BUN) 10 mg/dL Creatinine,Serum (test code = Creatinine,Serum) 0.85 mg/dL eGFR If NonAfrican Am (260593) (test code = eGFRIfNonAfricanAm(622614)) 95 mL/min/1.73 eGFR If Am (774664) (test code = eGFRIfAfricanAm(973492)) 109 mL/min/1.73 BUN/Creat Ratio (test code = BUN/CreatRatio) 12 Sodium (test code = Sodium) 145 mmol/L Potassium (test code = Potassium) 3.9 mmol/L Chloride (test code = Chloride) 105 mmol/L CO2 (test code = CO2) 20 mmol/L Calcium (test code = Calcium) 9.4 mg/dL Protein, Total (test code = Protein,Total) 6.3 g/dL Albumin (test code = Albumin) 4.2 g/dL Globulin, Total (test code = Globulin,Total) 2.1 g/dL A/G Ratio (test code = A/GRatio) 2.0 Bilirubin, Total (test code = Bilirubin,Total) 0.3 mg/dL Alkaline Phosphatase (test code = AlkalinePhosphatase) 92 {IU/L} AST (test code = AST) 71 {IU/L} ALT (test code = ALT) 83 {IU/L} Lipid Panel with LDL/HDL [id number] 20:00:00* Test Item Value Reference Range Interpretation Comme nts Cholesterol, Total (test code = Cholesterol,Total) 137 mg/dL Triglycerides (test code = Triglycerides) 53 mg/dL HDL Cholesterol (test code = HDLCholesterol) 54 mg/dL Cholesterol, VLDL (calculated) (test code = Cholesterol,VLDL(calcula marek)) 11 mg/dL Cholesterol, LDL (calculated) (test code = Cholesterol,LDL(calculat ed)) 72 mg/dL LDL/HDL Ratio (715822) (test code = LDL/HDLRatio(209031)) 1.3 {ratio} . LDL/HDL Ratio Men Women 1/2 Avg.Risk 1.0 1.5 Avg.Risk 3.6 3.2 2X Avg.Risk 6.2 5.0 3X Avg.Risk 8.0 6.1 Drug Screen, Urine # [id number] 14:29:00* Test Item Value Reference Range Interpretation Comments Amphetamine Methamphetmine 025213 (test code = AmphetamineMethamphe [id number]) Negative Amphetamine test includes Amphetamine and Methamphetamine . Barbiturate (595679) (test code = Barbiturate(058455)) Negative Benzodiazepines (182730) (test code = Benzodiazepines(7148 32)) Negative Cannabinoid (665880) (test code = Cannabinoid(029285)) Negative Cocaine Metabolite (029585) (test code = CocaineMetabolite(71 4857)) Negative Opiates (095250) (test code = Opiates(338288)) Negative Opiate test includes Codeine, Morphine, Hydromorphone, Hydrocodone. Phencyclidine (546138) (test code = Phencyclidine(480598 )) Negative Methadone Screen (665646) (test code = MethadoneScreen(7924 64)) Negative Propoxyphene, Urine (513097) (test code = Propoxyphene,Urine(2 31457)) Negative Drug Screen Comment (test code = DrugScreenComment) NOTE : .This analysis is performed by immunoassay. Positivefindings are unconfirmed analytical test results; ifresults do not support expected clinical finding,confirmation by an alternate methodology is recommended.Patient metabolic variables, specific drug chemistry, andspecimen characteristics can affect test outcome.Technical consultation is available [email or web address], or call toll free [phone]. [id number] 14:06:00* Test Item Value Reference Range Interpretation Comme nts TSH (501963) (test code = TSH(082937)) 1.770 {uIU/mL} CBC w/ Diff w/ [id number] 12:00:00* Test Item Value Reference Range Interpretation Comme nts WBC Count (test code = WBCCount) 7.2 {x10E3/uL} RBC Count (test code = RBCCount) 4.48 {x10E6/uL} Hemoglobin (test code = Hemoglobin) 14.1 g/dL Hematocrit (test code = Hematocrit) 40.3 % MCV (test code = MCV) 90 fL MCH (test code = MCH) 31.5 pg MCHC (test code = MCHC) 35.0 g/dL RDW (test code = RDW) 14.8 % Platelets (test code = Platelets) 201 {x10E3/uL} Please note reference interval change Neutrophils (test code = Neutrophils) 36 % Lymphs (test code = Lymphs) 46 % Monocytes (test code = Monocytes) 7 % Eosinophils (test code = Eosinophils) 10 % Basophils (test code = Basophils) 1 % Neutrophils (Absolute) (test code = Neutrophils(Absolute)) 2.6 {x10E3/uL} Lymphs(Absolute) (test code = Lymphs(Absolute)) 3.3 {x10E3/uL} Monocytes(Absolute) (test code = Monocytes(Absolute)) 0.5 {x10E3/uL} Eosinophils(Absolute) (test code = Eosinophils(Absolute)) 0.7 {x10E3/uL} Basophils(Absolute) (test code = Basophils(Absolute)) 0.0 {x10E3/uL} Immature Granulocytes (test code = ImmatureGranulocytes) 0 % Immature Grans (Abs) (test code = ImmatureGrans(Abs)) 0.0 {x10E3/uL} [id number] 22:27:00* Test Item Value Reference Range Interpretation Comme nts Potassium (test code = K) 4.0 mmol/L 3.5-5.1 N Alcohol/Ethanol, [id number] 19:26:00* Test Item Value Reference Range Interpretation Comme nts Alcohol, Ethyl (test code = ETOH) 0.14 g/dL 0.00-0.01 H Intoxicated 0 .080 g/dL or more [id number] 19:06:00* Test Item Value Reference Range Interpretation Comme nts Amphetamine (test code = AMPH) Negative Negative N For diagnostic p urposes only, positive results should always be assessedin conjunctionwith the patient's medical history,clinical examination and otherfindings.To fulfill legal requirements, a more specific alternate chemical methodmust be used inorder to obtain a Confirmed analytical result. GC/MS is the preferred confirmatory method. Barbiturates (test code = TIA) Negative Negative N Benzodiazepine (test code = LOREN) Negative Negative N Cocaine (test code = COCA) POSITIVE Negative A Methadone (test code = MTHD) Negative Negative N Opiates (test code = OPIA) Negative Negative N PCP (test code = PCP) Negative Negative N Propoxyphene (test code = PROPOX) Negative Negative N THC (test code = THC) Negative Negative N Urinalysis [id number] 19:06:00* Test Item Value Reference Range Interpretation Comme nts Color (test code = COLOR) Yellow Yellow,Straw,Pl yellow N Clarity (test code = CLAR) Clear Clear N Specific [place] (test code = SPGR) 1.010 1.001-1.035 N pH (test code = PH) 5.0 5.0-9.0 N Ketone (test code = KET) 50 mg/dL Negative A Glucose (test code = GLUCUR) Negative mg/dL Negative N Protein (test code = PROT) 500 mg/dL Negative A Bilirubin (test code = BILI) Negative mg/dL Negative N Occult Blood (test code = UDOB) Large Negative A Urobilinogen (test code = UROB) 0.2 mg/dL 0.2-1.0 N Nitrite (test code = NIT) Negative Negative N Leuk Esterase (test code = LEUK) Negative Negative N Ictotest (test code = ICTOTEST) Negative Negative,Confirmed Negative N Clinitest (test code = CLINITEST) Not Indicated Micros Exam (test code = MEXAM) Indicated Epithelial Cells (test code = EPI) 0-2 /LPF 0-30 A WBC, Urine (test code = UWBC) 2-5 /HPF 0-5 A RBC, Urine (test code = URBC) 2-5 /HPF 0-5 A Amorph Deposit (test code = AMORD) None /HPF Mucous, Urine (test code = UMUC) Few /HPF Bacteria (test code = BACT) Few /HPF Yeast (test code = YEAST) None Seen /HPF Trichomonas (test code = TRICH) None Seen /HPF Casts (test code = CASTS) 0-2 Hyaline 0-1 Fine Granular /HPF Crystals (test code = SANTANA) None /HPF Comprehensive Metabolic [id number] 19:05:00* Test Item Value Reference Range Interpretation Comme nts Sodium (test code = NA) 127 mmol/L 135-145 L Potassium (test code = K) 5.5 mmol/L 3.5-5.1 H grossly hemolyze d Chloride (test code = CL) 81 mmol/L 98-105 L Carbon Dioxide (test code = CO2) 22 mmol/L 22-29 N Glucose (test code = GLU) 118 mg/dL 70-115 H Blood Urea Nitrogen (test code = BUN) 13 mg/dL 6-20 N Creatinine (test code = CREAT) 0.9 mg/dL 0.7-1.2 N Calcium (test code = CA) 9.3 mg/dL 8.3-10.5 N Prot Total (test code = TP) 8.1 g/dL 6.4-8.3 N Albumin (test code = ALB) 4.8 g/dL 3.5-5.2 N A/G Ratio (test code = AGRATIO) 1.5 Ratio Globulin (test code = GLOB) 3.3 2.9-3.1 H Bili Total (test code = TBIL) 1.1 mg/dL 0.1-0.9 H Alk Phos (test code = APHOS) 71 U/L 40-129 N AST (test code = AST) 419 U/L 1-40 H ALT (test code = ALT) 239 U/L 1-41 H BUN/Creatinine Ratio (test code = BCRATIO) 14.4 Anion Gap (test code = AGAP) 24 mmol/L 7-16 H Estimated GFR (test code = GFR) >60 mL/min/1.73m2 eGFR (estimated Glomerular Filtration Rate) is an estimated value,calculated from the patient's serum creatinine using the MDRD equation.It is NOT the patient's actual GFR. The eGFR provides a more clinicallyuseful measure of kidney disease than serum creatinine alone.This calculation takes sex and race into account, if the informationis provided. If the race is not provided, and the patient isAfrican-[place], multiply by 1.212. If sex is not provided, and thepatient is female, multiply by 0.742. Results for patients <18 years ofage have not been validated by the MDRD study and should be interpretedwith caution.eGFR Result Interpretation:eGFR > or = 60 is in the Normal RangeeGFR < 60 may mean kidney diseaseeGFR < 15 may mean kidney failureRanges recommended by the National Kidney Foundation,http://nkdep .nih.gov CBC with [id number] 18:49:00* Test Item Value Reference Range Interpretation Comme nts WBC (test code = WBC) 7.6 K/cumm [...] 11.5-14.5 N Platelet Count (test code = PLTCT) 126 K/cumm 140-440 L MPV (test code = MPV) 9.6 fL [...] code = ALYMPH) 0.9 K/cumm 0.5-4.6 N [place] Abs (test code = AMONO) 0.4 K/cumm 0.0-1.2 N Eos Abs (test code = AEOS) 0.10 K/cumm 0.00-0.74 N Baso Abs (test code = ABASO) 0.0 K/cumm 0.00-0.21 N [place] [id number] 16:08:00* Test Item Value Reference Range Interpretation Comme nts [place] Level (test code = LithiumLevel) 0.6 mmol/L Detection L imit = 0.1 <0.1 indicates None Detected [id number] 16:25:00* Test Item Value Reference Range Interpretation Comme nts TSH (078951) (test code = TSH(886636)) 2.710 {uIU/mL} Drug Screen, Urine # [id number] 11:58:00* Test Item Value Reference Range Interpretation Comments Amphetamine Methamphetmine 368453 (test code = AmphetamineMethamph [id number]) Negative Amphetamine test includes Amphetamine and Methamphetamin e. Barbiturate (710689) (test code = Barbiturate(058820) ) Negative Benzodiazepines (235974) (test code = Benzodiazepines(712 832)) Positive Cannabinoid (275738) (test code = Cannabinoid(174002) ) Negative Cocaine Metabolite (678692) (test code = CocaineMetabolite(7 32735)) Negative Opiates (744172) (test code = Opiates(501538)) Negative Opiate test includes Codeine, Morphine, Hydromorphone, Hydrocodone. Phencyclidine (062393) (test code = Phencyclidine(66523 1)) Negative Methadone Screen (841890) (test code = MethadoneScreen(345 224)) Negative Propoxyphene, Urine (794151) (test code = Propoxyphene,Urine( 813672)) Negative Drug Screen Comment (test code = DrugScreenComment) NOTE : This assay provides a preliminary unconfirmed analyticaltest result that may be suitable for the clinicalmanagement of patients in certain situations. [facility], preliminary positivefindings should always be confirmed by an alternativemethod. Some qvzx-zvh-mjjlybs medications, as well asadulterants, may cause inaccurate results. Screen Onlytesting does not meet the [employer] Urine Drug Testing Program requirements as aforensic urine drug test for workplace testing. All clientsmust ensure that their testing program conforms toapplicable state and federal laws and employmentagreements. [id number] 11:46:00* Test Item Value Reference Range Interpretation Comme nts Specific [place] (test code = SpecificGravity) 1.005 pH (test code = pH) 8.0 Urine Color (test code = UrineColor) Yellow Appearance (test code = Appearance) Clear WBC Esterase (test code = WBCEsterase) Negative Protein,Urine (test code = Protein,Urine) Negative Glucose, Urine (test code = Glucose,Urine) Negative Ketones (test code = Ketones) Negative Occult Blood (test code = OccultBlood) Negative Bilirubin, Urine (test code = Bilirubin,Urine) Negative Urobilinogen (test code = Urobilinogen) 0.2 mg/dL Nitrite, Urine (test code = Nitrite,Urine) Negative Microscopic Exam (test code = MicroscopicExam) NOTE : Microscopic not indicated and not performed. Comprehensive Metabolic [id number] 11:34:00* Test Item Value Reference Range Interpretation Comme nts Glucose,Serum (test code = Glucose,Serum) 101 mg/dL BUN (test code = BUN) 7 mg/dL Creatinine,Serum (test code = Creatinine,Serum) 0.68 mg/dL eGFR If NonAfrican Am (782662) (test code = eGFRIfNonAfricanAm(021423)) 105 mL/min/1.73 eGFR If Am (930351) (test code = eGFRIfAfricanAm(484382)) 122 mL/min/1.73 BUN/Creat Ratio (test code = BUN/CreatRatio) 10 Sodium (test code = Sodium) 140 mmol/L Potassium (test code = Potassium) 4.0 mmol/L Chloride (test code = Chloride) 99 mmol/L CO2 (test code = CO2) 29 mmol/L Calcium (test code = Calcium) 9.8 mg/dL Protein, Total (test code = Protein,Total) 7.0 g/dL Albumin (test code = Albumin) 4.2 g/dL Globulin, Total (test code = Globulin,Total) 2.8 g/dL A/G Ratio (test code = A/GRatio) 1.5 Bilirubin, Total (test code = Bilirubin,Total) 0.4 mg/dL Alkaline Phosphatase (test code = AlkalinePhosphatase) 125 {IU/L} AST (test code = AST) 95 {IU/L} ALT (test code = ALT) 178 {IU/L} Lipid Panel with LDL/HDL [id number] 11:34:00* Test Item Value Reference Range Interpretation Comme nts Cholesterol, Total (test code = Cholesterol,Total) 204 mg/dL Triglycerides (test code = Triglycerides) 186 mg/dL HDL Cholesterol (test code = HDLCholesterol) 63 mg/dL Cholesterol, VLDL (calculated) (test code = Cholesterol,VLDL(calcul ated)) 37 mg/dL Cholesterol, LDL (calculated) (test code = Cholesterol,LDL(calcula marek)) 104 mg/dL LDL/HDL Ratio (571963) (test code = LDL/HDLRatio(111138)) 1.7 {ratio units} . LDL/HDL Ratio Men Women 1/2 Avg.Risk 1.0 1.5 Avg.Risk 3.6 3.2 2X Avg.Risk 6.2 5.0 3X Avg.Risk 8.0 6.1 CBC w/ Diff w/ [id number] 11:25:00* Test Item Value Reference Range Interpretation Comme nts WBC Count (test code = WBCCount) 4.1 {x10E3/uL} RBC Count (test code = RBCCount) 4.66 {x10E6/uL} Hemoglobin (test code = Hemoglobin) 14.9 g/dL Hematocrit (test code = Hematocrit) 42.6 % MCV (test code = MCV) 91 fL MCH (test code = MCH) 32.0 pg MCHC (test code = MCHC) 35.0 g/dL RDW (test code = RDW) 13.4 % Platelets (test code = Platelets) 113 {x10E3/uL} Neutrophils (test code = Neutrophils) 43 % Lymphs (test code = Lymphs) 40 % Monocytes (test code = Monocytes) 8 % Eosinophils (test code = Eosinophils) 8 % Basophils (test code = Basophils) 1 % Neutrophils (Absolute) (test code = Neutrophils(Absolute)) 1.8 {x10E3/uL} Lymphs(Absolute) (test code = Lymphs(Absolute)) 1.6 {x10E3/uL} Monocytes(Absolute) (test code = Monocytes(Absolute)) 0.3 {x10E3/uL} Eosinophils(Absolute) (test code = Eosinophils(Absolute)) 0.3 {x10E3/uL} Basophils(Absolute) (test code = Basophils(Absolute)) 0.0 {x10E3/uL} Immature Granulocytes (test code = ImmatureGranulocytes) 0 % Immature Grans (Abs) (test code = ImmatureGrans(Abs)) 0.0 {x10E3/uL} Drug Screen, Urine # [id number] 14:17:00* Test Item Value Reference Range Interpretation Comments Amphetamine (test code = Amphetamine) Negative Barbiturates (test code = Barbiturates) Negative Benzodiazepines (test code = Benzodiazepines) Positive Cannabinoid (test code = Cannabinoid) Negative Cocaine Metabolite (test code = CocaineMetabolite) Negative Opiate Screen (test code = OpiateScreen) Negative Opiate test includes Codeine, Morphine, Hydromorphon e, Hydrocodone. Phencyclidine (545417) (test code = Phencyclidine(768482 )) Negative Methadone Level (test code = MethadoneLevel) Negative Propoxyphene, Urine (324581) (test code = Propoxyphene,Urine(7 92437)) Negative Drug Screen Comment (test code = DrugScreenComment) NOTE : This assay provides a preliminary unconfirmed analyticaltest result that may be suitable for the clinicalmanagement of patients in certain situations. [facility], preliminary positivefindings should always be confirmed by an alternativemethod. Some dbdc-geu-yqqivqr medications, as well asadulterants, may cause inaccurate results. Screen Onlytesting does not meet the [employer]ologistsFore[employer] Urine Drug Testing Program requirements as aforensic urine drug test for workplace testing. All clientsmust ensure that their testing program conforms toapplicable state and federal laws and employmentagreements. [id number] 12:50:00* Test Item Value Reference Range Interpretation Comme nts TSH (158218) (test code = TSH(786534)) 1.930 {uIU/mL} CBC w/ Diff w/ [id number] 12:25:00* Test Item Value Reference Range Interpretation Comme nts WBC Count (test code = WBCCount) 7.5 {x10E3/uL} RBC Count (test code = RBCCount) 4.98 {x10E6/uL} Hemoglobin (test code = Hemoglobin) 14.9 g/dL Hematocrit (test code = Hematocrit) 43.8 % MCV (test code = MCV) 88 fL MCH (test code = MCH) 29.9 pg MCHC (test code = MCHC) 34.0 g/dL RDW (test code = RDW) 13.9 % Platelets (test code = Platelets) 297 {x10E3/uL} Neutrophils (test code = Neutrophils) 40 % Lymphs (test code = Lymphs) 38 % Monocytes (test code = Monocytes) 11 % Eosinophils (test code = Eosinophils) 10 % Basophils (test code = Basophils) 1 % Neutrophils (Absolute) (test code = Neutrophils(Absolute)) 3.0 {x10E3/uL} Lymphs(Absolute) (test code = Lymphs(Absolute)) 2.8 {x10E3/uL} Monocytes(Absolute) (test code = Monocytes(Absolute)) 0.8 {x10E3/uL} Eosinophils(Absolute) (test code = Eosinophils(Absolute)) 0.8 {x10E3/uL} Basophils(Absolute) (test code = Basophils(Absolute)) 0.1 {x10E3/uL} Immature Granulocytes (test code = ImmatureGranulocytes) 0 % Immature Grans (Abs) (test code = ImmatureGrans(Abs)) 0.0 {x10E3/uL} Comprehensive Metabolic [id number] 12:18:00* Test Item Value Reference Range Interpretation Comme nts Glucose,Serum (test code = Glucose,Serum) 87 mg/dL BUN (test code = BUN) 13 mg/dL Creatinine,Serum (test code = Creatinine,Serum) 0.89 mg/dL eGFR If NonAfrican Am (665229) (test code = eGFRIfNonAfricanAm(832219)) 96 mL/min/1.73 eGFR If Am (857294) (test code = eGFRIfAfricanAm(118406)) 111 mL/min/1.73 BUN/Creat Ratio (test code = BUN/CreatRatio) 15 Sodium (test code = Sodium) 138 mmol/L Potassium (test code = Potassium) 4.5 mmol/L Chloride (test code = Chloride) 102 mmol/L CO2 (test code = CO2) 26 mmol/L Calcium (test code = Calcium) 9.6 mg/dL Protein, Total (test code = Protein,Total) 6.5 g/dL Albumin (test code = Albumin) 4.0 g/dL Globulin, Total (test code = Globulin,Total) 2.5 g/dL A/G Ratio (test code = A/GRatio) 1.6 Bilirubin, Total (test code = Bilirubin,Total) 0.1 mg/dL Alkaline Phosphatase (test code = AlkalinePhosphatase) 68 {IU/L} AST (test code = AST) 12 {IU/L} ALT (test code = ALT) 25 {IU/L} Drug Screen, Urine # [id number] 14:27:00* Test Item Value Reference Range Interpretation Comments Amphetamine (test code = Amphetamine) Negative Barbiturates (test code = Barbiturates) Negative Benzodiazepines (test code = Benzodiazepines) Negative Cannabinoid (test code = Cannabinoid) Negative Cocaine Metabolite (test code = CocaineMetabolite) Negative Opiate Screen (test code = OpiateScreen) Negative Opiate test includes Codeine, Morphine, Hydromorphon e, Hydrocodone. Phencyclidine (251643) (test code = Phencyclidine(380438 )) Negative Methadone Level (test code = MethadoneLevel) Negative Propoxyphene, Urine (483934) (test code = Propoxyphene,Urine(2 68102)) Negative Drug Screen Comment (test code = DrugScreenComment) NOTE : This assay provides a preliminary unconfirmed analyticaltest result that may be suitable for the clinicalmanagement of patients in certain situations. [facility], preliminary positivefindings should always be confirmed by an alternativemethod. Some pajt-tvc-zcpmnlx medications, as well asadulterants, may cause inaccurate results. Screen Onlytesting does not meet the [facility]rine Drug Testing Program requirements as aforensic urine drug test for workplace testing. All clientsmust ensure that their testing program conforms toapplicable state and federal laws and employmentagreements. [id number] 11:57:00* Test Item Value Reference Range Interpretation Comme nts Specific [place] (test code = SpecificGravity) 1.013 pH (test code = pH) 6.5 Urine Color (test code = UrineColor) Yellow Appearance (test code = Appearance) Clear WBC Esterase (test code = WBCEsterase) Negative Protein,Urine (test code = Protein,Urine) Negative Glucose, Urine (test code = Glucose,Urine) Negative Ketones (test code = Ketones) Negative Occult Blood (test code = OccultBlood) Negative Bilirubin, Urine (test code = Bilirubin,Urine) Negative Urobilinogen (test code = Urobilinogen) 0.2 mg/dL Nitrite, Urine (test code = Nitrite,Urine) Negative Microscopic Exam (test code = MicroscopicExam) NOTE : Microscopic follows if indicated. Drug Screen, Urine # [id number] 13:01:00* Test Item Value Reference Range Interpretation Comments Amphetamine (test code = Amphetamine) Negative Barbiturates (test code = Barbiturates) Negative Benzodiazepines (test code = Benzodiazepines) Positive Cannabinoid (test code = Cannabinoid) Negative Cocaine Metabolite (test code = CocaineMetabolite) Negative Opiate Screen (test code = OpiateScreen) Negative Opiate test includes Codeine, Morphine, Hydromorphon e, Hydrocodone. Phencyclidine (813579) (test code = Phencyclidine(377269 )) Negative Methadone Level (test code = MethadoneLevel) Negative Propoxyphene, Urine (068962) (test code = Propoxyphene,Urine(7 33093)) Negative Drug Screen Comment (test code = DrugScreenComment) NOTE : This assay provides a preliminary unconfirmed analyticaltest result that may be suitable for the clinicalmanagement of patients in certain situations. Forworkplace drug testing programs, preliminary positivefindings should always be confirmed by an alternativemethod. Some qwhp-kbs-thcippb medications, as well asadulterants, may cause inaccurate results. Screen Onlytesting does not meet the [employer] [facility] PathologistsF[facility]aint [facility] Urine Drug Testing Program requirements as aforensic urine drug test for workplace testing. All clientsmust ensure that their testing program conforms toapplicable state and federal laws and employmentagreements. [id number] 11:57:00* Test Item Value Reference Range Interpretation Comme nts Specific [place] (test code = SpecificGravity) 1.010 pH (test code = pH) 7.5 Urine Color (test code = UrineColor) Yellow Appearance (test code = Appearance) Clear WBC Esterase (test code = WBCEsterase) Negative Protein,Urine (test code = Protein,Urine) Negative Glucose, Urine (test code = Glucose,Urine) Negative Ketones (test code = Ketones) Negative Occult Blood (test code = OccultBlood) Negative Bilirubin, Urine (test code = Bilirubin,Urine) Negative Urobilinogen (test code = Urobilinogen) 0.2 mg/dL Nitrite, Urine (test code = Nitrite,Urine) Negative Microscopic Exam (test code = MicroscopicExam) NOTE : Microscopic follows if indicated. [id number] 14:12:00* Test Item Value Reference Range Interpretation Comme nts TSH (844371) (test code = TSH(597330)) 4.590 {uIU/mL} Comprehensive Metabolic [id number] 13:09:00* Test Item Value Reference Range Interpretation Comme nts Glucose,Serum (test code = Glucose,Serum) 77 mg/dL BUN (test code = BUN) 14 mg/dL Creatinine,Serum (test code = Creatinine,Serum) 0.87 mg/dL eGFR If NonAfrican Am (543781) (test code = eGFRIfNonAfricanAm(575226)) 97 mL/min/1.73 eGFR If Am (288570) (test code = eGFRIfAfricanAm(411436)) 112 mL/min/1.73 BUN/Creat Ratio (test code = BUN/CreatRatio) 16 Sodium (test code = Sodium) 140 mmol/L Potassium (test code = Potassium) 4.2 mmol/L Chloride (test code = Chloride) 102 mmol/L CO2 (test code = CO2) 23 mmol/L Calcium (test code = Calcium) 9.5 mg/dL Protein, Total (test code = Protein,Total) 6.7 g/dL Albumin (test code = Albumin) 4.2 g/dL Globulin, Total (test code = Globulin,Total) 2.5 g/dL A/G Ratio (test code = A/GRatio) 1.7 Bilirubin, Total (test code = Bilirubin,Total) 0.2 mg/dL Alkaline Phosphatase (test code = AlkalinePhosphatase) 72 {IU/L} AST (test code = AST) 23 {IU/L} ALT (test code = ALT) 33 {IU/L} CBC w/ Diff w/ [id number] 12:45:00* Test Item Value Reference Range Interpretation Comme nts WBC Count (test code = WBCCount) 9.1 {x10E3/uL} RBC Count (test code = RBCCount) 4.44 {x10E6/uL} Hemoglobin (test code = Hemoglobin) 13.4 g/dL Hematocrit (test code = Hematocrit) 39.1 % MCV (test code = MCV) 88 fL MCH (test code = MCH) 30.2 pg MCHC (test code = MCHC) 34.3 g/dL RDW (test code = RDW) 14.0 % Platelets (test code = Platelets) 279 {x10E3/uL} Neutrophils (test code = Neutrophils) 47 % Lymphs (test code = Lymphs) 33 % Monocytes (test code = Monocytes) 13 % Eosinophils (test code = Eosinophils) 7 % Basophils (test code = Basophils) 0 % Neutrophils (Absolute) (test code = Neutrophils(Absolute)) 4.2 {x10E3/uL} Lymphs(Absolute) (test code = Lymphs(Absolute)) 3.0 {x10E3/uL} Monocytes(Absolute) (test code = Monocytes(Absolute)) 1.2 {x10E3/uL} Eosinophils(Absolute) (test code = Eosinophils(Absolute)) 0.6 {x10E3/uL} Basophils(Absolute) (test code = Basophils(Absolute)) 0.0 {x10E3/uL} Immature Granulocytes (test code = ImmatureGranulocytes) 0 % Immature Grans (Abs) (test code = ImmatureGrans(Abs)) 0.0 {x10E3/uL} [place] [id number] 15:35:00* Test Item Value Reference Range Interpretation Comme nts [place] Level (test code = LithiumLevel) 0.5 mmol/L Detection L imit = 0.1 <0.1 indicates None Detected [id number] 13:40:00* Test Item Value Reference Range Interpretation Comme nts TSH (734296) (test code = TSH(514007)) 4.220 {uIU/mL} [id number] 13:40:00* Test Item Value Reference Range Interpretation Comme nts TSH (064311) (test code = TSH(447616)) 4.220 {uIU/mL} Basic Metabolic [id number] 12:47:00* Test Item Value Reference Range Interpretation Comme nts Glucose,Serum (test code = Glucose,Serum) 66 mg/dL BUN (test code = BUN) 12 mg/dL Creatinine,Serum (test code = Creatinine,Serum) 0.92 mg/dL BUN/Creat Ratio (test code = BUN/CreatRatio) 13 Sodium (test code = Sodium) 144 mmol/L Potassium (test code = Potassium) 4.4 mmol/L Chloride (test code = Chloride) 103 mmol/L CO2 (test code = CO2) 21 mmol/L Effective August 14, 2012, the reference interval for Carbon Dioxide, Total will be changing to: 0 - 7 days 18 - 28 8 - 30 days 17 - 27 31 d - 5 months 15 - 26 6 m - up to 1 year 15 - 25 1 - 12 years 17 - 26 > 12 years 19 - 28 Calcium (test code = Calcium) 9.5 mg/dL eGFR If NonAfrican Am (768681) (test code = eGFRIfNonAfricanAm(1 74715)) 94 mL/min/1.73 eGFR If Am (155432) (test code = eGFRIfAfricanAm(1007 97)) 109 mL/min/1.73 Comprehensive Metabolic [id number] 12:15:00* Test Item Value Reference Range Interpretation Comme nts Glucose,Serum (test code = Glucose,Serum) 80 mg/dL BUN (test code = BUN) 13 mg/dL Creatinine,Serum (test code = Creatinine,Serum) 0.93 mg/dL eGFR If NonAfrican Am (840594) (test code = eGFRIfNonAfricanAm(10 0791)) 93 mL/min/1.73 eGFR If Am (008217) (test code = eGFRIfAfricanAm(70241 7)) 107 mL/min/1.73 BUN/Creat Ratio (test code = BUN/CreatRatio) 14 Sodium (test code = Sodium) 140 mmol/L Potassium (test code = Potassium) 4.2 mmol/L Chloride (test code = Chloride) 101 mmol/L CO2 (test code = CO2) 26 mmol/L E ffective August 14, 2012, the reference interval for Carbon Dioxide, Total will be changing to: 0 - 7 days 18 - 28 8 - 30 days 17 - 27 31 d - 5 months 15 - 26 6 m - up to 1 year 15 - 25 1 - 12 years 17 - 26 > 12 years 19 - 28 Calcium (test code = Calcium) 9.7 mg/dL Protein, Total (test code = Protein,Total) 7.0 g/dL Albumin (test code = Albumin) 4.3 g/dL Globulin, Total (test code = Globulin,Total) 2.7 g/dL A/G Ratio (test code = A/GRatio) 1.6 Bilirubin, Total (test code = Bilirubin,Total) 0.2 mg/dL Alkaline Phosphatase (test code = AlkalinePhosphatase) 70 {IU/L} AST (test code = AST) 42 {IU/L} ALT (test code = ALT) 60 {IU/L} CBC w/ Diff w/ [id number] 12:10:00* Test Item Value Reference Range Interpretation Comme nts WBC Count (test code = WBCCount) 8.4 {x10E3/uL} RBC Count (test code = RBCCount) 4.75 {x10E6/uL} Hemoglobin (test code = Hemoglobin) 14.6 g/dL Hematocrit (test code = Hematocrit) 44.4 % MCV (test code = MCV) 94 fL MCH (test code = MCH) 30.7 pg MCHC (test code = MCHC) 32.9 g/dL RDW (test code = RDW) 13.7 % Platelets (test code = Platelets) 231 {x10E3/uL} Neutrophils (test code = Neutrophils) 57 % Lymphs (test code = Lymphs) 28 % Monocytes (test code = Monocytes) 10 % Eosinophils (test code = Eosinophils) 4 % Basophils (test code = Basophils) 1 % Neutrophils (Absolute) (test code = Neutrophils(Absolute)) 4.8 {x10E3/uL} Lymphs(Absolute) (test code = Lymphs(Absolute)) 2.4 {x10E3/uL} Monocytes(Absolute) (test code = Monocytes(Absolute)) 0.8 {x10E3/uL} Eosinophils(Absolute) (test code = Eosinophils(Absolute)) 0.4 {x10E3/uL} Basophils(Absolute) (test code = Basophils(Absolute)) 0.0 {x10E3/uL} Immature Granulocytes (test code = ImmatureGranulocytes) 0 % Immature Grans (Abs) (test code = ImmatureGrans(Abs)) 0.0 {x10E3/uL} Drug Screen, Urine # [id number] 14:49:00* Test Item Value Reference Range Interpretation Comments Amphetamine (test code = Amphetamine) Negative Barbiturates (test code = Barbiturates) Negative Benzodiazepines (test code = Benzodiazepines) Negative Cannabinoid (test code = Cannabinoid) Negative Cocaine Metabolite (test code = CocaineMetabolite) Positive Opiate Screen (test code = OpiateScreen) Negative Opiate test includes Codeine, Morphine, Hydromorphon e, Hydrocodone. Phencyclidine (102024) (test code = Phencyclidine(043280 )) Negative Methadone Level (test code = MethadoneLevel) Negative Propoxyphene, Urine (019263) (test code = Propoxyphene,Urine(3 54704)) Negative Drug Screen Comment (test code = DrugScreenComment) NOTE : This assay provides a preliminary unconfirmed analyticaltest result that may be suitable for the clinicalmanagement of patients in certain situations. [facility], preliminary positivefindings should always be confirmed by an alternativemethod. Some ozvg-cwg-hvzthkb medications, as well asadulterants, may cause inaccurate results. Screen Onlytesting does not meet the [employer] Urine Drug Testing Program requirements as aforensic urine drug test for workplace testing. All clientsmust ensure that their testing program conforms toapplicable state and federal laws and employmentagreements. [id number] 14:09:00* Test Item Value Reference Range Interpretation Comme nts Specific [place] (test code = SpecificGravity) 1.011 pH (test code = pH) 8.0 Urine Color (test code = UrineColor) Yellow Appearance (test code = Appearance) Turbid WBC Esterase (test code = WBCEsterase) Negative Protein,Urine (test code = Protein,Urine) Negative Glucose, Urine (test code = Glucose,Urine) Negative Ketones (test code = Ketones) Negative Occult Blood (test code = OccultBlood) Negative Bilirubin, Urine (test code = Bilirubin,Urine) Negative Urobilinogen (test code = Urobilinogen) 0.2 mg/dL Nitrite, Urine (test code = Nitrite,Urine) Negative Microscopic Exam (test code = MicroscopicExam) NOTE : Microscopic follows if indicated.
--- NOTE | 2023-05-17 14:47 | RAD REPORT ---
EXAM DESCRIPTION: CT - Stone Protocol - 05/17/2023 2:34 pm CLINICAL HISTORY: Flank pain. back pain COMPARISON: Abdomen Pelvis W Contrast dated 08/09/2021 TECHNIQUE: Axial images were obtained without oral or IV contrast. Lack of contrast limits solid org an and vascular assessment. The [id number] spans the entirety of the system partially obscuring uppermost abdomen and lung bases. Coronal reformatted images were obtained and reviewed. All CT scans are performed using dose optimization technique as appropriate and may include automated exposure control or mA/KV adjustment according to patient size. FINDINGS: The lower lung meyer are clear. Imaged portions of the liver and spleen show no suspicious findings on non-contrast imaging. The panc reas and adrenal glands are normal. No pathologic lymphadenopathy in the abdomen or pelvis. No urinary tract stones or obstructive uropathy. No bowel obstruction, free air, free fluid or abscess. Normal appendix noted. Grade 1-2 anterolisthesis of L5 on S1 with bilateral spondylolysis. IMPRESSION: No urinary tract stones or obstructive uropathy. Grade 1-2 anterolisthesis of L5 on S1 with bilateral spondylolysis.
--- NOTE | 2023-05-17 14:49 | RAD REPORT ---
EXAM DESCRIPTION: CT - Thoracic Spine W/o Cont - 05/17/2023 2:34 pm CLINICAL HISTORY: Radiculopathy. fall, back pain COMPARISON: Head C Spine Mpr Wo Con dated 02/05/2021; Head C Spine Mpr Wo Con dated 08/25/2020 TECHNIQUE: Axial CT imaging through the thoracic spine was performed with coronal and sagittal re-fo rmatted images. All CT scans are performed using dose optimization technique as appropriate and may include automated exposure control or mA/KV adjustment according to patient size. FINDINGS: Vertebral body heights and disc spaces are maintained. A compression fracture is not prese nt. No significant disc space narrowing. Prominent anterior osteophytosis. Thoracic spine alignment is within normal limits. No paraspinal masses or hematoma. Mildly emphysematous lung meyer. IMPRESSION: No acute thoracic spine finding.
--- NOTE | 2023-05-17 16:53 | ER ---
Nurse's Notes [facility] Name: Jose Armando Gilliland Age: 67 yrs Sex: Male : 1955 Arrival Date: 05/17/2023 Time: 13:15 Bed 12 Private MD: Diagnosis: Radiculopathy, lumbosacral region;Low back pain Presentation: 05/16 13:34 Chief complaint: Patient states: Pt c/o chronic low back pain that got worse last kb3 night. Pt states pain radiates down both legs. Pt states he fell approx 3 mos ago but did not seek medical attention until today. Coronavirus screen: At this time, the client does not indicate any symptoms associated with coronavirus-19. Ebola Screen: No symptoms or risks identified at this time. Initial Sepsis Screen: Does the patient meet any 2 criteria? No. Patient's initial sepsis screen is negative. Does the patient have a suspected source of infection? No. Patient's initial sepsis screen is negative. Risk Assessment: Do you want to hurt yourself or someone else? Patient reports no desire to harm self or others. Onset of symptoms is unknown. 13:34 Method Of Arrival: EMS: [facility] kb3 13:34 Acuity: YESSENIA 3 kb3 Triage Assessment: 13:37 General: Appears uncomfortable, Behavior is uncooperative. Pain: Complains of pain in kb3 back. EENT: No deficits noted. No signs and/or symptoms were reported regarding the EENT system. Neuro: Level of Consciousness is awake, alert, obeys commands, Oriented to person, place, time, situation, Speech is normal, Facial symmetry appears normal. Cardiovascular: Capillary refill < 3 seconds Patient's skin is warm and dry. Respiratory: Airway is patent Respiratory effort is even, unlabored, Respiratory pattern is regular, symmetrical, Breath sounds are clear bilaterally. GI: No deficits noted. No signs and/or symptoms were reported involving the gastrointestinal system. : No deficits noted. No signs and/or symptoms were reported regarding the genitourinary system. Derm: No deficits noted. No signs and/or symptoms reported regarding the dermatologic system. Musculoskeletal: Capillary refill < 3 seconds. Historical: - Allergies: 13:36 No Known Allergies; kb3 - Home Meds: 14:58 lisinopril 30 mg Oral tablet 1 tab daily [Active]; tl4 - PMHx: 13:36 Alcoholism; Bipolar disorder; Hypertension; PTSD; kb3 - Immunization history:: Adult Immunizations unknown. - Social history:: Smoking status: Patient reports the use of cigarette tobacco products, smokes one-half pack cigarettes per day. - Family history:: not pertinent. - Hospitalizations: : No recent hospitalization is reported. Screenin:39 [facility] ED Fall Risk Assessment (Adult) History of falling in the last 3 months, kb3 including since admission Yes- single mechanical fall (1 pt) Confusion or Disorientation No (0 pts) Intoxicated or Sedated No (0 pts) Impaired Gait No (0 pts) Mobility Assist Device Used No (0 pt) Altered Elimination No (0 pt) Score/Fall Risk Level 0 - 2 = Low Risk Oriented to surroundings, Maintained a safe environment, Educated pt \\T\\ family on fall prevention, incl call for assistance when getting out of bed, Assessed \\T\\ reinforced patient's understanding of fall precautions, Hourly rounding (assess needs \\T\\ fall precautionary measures) done, Used ambulatory aids as needed (educated on \\T\\ assisted with), Used gait belt as appropriate. Abuse screen: Denies threats or abuse. Denies injuries from another. Nutritional screening: No deficits noted. Tuberculosis screening: No symptoms or risk factors identified. Assessment: 14:56 Reassessment: Patient and/or family updated on plan of care and expected duration. Pain tl4 level reassessed. Patient is alert, oriented x 3, equal unlabored respirations, skin warm/dry/pink. Patient states feeling better. Patient states symptoms have improved. Pain: Complains of pain in back. Neuro: Level of Consciousness is awake, alert, obeys commands, Oriented to person, place, time, situation, Speech is normal, Facial symmetry appears normal. 17:10 Reassessment: Patient and/or family updated on plan of care and expected duration. Pain tl4 level reassessed. Patient is alert, oriented x 3, equal unlabored respirations, skin warm/dry/pink. Pt states he is still in pain and unable to get dressed. Vital Signs: 13:34 BP 151 / 94; Pulse 68; Resp 20; Temp 97.8(O); Pulse Ox 99% on R/A; Pain 10/10; kb3 14:20 BP 133 / 75; Pulse 71; Resp 20; Pulse Ox 99% on R/A; Pain 10/10; tl4 14:20 BP 155 / 82; Pulse 67; Resp 18; Pulse Ox 98% on R/A; Pain 4/10; tl4 15:16 BP 155 / 76; Pulse 69; Resp 18; Pulse Ox 100% ; tl4 16:08 BP 140 / 84; Pulse 63; Resp 15; Pulse Ox 98% on R/A; tl4 17:41 BP 152 / 81; Pulse 69; Resp 18; Temp 98.2(O); Pulse Ox 99% on R/A; Pain 8/10; tl4 13:34 Pain Scale: Adult kb3 14:20 Pain Scale: Adult tl4 14:20 Pain Scale: Adult tl4 17:41 Pain Scale: Adult tl4 ED Course: 13:30 Patient arrived in ED. mr 13:31 Dalton Sharp MD is Attending Physician. rn 13:36 Triage completed. kb3 13:38 Arm band placed on right wrist. kb3 13:40 Patient has correct armband on for positive identification. Bed in low position. Call kb3 light in reach. Side rails up X2. Pt refuses to be put in a gown stating "it hurts too bad". Provided Education on: ed process. Client placed on continuous cardiac and pulse oximetry monitoring. NIBP monitoring applied. Door closed. Moved to private room. Warm blanket given. 13:41 No provider procedures requiring assistance completed. kb3 13:41 Maintain EMS IV. Dressing intact. Good blood return noted. Site clean \\T\\ dry. Gauge \\T\\ kb 3 site: 22g right forearm. 14:34 Jluis Garrett, RN is Primary Nurse. tl4 16:00 CT In Process Unspecified. EDMS 16:00 CT In Process Unspecified. EDMS 17:40 IV discontinued, intact, bleeding controlled, No redness/swelling at site. Pressure tl4 dressing applied. Administered Medications: 10:50 Drug: Gabapentin PO 300 mg PO once Route: PO; tl4 14:35 Follow up: Response: No adverse reaction; Pain is decreased tl4 14:08 Drug: Decadron - Dexamethasone IVP 10 mg IVP once Route: IVP; Site: right antecubital; tl4 14:35 Follow up: Response: No adverse reaction tl4 14:10 Drug: morphine IVP or IV 4 mg IVP once over 4 mins Route: IVP; Infused Over: 4 mins; tl4 Site: right antecubital; 14:35 Follow up: Response: No adverse reaction; Pain is decreased tl4 15:16 Drug: Ketorolac IVP 30 mg IVP once Route: IVP; Site: right antecubital; tl4 17:43 Follow up: Response: No adverse reaction; Pain is decreased tl4 17:06 Drug: HYDROcodone-acetaminophen PO 5 mg-325 mg 1 tabs PO once Route: PO; tl4 17:43 Follow up: Response: No adverse reaction; Pain is decreased tl4 Medication: 13:39 VIS not applicable for this client. kb3 Outcome: 16:52 Discharge ordered by . rn 17:40 Discharged to home via wheelchair, tl4 17:40 Condition: stable 17:40 Discharge instructions given to patient, Instructed on discharge instructions, follow up and referral plans. medication usage, Demonstrated understanding of instructions, follow-up care, medications, Prescriptions given X 3, 17:43 Patient left the ED. tl4 Signatures: Dispatcher [employer] EDTX Jayna Keller, Reg Reg mr Dalton Sharp MD MD rn Bradberry, Kelly, RN RN kb3 Jluis Garrett RN RN tl4
--- NOTE | 2023-05-17 16:53 | EDPHYS ---
Physician Documentation [facility] Name: Jose Armando Gilliland Age: 67 yrs Sex: Male : 1955 Arrival Date: 05/17/2023 Time: 13:15 Bed 12 Private MD: ED Physician Dalton Sharp HPI: 05/16 13:33 This 67 yrs old Male presents to ER via Unassigned with complaints of Back rn Pain. 13:33 The patient presents with pain that is acute, with no known mechanism of injury. The rn symptoms are located in the left low back and left mid back. Onset: The symptoms/episode began/occurred at an unknown time. The pain radiates to the left leg. Associated signs and symptoms: Pertinent positives: none Pertinent negatives: abdominal pain, chest pain, fever, hematuria, incontinence, nausea, numbness, tingling, urinary retention. Modifying factors: The patient symptoms are alleviated by nothing, the patient symptoms are aggravated by any movement. Severity of symptoms: At their worst the symptoms were moderate, in the emergency department the symptoms are unchanged. The patient has experienced similar episodes in the past. Patient reports left-sided back pain, unknown onset, has had before but worse today. Reports fall from standing 1 month ago and was not seen at that time. Injured his back at that time. States slipped in his bathroom and fell flat on his back. Reports pain to lower back that radiates down left leg. Given fentanyl by EMS.. Historical: - Allergies: 13:36 No Known Allergies; kb3 - Home Meds: 14:58 lisinopril 30 mg Oral tablet 1 tab daily [Active]; tl4 - PMHx: 13:36 Alcoholism; Bipolar disorder; Hypertension; PTSD; kb3 - Immunization history:: Adult Immunizations unknown. - Social history:: Smoking status: Patient reports the use of cigarette tobacco products, smokes one-half pack cigarettes per day. - Family history:: not pertinent. - Hospitalizations: : No recent hospitalization is reported. ROS: 13:33 Constitutional: Negative for fever, chills, and weight loss, Cardiovascular: Negative rn for chest pain, palpitations, and edema, Respiratory: Negative for shortness of breath, cough, wheezing, and pleuritic chest pain, Abdomen/GI: Negative for abdominal pain, nausea, vomiting, diarrhea, and constipation, Back: Positive for back pain MS/Extremity: Negative for injury and deformity, Skin: Negative for injury, rash, and discoloration, Neuro: Negative for headache, weakness, numbness, tingling, and seizure, Exam: 13:33 Constitutional: This is a well developed, well nourished patient who is awake, alert, rn appears in pain Head/Face: Normocephalic, atraumatic. Cardiovascular: Regular rate and rhythm. No pulse deficits. Respiratory: No increased work of breathing, no retractions or nasal flaring. Abdomen/GI: Soft, non-tender Back: No spinal tenderness. MS/ Extremity: Pulses equal, no cyanosis. Neurovascular intact. Full, normal range of motion. Equal circumference. Neuro: Awake and alert, GCS 15, oriented to person, place, time, and situation. Motor strength 5/5 in all extremities. Sensory grossly intact. Vital Signs: 13:34 BP 151 / 94; Pulse 68; Resp 20; Temp 97.8(O); Pulse Ox 99% on R/A; Pain 10/10; kb3 14:20 BP 133 / 75; Pulse 71; Resp 20; Pulse Ox 99% on R/A; Pain 10/10; tl4 14:20 BP 155 / 82; Pulse 67; Resp 18; Pulse Ox 98% on R/A; Pain 4/10; tl4 15:16 BP 155 / 76; Pulse 69; Resp 18; Pulse Ox 100% ; tl4 16:08 BP 140 / 84; Pulse 63; Resp 15; Pulse Ox 98% on R/A; tl4 17:41 BP 152 / 81; Pulse 69; Resp 18; Temp 98.2(O); Pulse Ox 99% on R/A; Pain 8/10; tl4 13:34 Pain Scale: Adult kb3 14:20 Pain Scale: Adult tl4 14:20 Pain Scale: Adult tl4 17:41 Pain Scale: Adult tl4 MDM: 13:31 Patient medically screened. rn 16:51 Differential diagnosis: arthritis, chronic back pain, Osteoarthritis sprain, rn radiculopathy, disc problem. Data reviewed: vital signs, nurses notes, radiologic studies, CT scan, and as a result, I will discharge patient. Counseling: I had a detailed discussion with the patient and/or guardian regarding the historical points, exam findings, and any diagnostic results supporting the discharge/admit diagnosis, radiology results, the need for outpatient follow up, to return to the emergency department if symptoms worsen or persist or if there are any questions or concerns that arise at home. Response to treatment: the patient's symptoms have markedly improved after treatment, and as a result, I will discharge patient. Special discussion: I discussed with the patient/guardian in detail that at this point there is no indication for admission to the hospital. It is understood, however, that if the symptoms persist or worsen the patient needs to return immediately for re-evaluation. 18:04 ED course: No evidence of spinal cord compression, no acute or subacute injuries on morning caregiver. No acute abdominal problems identified. Strength normal. Entire examination appears normal patient just seems limited due to pain which is improved after pain medication.. 05/16 14:01 Order name: CT Stone Protocol rn 05/16 14:01 Order name: CT Thoracic Spine Wo Cont rn 05/16 15:55 Order name: CT EDMS 05/16 15:55 Order name: CT EDMS Administered Medications: 10:50 Drug: Gabapentin PO 300 mg PO once Route: PO; tl4 14:35 Follow up: Response: No adverse reaction; Pain is decreased tl4 14:08 Drug: Decadron - Dexamethasone IVP 10 mg IVP once Route: IVP; Site: right antecubital; tl4 14:35 Follow up: Response: No adverse reaction tl4 14:10 Drug: morphine IVP or IV 4 mg IVP once over 4 mins Route: IVP; Infused Over: 4 mins; tl4 Site: right antecubital; 14:35 Follow up: Response: No adverse reaction; Pain is decreased tl4 15:16 Drug: Ketorolac IVP 30 mg IVP once Route: IVP; Site: right antecubital; tl4 17:43 Follow up: Response: No adverse reaction; Pain is decreased tl4 17:06 Drug: HYDROcodone-acetaminophen PO 5 mg-325 mg 1 tabs PO once Route: PO; tl4 17:43 Follow up: Response: No adverse reaction; Pain is decreased tl4 Disposition Summary: 05/17/23 16:52 Discharge Ordered Notes: Location: Home rn Problem: new rn Symptoms: have improved rn Condition: Stable rn Diagnosis - Radiculopathy, lumbosacral region rn - Low back pain rn Followup: rn - With: Private Physician - When: As needed - Reason: Recheck today's complaints, Re-evaluation by your physician Discharge Instructions: - Discharge Summary Sheet rn - Acute Back Pain, Adult rn - Lumbosacral Radiculopathy rn - Pinched Nerve rn Forms: - Medication Reconciliation Form rn - Thank You Letter rn - Antibiotic disease case manager rn - Prescription Opioid Use rn - Patient Portal Instructions rn - Leadership Thank You Letter rn Prescriptions: - gabapentin 100 mg Oral capsule - take 1 capsule ORAL route 2 times per day As needed; 14 capsule; Refills: 0, rn Product Selection Permitted - Tramadol 50 mg Oral Tablet - take 1 tablet ORAL route every 8 hours as needed; 12 tablet; Refills: 0, rn Product Selection Permitted - Medrol (Bakari) 4 mg Oral Tablets, Dose Pack - take 1 tablet ORAL route as directed - follow package instructions; 1 packet; rn Refills: 0, Product Selection Permitted Signatures: Dispatcher [employer] EDDalton Messer MD MD rn Bradberry, Kelly RN RN kb3 Jluis Garrett RN RN tl4 Corrections: (The following items were deleted from the chart) 15:56 15:55 Spine Lumbar Wo Con ordered. EDMS EDMS
[2023-05-17 19:29] VITALS: BP 152/81; TEMP 98.2; O2SAT 99
== END ==
LOC: ER 13:15
DX: M54.17 Radiculopathy, lumbosacral region (principal); F10.20 Alcohol dependence, uncomplicated; I10 Essential (primary) hypertension; F17.210 Nicotine dependence, cigarettes, uncomplicated
CPT/HCPCS: 72128; 76377; 74176; J1100; 96374; 96375; 99284

== ENCOUNTER → 2023-05-24 | Emergency (ER) | payer OTHER ==
[~2023-05-24] MED LIST changes: -GABAPENTIN 300 MG CAP ONE; -HYDROCODONE/APAP 5/325 MG TAB ONE; +HYDROMORPHONE HCL 1 MG/ML INJ ONE; -KETOROLAC 30 MG/ML INJ ONE; +METHYLPREDNISOLONE 125 MG INJ ONE; -MORPHINE 4 MG/ML SYR ONE; +ONDANSETRON 4 MG/2 ML VIAL ONE; -dexAMETHasone 10 MG/ML VIAL ONE
--- OUTSIDE RECORDS SUMMARY | 2023-05-24 12:56 | XMS REPORT | Continuity of Care Document ---
Author Name Unknown Address [address] [facility] [address] [place] [address] [facility] thconnect Address [address] [facility] [address] [place] [address] Care Team Providers Care Trauma Counsellor Name Role Phone UNKNOWN, REFFERING Primary Care Physician Leonora Bang Attending Clinician [phone] Doctor Unassigned, Souris Attending Clinician U Surjit Acharya MD Attending Clinician [phone] LEONORA DOAN Attending Clinician Unavailable Guicho Michel MD Attending Clinician [phone] GUICHO MICHEL Attending Clinician Unavailable Claudia Kuhn Attending Clinician Unavaila Bhavna Kenny Attending Clinician UnavailAdy Perez Attending Clinician Unavailable ZA LEE Attending Clinician Unavaila SLOANE Hilario Attending Clinician UnaAbeba Fang Attending Clinician Unavailable CIPRIANO REYES Attending Clinician Unavailable Karlie Vaughn Attending Clinician UnavailSherrie Andersen Attending Clinician Unavailable Alice Self Attending Clinician Unavailable Tian Vagras Attending Clinician Unavail able Ritchie Marr Attending Clinician Unavailable SHEELA ONEIL Attending Clinician Unavailab GUICHO Cochran Admitting Clinician Unavailable CIPRIANO REYES Admitting Clinician Unavailable Problems Condition Name Condition Details Condition Category Status Onset Date Resolution Date Last Treatment Date Treating Clinician Comments Source Illness, unspecifie d Illness, unspecifie d (R69)Onset : 04-Mar-2020 29035-6 Active 03-04 00:00: 00 2020-03-04 13:04:04 Encounter for observatio n for other suspected diseases and conditions ruled out Encounter for observatio n for other suspected diseases and conditions ruled out (Z03.89)On set: 03-May-2019 02303-8 Active 05-02 00:00: 00 2019-05-03 20:46:01 Encounter for observatio n for other suspected diseases and conditions ruled out Encounter for observatio n for other suspected diseases and conditions ruled out (Z03.89)On set: 9 66606-7 Active 07-24 00:00: 00 2018-07-24 21:41:52 Diagnosis deferred on axis II Diagnosis deferred on axis IIOnset: 7 39079-9 Active 09-09 00:00: 00 2016-09-09 01:03:27 Deferred diagnosis on axis II Deferred diagnosis on axis IIOnset: 6 50816-7 Active 03-11 00:00: 00 2015-03-11 22:53:15 Personalit y D/O NOS- Cluster B Personalit y D/O NOS- Cluster BOnset: 4 92975-5 Active 04-19 00:00: 00 2013-04-20 10:31:18 Personalit y Disorder NOS Personalit y Disorder NOSOnset: 3 79348-4 Active 2012-02 00:00: 00 2013-02-19 22:10:33 Diagnosis Deferred on [place] II Diagnosis Deferred on [place] IIOnset: 3 49598-8 Active 11-16 00:00: 00 2012-11-16 00:20:04 Diagnosis Deferred on [place] II Diagnosis Deferred on [place] IIOnset: 03-Aug-2012 22971-9 Active 08-03 00:00: 00 2012-08-03 16:20:04 Diagnosis Deferred on [place] II Diagnosis Deferred on [place] II 53333-5 Active 2012-12-31 21:59:45 No known active problems No known active problems Disease [facility] History of Past Illness Condition Name Condition Details Condition Category Status Onset Date Resolution Date Last Treatment Date Treating Clinician Comments Source Diagnosis Deferred on [place] II Diagnosis Deferred on [place] IIStatus: Inactive as of 4 7:39 05776-0 Inactiv e 2013-04-19 07:39:37 2013-04-19 07:39:37 Allergies, Adverse Reactions, Alerts Allergy Name Allergy Type Status Severity Reaction(s) Onset Date Inactive Date Treating Clinician Comments Source NO KNOWN ALLERGIE S Drug Class Active General acute hospital No Known Medicati on Allergie s Drug Active [facility] Social History Social Habit Start Date Stop Date Quantity Comments Source Exposure to SARS-CoV-2 (event) Not sure [facility] Tobacco use and exposure 2021-03-17 00:00:00 2021-03-17 00:00:00 Never used [facility] Alcohol intake 2021-03-17 00:00:00 2021-03-17 00:00:00 Lifetime non-drinker (finding) [facility] Sex Assigned At 1955 00:00:00 1955 00:00:00 [facility] Smoking Status Start Date Stop Date Source Tobacco smoking consumption unknown [facility] Never smoker [facility] Medications Ordered Medication Name Filled Medication Name Start Date Stop Date Current Medication? Ordering Clinician Indication Dosage Frequency Signature (SIG) Comments Components Source acetaminoph en-codeine (TYLENOL-CO DEINE #3) 300-30 mg tablet 2020-02 00:00: 00 Yes 4647 1{tbl} Take 1 tablet by mouth every 4 (four) hours as needed for Pain (scale 4-6) or Pain (scale 7-10). Indication s: acute pain General acute hospital acetaminoph en-codeine (TYLENOL-CO DEINE #3) 300-30 mg tablet 2020-02 215 00:00: 00 Yes 4647 1{tbl} Take 1 tablet by mouth every 4 (four) hours as needed for Pain (scale 4-6) or Pain (scale 7-10). Indication s: acute pain [facility] acetaminoph en-codeine (TYLENOL-CO DEINE #3) 300-30 mg tablet 2020-0215 00:00: 00 Yes 4647 1{tbl} Take 1 tablet by mouth every 4 (four) hours as needed for Pain (scale 4-6) or Pain (scale 7-10). Indication s: acute pain [facility] acetaminoph en-codeine (TYLENOL-CO DEINE #3) 300-30 mg tablet 2020-02 00:00: 00 Yes 4647 1{tbl} Take 1 tablet by mouth every 4 (four) hours as needed for Pain (scale 4-6) or Pain (scale 7-10). Indication s: [facility] (TYLENOL-CO DEINE #3) 300-30 mg tablet 2020-02 00:00: 00 Yes 4647 1{tbl} Take 1 tablet by mouth every 4 (four) hours as needed for Pain (scale 4-6) or Pain (scale 7-10). Indication s: acute pain [facility] ibuprofen 600 mg tablet 06-27 00:00: 00 Yes [id number] 600mg Take 1 tablet by mouth every 6 (six) hours as needed for Pain (scale 4-6). General acute hospital ibuprofen 600 mg tablet 0 30 00:00: 00 Yes [id number] 600mg Take 1 tablet by mouth every 6 (six) hours as needed for Pain (scale 4-6). [facility] mg tablet 0 30 00:00: 00 Yes [id number] 600mg Take 1 tablet by mouth every 6 (six) hours as needed for Pain (scale 4-6). General acute hospital ibuprofen 600 mg tablet 2020-0 30 00:00: 00 Yes [id number] 600mg Take 1 tablet by mouth every 6 (six) hours as needed for Pain (scale 4-6). General acute hospital ibuprofen 600 mg tablet 06-27 00:00: 00 Yes [id number] 600mg Take 1 tablet by mouth every 6 (six) hours as needed for Pain (scale 4-6). General acute hospital TraZODone* - 08:34: 00 Yes [id number] 778041 50mg TraZODone* ; 50 mg PO/By mouth for sleep Take 1 tablet by mouth at bedtime for insomnia (CRU)Start : 1Ordered: Joaquin bowden Prazosin* 03-12 08:33: 00 Yes [id number] 307918 2mg Prazosin*; 2 mg PO/By mouth for nightmares Take 1 tablet by mouth at bedtime for nightmares (CRU)Start : 1Ordered: 1GJoaquin bowden QUEtiapine* - 08:33: 00 Yes [id number] [id number] 200mg QUEtiapine *; 200 mg PO/By mouth for psychosis Take 1 tablet by mouth twice daily and 2 tablets at bedtime for psychosis (CRU)Start : 1Ordered: 1GJoaquin bowden Milk of Magnesia 1- 11:56: 00 Yes [id number] 162025 30ml Milk of Magnesia; 30 ml PO PRN q4hr for Constipati on NTE 120 mL in 24 hours RoutineSta rt: 05-Mar-2020 Ordered: 05-Mar-2020 Joaquin Jenkins ments: NTE 120 mL in 24 hours NTE 120 mL in 24 hours QUEtiapine 1- 11:56: 00 Yes [id number] 50mg QUEtiapine ; 50 mg PO PRN q6hr for midl agitation NTE 200 mg PRN Quetiapine in 24 hr period RoutineSta rt: 05-Mar-2020 Ordered: 05-Mar-2020 Joaquin Jenkins ments: NTE 200 mg PRN Quetiapine in 24 hr period NTE 200 mg PRN Quetiapin e in 24 hr period SEROquel 400 mg oral tablet 03-04 11:35: 31 No [id number] [id number] 0 SEROquel 400 mg oral tablet; qhsQuantit y: 0 Refills: 0Ordered: Evelyn ParisiGeneric Substituti on Allowed prazosin 2 mg oral capsule 03-04 11:35: 31 No [id number] 408167 0 prazosin 2 mg oral capsule; orally once a day (at bedtime)Qu antity: 0 Refills: 0Ordered: 03-May-2019 NicoletorLinda KGeneric Substituti on AllowedCom ments: Home Medication stored in Pharmacy Home Medicatio n stored in Pharmacy SEROquel 300 mg oral tablet 03-04 11:35: 31 No [id number] [id number] 0 SEROquel 300 mg oral tablet; qamQuantit y: 0 Refills: 0Ordered: Evelyn ParisiGeneric Substituti on Allowed QUEtiapine 100 mg oral tablet 09-08 23:20: 27 No [id number] 259104 0 QUEtiapine 100 mg oral tablet; orallyQuan tity: 0 Refills: 0[facility] OtherGener ic Substituti on Allowed Zoloft 50 mg oral tablet 09-08 23:20: 27 No [id number] 404187 1{tab(s )} Zoloft 50 mg oral tablet; 1 tab(s) orally once a dayQuantit y: 0 Refills: 0Ordered: Jayna romero us: OtherGener ic Substituti on Allowed Benadryl 25 mg oral capsule 09-08 23:20: 27 No [id number] 0 Benadryl 25 mg oral capsule; orally onceQuanti ty: 0 Refills: 0Ordered: Jayna romero us: OtherGener ic Substituti on Allowed traZODone 50 mg oral tablet 09-08 23:20: 27 No [id number] 0 traZODone 50 mg oral tablet; orally onceQuanti ty: 0 Refills: 0Ordered: 6HJayna romero us: OtherGener ic Substituti on Allowed lisinopril 10 mg oral tablet 09-08 23:20: 20 No [id number] 1{tab(s )} lisinopril 10 mg oral tablet; 1 tab(s) orally once a dayQuantit y: 0 Refills: 0Ordered: 7Moore, TeriStart: 7Generic Substituti on Allowed Seroquel 200mg 04-18 00:00: 00 No [id number] [id number] 0 Seroquel 200mg; po qam and qhs pt. received last dose at [facility] on 04/18/13 at 09:25Quant ity: 0 Refills: 0Ordered: 4Moore, TeriStart: 4Status: OtherGener ic Substituti on Allowed Zoloft 100ng 04-18 00:00: 00 No [id number] 0 Zoloft 100ng; po qam pt. received last dose at [facility] on 04/18/13 at 0905Quanti ty: 0 Refills: 0Ordered: 4Moore, TeriStart: 4Status: OtherGener ic Substituti on Allowed Pt reports "I have been off my meds for 3 years." 2012-02 11:30: 29 No [id number] [id number] 0 Pt reports "I have been off my meds for 3 years."Hayes ntity: 0 Refills: 0Ordered: 03-Aug-2012 Augustus Trammell us: Discontinu edGeneric Substituti on Allowed zoloft 100 mg 2012-02 00:00: 00 No [id number] 0 zoloft 100 mg; po everyday last dose at home 02/18/13 , at [facility] 02/19/13Qu antity: 0 Refills: 0Ordered: Mary GuadarramaStart: 3Status: Discontinu edGeneric Substituti on Allowed Risperdal 2 mg oral tablet 2012-02 00:00: 00 No [id number] 1 Risperdal 2 mg oral tablet; 1 orally Q AM LAST DOSE AT [facility] , AT HOME LAST DOSE 02/18/13Qu antity: 0 Refills: 0Ordered: Mary GuadarramaStart: 3Status: Discontinu edGeneric Substituti on Allowed Risperdal 4 mg oral tablet 2012-02 00:00: 00 No [id number] 1 Risperdal 4 mg oral tablet; 1 orally LAST DOSE 02/18/13 AT [facility] , AT HOME 02/17/13Qu antity: 0 Refills: 0Ordered: Mary GuadarramaStart: 3Status: Discontinu edGeneric Substituti on Allowed ATARX 25 MG 2012-02 00:00: 00 No [id number] 0 ATARX 25 MG; PO BID PRN LAST DOSE 02/18/13 AT [facility] ty: 0 Refills: 0Ordered: Mary GuadarramaStart: 3Status: Discontinu edGeneric Substituti on Allowed ATARAX 25 MG 2012-02 00:00: 00 No [id number] 0 ATARAX 25 MG; PO TID LAST DOSE AT [facility] 02/19/13Qu antity: 0 Refills: 0Ordered: Mary GuadarramaStart: 3Status: Discontinu edGeneric Substituti on Allowed MULTI VITAMIN , FOLIC ACID 1 MG , THIAMINE 100 MG 2012-02 00:00: 00 No [id number] 0 MULTI VITAMIN , FOLIC ACID 1 MG , THIAMINE 100 MG; PO everyday LA[facility] 02[facility]19/13 [facility] Refills: 0Ordered: 3Dromy Mary SalStart: 3Status: Discontinu edGeneric Substituti on Allowed DENIES OTC/HERBAL HOME MEDS 2012-02 00:00: 00 No [id number] 0 DENIES OTC/HERBAL HOME MEDSQuanti ty: 0 Refills: 0Ordered: 3Dromy Mary SalStart: 3Status: Discontinu edGeneric Substituti on Allowed Pt. denies current medications 11-15 00:00: 00 No [id number] 0 Pt. denies current medication sQuantity: 0 Refills: 0Ordered: 3Moore, TeriStart: 3Status: Discontinu edGeneric Substituti on Allowed Vital Signs Vital Name Observation Time Observation Value Comments S ource Systolic blood pressure 2021-03-17 19:41:00 181 mm[Hg] reports elevated b/p [facility] Diastolic blood pressure 2021-03-17 19:41:00 117 mm[Hg] reports elevated b/p [facility] Heart rate 2021-03-17 19:41:00 86 /min [facility] Body height 2021-03-17 19:41:00 166.4 cm [facility] Body weight 2021-03-17 19:41:00 79.379 kg [facility] BMI 2021-03-17 19:41:00 28.68 kg/m2 [facility] Height/Length Measured 2021-03-17 10:41:43 167 cm Height/Length Measured 2021-03-17 10:41:22 167 cm Height/Length Measured 2021-03-17 10:41:21 167 cm Height/Length Measured 2021-03-17 10:41:20 167 cm Height/Length Measured 2019-07-31 23:52:46 Procedures Procedure Date / Time Performed Performing Clinicia n Source REFERRAL- REQUEST/RESPONSE 2021-04-21 06:01:00 Doctor Unassigned, Souris [facility] XR CLAVICLE COMP LEFT 2021-03-17 19:58:00 Glynn Akbar [facility] EKG and Rhythm Strip 2016-09-09 08:00:00 [...] TransferPatientOut] Diagnostic Test Pending 2020-03-07 13:03:00 Tressa rivera Individual Intervention - Adult [code = BriefIndividualInterventi on-Adult] Diagnostic Test Pending 2020-03-06 11:13:00 Card iac Diet/AHA (low fat/2g Na) [code = CardiacDiet/AHA(lowfat/2g Na)] Diagnostic Test Pending 2020-03-06 11:12:00 [place] al Consult [code = DentalConsult] Diagnostic Test [...] Subs tance Use Group 3B [code = EgikyoxxqBqxBqqjj5Q] Diagnostic Test Pending 2020-03-04 16:33:00 Asse ss and involve in group therapy [code = Assessandinvolveingroupth erapy] Diagnostic Test Pending 2020-03-04 16:32:00 Spec ial Observations [code = SpecialObservations] Diagnostic Test Pending 2020-03-04 16:32:00 Erna l Signs [code = VitalSigns] Encounters Start Date/Time End Date/Time Encounter Type Admission Type Attending [facility] Care Department Encounter ID Source 2023-04-04 11:57:49 2023-04-04 11:57:49 Outpatient SFA SFA [id number] Gregory Olivier 2022-12-27 13:46:25 2022-12-27 13:46:25 Outpatient SFA SFA [id number] Gregory Rivera Soy 2022-12-15 16:26:17 2022-12-15 16:26:17 Outpatient SFA SFA [id number] Gregory Rivera Soy 2022-11-03 13:46:19 2022-11-03 13:46:19 Outpatient SFA SFA [id number] Gregory Rivera Soy 2022-10-07 13:27:59 2022-10-07 13:27:59 Outpatient SFA SFA [id number] Gregory Rivera Soy 2022-07-07 13:12:53 2022-07-07 13:12:53 Outpatient SFA SFA [id number] Gregory Rivera Soy 2022-06-07 13:23:05 2022-06-07 13:23:05 Outpatient SFA SFA [id number] Gregory Rivera Soy 2022-03-08 13:40:33 2022-03-08 13:40:33 Outpatient SFA SFA [id number] Gregory Rivera Soy 2022-02-04 13:17:24 2022-02-04 13:17:24 Outpatient SFA SFA [id number] Gregory Rivera Soy 2022-01-28 14:48:56 2022-01-28 14:48:56 Outpatient SFA SFA [id number] Gregory Rivera Soy 2021-04-22 00:00:00 2021-04-22 00:00:00 Telephone Leonora Doan [facility] 1..840.114 350.1.13.10 4.2.7.2.686 [id number] General acute hospital 2021-04-21 00:00:00 2021-04-21 00:00:00 Orders Only Doctor Unassigned, Souris [facility] 1.20.114 350.1.13.10 4.2.7.2.686 [id number] General acute hospital 2021-03-17 13:45:48 2021-03-17 23:59:00 Hospital Encounter Surjit Akbar [facility] 1..840.114 350.1.13.10 4.2.7.2.686 [id number] General acute hospital 2021-03-17 13:30:00 2021-03-17 14:15:06 Outpatient R FRANKI [facility] [id number] General acute hospital 2021-03-17 13:30:00 2021-03-17 13:45:00 [facility] 1.2.840.114 350.1.13.10 4.2.7.2.686 [id number] General acute hospital 2021-03-17 13:30:00 2021-03-17 13:30:00 Outpatient R FRANKI [facility] [id number] General acute hospital 2021-03-17 00:00:00 2021-03-17 00:00:00 Orders Only Doctor Unassigned, Souris [facility] 1.284.114 350.1.13.10 4.2.7.2.686 [id number] General acute hospital 2021-02-11 14:30:00 2021-02-11 15:00:00 Office Visit Leonora Doan [facility] 1.2.840.114 350.1.13.10 4.2.7.2.686 [id number] General acute hospital 2021-02-11 14:30:00 2021-02-11 14:30:00 Outpatient R [facility]EY [facility] [id number] General acute hospital 2021-02-11 00:00:00 2021-02-11 00:00:00 Orders Only Doctor Unassigned, Souris [facility] 1.2.840.114 350.1.13.10 4.2.7.2.686 [id number] General acute hospital 2021-02-10 13:30:00 2021-02-10 13:30:00 Outpatient R LEONORA DOAN [facility] [id number] General acute hospital 2020-06-27 09:14:00 2020-06-27 11:54:00 Emergency Guicho Michel [facility] 1.2.840.114 350.1.13.10 4.2.7.2.686 [id number] 2020-06-27 09:14:00 2020-06-27 11:54:00 Emergency X GUICHO MICHEL [facility] ERT [id number] General acute hospital 2020-06-27 09:14:00 2020-06-27 09:14:00 Emergency X GUICHO MICHEL [facility] ERT [id number] General acute hospital 2020-03-04 13:27:00 2020-03-15 11:29:00 Inpatient KuhnClaudia Yolanda Lozano [facility]-3B-73- A [id number] [facility] 2019-07-31 23:32:00 2019-07-31 23:32:00 Emergency [facility] NATHALY [id number] [facility] 2019-07-31 23:32:00 2019-07-31 23:32:00 Emergency [facility] [id number] [facility] 2019-07-27 17:10:00 2019-07-27 17:10:00 Inpatient Claudia Kuhn [address] [facility]-1A-01- A [id number] [facility] 2019-07-22 11:01:00 2019-07-22 11:01:00 Inpatient Bhavna Knapp [address] [facility]-1A-11- A [id number] [facility] 2019-07-21 23:27:00 2019-07-21 23:27:00 Inpatient Bhavna Knapp 1 [facility] A [id number] [facility] 2019-05-03 21:27:00 2019-05-10 11:12:00 Inpatient Ady Jacinto [address] [facility]-1B-77- A [id number] [facility] 2019-05-04 23:29:00 2019-05-04 23:29:00 [id number] 2019-05-03 13:06:00 2019-05-03 15:43:00 [id number] 2018-07-24 21:29:00 2018-08-01 10:51:00 [facility] [id number] [facility] 2017-11-14 17:44:00 2017-11-14 17:44:00 Inpatient Evelio Macmontana [address] [facility]-1A-06- A [id number] [facility] 2017-11-14 06:19:00 2017-11-14 06:19:00 Emergency [facility] [id number] [facility] 2017-08-19 00:00:00 2017-08-19 00:00:00 Outpatient [facility] [id number] [facility] 2017-07-28 00:00:00 2017-07-28 00:00:00 Outpatient [facility] [id number] [facility] 2017-06-16 00:00:00 2017-06-16 00:00:00 Outpatient [facility] [id number] [facility] 2017-06-06 19:31:00 2017-06-06 19:31:00 Emergency E [facility] [id number] [facility] 2017-06-05 17:19:00 2017-06-05 17:19:00 Emergency E CIPRIANO REYES [facility] [id number] [facility] 2017-05-16 00:00:00 2017-05-16 00:00:00 Outpatient [facility] [id number] [facility] 2017-05-03 00:00:00 2017-05-03 00:00:00 Outpatient [facility] [id number] [facility] 2017-04-28 15:13:12 2017-04-28 15:13:12 Outpatient [facility] [id number] [facility] 2016-12-30 00:00:00 2016-12-30 00:00:00 Outpatient [facility] [id number] [facility] 2016-12-09 00:00:00 2016-12-09 00:00:00 Outpatient [facility] [id number] [facility] 2016-12-09 00:00:00 2016-12-09 00:00:00 Outpatient [facility] [id number] [facility] 2016-12-02 08:56:02 2016-12-02 08:56:02 Outpatient [facility] [id number] [facility] 2016-12-02 00:00:00 2016-12-02 00:00:00 Outpatient [facility] [id number] [facility] 2016-12-02 00:00:00 2016-12-02 00:00:00 Outpatient [facility] [id number] [facility] 2016-11-19 10:25:44 2016-11-19 10:25:44 Outpatient [facility] [id number] [facility] 2016-10-22 11:25:55 2016-10-22 11:25:55 Outpatient [facility] [id number] [facility] 2016-10-05 09:11:02 2016-10-05 09:11:02 Outpatient [facility] [id number] [facility] 2016-09-08 22:39:00 2016-09-23 10:35:00 Inpatient Claudia Kuhn 1 [facility]-72- A [id number] [facility] 2015-03-11 16:12:00 2015-03-20 13:16:00 Inpatient Karlie Vaughn 1 [facility]61- A [id number] [place] 2013-04-18 18:25:00 2013-04-24 14:35:00 Inpatient Sherrie Domingo L. 1 [facility]- B [id number] [place] 2013-02-19 10:26:00 2013-03-06 17:35:00 Inpatient Sherrie Domingo L. 1 [facility]-78- A [id number] [place] 2012-12-30 20:01:00 2013-01-15 16:50:00 Inpatient Alice Self 1 [facility]-67- B [id number] [facility] [place] 2012-11-15 20:08:00 2012-11-29 13:10:00 Inpatient Tian Vargas 1 [facility]- B [id number] [facility] [place] 2012-08-03 14:39:00 2012-08-10 15:15:00 Inpatient Ritchie Marr 1 [facility]-31- A [id number] [facility] [place] 1987-09-19 15:00:00 1987-09-23 16:00:00 Inpatient SHEELA ONEIL J 1 [facility]- A [id number] [facility] Results Test Description Test Time Test Comments Results Result Co mments Source CBC W/AUTO DIFF WITH [id number] 12:35:33* Test Item Value Reference Range Interpretation [...] 0.00-0.20 UNLESS OTHERWISE INDICATED, ALL TESTING PERFORMED ATCLINSpotie PATHOLOGY [email or web address] [address] [place] [address] BLACK TOP ROLLER: ANDERSON HUITRON M.D. CLIA NUMBER [id number] [facility] [place]. [id number] COMPREHENSIVE METABOLIC [id number] 03:28:14* Test Item Value Reference Range Interpretation Comme nts GLUCOSE (test code = 7) 87 MG/DL 70-99 BUN (test code = 2207) 7 MG/DL 8-23 L CREATININE (test code = 2214) 0.97 MG/DL 0.80-1.40 eGFR (2020 CKD-EPI) (test code = 29834) 88 ML/MIN/1.73 >60 CALC BUN/CREAT (test code = 2235) 7 RATIO 6-28 SODIUM (test code = 223) 136 MEQ/L 133-146 POTASSIUM (test code = 2228) 4.1 MEQ/L 3.5-5.4 CHLORIDE (test code = 2215) 99 MEQ/L 95-107 CARBON DIOXIDE (test code = 2205) 23 MEQ/L 19-31 CALCIUM (test code = 220) 9.5 MG/DL 8.5-10.5 PROTEIN, TOTAL (test code = 2228) 7.3 G/DL 6.1-8.3 ALBUMIN (test code = 220) 4.5 G/DL 3.5-5.2 CALC GLOBULIN (test code = 2240) 2.8 G/DL 1.9-3.7 CALC A/G RATIO (test code = 223) 1.6 RATIO 1.0-2.6 BILIRUBIN, TOTAL (test code = 7) 0.4 MG/DL See_Comment [Automated me ssage] The system which generated this result transmitted reference range: <=1.2. The reference range was not used to interpret this result as normal/abnormal. ALKALINE PHOSPHATASE (test code = 2203) 75 U/L 40-123 AST (test code = 2218) 16 U/L 9-50 ALT (test code = 221) 23 U/L 5-50 LIPID [id number] 01:35:20* Test Item Value Reference Range Interpretation Comme nts CHOLESTEROL (test code = 0) 187 MG/DL <200 TRIGLYCERIDES (test code = 2232) 86 MG/DL <150 HDL CHOLESTEROL (test code = 2219) 53 MG/DL >39 CALC LDL CHOL (test code = 2236) 115 MG/DL <100 H NOTE: CALCULATED LDL IS BASED ON TOMAS-ONTIVEROS METHOD WHICHINCLUDES ADJUSTABLE TRIGLYCERIDE:VLDL CHOLESTEROL RATIO.THIS FACTOR VARIES BY MEASURED TRIGLYCERIDE AND NON-HDLCHOLESTEROL CONCENTRATIONS WITH INCREASED CALCULATED LDL SEENIN HIGHER TRIGLYCERIDE OR LOWER NON-HDL SPECIMENS. FOR MOREINFORMATION, SEE CLIENT ANNOUNCEMENT AT [email or web address] RATIO LDL/HDL (test code = 2237) 2.17 RATIO <3.55 COMPREHENSIVE METABOLIC [id number] 01:35:20* Test Item Value Reference Range Interpretation Comme nts GLUCOSE (test code = 7) 88 MG/DL 70-99 BUN (test code = 2207) 5 MG/DL 8-23 L CREATININE (test code = 221) 0.90 MG/DL 0.80-1.40 eGFR (2020 CKD-EPI) (test code = 76345) 96 ML/MIN/1.73 >60 CALC BUN/CREAT (test code = 2234) 6 RATIO 6-28 SODIUM (test code = 2230) 141 MEQ/L 133-146 POTASSIUM (test code = 222) 4.2 MEQ/L 3.5-5.4 CHLORIDE (test code = 2214) 100 MEQ/L 95-107 CARBON DIOXIDE (test code = 6) 23 MEQ/L 19-31 CALCIUM (test code = 2208) 9.5 MG/DL 8.5-10.5 PROTEIN, TOTAL (test code = 2229) 8.1 G/DL 6.1-8.3 ALBUMIN (test code = 1) 4.9 G/DL 3.5-5.2 CALC GLOBULIN (test code = 2240) 3.2 G/DL 1.9-3.7 CALC A/G RATIO (test code = 223) 1.5 RATIO 1.0-2.6 BILIRUBIN, TOTAL (test code = 7) 0.4 MG/DL See_Comment [Automated me ssage] The system which generated this result transmitted reference range: <=1.2. The reference range was not used to interpret this result as normal/abnormal. ALKALINE PHOSPHATASE (test code = 2203) 119 U/L 40-123 AST (test code = 8) 120 U/L 9-50 H ALT (test code = 2218) 148 U/L 5-50 H UNLESS OTHERWISE INDICATED, ALL TESTING PERFORMED [facility] [email or web address] [address] [place] [address] BLACK TOP ROLLER: ANDERSON HUITRON M.D. CLIA NUMBER [id number] [facility] [place] [id number] CBC w/ Diff w/ [id number] 15:10:00* Test Item Value Reference Range Interpretation [...] code = ImmatureGrans(Abs)) 0.0 {x10E3/uL} Comprehensive Metabolic [id number] 14:47:00* Test Item Value Reference Range Interpretation Comme nts Glucose,Serum (test code = Glucose,Serum) 99 mg/dL BUN (test code = BUN) 12 mg/dL Creatinine,Serum (test code = Creatinine,Serum) 0.75 mg/dL eGFR If NonAfrican Am (790107) (test code = eGFRIfNonAfricanAm(10 0791)) 98 mL/min/1.73 eGFR If Am (669314) (test code = eGFRIfAfricanAm(63935 7)) 114 mL/min/1.73 BUN/Creat Ratio (test code [...] ALT) 201 {IU/L} Cli ent Requested Flag [id number] 14:47:00* Test Item Value Reference Range Interpretation Comme nts TSH (969012) (test code = TSH(856184)) 2.010 {uIU/mL} Lipid Panel with LDL/HDL [id number] 14:47:00* Test Item Value Reference Range Interpretation Comme nts zzzCholesterol, Total (test code = zzzCholesterol,Total) 146 mg/dL Triglycerides (test code = Triglycerides) 88 mg/dL zzzHDL Cholesterol (test code = zzzHDLCholesterol) 41 mg/dL VLDL Cholesterol Calculated (test code = VLDLCholesterolCalculate d) 17 mg/dL LDL Cholesterol ROSALIND (NIH) (test code = LDLCholesterolCAL(NIH)) 88 mg/dL LDL/HDL Ratio (675852) (test code = LDL/HDLRatio(540389)) 2.1 {ratio} . LDL/HDL Ratio Men Women 1/2 Avg.Risk 1.0 1.5 Avg.Risk 3.6 3.2 2X Avg.Risk 6.2 5.0 3X Avg.Risk 8.0 6.1 Comprehensive Metabolic [id number] 01:43:55* Test Item Value Reference Range Interpretation [...] A/G Ratio) 1.6 ratio N Comprehensive Metabolic [id number] 01:43:55* Test Item Value Reference Range Interpretation [...] is not provided, and the patient is -Brazilian, multiply by 1.212. If sex is not [...] by the National Kidney Foundation, http://nkdep.nih.gov Alcohol [id number] 01:43:55* Test Item Value Reference Range Interpretation Comme nts Ethanol Level (test code = Ethanol Level) 0.17 g/dL 0.00-0.01 H Intoxicated 0.08 0 g/dL or more Ethanol Inst (test code = Ethanol Inst) 168 N Comprehensive Metabolic [id number] 01:43:55* Test Item Value Reference Range Interpretation [...] is not provided, and the patient is -Brazilian, multiply by 1.212. If sex is not [...] is not provided, and the patient is -Brazilian, multiply by 1.212. If sex is not [...] Kidney Foundation, http://nkdep.nih.gov Complete Blood Count with [id number] 01:03:37* Test Item Value Reference Range Interpretation [...] code = IPF) 0 % N Automated [id number] 01:03:37* Test Item Value Reference Range Interpretation Comme nts Neutro Auto (test code = Darwin tro Auto) 47.3 % 36.0-70.0 Lymph Auto (test code = Lymph Auto) 33.3 % 12.0-44.0 Newton Auto (test code = Newton Auto) 12.4 % 0.0-11.0 H Eos, Auto (test code = Eos, Auto) 5.6 % 0.0-7.0 Basophil Auto (test code = B asophil Auto) 1.2 % 0.0-2.0 Neutro Absolute (test code = Neutro Absolute) 3.9 x10 1.6-7.4 Lymph Absolute (test code = Lymph Absolute) 2.73 x10 .50-4.60 Newton Absolute (test code = M priti Absolute) 1.02 x10 .00-1.20 Eos Absolute (test code = Eo s Absolute) 0.46 x10 0.00-0.74 Baso Absolute (test code = B aso Absolute) 0.10 x10 0.00-0.21 IG [id number] 01:03:37* Test Item Value Reference Range Interpretation Comme nts IG (test code = IG) 0.2 % 0.0-5.0 IG Abs (test code = IG Abs) 0 x10 N Urine Drug Screen [id number] 13:08:00* Test Item Value Reference Range Interpretation Comments Amphetamine Methamphetmine 561713 (test code = AmphetamineMethamphe [id number]) Negative Amphetamine test includes Amphetamine and Methamphetamine . Barbiturate (148591) (test code = Barbiturate(902818)) Negative Benzodiazepines (690011) (test code = Benzodiazepines(7148 32)) Positive Cocaine Metabolite (116776) (test code = CocaineMetabolite(71 4857)) Negative Phencyclidine (755047) (test code = Phencyclidine(751375 )) Negative Drug Screen Comment (test code = DrugScreenComment) NOTE : .This analysis is performed by immunoassay. Positivefindings are unconfirmed analytical test results; ifresults do not support expected clinical finding,confirmation by an alternate methodology is recommended.Patient metabolic variables, specific drug chemistry, andspecimen characteristics can affect test outcome.Technical consultation is available [email or web address], or call toll free [phone]. Cannabinoid (070153) (test code = Cannabinoid(770116)) Negative Opiates (733497) (test code = Opiates(509706)) Negative Opiate test includes Codeine and Morphine only. Comprehensive Metabolic [id number] 20:00:00* Test Item Value Reference Range Interpretation Comme nts Glucose,Serum (test code = Glucose,Serum) 73 mg/dL BUN (test code = BUN) 10 mg/dL Creatinine,Serum (test code = Creatinine,Serum) 0.85 mg/dL eGFR If NonAfrican Am (899838) (test code = eGFRIfNonAfricanAm(401650)) 95 mL/min/1.73 eGFR If Am (291148) (test code = eGFRIfAfricanAm(927618)) 109 mL/min/1.73 BUN/Creat Ratio (test code = [...] ALT) 83 {IU/L} Lipid Panel with LDL/HDL [id number] 20:00:00* Test Item Value Reference Range Interpretation Comme nts Cholesterol, Total (test code = Cholesterol,Total) 137 mg/dL Triglycerides (test code = Triglycerides) 53 mg/dL HDL Cholesterol (test code = HDLCholesterol) 54 mg/dL Cholesterol, VLDL (calculated) (test code = Cholesterol,VLDL(calcula marek)) 11 mg/dL Cholesterol, LDL (calculated) (test code = Cholesterol,LDL(calculat ed)) 72 mg/dL LDL/HDL Ratio (569659) (test code = LDL/HDLRatio(175308)) 1.3 {ratio} . LDL/HDL Ratio Men Women 1/2 Avg.Risk 1.0 1.5 Avg.Risk 3.6 3.2 2X Avg.Risk 6.2 5.0 3X Avg.Risk 8.0 6.1 Drug Screen, Urine # [id number] 14:29:00* Test Item Value Reference Range Interpretation Comments Amphetamine Methamphetmine 747533 (test code = AmphetamineMethamphe [id number]) Negative Amphetamine test includes Amphetamine and Methamphetamine . Barbiturate (464480) (test code = Barbiturate(520448)) Negative Benzodiazepines (842863) (test code = Benzodiazepines(7148 32)) Negative Cannabinoid (503254) (test code = Cannabinoid(640792)) Negative Cocaine Metabolite (907520) (test code = CocaineMetabolite(71 4857)) Negative Opiates (417334) (test code = Opiates(788936)) Negative Opiate test includes Codeine, Morphine, Hydromorphone, Hydrocodone. Phencyclidine (176382) (test code = Phencyclidine(427797 )) Negative Methadone Screen (356663) (test code = MethadoneScreen(6528 62)) Negative Propoxyphene, Urine (550687) (test code = Propoxyphene,Urine(7 11730)) Negative Drug Screen Comment (test code = DrugScreenComment) NOTE : .This analysis is performed by immunoassay. Positivefindings are unconfirmed analytical test results; ifresults do not support expected clinical finding,confirmation by an alternate methodology is recommended.Patient metabolic variables, specific drug chemistry, andspecimen characteristics can affect test outcome.Technical consultation is available [email or web address], or call toll free [phone]. [id number] 14:06:00* Test Item Value Reference Range Interpretation Comme nts TSH (622087) (test code = TSH(143054)) 1.770 {uIU/mL} CBC w/ Diff w/ [id number] 12:00:00* Test Item Value Reference Range Interpretation [...] (Abs) (test code = ImmatureGrans(Abs)) 0.0 {x10E3/uL} [id number] 22:27:00* Test Item Value Reference Range Interpretation Comme nts Potassium (test code = K) 4.0 mmol/L 3.5-5.1 N Alcohol/Ethanol, [id number] 19:26:00* Test Item Value Reference Range Interpretation Comme nts Alcohol, Ethyl (test code = ETOH) 0.14 g/dL 0.00-0.01 H Intoxicated 0 .080 g/dL or more [id number] 19:06:00* Test Item Value Reference Range Interpretation [...] code = THC) Negative Negative N Urinalysis [id number] 19:06:00* Test Item Value Reference Range Interpretation Comme nts Color (test code = COLOR) Yellow Yellow,Straw,Pl yellow N Clarity (test code = CLAR) Clear Clear N Specific Letha (test code = SPGR) 1.010 1.001-1.035 N [...] code = SANTANA) None /HPF Comprehensive Metabolic [id number] 19:05:00* Test Item Value Reference Range Interpretation [...] race is not provided, and the patient isAfrican-Brazilian, multiply by 1.212. If sex is not [...] the National Kidney Foundation,http://nkdep .nih.gov CBC with [id number] 18:49:00* Test Item Value Reference Range Interpretation [...] code = ALYMPH) 0.9 K/cumm 0.5-4.6 N Newton Abs (test code = AMONO) 0.4 K/cumm 0.0-1.2 N Eos Abs (test code = AEOS) 0.10 K/cumm 0.00-0.74 N Baso Abs (test code = ABASO) 0.0 K/cumm 0.00-0.21 N [place] [id number] 16:08:00* Test Item Value Reference Range Interpretation Comme nts [place] Level (test code = LithiumLevel) 0.6 mmol/L Detection L imit = 0.1 <0.1 indicates None Detected [id number] 16:25:00* Test Item Value Reference Range Interpretation Comme nts TSH (238815) (test code = TSH(889054)) 2.710 {uIU/mL} Drug Screen, Urine # [id number] 11:58:00* Test Item Value Reference Range Interpretation Comments Amphetamine Methamphetmine 587473 (test code = AmphetamineMethamph [id number]) Negative Amphetamine test includes Amphetamine and Methamphetamin e. Barbiturate (981826) (test code = Barbiturate(295001) ) Negative Benzodiazepines (850376) (test code = Benzodiazepines(772 832)) Positive Cannabinoid (189328) (test code = Cannabinoid(905454) ) Negative Cocaine Metabolite (083527) (test code = CocaineMetabolite(7 53411)) Negative Opiates (208607) (test code = Opiates(744644)) Negative Opiate test includes Codeine, Morphine, Hydromorphone, Hydrocodone. Phencyclidine (774008) (test code = Phencyclidine(55188 1)) Negative Methadone Screen (775168) (test code = MethadoneScreen(798 494)) Negative Propoxyphene, Urine (207863) (test code = Propoxyphene,Urine( 998670)) Negative Drug Screen Comment (test code = DrugScreenComment) NOTE : This assay provides a preliminary unconfirmed analyticaltest result that may be suitable for the clinicalmanagement of patients in certain situations. [facility], preliminary positivefindings should always be confirmed by an alternativemethod. Some ejry-vee-sqtxycv medications, as well asadulterants, may cause inaccurate results. Screen Onlytesting does not meet the [employer] PathologistsForensic Urine Drug Testing Program requirements as aforensic urine drug test for workplace testing. All clientsmust ensure that their testing program conforms toapplicable state and federal laws and employmentagreements. [id number] 11:46:00* Test Item Value Reference Range Interpretation Comme nts Specific Letha (test code = SpecificGravity) 1.005 pH (test [...] not indicated and not performed. Comprehensive Metabolic [id number] 11:34:00* Test Item Value Reference Range Interpretation Comme nts Glucose,Serum (test code = Glucose,Serum) 101 mg/dL BUN (test code = BUN) 7 mg/dL Creatinine,Serum (test code = Creatinine,Serum) 0.68 mg/dL eGFR If NonAfrican Am (256960) (test code = eGFRIfNonAfricanAm(102564)) 105 mL/min/1.73 eGFR If Am (577031) (test code = eGFRIfAfricanAm(078676)) 122 mL/min/1.73 BUN/Creat Ratio (test code = [...] ALT) 178 {IU/L} Lipid Panel with LDL/HDL [id number] 11:34:00* Test Item Value Reference Range Interpretation Comme nts Cholesterol, Total (test code = Cholesterol,Total) 204 mg/dL Triglycerides (test code = Triglycerides) 186 mg/dL HDL Cholesterol (test code = HDLCholesterol) 63 mg/dL Cholesterol, VLDL (calculated) (test code = Cholesterol,VLDL(calcul ated)) 37 mg/dL Cholesterol, LDL (calculated) (test code = Cholesterol,LDL(calcula marek)) 104 mg/dL LDL/HDL Ratio (083399) (test code = LDL/HDLRatio(867737)) 1.7 {ratio units} . LDL/HDL Ratio Men Women 1/2 Avg.Risk 1.0 1.5 Avg.Risk 3.6 3.2 2X Avg.Risk 6.2 5.0 3X Avg.Risk 8.0 6.1 CBC w/ Diff w/ [id number] 11:25:00* Test Item Value Reference Range Interpretation [...] ImmatureGrans(Abs)) 0.0 {x10E3/uL} Drug Screen, Urine # [id number] 14:17:00* Test Item Value Reference Range Interpretation Comments Amphetamine (test code = Amphetamine) Negative Barbiturates (test code = Barbiturates) Negative Benzodiazepines (test code = Benzodiazepines) Positive Cannabinoid (test code = Cannabinoid) Negative Cocaine Metabolite (test code = CocaineMetabolite) Negative Opiate Screen (test code = OpiateScreen) Negative Opiate test includes Codeine, Morphine, Hydromorphon e, Hydrocodone. Phencyclidine (261255) (test code = Phencyclidine(218596 )) Negative Methadone Level (test code = MethadoneLevel) Negative Propoxyphene, Urine (682446) (test code = Propoxyphene,Urine(8 66909)) Negative Drug Screen Comment (test code = DrugScreenComment) NOTE : This assay provides a preliminary unconfirmed analyticaltest result that may be suitable for the clinicalmanagement of patients in certain situations. Forworkplace drug testing programs, preliminary positivefindings should always be confirmed by an alternativemethod. Some wwum-eou-pyiivmy medications, as well asadulterants, may cause inaccurate results. Screen Onlytesting does not meet the College of [place] PathologistsForesaint elizabeth [place] Urine Drug Testing Program requirements as aforensic urine drug test for workplace testing. All clientsmust ensure that their testing program conforms toapplicable state and federal laws and employmentagreements. [id number] 12:50:00* Test Item Value Reference Range Interpretation Comme nts TSH (352098) (test code = TSH(380722)) 1.930 {uIU/mL} CBC w/ Diff w/ [id number] 12:25:00* Test Item Value Reference Range Interpretation [...] code = ImmatureGrans(Abs)) 0.0 {x10E3/uL} Comprehensive Metabolic [id number] 12:18:00* Test Item Value Reference Range Interpretation Comme nts Glucose,Serum (test code = Glucose,Serum) 87 mg/dL BUN (test code = BUN) 13 mg/dL Creatinine,Serum (test code = Creatinine,Serum) 0.89 mg/dL eGFR If NonAfrican Am (796514) (test code = eGFRIfNonAfricanAm(700485)) 96 mL/min/1.73 eGFR If Am (296324) (test code = eGFRIfAfricanAm(819665)) 111 mL/min/1.73 BUN/Creat Ratio (test code = [...] ALT) 25 {IU/L} Drug Screen, Urine # [id number] 14:27:00* Test Item Value Reference Range Interpretation Comments Amphetamine (test code = Amphetamine) Negative Barbiturates (test code = Barbiturates) Negative Benzodiazepines (test code = Benzodiazepines) Negative Cannabinoid (test code = Cannabinoid) Negative Cocaine Metabolite (test code = CocaineMetabolite) Negative Opiate Screen (test code = OpiateScreen) Negative Opiate test includes Codeine, Morphine, Hydromorphon e, Hydrocodone. Phencyclidine (199937) (test code = Phencyclidine(871930 )) Negative Methadone Level (test code = MethadoneLevel) Negative Propoxyphene, Urine (692818) (test code = Propoxyphene,Urine(7 01110)) Negative Drug Screen Comment (test code = DrugScreenComment) NOTE : This assay provides a preliminary unconfirmed analyticaltest result that may be suitable for the clinicalmanagement of patients in certain situations. [facility], preliminary positivefindings should always be confirmed by an alternativemethod. Some skul-yiu-njgtvhp medications, as well asadulterants, may cause inaccurate results. Screen Onlytesting does not meet the [employer] PathologistsForensic Urine Drug Testing Program requirements as aforensic urine drug test for workplace testing. All clientsmust ensure that their testing program conforms toapplicable state and federal laws and employmentagreements. [id number] 11:57:00* Test Item Value Reference Range Interpretation Comme nts Specific Letha (test code = SpecificGravity) 1.013 pH (test [...] follows if indicated. Drug Screen, Urine # [id number] 13:01:00* Test Item Value Reference Range Interpretation Comments Amphetamine (test code = Amphetamine) Negative Barbiturates (test code = Barbiturates) Negative Benzodiazepines (test code = Benzodiazepines) Positive Cannabinoid (test code = Cannabinoid) Negative Cocaine Metabolite (test code = CocaineMetabolite) Negative Opiate Screen (test code = OpiateScreen) Negative Opiate test includes Codeine, Morphine, Hydromorphon e, Hydrocodone. Phencyclidine (982871) (test code = Phencyclidine(359556 )) Negative Methadone Level (test code = MethadoneLevel) Negative Propoxyphene, Urine (439632) (test code = Propoxyphene,Urine(7 09196)) Negative Drug Screen Comment (test code = DrugScreenComment) NOTE : This assay provides a preliminary unconfirmed analyticaltest result that may be suitable for the clinicalmanagement of patients in certain situations. [facility], preliminary positivefindings should always be confirmed by an alternativemethod. Some xxos-cuu-pbhdfpy medications, as well asadulterants, may cause inaccurate results. Screen Onlytesting does not meet the [employer] PathologistsForensic Urine Drug Testing Program requirements as aforensic urine drug test for workplace testing. All clientsmust ensure that their testing program conforms toapplicable state and federal laws and employmentagreements. [id number] 11:57:00* Test Item Value Reference Range Interpretation Comme nts Specific Letha (test code = SpecificGravity) 1.010 pH (test [...] MicroscopicExam) NOTE : Microscopic follows if indicated. [id number] 14:12:00* Test Item Value Reference Range Interpretation Comme nts TSH (649233) (test code = TSH(463906)) 4.590 {uIU/mL} Comprehensive Metabolic [id number] 13:09:00* Test Item Value Reference Range Interpretation Comme [facility] Glucose,Serum (test code = Glucose,Serum) 77 mg/dL BUN (test code = BUN) 14 mg/dL Creatinine,Serum (test code = Creatinine,Serum) 0.87 mg/dL eGFR If NonAfrican Am (387611) (test code = eGFRIfNonAfricanAm(600931)) 97 mL/min/1.73 eGFR If Am (966677) (test code = eGFRIfAfricanAm(235900)) 112 mL/min/1.73 BUN/Creat Ratio (test code = [...] ALT) 33 {IU/L} CBC w/ Diff w/ [id number] 12:45:00* Test Item Value Reference Range Interpretation Comme [facility] WBC Count (test code = WBCCount) 9.1 [...] (Abs) (test code = ImmatureGrans(Abs)) 0.0 {x10E3/uL} [place] [id number] 15:35:00* Test Item Value Reference Range Interpretation Comme nts [place] Level (test code = LithiumLevel) 0.5 mmol/L Detection L imit = 0.1 <0.1 indicates None Detected [id number] 13:40:00* Test Item Value Reference Range Interpretation Comme nts TSH (561165) (test code = TSH(356755)) 4.220 {uIU/mL} [id number] 13:40:00* Test Item Value Reference Range Interpretation Comme nts TSH (511122) (test code = TSH(219634)) 4.220 {uIU/mL} Basic Metabolic [id number] 12:47:00* Test Item Value Reference Range Interpretation [...] - 27 31 d - 5 months 6 m - up to 1 year - > years Calcium (test code = Calcium) 9.5 mg/dL eGFR If NonAfrican Am (793482) (test code = eGFRIfNonAfricanAm(1 57039)) 94 mL/min/1.73 eGFR If Am (905965) (test code = eGFRIfAfricanAm(1007 97)) 109 mL/min/1.73 Comprehensive Metabolic [id number] 12:15:00* Test Item Value Reference Range Interpretation Comme nts Glucose,Serum (test code = Glucose,Serum) 80 mg/dL BUN (test code = BUN) 13 mg/dL Creatinine,Serum (test code = Creatinine,Serum) 0.93 mg/dL eGFR If NonAfrican Am (569781) (test code = eGFRIfNonAfricanAm(10 0791)) 93 mL/min/1.73 eGFR If Am (973376) (test code = eGFRIfAfricanAm(69792 7)) 107 mL/min/1.73 BUN/Creat Ratio (test code [...] 18 - 28 8 - 30 days - 31 d - 5 months 6 m - up to 1 year - years > years Calcium (test code = Calcium) 9.7 mg/dL [...] ALT) 60 {IU/L} CBC w/ Diff w/ [id number] 12:10:00* Test Item Value Reference Range Interpretation [...] ImmatureGrans(Abs)) 0.0 {x10E3/uL} Drug Screen, Urine # [id number] 14:49:00* Test Item Value Reference Range Interpretation Comments Amphetamine (test code = Amphetamine) Negative Barbiturates (test code = Barbiturates) Negative Benzodiazepines (test code = Benzodiazepines) Negative Cannabinoid (test code = Cannabinoid) Negative Cocaine Metabolite (test code = CocaineMetabolite) Positive Opiate Screen (test code = OpiateScreen) Negative Opiate test includes Codeine, Morphine, Hydromorphon e, Hydrocodone. Phencyclidine (577814) (test code = Phencyclidine(720304 )) Negative Methadone Level (test code = MethadoneLevel) Negative Propoxyphene, Urine (994886) (test code = Propoxyphene,Urine(7 70625)) Negative Drug Screen Comment (test code = DrugScreenComment) NOTE : This assay provides a preliminary unconfirmed analyticaltest result that may be suitable for the clinicalmanagement of patients in certain situations. [facility], preliminary positivefindings should always be confirmed by an alternativemethod. Some hppt-tcl-pdggowp medications, as well asadulterants, may cause inaccurate results. Screen Onlytesting does not meet the [employer] PathologistsForensic Urine Drug Testing Program requirements as aforensic urine drug test for workplace testing. All clientsmust ensure that their testing program conforms toapplicable state and federal laws and employmentagreements. [id number] 14:09:00* Test Item Value Reference Range Interpretation Comme nts Specific Letha (test code = SpecificGravity) 1.011 pH (test [...]
[2023-05-24 13:46] LABS: Absolute Basophils 0.1 K/uL (0-0.5); Absolute Eosinophils 0.4 K/uL (0-0.5); Absolute Lymphocytes (CBC) 1.4 K/uL (0.7-4.9); Absolute Monocytes 0.8 K/uL (0.1-1.3); Absolute Neutrophil 4.8 K/uL (1.8-8.0); Eosinophils % 5.7 % (0-4.4); Hematocrit 40.3 % (39.6-49.0); Hemoglobin 14.1 g/dL (13.6-17.9); Lymphocytes % 18.3 % (15.3-44.8); MCH 30.7 pg (27.0-35.0); MCV 87.7 fL (80-100); MPV 6.3 fL (7.6-11.3); Monocytes % 11.1 % (3.3-12.3); Neutrophils % 63.9 % (41.7-73.7); Nucleated Red Blood Cells % 0.2 % (0-0); Platelets 319 thou/uL (152-406); Red Cell Distribution Width 13.6 % (12.1-15.2)
--- NOTE | 2023-05-24 13:48 | RAD REPORT ---
EXAM DESCRIPTION: CT - Spine Lumbar Wo Con - 05/24/2023 1:37 pm CLINICAL HISTORY: Radiculopathy. Numbness/tingling;Radiculopathy COMPARISON: No comparisons TECHNIQUE: Axial noncontrast CT imaging of the lumbar spine was performed with coronal and sagittal re-formatted images. All CT scans are performed using dose optimization technique as appropriate and may include automated exposure control or mA/KV adjustment according to patient size. FINDINGS: No acute lumbar spine fracture seen. No aggressive marrow pattern or malalignment. Paraspinal tissues are normal in thickness. No paraspinal abscess or hematoma seen. 10 mm anterolisthesis of L5-S1 is seen with bilateral spondylolysis present. There is likely a signif icant disc extrusion involving the left lateral recess at L4-5. IMPRESSION: Probable large disc extrusion L4-5 extending into the left lateral recess. 10 mm anterolisthesis L5 on S1 with bilateral spondylolysis.
[2023-05-24 13:54] LABS: Albumin 4.5 g/dL (3.4-5.0); Albumin/Globulin Ratio 1.3 (1.1-1.8); Bilirubin Total 0.6 mg/dL (0.2-1.0); Globulin 3.4 g/dL (2.3-3.5); Protein, Total 7.9 g/dL (6.4-8.2)
--- NOTE | 2023-05-24 14:13 | EDPHYS ---
Physician Documentation [facility] Name: Jose Armando Gilliland Age: 67 yrs Sex: Male : 1955 Arrival Date: 05/24/2023 Time: 12:52 Bed 8 Private MD: ED Physician Julio Cesar Mane HPI: 05/23 13:30 This 67 yrs old Male presents to ER via EMS with complaints of Back Pain. sp3 13:30 67-year-old male with history of bipolar disease, hypertension, alcoholism, PTSD and sp3 prior lumbar disc disease recently seen now presents to the ED with low back pain radiating to the left lower extremity posteriorly. Symptoms been going on for several days. Today he states that it got worse and he activated EMS 911 to transport him here. He denies any other symptoms including bowel or bladder loss of control, headache, neck pain, chest pain, shortness of breath, back pain, intra-abdominal pain, nausea, vomiting, diarrhea, rash, syncope, near syncope, injury, known sick contacts, travel history, prolonged immobilization, or any other signs or symptoms on ROS at this time.. Historical: - Allergies: 12:54 No Known Allergies; as6 - Home Meds: 12:54 lisinopril 30 mg Oral tablet 1 tab daily [Active]; as6 - PMHx: 12:54 Alcoholism; Bipolar disorder; Hypertension; PTSD; as6 - PSHx: 12:54 Appendectomy; as6 - Immunization history:: Adult Immunizations not up to date. - Social history:: Smoking status: Patient reports the use of cigarette tobacco products, smokes one-half pack cigarettes per day. ROS: 13:31 Constitutional: Negative for fever, chills, and weight loss, Eyes: Negative for injury, sp3 pain, redness, and discharge, ENT: Negative for injury, pain, and discharge, Neck: Negative for injury, pain, and swelling, Cardiovascular: Negative for chest pain, palpitations, and edema, Respiratory: Negative for shortness of breath, cough, wheezing, and pleuritic chest pain, Abdomen/GI: Negative for abdominal pain, nausea, vomiting, diarrhea, and constipation, Back: Negative for injury and pain, Skin: Negative for injury, rash, and discoloration, Neuro: Negative for headache, weakness, numbness, tingling, and seizure, Psych: Negative for depression, anxiety, suicide ideation, homicidal ideation, and hallucinations, Allergy/Immunology: Negative for hives, rash, and allergies, Endocrine: Negative for neck swelling, polydipsia, polyuria, polyphagia, and marked weight changes, 13:31 All other systems are negative, Exam: 13:44 Constitutional: This is a well developed, well nourished patient who is awake, alert, sp3 and in no acute distress. Head/Face: Normocephalic, atraumatic. Eyes: Pupils equal round and reactive to light, extra-ocular motions intact. Lids and lashes normal. Conjunctiva and sclera are non-icteric and not injected. Cornea within normal limits. Periorbital areas with no swelling, redness, or edema. Neck: Trachea midline, no thyromegaly or masses palpated, and no cervical lymphadenopathy. Supple, full range of motion without nuchal rigidity, or vertebral point tenderness. No Meningismus. Chest/axilla: Normal chest wall appearance and motion. Nontender with no deformity. No lesions are appreciated. Cardiovascular: Regular rate and rhythm with a normal S1 and S2. No gallops, murmurs, or rubs. Normal PMI, no JVD. No pulse deficits. Respiratory: Lungs have equal breath sounds bilaterally, clear to auscultation and percussion. No rales, rhonchi or wheezes noted. No increased work of breathing, no retractions or nasal flaring. Abdomen/GI: Soft, non-tender, with normal bowel sounds. No distension or tympany. No guarding or rebound. No evidence of tenderness throughout. Skin: Warm, dry with normal turgor. Normal color with no rashes, no lesions, and no evidence of cellulitis. Psych: Awake, alert, with orientation to person, place and time. Behavior, mood, and affect are within normal limits. 13:44 Musculoskeletal/extremity: Pain on movement of left lower extremity particularly on straight leg raise. Patient very uncooperative with exam. He is also yelling at nurses and screaming that "we are not doing anything". We have ordered pain medication. He was very concerned about getting an IV. I am concerned that there are some behavioral aspects to this presentation. No loss of bowel or bladder control. Patient is moving all extremities. No objective signs of unilateral weakness.. Vital Signs: 12:53 BP 147 / 113; Pulse 73; Resp 18 S; Temp 97.9(TE); Pulse Ox 100% on R/A; Weight 74.84 kg as6 (R); Height 5 ft. 6 in. (R); Pain 10/10; 14:30 BP 138 / 92; Pulse 74; Resp 16; Pulse Ox 99% ; ko1 12:53 Body Mass Index 26.63 (74.84 kg, 167.64 cm) as6 12:53 Pain Scale: Adult as6 MDM: 13:21 Patient medically screened. sp3 13:45 Data reviewed: vital signs, nurses notes, lab test result(s), radiologic studies. ED sp3 course: 67-year-old male with low back pain and left lower extremity radiculopathy. His last visit he received a CT scan of the his thoracic spine and a scan of his abdomen pelvis noncontrast and a stone protocol. Today I have ordered a dedicated lumbosacral CT and avoid her Dilaudid. Routine labs also ordered. Patient will need outpatient follow-up and MRI. I am not highly suspicious for cord compression, or other intra-abdominal pathology or vascular pathology including aorta. Disposition pending workup and patient course. Patient also states that this has been going on for months and this is just an worse today.. 14:10 ED course: Patient has significant disc herniation L5-S1. I advised him that he sp3 definitely needs to see a spine surgeon either neurosurgery or orthopedics. He acknowledges and he is much improved after the dose of pain medication. Will give 1 additional dose of Dilaudid and also Solu-Medrol 125 mg IV and we will discharge him on tramadol and prednisone as a temporizing measure.. 05/23 13:21 Order name: CBC with Diff; Complete Time: 13:52 sp3 05/23 13:21 Order name: CMP; Complete Time: 13:58 sp3 05/23 13:23 Order name: CT Lumbar Spine Wo Con; Complete Time: 13:52 sp3 05/23 13:21 Order name: IV Saline Lock; Complete Time: 13:29 sp3 05/23 13:21 Order name: Labs collected and sent; Complete Time: 13:29 sp3 Administered Medications: 13:29 Drug: Ondansetron IVP 4 mg IVP once; over 2 minutes Route: IVP; Site: right antecubital;ld1 13:46 Follow up: Response: No adverse reaction ko1 13:30 Drug: HYDROmorphone IVP 1 mg IVP once Route: IVP; Site: right antecubital; ld1 13:46 Follow up: Response: No adverse reaction; Pain is decreased ko1 14:20 Drug: MethylPrednisoLONE IVP 125 mg IVP once Route: IVP; Site: right antecubital; ko1 14:31 Follow up: Response: No adverse reaction ko1 14:20 Drug: HYDROmorphone IVP 1 mg IVP once Route: IVP; Site: right antecubital; ko1 14:31 Follow up: Response: No adverse reaction; Pain is decreased ko1 Disposition Summary: 05/24/23 14:12 Discharge Ordered Notes: Location: Home sp3 Condition: Stable sp3 Diagnosis - L5-S1 disc herniation, lumbar radiculopathy, low back pain sp3 Followup: sp3 - With: Kaz Drummond MD - When: Upon discharge from the Emergency Department - Reason: Continuance of care Discharge Instructions: - Discharge Summary Sheet sp3 - Herniated Disk sp3 Forms: - Medication Reconciliation Form sp3 - Thank You Letter sp3 - Antibiotic Education sp3 - Prescription Opioid Use sp3 - Patient Portal Instructions sp3 - Leadership Thank You Letter sp3 Prescriptions: - Prednisone 20 mg Oral Tablet - take 3 tablets ORAL route once daily for 5 days; 15 tablet; Refills: 0, Product sp3 Selection Permitted - Tramadol 50 mg Oral Tablet - take 1 tablet ORAL route every 8 hours as needed; 12 tablet; Refills: 0, sp3 Product Selection Permitted Signatures: Dispatcher [employer] Barbara Phan RN RN ld1 Julio Cesar Mane MD MD sp3 Husam Prince RN RN as6 Shellie Lui RN RN ko1
--- NOTE | 2023-05-24 14:13 | ER ---
Nurse's Notes [facility] Name: Jose Armando Gilliland Age: 67 yrs Sex: Male : 1955 Arrival Date: 05/24/2023 Time: 12:52 Bed 8 Private MD: Diagnosis: L5-S1 disc herniation, lumbar radiculopathy, low back pain Presentation: 05/23 12:53 Chief complaint: EMS states: called out for back pain without injury. Coronavirus as6 screen: At this time, the client does not indicate any symptoms associated with coronavirus-19. Ebola Screen: No symptoms or risks identified at this time. Initial Sepsis Screen: Does the patient meet any 2 criteria? No. Patient's initial sepsis screen is negative. Does the patient have a suspected source of infection? No. Patient's initial sepsis screen is negative. Risk Assessment: Do you want to hurt yourself or someone else? Patient reports no desire to harm self or others. Onset of symptoms was May 24, 2023. 12:53 Method Of Arrival: EMS: [facility] as6 12:53 Acuity: YESSENIA 4 as6 Triage Assessment: 12:55 General: Appears uncomfortable, Behavior is agitated, restless. Pain: Complains of pain as6 in low back area Pain radiates to left leg. EENT: No deficits noted. No signs and/or symptoms were reported regarding the EENT system. Neuro: Level of Consciousness is awake, alert, obeys commands, Oriented to person, place, time, situation. Cardiovascular: Capillary refill < 3 seconds Patient's skin is warm and dry. Respiratory: Respiratory effort is even, unlabored, Respiratory pattern is regular, symmetrical. GI: No deficits noted. No signs and/or symptoms were reported involving the gastrointestinal system. : No deficits noted. No signs and/or symptoms were reported regarding the genitourinary system. Derm: Skin is intact. Musculoskeletal: Reports pain in back. Historical: - Allergies: 12:54 No Known Allergies; as6 - Home Meds: 12:54 lisinopril 30 mg Oral tablet 1 tab daily [Active]; as6 - PMHx: 12:54 Alcoholism; Bipolar disorder; Hypertension; PTSD; as6 - PSHx: 12:54 Appendectomy; as6 - Immunization history:: Adult Immunizations not up to date. - Social history:: Smoking status: Patient reports the use of cigarette tobacco products, smokes one-half pack cigarettes per day. Screenin:59 [facility] ED Fall Risk Assessment (Adult) Score/Fall Risk Level 0 - 2 = Low Risk. Abuse as6 screen: Denies threats or abuse. Denies injuries from another. Nutritional screening: No deficits noted. Tuberculosis screening: No symptoms or risk factors identified. Assessment: 12:56 General: see triage assessment . as6 13:07 General: pt yelling at staff "get me some fucking help" safety measures in place, VSS, as6 provider aware of pt pain, instructed pt to not cuss and yell at staff . 13:31 General: Appears in no apparent distress. uncomfortable, Behavior is anxious, fussy. ld1 Pain: Complains of pain in back Pain does not radiate. Pain currently is 10 out of 10 on a pain scale. Quality of pain is described as throbbing, Pain began suddenly, Is continuous. Neuro: Level of Consciousness is awake, alert, obeys commands, Oriented to person, place, time, situation. Cardiovascular: Capillary refill < 3 seconds Patient's skin is warm and dry. Rhythm is sinus rhythm. Respiratory: Airway is patent Respiratory effort is even, unlabored. GI: Abdomen is flat, non-distended. : No signs and/or symptoms were reported regarding the genitourinary system. EENT: No signs and/or symptoms were reported regarding the EENT system. Derm: No signs and/or symptoms reported regarding the dermatologic system. Musculoskeletal: No signs and/or symptoms reported regarding the musculoskeletal system. Vital Signs: 12:53 BP 147 / 113; Pulse 73; Resp 18 S; Temp 97.9(TE); Pulse Ox 100% on R/A; Weight 74.84 kg as6 (R); Height 5 ft. 6 in. (R); Pain 10/10; 14:30 BP 138 / 92; Pulse 74; Resp 16; Pulse Ox 99% ; ko1 12:53 Body Mass Index 26.63 (74.84 kg, 167.64 cm) as6 12:53 Pain Scale: Adult as6 ED Course: 12:53 Patient arrived in ED. as6 12:54 Triage completed. as6 12:56 Arm band placed on. as6 12:56 Bed in low position. Call light in reach. Side rails up X2. Warm blanket given. as6 13:01 Julio Cesar Mane MD is Attending Physician. sp3 13:29 Barbara Duarte, RN is Primary Nurse. ld1 13:30 CBC with Diff Sent. ld1 13:30 CMP Sent. ld1 13:32 Inserted saline lock: 22 gauge in right antecubital area, using aseptic technique. ld1 Blood collected. 13:39 CT Lumbar Spine Wo Con In Process Unspecified. EDMS 14:11 Kaz Drummond MD is Referral Physician. sp3 14:30 Provided Education on: ns. ko1 14:30 No provider procedures requiring assistance completed. IV discontinued, intact, ko1 bleeding controlled, No redness/swelling at site. Pressure dressing applied. Administered Medications: 13:29 Drug: Ondansetron IVP 4 mg IVP once; over 2 minutes Route: IVP; Site: right antecubital;ld1 13:46 Follow up: Response: No adverse reaction ko1 13:30 Drug: HYDROmorphone IVP 1 mg IVP once Route: IVP; Site: right antecubital; ld1 13:46 Follow up: Response: No adverse reaction; Pain is decreased ko1 14:20 Drug: MethylPrednisoLONE IVP 125 mg IVP once Route: IVP; Site: right antecubital; ko1 14:31 Follow up: Response: No adverse reaction ko1 14:20 Drug: HYDROmorphone IVP 1 mg IVP once Route: IVP; Site: right antecubital; ko1 14:31 Follow up: Response: No adverse reaction; Pain is decreased ko1 Medication: 12:57 VIS not applicable for this client. as6 Outcome: 14:12 Discharge ordered by . sp3 14:31 Discharged to home via wheelchair, with friend, ko1 14:31 Condition: improved 14:31 Discharge instructions given to patient, Instructed on discharge instructions, follow up and referral plans. medication usage, Demonstrated understanding of instructions, follow-up care, medications, Prescriptions given X 2, 14:32 Patient left the ED. ko1 Signatures: Dispatcher [employer] EDPA Barbara Duarte, ANGELIQUE RN ld1 Julio Cesar Mane MD MD sp3 Husam Prince RN RN as6 Hu, Shellie, RN RN ko1
[2023-05-24 15:34] VITALS: BP 147/113; TEMP 97.9; O2SAT 100
== END ==
LOC: ER 12:52
DX: M51.27 Other intervertebral disc displacement, lumbosacral region (principal); M54.16 Radiculopathy, lumbar region; F17.210 Nicotine dependence, cigarettes, uncomplicated; F10.20 Alcohol dependence, uncomplicated; I10 Essential (primary) hypertension
CPT/HCPCS: 85025; 36415; 80053; 72131; J1170 ×2; J2930; J2405

== ENCOUNTER 2023-08-11 17:44 | Emergency (ER) | payer OTHER ==
--- OUTSIDE RECORDS SUMMARY | 2023-08-11 17:49 | XMS REPORT | Continuity of Care Document ---
Author Name Unknown Address [address] [facility] [address]. [address] [place] [address] [facility] thconnect Address [address] [facility]. [address] [place] [address] Care Team Providers Care Ebd Teacher Name Role Phone PCP, PATIENT DOES NOT HAVE A Primary Care Physic beto Unavailable Leonora Kat Attending Clinician [phone] Doctor Unassigned, [place] Attending Clinician U Surjit Acharya MD Attending Clinician [phone] LEONORA DOAN Attending Clinician Unavailable Guicho Michel MD Attending Clinician [phone] GUICHO MICHEL Attending Clinician Unavailable Claudia Kuhn Attending Clinician Unavaila Bhavna Kenny Attending Clinician UnavailAdy Perez Attending Clinician Unavailable ZA LEE Attending Clinician Unavaila SLOANE Hilario Attending Clinician UnaAebba Fang Attending Clinician Unavailable CIPRIANO REYES Attending [...] d Illness, unspecifie d (R69)Onset : 04-Mar-2020 70206-3 Active 03-04 00:00: 00 2020-03-04 13:04:04 Encounter for observatio n for other suspected diseases and conditions ruled out Encounter for observatio n for other suspected diseases and conditions ruled out (Z03.89)On set: 03-May-2019 22045-3 Active 05-02 00:00: 00 2019-05-03 20:46:01 Encounter for observatio n for other suspected diseases and conditions ruled out Encounter for observatio n for other suspected diseases and conditions ruled out (Z03.89)On set: 9 16632-1 Active 07-24 00:00: 00 2018-07-24 21:41:52 Diagnosis deferred on axis II Diagnosis deferred on axis IIOnset: 7 95464-3 Active 09-09 00:00: 00 2016-09-09 01:03:27 Deferred diagnosis on axis II Deferred diagnosis on axis IIOnset: 6 97181-1 Active 03-11 00:00: 00 2015-03-11 22:53:15 Personalit y D/O NOS- Cluster B Personalit y D/O NOS- Cluster BOnset: 4 01417-8 Active 04-19 00:00: 00 2013-04-20 10:31:18 Personalit y Disorder NOS Personalit y Disorder NOSOnset: 3 70312-9 Active 2012-02 00:00: 00 2013-02-19 22:10:33 Diagnosis Deferred on [place] II Diagnosis Deferred on [place] IIOnset: 3 04984-8 Active 11-16 00:00: 00 2012-11-16 00:20:04 Diagnosis Deferred on [place] II Diagnosis Deferred on [place] IIOnset: 03-Aug-2012 49404-9 Active 08-03 00:00: 00 2012-08-03 16:20:04 Diagnosis Deferred on [place] II Diagnosis Deferred on [place] II 08080-0 Active 2012-12-31 21:59:45 No known active problems No known active problems Disease [facility] History of Past Illness Condition Name Condition Details Condition Category Status Onset Date Resolution Date Last Treatment Date Treating Clinician Comments Source Diagnosis Deferred on [place] II Diagnosis Deferred on [place] IIStatus: Inactive as of 4 7:39 44657-7 Inactiv e 2013-04-19 07:39:37 2013-04-19 07:39:37 Allergies, Adverse Reactions, Alerts Allergy Name Allergy Type Status Severity Reaction(s) Onset Date Inactive Date Treating Clinician Comments Source No Known Medicati on Allergie s Drug Active [facility] NO KNOWN ALLERGIE S Drug Class Active [facility] Social History Social Habit Start Date Stop Date Quantity Comments Source Exposure to SARS-CoV-2 (event) Not sure [facility] Tobacco use and exposure 2021-03-17 00:00:00 2021-03-17 00:00:00 Never used [facility] Alcohol intake 2021-03-17 00:00:00 2021-03-17 00:00:00 Lifetime non-drinker (finding) [facility] Sex Ass[birth year] At 1955 00:00:00 1955 00:00:00 [facility] Smoking Status Start Date Stop Date Source Tobacco smoking consumption unknown [facility] Never smoker [facility] Medications Ordered Medication Name Filled Medication Name Start Date Stop Date Current Medication? Ordering Clinician Indication Dosage Frequency Signature (SIG) Comments Components Source acetaminoph en-codeine (TYLENOL-CO DEINE #3) 300-30 mg tablet 2020-02 00:00: 00 Yes 4647 1{tbl} Take 1 tablet by mouth every 4 (four) hours as needed for Pain (scale 4-6) or Pain (scale 7-10). Indication s: acute pain [facility] ibuprofen 600 mg tablet 2021-0 4-30 00:00: 00 Yes [id number] 600mg Take 1 tablet by mouth every 6 (six) hours as needed for Pain (scale 4-6). [facility] TraZODone* 03-12 08:34: 00 Yes [id number] 50mg TraZODone* ; 50 mg PO/By mouth for sleep Take 1 tablet by mouth at bedtime for insomnia (CRU)Start : 1Ordered: 1GJoaquin bowden Prazosin* 03-12 08:33: 00 Yes [id number] 056395 2mg Prazosin*; 2 mg PO/By mouth for nightmares Take 1 tablet by mouth at bedtime for nightmares (CRU)Start : 1Ordered: 1GJoaquin bowden QUEtiapine* 03-12 08:33: 00 Yes [id number] [id number] 200mg QUEtiapine *; 200 mg PO/By mouth for psychosis Take 1 tablet by mouth twice daily and 2 tablets at bedtime for psychosis (CRU)Start : 1Ordered: 1GJoaquin bowden Milk of Magnesia 03-05 11:56: 00 Yes [id number] 30ml Milk of Magnesia; 30 ml PO PRN q4hr for Constipati on NTE 120 mL in 24 hours RoutineSta rt: 05-Mar-2020 Ordered: 05-Mar-2020 Joaquin Jenkins ments: NTE 120 mL in 24 hours NTE 120 mL in 24 hours QUEtiapine 03-05 11:56: 00 Yes [id number] 808972 50mg QUEtiapine ; 50 mg PO PRN q6hr for midl agitation NTE 200 mg PRN Quetiapine in 24 hr period RoutineSta rt: 05-Mar-2020 Ordered: 05-Mar-2020 Joaquin Jenkins ments: NTE 200 mg PRN Quetiapine in 24 hr period NTE 200 mg PRN Quetiapin e in 24 hr period SEROquel 400 mg oral tablet 03-04 11:35: 31 No [id number] 168962 0 SEROquel 400 mg oral tablet; qhsQuantit y: 0 Refills: 0Ordered: Evelyn ParisiGeneric Substituti on Allowed prazosin 2 mg oral capsule 03-04 11:35: 31 No [id number] 0 prazosin 2 mg oral capsule; orally once a day (at bedtime)Qu antity: 0 Refills: 0Ordered: 03-May-2019 Anetor, Linda KGeneric Substituti on AllowedCom ments: Home Medication stored in Pharmacy Home Medicatio n stored in Pharmacy SEROquel 300 mg oral tablet 03-04 11:35: 31 No [id number] [id number] 0 SEROquel 300 mg oral tablet; qamQuantit y: 0 Refills: 0Ordered: Evelyn ParisiGeneric Substituti on Allowed QUEtiapine 100 mg oral tablet 09-08 23:20: 27 No [id number] [id number] 0 QUEtiapine 100 mg oral tablet; orallyQuan tity: 0 Refills: 0Ordered: [address] [place] [address] us: OtherGener ic Substituti on Allowed Zoloft 50 mg oral tablet 09-08 23:20: 27 No [id number] [id number] 1{tab(s )} Zoloft 50 mg oral tablet; 1 tab(s) orally once a dayQuantit y: 0 Refills: 0Ordered: [address] [place] [address] us: OtherGener ic Substituti on Allowed Benadryl 25 mg oral capsule 09-08 23:20: 27 No [id number] 0 Benadryl 25 mg oral capsule; orally onceQuanti ty: 0 Refills: 0Ordered: [address] [place] [address] us: OtherGener ic Substituti on Allowed traZODone 50 mg oral tablet 09-08 23:20: 27 No [id number] 0 traZODone 50 mg oral tablet; orally onceQuanti ty: 0 Refills: 0Ordered: 6HJayna romero us: OtherGener ic Substituti on Allowed lisinopril 10 mg oral tablet 09-08 23:20: 20 No [id number] 1{tab(s )} lisinopril 10 mg oral tablet; 1 tab(s) orally once a dayQuantit y: 0 Refills: 0Ordered: 7Moore, TeriStart: 7Generic Substituti on Allowed Seroquel 200mg 04-18 00:00: 00 No [id number] [id number] 0 Seroquel 200mg; po qam and qhs pt. received last dose at [facility] on 04/18/13 at 09:25Quant ity: 0 Refills: 0Ordered: 4Moore, TeriStart: 4Status: OtherGener ic Substituti on Allowed Zoloft 100ng 04-18 00:00: 00 No [id number] 0 Zoloft 100ng; po qam pt. received last dose at [facility] on 04/18/13 at 0905Quanti ty: 0 Refills: 0Ordered: 4Moore, TeriStart: 4Status: OtherGener ic Substituti on Allowed Pt reports "I have been off my meds for 3 years." 2012-02 11:30: 29 No [id number] [id number] 0 Pt reports "I have been off my meds for 3 years."Hayes ntity: 0 Refills: 0Ordered: 03-Aug-2012 Augustus Trammell us: Discontinu edGeneric Substituti on Allowed zoloft 100 mg 2012-02 00:00: 00 No [id number] 0 zoloft 100 mg; po everyday last dose at home 02/18/13 , at [facility] 02/19/13Qu antity: 0 Refills: 0Ordered: 3DMary stantonStart: 3Status: Discontinu edGeneric Substituti on Allowed Risperdal 2 mg oral tablet 2012-02 00:00: 00 No [id number] 1 Risperdal 2 mg oral tablet; 1 orally Q AM LAST DOSE AT [facility] , AT HOME LAST DOSE 02/18/13Qu antity: 0 Refills: 0Ordered: Mary GuadarramaStart: 3Status: Discontinu edGeneric Substituti on Allowed Risperdal 4 mg oral tablet 2012-02 00:00: 00 No [id number] 1 Risperdal 4 mg oral tablet; 1 orally LAST DOSE 02/18/13 AT [facility] , AT HOME 02/17/13Qu antity: 0 Refills: 0Ordered: Mary GuadarramaStart: 3Status: Discontinu edGeneric Substituti on Allowed ATARX 25 MG 2012-02 00:00: 00 No [id number] 0 ATARX 25 MG; PO BID PRN LAST DOSE 02/18/13 [place] 0 Refills: 0Ordered: Mary GuadarramaStart: 3Status: Discontinu edGeneric Substituti on Allowed ATARAX 25 MG 2012-02 00:00: 00 No [id number] 0 ATARAX 25 MG; PO TID LAST DOSE AT [facility] 02/19/13Qu antity: 0 Refills: 0Ordered: Mary GuadarramaStart: 3Status: Discontinu edGeneric Substituti on Allowed MULTI VITAMIN , FOLIC ACID 1 MG , THIAMINE 100 MG 2012-02 00:00: 00 No [id number] 0 MULTI VITAMIN , FOLIC ACID 1 MG , THIAMINE 100 MG; PO everyday [facility] Refills: 0Ordered: Mary GuadarramaStart: 3Status: Discontinu edGeneric Substituti on Allowed DENIES OTC/HERBAL HOME MEDS 2012-02 00:00: 00 No [id number] 0 DENIES OTC/HERBAL HOME MEDSQuanti ty: 0 Refills: 0Ordered: 3DMary stantonStart: 3Status: Discontinu edGeneric Substituti on Allowed Pt. denies current medications 11-15 00:00: 00 No [id number] 0 Pt. denies current medication sQuantity: 0 Refills: 0Ordered: 3MooreOraliStart: 3Status: Discontinu edGeneric Substituti on Allowed Vital Signs Vital Name Observation Time Observation Value Comments S ource Systolic blood pressure 2021-03-17 19:41:00 181 mm[Hg] reports elevated b/p [facility] Diastolic blood pressure 2021-03-17 19:41:00 117 mm[Hg] reports elevated b/p [facility] Heart rate 2021-03-17 19:41:00 86 /min [facility] Body height 2021-03-17 19:41:00 166.4 cm [facility] Body weight 2021-03-17 19:41:00 79.379 kg [facility] BMI 2021-03-17 19:41:00 28.68 kg/m2 [facility] Height/Length Measured 2021-03-17 10:41:43 167 cm Height/Length Measured 2021-03-17 10:41:22 167 cm Height/Length Measured 2021-03-17 10:41:21 167 cm Height/Length Measured 2021-03-17 10:41:20 167 cm Height/Length Measured 2019-07-31 23:52:46 Procedures Procedure Date / Time Performed Performing Clinicia n Source REFERRAL- REQUEST/RESPONSE 2021-04-21 06:01:00 Doctor Unassigned, [place] [facility] XR CLAVICLE COMP LEFT 2021-03-17 19:58:00 Glynn Akbar L [facility] EKG and Rhythm Strip 2016-09-09 08:00:00 Mallory Martinez Bedswap/Room Change 2013-02-28 02:16:00 Azubike Juan José Reynolds Bedswap/Room Change 2013-01-06 11:36:00 Jayna Durand Bedswap/Room [...] CardiacDiet/AHA(lowfat/2g Na)] Diagnostic Test Pending 2020-03-06 11:12:00 Nicollet al Consult [code = DentalConsult] Diagnostic Test [...] Subs tance Use Group 3B [code = [id number]] Diagnostic Test Pending 2020-03-04 16:33:00 Asse ss and involve in group therapy [code = Assessandinvolveingroupth erapy] Diagnostic Test Pending 2020-03-04 16:32:00 Spec ial Observations [code = SpecialObservations] Diagnostic Test Pending 2020-03-04 16:32:00 Erna l Signs [code = VitalSigns] Encounters Start Date/Time End Date/Time Encounter Type Admission Type Attending [facility] Care Department Encounter ID Source 2023-07-05 13:54:38 2023-07-05 13:54:38 Outpatient SFA SFA [id number] Gregory Rivera Soy 2023-04-04 11:57:49 2023-04-04 11:57:49 Outpatient SFA SFA [id number] Gregory Rivera Soy 2022-12-27 13:46:25 2022-12-27 13:46:25 Outpatient SFA SFA [id number] Gregory Olivier 2022-12-15 16:26:17 2022-12-15 16:26:17 Outpatient SFA SFA [id number] Gregory Rivera Soy 2022-11-03 13:46:19 2022-11-03 13:46:19 Outpatient SFA SFA [id number] Gregory Rivera Soy 2022-10-07 13:27:59 2022-10-07 13:27:59 Outpatient SFA SFA [id number] Gregory Rivera Venus 2022-07-07 13:12:53 2022-07-07 13:12:53 Outpatient SFA SFA [id number] Gregory Rivera Venus 2022-06-07 13:23:05 2022-06-07 13:23:05 Outpatient SFA SFA [id number] Gregory Rivera Venus 2022-03-08 13:40:33 2022-03-08 13:40:33 Outpatient SFA SFA [id number] Gregory Rivera Soy 2022-02-04 13:17:24 2022-02-04 13:17:24 Outpatient SFA SFA [id number] Gregory Rivera Soy 2022-01-28 14:48:56 2022-01-28 14:48:56 Outpatient SFA SFA [id number] Gregory Rivera Soy 2021-04-22 00:00:00 2021-04-22 00:00:00 Telephone Leonora Doan [facility] 1.2.840.114 350.1.13.10 4.2.7.2.686 [id number] [facility] 2021-04-21 00:00:00 2021-04-21 00:00:00 Orders Only Doctor Unassigned, [place] [facility] 1.2840.114 350.1.13.10 4.2.7.2.686 [id number] [facility] 2021-03-17 13:45:48 2021-03-17 23:59:00 Hospital Encounter Surjit Akbar [facility] 1..840.114 350.1.13.10 4.2.7.2.686 [id number] [facility] 2021-03-17 13:30:00 2021-03-17 14:15:06 Outpatient R FRANKI [facility] [id number] [facility] 2021-03-17 13:30:00 2021-03-17 13:45:00 [facility] 1.2.840.114 350.1.13.10 4.2.7.2.686 [id number] [facility] 2021-03-17 13:30:00 2021-03-17 13:30:00 Outpatient R FRANKI [facility] NAMED [facility] [id number] [facility] 2021-03-17 00:00:00 2021-03-17 00:00:00 Orders Only Doctor Unassigned, [place] [facility] 1.284.114 350.1.13.10 4.2.7.2.686 [id number] [facility] 2021-02-11 14:30:00 2021-02-11 15:00:00 Office Visit Leonora Doan [facility] 1.2.840.114 350.1.13.10 4.2.7.2.686 [id number] [facility] 2021-02-11 14:30:00 2021-02-11 14:30:00 Outpatient R FRANKI LEONORA [facility] [id number] [facility] 2021-02-11 00:00:00 2021-02-11 00:00:00 Orders Only Doctor Unassigned, [place] [facility] 1.2.840.114 350.1.13.10 4.2.7.2.686 [id number] [facility] 2021-02-10 13:30:00 2021-02-10 13:30:00 Outpatient R LEONORA DOAN [facility] [id number] [facility] 2020-06-27 09:14:00 2020-06-27 11:54:00 Emergency Guicho Michel [facility] 1.2.840.114 350.1.13.10 4.2.7.2.686 [id number] 2020-06-27 09:14:00 2020-06-27 11:54:00 Emergency X GUICHO [facility] ERT [id number] [facility] 2020-06-27 09:14:00 2020-06-27 09:14:00 Emergency X GUICHO [facility]HEL [facility] ERT [id number] [facility] 2020-03-04 13:27:00 2020-03-15 11:29:00 Inpatient Kuhn, Claudia Yolanda Lozano [facility]-3B-73- A [id number] [facility] 2019-07-31 23:32:00 2019-07-31 23:32:00 Emergency [facility] NATHALY [id number] [facility] 2019-07-31 23:32:00 2019-07-31 23:32:00 Emergency [facility] NATHALY [id number] [facility] 2019-07-27 17:10:00 2019-07-27 17:10:00 Inpatient Claudia Kuhn 1 [facility]-1A-01- A [id number] [facility] 2019-07-22 11:01:00 2019-07-22 11:01:00 Inpatient Bhavna Knapp 1 [facility]-1A-11- A [id number] 93 [facility] 2019-07-21 23:27:00 2019-07-21 23:27:00 Inpatient Bhavna Knapp 1 [facility]- A [id number] [facility] 2019-05-03 21:27:00 2019-05-10 11:12:00 Inpatient Ady Jacinto 1 [facility]-1B-77- A [id number] [facility] 2019-05-04 23:29:00 2019-05-04 23:29:00 Emergency E ZA LEE [id number] 2019-05-03 13:06:00 2019-05-03 15:43:00 Emergency E [facility]LOANE [id number] 2018-07-24 21:29:00 2018-08-01 10:51:00 Inpatient Claudia Kuhn 1 [facility]-3B-76- B [id number] [facility] 2017-11-14 17:44:00 2017-11-14 17:44:00 Inpatient Abeba Fraser 1 [facility]- A [id number] [facility] 2017-11-14 06:19:00 2017-11-14 06:19:00 Emergency [facility] [id number] [facility] 2017-08-19 00:00:00 2017-08-19 00:00:00 Outpatient [facility] [id number] [facility] 2017-07-28 00:00:00 2017-07-28 00:00:00 Outpatient [facility] [id number] [facility] 2017-06-16 00:00:00 2017-06-16 00:00:00 Outpatient [facility] [id number] [facility] 2017-06-06 19:31:00 2017-06-06 19:31:00 Emergency E [facility] MED [id number] [facility] 2017-06-05 17:19:00 2017-06-05 17:19:00 Emergency E CIPRIANO REYES [facility] MED [id number] [facility] 2017-05-16 00:00:00 2017-05-16 00:00:00 Outpatient [facility] [id number] [facility] 2017-05-03 00:00:00 2017-05-03 00:00:00 Outpatient [facility] [id number] [facility] 2017-04-28 15:13:12 2017-04-28 15:13:12 Outpatient [facility] [id number] [facility] 2016-12-30 00:00:00 2016-12-30 00:00:00 Outpatient [facility] [id number] [facility] 2016-12-09 00:00:00 2016-12-09 00:00:00 Outpatient [facility] [id number] [facility] 2016-12-09 00:00:00 2016-12-09 00:00:00 Outpatient [facility] [id number] [facility] 2016-12-02 08:56:02 2016-12-02 08:56:02 Outpatient [facility] [id number] [facility] 2016-12-02 00:00:00 2016-12-02 00:00:00 Outpatient [facility] [id number] [facility] 2016-12-02 00:00:00 2016-12-02 00:00:00 Outpatient [facility] [id number] [facility] 2016-11-19 10:25:44 2016-11-19 10:25:44 Outpatient [facility] [id number] [facility] 2016-10-22 11:25:55 2016-10-22 11:25:55 Outpatient [facility] [id number] [facility] 2016-10-05 09:11:02 2016-10-05 09:11:02 Outpatient [facility] [id number] [facility] 2016-09-08 22:39:00 2016-09-23 10:35:00 Inpatient Claudia Kuhn 1 [facility]-72- A [id number] [facility] 2015-03-11 16:12:00 2015-03-20 13:16:00 [facility] [id number] [facility] 2013-04-18 18:25:00 2013-04-24 14:35:00 Inpatient Sherrie Domingo L. 1 [facility]72- B [id number] [facility] 2013-02-19 10:26:00 2013-03-06 17:35:00 Inpatient Sherrie Domingo L. 1 [facility]-2B-78- A [id number] [facility] 2012-12-30 20:01:00 2013-01-15 16:50:00 Inpatient Alice Self 1 [facility]-67- B [id number] 2012-11-15 20:08:00 2012-11-29 13:10:00 Inpatient Tian Vargas 1 [facility]76- B [id number] [facility] 2012-08-03 14:39:00 2012-08-10 15:15:00 Inpatient Ritchie Marr 1 [facility]2D-31- A [id number] [facility] 1987-09-19 15:00:00 1987-09-23 16:00:00 Inpatient SHEELA ONEIL J 1 [facility]-87- A [id number] [facility] Results Test Description Test Time Test Comments Results Result Co mments Source CBC W/AUTO DIFF WITH [id number] 12:35:33* Test Item Value Reference Range Interpretation [...] 0.00-0.20 UNLESS OTHERWISE INDICATED, ALL TESTING PERFORMED ATCL[facility] [employer] [address] [place] [id number] INTERNATIONAL FIRST OFFICER: ANDERSON HUITRON M.D. CLIA NUMBER [id number] [facility] [place]. [id number] COMPREHENSIVE METABOLIC [id number] 03:28:14* Test Item Value Reference Range Interpretation Comme nts GLUCOSE (test code = 2217) 87 MG/DL 70-99 BUN (test code = 2207) 7 MG/DL 8-23 L CREATININE (test code = 2214) 0.97 MG/DL 0.80-1.40 eGFR (2020 CKD-EPI) (test code = 86166) 88 ML/MIN/1.73 >60 CALC BUN/CREAT (test code = 2235) 7 RATIO 6-28 SODIUM (test code = 223) 136 MEQ/L 133-146 POTASSIUM (test code = 2228) 4.1 MEQ/L 3.5-5.4 CHLORIDE (test code = 2215) 99 MEQ/L 95-107 CARBON DIOXIDE (test code = 220) 23 MEQ/L 19-31 CALCIUM (test code = 2209) 9.5 MG/DL 8.5-10.5 PROTEIN, TOTAL (test code = 2228) 7.3 G/DL 6.1-8.3 ALBUMIN (test code = 2200) 4.5 G/DL 3.5-5.2 CALC GLOBULIN (test code = 0) 2.8 G/DL 1.9-3.7 CALC A/G RATIO (test code = 2233) 1.6 RATIO 1.0-2.6 BILIRUBIN, TOTAL (test code = 2206) 0.4 MG/DL See_Comment [Automated me ssage] The system which generated this result transmitted reference range: <=1.2. The reference range was not used to interpret this result as normal/abnormal. ALKALINE PHOSPHATASE (test code = 2203) 75 U/L 40-123 AST (test code = 2218) 16 U/L 9-50 ALT (test code = 221) 23 U/L 5-50 LIPID [id number] 01:35:20* Test Item Value Reference Range Interpretation Comme nts CHOLESTEROL (test code = 2209) 187 MG/DL <200 TRIGLYCERIDES (test code = [...] SPECIMENS. FOR MOREINFORMATION, SEE CLIENT ANNOUNCEMENT AT [email or web address] /CalcLDL-C RISK RATIO LDL/HDL (test code = 2237) 2.17 RATIO <3.55 COMPREHENSIVE METABOLIC [id number] 01:35:20* Test Item Value Reference Range Interpretation Comme nts GLUCOSE (test code = 2216) 88 MG/DL 70-99 BUN (test code = 2207) 5 MG/DL 8-23 L CREATININE (test code = 2213) 0.90 MG/DL 0.80-1.40 eGFR (2020 CKD-EPI) (test code = ) 96 ML/MIN/1.73 >60 CALC BUN/CREAT (test code = 2234) 6 RATIO 6-28 SODIUM (test code = 2230) 141 MEQ/L 133-146 POTASSIUM (test code = 2227) 4.2 MEQ/L 3.5-5.4 CHLORIDE (test code = 2214) 100 MEQ/L 95-107 CARBON DIOXIDE (test code = 2206) 23 MEQ/L 19-31 CALCIUM (test code = 2208) 9.5 MG/DL 8.5-10.5 PROTEIN, TOTAL (test code = 9) 8.1 G/DL 6.1-8.3 ALBUMIN (test code = 1) 4.9 G/DL 3.5-5.2 CALC GLOBULIN (test code = 0) 3.2 G/DL 1.9-3.7 CALC A/G RATIO (test code = 2233) 1.5 RATIO 1.0-2.6 BILIRUBIN, TOTAL (test code [...] H UNLESS OTHERWISE INDICATED, ALL TESTING PERFORMED [facility] [employer] [address] [place] [address] INTERNATIONAL FIRST OFFICER: ANDERSON HUITRON M.D. CLIA NUMBER [id number] [facility] [place]. [id number] CBC w/ Diff w/ [id number] 15:10:00* Test Item Value Reference Range Interpretation [...] code = ImmatureGrans(Abs)) 0.0 {x10E3/uL} Comprehensive Metabolic [id number] 14:47:00* Test Item Value Reference Range Interpretation Comme nts Glucose,Serum (test code = Glucose,Serum) 99 mg/dL BUN (test code = BUN) 12 mg/dL Creatinine,Serum (test code = Creatinine,Serum) 0.75 mg/dL eGFR If NonAfrican Am (128584) (test code = eGFRIfNonAfricanAm(10 0791)) 98 mL/min/1.73 eGFR If Am (279334) (test code = eGFRIfAfricanAm(67899 7)) 114 mL/min/1.73 BUN/Creat Ratio (test code [...] ALT) 201 {IU/L} Cli ent Requested Flag [id number] 14:47:00* Test Item Value Reference Range Interpretation Comme nts TSH (242760) (test code = TSH(830727)) 2.010 {uIU/mL} Lipid Panel with LDL/HDL [id number] 14:47:00* Test Item Value Reference Range Interpretation Comme nts zzzCholesterol, Total (test code = zzzCholesterol,Total) 146 mg/dL Triglycerides (test code = Triglycerides) 88 mg/dL zzzHDL Cholesterol (test code = zzzHDLCholesterol) 41 mg/dL VLDL Cholesterol Calculated (test code = VLDLCholesterolCalculate d) 17 mg/dL LDL Cholesterol ROSALIND (NIH) (test code = LDLCholesterolCAL(NIH)) 88 mg/dL LDL/HDL Ratio (041724) (test code = LDL/HDLRatio(546640)) 2.1 {ratio} . LDL/HDL Ratio Men Women 1/2 Avg.Risk 1.0 1.5 Avg.Risk 3.6 3.2 2X Avg.Risk 6.2 5.0 3X Avg.Risk 8.0 6.1 Comprehensive Metabolic [id number] 01:43:55* Test Item Value Reference Range Interpretation [...] A/G Ratio) 1.6 ratio N Comprehensive Metabolic [id number] 01:43:55* Test Item Value Reference Range Interpretation [...] is not provided, and the patient is -[place], multiply by 1.212. If sex is not [...] by the National Kidney Foundation, http://nkdep.nih.gov Alcohol [id number] 01:43:55* Test Item Value Reference Range Interpretation Comme nts Ethanol Level (test code = Ethanol Level) 0.17 g/dL 0.00-0.01 H Intoxicated 0.08 0 g/dL or more Ethanol Inst (test code = Ethanol Inst) 168 N Comprehensive Metabolic [id number] 01:43:55* Test Item Value Reference Range Interpretation [...] is not provided, and the patient is -[place], multiply by 1.212. If sex is not [...] is not provided, and the patient is -[place], multiply by 1.212. If sex is not [...] Kidney Foundation, http://nkdep.nih.gov Complete Blood Count with Znhowkkcpbys0470-39-23 01:03:37* Test Item Value Reference Range Interpretation [...] code = IPF) 0 % N Automated [id number] 01:03:37* Test Item Value Reference Range Interpretation Comme nts Neutro Auto (test code = Darwin tro Auto) 47.3 % 36.0-70.0 Lymph Auto (test code = Lymph Auto) 33.3 % 12.0-44.0 Kendall Auto (test code = Kendall Auto) 12.4 % 0.0-11.0 H Eos, Auto (test code = Eos, Auto) 5.6 % 0.0-7.0 Basophil Auto (test code = B asophil Auto) 1.2 % 0.0-2.0 Neutro Absolute (test code = Neutro Absolute) 3.9 x10 1.6-7.4 Lymph Absolute (test code = Lymph Absolute) 2.73 x10 .50-4.60 [place] Absolute (test code = M priti Absolute) 1.02 x10 .00-1.20 Eos Absolute (test code = Eo s Absolute) 0.46 x10 0.00-0.74 Baso Absolute (test code = B aso Absolute) 0.10 x10 0.00-0.21 IG [id number] 01:03:37* Test Item Value Reference Range Interpretation Comme nts IG (test code = IG) 0.2 % 0.0-5.0 IG Abs (test code = IG Abs) 0 x10 N Urine Drug Screen [id number] 13:08:00* Test Item Value Reference Range Interpretation Comments Amphetamine Methamphetmine 068650 (test code = AmphetamineMethamphe [id number]) Negative Amphetamine test includes Amphetamine and Methamphetamine . Barbiturate (718337) (test code = Barbiturate(422532)) Negative Benzodiazepines (895775) (test code = Benzodiazepines(7148 32)) Positive Cocaine Metabolite (601029) (test code = CocaineMetabolite(71 4857)) Negative Phencyclidine (522782) (test code = Phencyclidine(304653 )) Negative Drug Screen Comment (test code = DrugScreenComment) NOTE : .This analysis is performed by immunoassay. Positivefindings are unconfirmed analytical test results; ifresults do not support expected clinical finding,confirmation by an alternate methodology is recommended.Patient metabolic variables, specific drug chemistry, andspecimen characteristics can affect test outcome.Technical consultation is available [email or web address], or call toll free [phone]. Cannabinoid (356916) (test code = Cannabinoid(803786)) Negative Opiates (464369) (test code = Opiates(761648)) Negative Opiate test includes Codeine and Morphine only. Comprehensive Metabolic [id number] 20:00:00* Test Item Value Reference Range Interpretation Comme nts Glucose,Serum (test code = Glucose,Serum) 73 mg/dL BUN (test code = BUN) 10 mg/dL Creatinine,Serum (test code = Creatinine,Serum) 0.85 mg/dL eGFR If NonAfrican Am (581842) (test code = eGFRIfNonAfricanAm(073032)) 95 mL/min/1.73 eGFR If Am (376856) (test code = eGFRIfAfricanAm(765274)) 109 mL/min/1.73 BUN/Creat Ratio (test code = [...] ALT) 83 {IU/L} Lipid Panel with LDL/HDL [id number] 20:00:00* Test Item Value Reference Range Interpretation Comme nts Cholesterol, Total (test code = Cholesterol,Total) 137 mg/dL Triglycerides (test code = Triglycerides) 53 mg/dL HDL Cholesterol (test code = HDLCholesterol) 54 mg/dL Cholesterol, VLDL (calculated) (test code = Cholesterol,VLDL(calcula marek)) 11 mg/dL Cholesterol, LDL (calculated) (test code = Cholesterol,LDL(calculat ed)) 72 mg/dL LDL/HDL Ratio (723606) (test code = LDL/HDLRatio(728700)) 1.3 {ratio} . LDL/HDL Ratio Men Women 1/2 Avg.Risk 1.0 1.5 Avg.Risk 3.6 3.2 2X Avg.Risk 6.2 5.0 3X Avg.Risk 8.0 6.1 Drug Screen, Urine # [id number] 14:29:00* Test Item Value Reference Range Interpretation Comments Amphetamine Methamphetmine 308615 (test code = AmphetamineMethamphe [id number]) Negative Amphetamine test includes Amphetamine and Methamphetamine . Barbiturate (178509) (test code = Barbiturate(320829)) Negative Benzodiazepines (124702) (test code = Benzodiazepines(7148 32)) Negative Cannabinoid (802130) (test code = Cannabinoid(850404)) Negative Cocaine Metabolite (329908) (test code = CocaineMetabolite(71 4857)) Negative Opiates (998315) (test code = Opiates(000443)) Negative Opiate test includes Codeine, Morphine, Hydromorphone, Hydrocodone. Phencyclidine (068240) (test code = Phencyclidine(735145 )) Negative Methadone Screen (802296) (test code = MethadoneScreen(5145 44)) Negative Propoxyphene, Urine (556294) (test code = Propoxyphene,Urine(7 28739)) Negative Drug Screen Comment (test code = DrugScreenComment) NOTE : .This analysis is performed by immunoassay. Positivefindings are unconfirmed analytical test results; ifresults do not support expected clinical finding,confirmation by an alternate methodology is recommended.Patient metabolic variables, specific drug chemistry, andspecimen characteristics can affect test outcome.Technical consultation is available [email or web address], or call toll free [phone]. [id number] 14:06:00* Test Item Value Reference Range Interpretation Comme nts TSH (965115) (test code = TSH(406268)) 1.770 {uIU/mL} CBC w/ Diff w/ [id number] 12:00:00* Test Item Value Reference Range Interpretation [...] (Abs) (test code = ImmatureGrans(Abs)) 0.0 {x10E3/uL} [id number] 22:27:00* Test Item Value Reference Range Interpretation Comme nts Potassium (test code = K) 4.0 mmol/L 3.5-5.1 N Alcohol/Ethanol, [id number] 19:26:00* Test Item Value Reference Range Interpretation Comme nts Alcohol, Ethyl (test code = ETOH) 0.14 g/dL 0.00-0.01 H Intoxicated 0 .080 g/dL or more [id number] 19:06:00* Test Item Value Reference Range Interpretation [...] code = THC) Negative Negative N Urinalysis [id number] 19:06:00* Test Item Value Reference Range Interpretation Comme nts Color (test code = COLOR) Yellow Yellow,Straw,Pl yellow N Clarity (test code = CLAR) Clear Clear N Specific [place] (test code = SPGR) 1.010 1.001-1.035 N [...] code = SANTANA) None /HPF Comprehensive Metabolic [id number] 19:05:00* Test Item Value Reference Range Interpretation [...] race is not provided, and the patient isAfrican-[place], multiply by 1.212. If sex is not [...] the National Kidney Foundation,http://nkdep .nih.gov CBC with Zklcuodnxose8729-00-35 18:49:00* Test Item Value Reference Range Interpretation [...] code = ALYMPH) 0.9 K/cumm 0.5-4.6 N [place] Abs (test code = AMONO) 0.4 K/cumm 0.0-1.2 N Eos Abs (test code = AEOS) 0.10 K/cumm 0.00-0.74 N Baso Abs (test code = ABASO) 0.0 K/cumm 0.00-0.21 N [place] [id number] 16:08:00* Test Item Value Reference Range Interpretation Comme nts [place] Level (test code = LithiumLevel) 0.6 mmol/L Detection L imit = 0.1 <0.1 indicates None Detected [id number] 16:25:00* Test Item Value Reference Range Interpretation Comme nts TSH (274347) (test code = TSH(473462)) 2.710 {uIU/mL} Drug Screen, Urine # [id number] 11:58:00* Test Item Value Reference Range Interpretation Comments Amphetamine Methamphetmine 259179 (test code = AmphetamineMethamph [id number]) Negative Amphetamine test includes Amphetamine and Methamphetamin e. Barbiturate (763655) (test code = Barbiturate(962462) ) Negative Benzodiazepines (461937) (test code = Benzodiazepines(714 832)) Positive Cannabinoid (571633) (test code = Cannabinoid(207823) ) Negative Cocaine Metabolite (305669) (test code = CocaineMetabolite(7 09991)) Negative Opiates (848962) (test code = Opiates(916148)) Negative Opiate test includes Codeine, Morphine, Hydromorphone, Hydrocodone. Phencyclidine (123738) (test code = Phencyclidine(55083 1)) Negative Methadone Screen (447760) (test code = MethadoneScreen(790 034)) Negative Propoxyphene, Urine (762742) (test code = Propoxyphene,Urine( 070271)) Negative Drug Screen Comment (test code = DrugScreenComment) NOTE : This assay provides a preliminary unconfirmed analyticaltest result that may be suitable for the clinicalmanagement of patients in certain situations. [facility], preliminary positivefindings should always be confirmed by an alternativemethod. Some rnau-och-qjgxwhy medications, as well asadulterants, may cause inaccurate results. Screen Onlytesting does not meet the [employer] [employer] Drug Testing Program requirements as aforensic urine drug test for workplace testing. All clientsmust ensure that their testing program conforms toapplicable state and federal laws and employmentagreements. [id number] 11:46:00* Test Item Value Reference Range Interpretation Comme nts Specific [place] (test code = SpecificGravity) 1.005 pH (test [...] not indicated and not performed. Comprehensive Metabolic [id number] 11:34:00* Test Item Value Reference Range Interpretation Comme nts Glucose,Serum (test code = Glucose,Serum) 101 mg/dL BUN (test code = BUN) 7 mg/dL Creatinine,Serum (test code = Creatinine,Serum) 0.68 mg/dL eGFR If NonAfrican Am (961413) (test code = eGFRIfNonAfricanAm(011893)) 105 mL/min/1.73 eGFR If Am (593273) (test code = eGFRIfAfricanAm(156570)) 122 mL/min/1.73 BUN/Creat Ratio (test code = [...] ALT) 178 {IU/L} Lipid Panel with LDL/HDL [id number] 11:34:00* Test Item Value Reference Range Interpretation Comme nts Cholesterol, Total (test code = Cholesterol,Total) 204 mg/dL Triglycerides (test code = Triglycerides) 186 mg/dL HDL Cholesterol (test code = HDLCholesterol) 63 mg/dL Cholesterol, VLDL (calculated) (test code = Cholesterol,VLDL(calcul ated)) 37 mg/dL Cholesterol, LDL (calculated) (test code = Cholesterol,LDL(calcula marek)) 104 mg/dL LDL/HDL Ratio (022114) (test code = LDL/HDLRatio(927263)) 1.7 {ratio units} . LDL/HDL Ratio Men Women 1/2 Avg.Risk 1.0 1.5 Avg.Risk 3.6 3.2 2X Avg.Risk 6.2 5.0 3X Avg.Risk 8.0 6.1 CBC w/ Diff w/ [id number] 11:25:00* Test Item Value Reference Range Interpretation [...] ImmatureGrans(Abs)) 0.0 {x10E3/uL} Drug Screen, Urine # [id number] 14:17:00* Test Item Value Reference Range Interpretation Comments Amphetamine (test code = Amphetamine) Negative Barbiturates (test code = Barbiturates) Negative Benzodiazepines (test code = Benzodiazepines) Positive Cannabinoid (test code = Cannabinoid) Negative Cocaine Metabolite (test code = CocaineMetabolite) Negative Opiate Screen (test code = OpiateScreen) Negative Opiate test includes Codeine, Morphine, Hydromorphon e, Hydrocodone. Phencyclidine (190769) (test code = Phencyclidine(302510 )) Negative Methadone Level (test code = MethadoneLevel) Negative Propoxyphene, Urine (810355) (test code = Propoxyphene,Urine(7 04957)) Negative Drug Screen Comment (test code = DrugScreenComment) NOTE : This assay provides a preliminary unconfirmed analyticaltest result that may be suitable for the clinicalmanagement of patients in certain situations. [facility], preliminary positivefindings should always be confirmed by an alternativemethod. Some qkco-sjk-dmxqqlr medications, as well asadulterants, may cause inaccurate results. Screen Onlytesting does not meet the [employer] [place] [employer] Drug Testing Program requirements as aforensic urine drug test for workplace testing. All clientsmust ensure that their testing program conforms toapplicable state and federal laws and employmentagreements. [id number] 12:50:00* Test Item Value Reference Range Interpretation Comme nts TSH (336482) (test code = TSH(134871)) 1.930 {uIU/mL} CBC w/ Diff w/ [id number] 12:25:00* Test Item Value Reference Range Interpretation [...] code = ImmatureGrans(Abs)) 0.0 {x10E3/uL} Comprehensive Metabolic [id number] 12:18:00* Test Item Value Reference Range Interpretation Comme nts Glucose,Serum (test code = Glucose,Serum) 87 mg/dL BUN (test code = BUN) 13 mg/dL Creatinine,Serum (test code = Creatinine,Serum) 0.89 mg/dL eGFR If NonAfrican Am (755425) (test code = eGFRIfNonAfricanAm(995692)) 96 mL/min/1.73 eGFR If Am (684444) (test code = eGFRIfAfricanAm(446263)) 111 mL/min/1.73 BUN/Creat Ratio (test code = [...] ALT) 25 {IU/L} Drug Screen, Urine # [id number] 14:27:00* Test Item Value Reference Range Interpretation Comments Amphetamine (test code = Amphetamine) Negative Barbiturates (test code = Barbiturates) Negative Benzodiazepines (test code = Benzodiazepines) Negative Cannabinoid (test code = Cannabinoid) Negative Cocaine Metabolite (test code = CocaineMetabolite) Negative Opiate Screen (test code = OpiateScreen) Negative Opiate test includes Codeine, Morphine, Hydromorphon e, Hydrocodone. Phencyclidine (224143) (test code = Phencyclidine(570066 )) Negative Methadone Level (test code = MethadoneLevel) Negative Propoxyphene, Urine (936022) (test code = Propoxyphene,Urine(7 33124)) Negative Drug Screen Comment (test code = DrugScreenComment) NOTE : This assay provides a preliminary unconfirmed analyticaltest result that may be suitable for the clinicalmanagement of patients in certain situations. [facility], preliminary positivefindings should always be confirmed by an alternativemethod. Some isaa-zec-wskcmtv medications, as well asadulterants, may cause inaccurate results. Screen Onlytesting does not meet the [employer] [place] [employer] Drug Testing [employer] requirements as aforensic urine drug test for workplace testing. All clientsmust ensure that their testing program conforms toapplicable state and federal laws and employmentagreements. [id number] 11:57:00* Test Item Value Reference Range Interpretation Comme nts Specific [place] (test code = SpecificGravity) 1.013 pH (test [...] follows if indicated. Drug Screen, Urine # [id number] 13:01:00* Test Item Value Reference Range Interpretation Comments Amphetamine (test code = Amphetamine) Negative Barbiturates (test code = Barbiturates) Negative Benzodiazepines (test code = Benzodiazepines) Positive Cannabinoid (test code = Cannabinoid) Negative Cocaine Metabolite (test code = CocaineMetabolite) Negative Opiate Screen (test code = OpiateScreen) Negative Opiate test includes Codeine, Morphine, Hydromorphon e, Hydrocodone. Phencyclidine (293572) (test code = Phencyclidine(669971 )) Negative Methadone Level (test code = MethadoneLevel) Negative Propoxyphene, Urine (447793) (test code = Propoxyphene,Urine(7 05228)) Negative Drug Screen Comment (test code = DrugScreenComment) NOTE : This assay provides a preliminary unconfirmed analyticaltest result that may be suitable for the clinicalmanagement of patients in certain situations. [facility], preliminary positivefindings should always be confirmed by an alternativemethod. Some bwsd-veo-srkiaog medications, as well asadulterants, may cause inaccurate results. Screen Onlytesting does not meet the [employer] [place] [employer]rine Drug Testing Program requirements as aforensic urine drug test for workplace testing. All clientsmust ensure that their testing program conforms toapplicable state and federal laws and employmentagreements. [id number] 11:57:00* Test Item Value Reference Range Interpretation Comme nts Specific [place] (test code = SpecificGravity) 1.010 pH (test [...] MicroscopicExam) NOTE : Microscopic follows if indicated. [id number] 14:12:00* Test Item Value Reference Range Interpretation Comme nts TSH (452608) (test code = TSH(689211)) 4.590 {uIU/mL} Comprehensive Metabolic [id number] 13:09:00* Test Item Value Reference Range Interpretation Comme [facility] Glucose,Serum (test code = Glucose,Serum) 77 mg/dL BUN (test code = BUN) 14 mg/dL Creatinine,Serum (test code = Creatinine,Serum) 0.87 mg/dL eGFR If NonAfrican Am (955983) (test code = eGFRIfNonAfricanAm(464931)) 97 mL/min/1.73 eGFR If Am (406393) (test code = eGFRIfAfricanAm(738627)) 112 mL/min/1.73 BUN/Creat Ratio (test code = [...] ALT) 33 {IU/L} CBC w/ Diff w/ [id number] 12:45:00* Test Item Value Reference Range Interpretation Comme [facility] WBC Count (test code = WBCCount) 9.1 [...] (Abs) (test code = ImmatureGrans(Abs)) 0.0 {x10E3/uL} [place] [id number] 15:35:00* Test Item Value Reference Range Interpretation Comme [facility] [place] Level (test code = LithiumLevel) 0.5 mmol/L Detection L imit = 0.1 <0.1 indicates None Detected [id number] 13:40:00* Test Item Value Reference Range Interpretation Comme [facility] TSH (849287) (test code = TSH(031030)) 4.220 {uIU/mL} [id number] 13:40:00* Test Item Value Reference Range Interpretation Comme nts TSH (212032) (test code = TSH(620324)) 4.220 {uIU/mL} Basic Metabolic [id number] 12:47:00* Test Item Value Reference Range Interpretation [...] Calcium) 9.5 mg/dL eGFR If NonAfrican Am (261757) (test code = eGFRIfNonAfricanAm(1 06260)) 94 mL/min/1.73 eGFR If Am (122236) (test code = eGFRIfAfricanAm(1007 97)) 109 mL/min/1.73 Comprehensive Metabolic [id number] 12:15:00* Test Item Value Reference Range Interpretation Comme nts Glucose,Serum (test code = Glucose,Serum) 80 mg/dL BUN (test code = BUN) 13 mg/dL Creatinine,Serum (test code = Creatinine,Serum) 0.93 mg/dL eGFR If NonAfrican Am (277490) (test code = eGFRIfNonAfricanAm(10 0791)) 93 mL/min/1.73 eGFR If Am (494470) (test code = eGFRIfAfricanAm(24914 7)) 107 mL/min/1.73 BUN/Creat Ratio (test code = BUN/CreatRatio) 14 Sodium (test code = Sodium) 140 mmol/L Potassium (test code = Potassium) 4.2 mmol/L Chloride (test code = Chloride) 101 mmol/L CO2 (test code = CO2) 26 mmol/L E ffective August 14, 2012, the reference interval for Carbon Dioxide, Total will be changing to: 0 - 7 days - 28 8 - 30 days - [...] ALT) 60 {IU/L} CBC w/ Diff w/ [id number] 12:10:00* Test Item Value Reference Range Interpretation [...] ImmatureGrans(Abs)) 0.0 {x10E3/uL} Drug Screen, Urine # [id number] 14:49:00* Test Item Value Reference Range Interpretation Comments Amphetamine (test code = Amphetamine) Negative Barbiturates (test code = Barbiturates) Negative Benzodiazepines (test code = Benzodiazepines) Negative Cannabinoid (test code = Cannabinoid) Negative Cocaine Metabolite (test code = CocaineMetabolite) Positive Opiate Screen (test code = OpiateScreen) Negative Opiate test includes Codeine, Morphine, Hydromorphon e, Hydrocodone. Phencyclidine (806452) (test code = Phencyclidine(594934 )) Negative Methadone Level (test code = MethadoneLevel) Negative Propoxyphene, Urine (022220) (test code = Propoxyphene,Urine(8 10307)) Negative Drug Screen Comment (test code = DrugScreenComment) NOTE : This assay provides a preliminary unconfirmed analyticaltest result that may be suitable for the clinicalmanagement of patients in certain situations. [facility], preliminary positivefindings should always be confirmed by an alternativemethod. Some rojl-vwp-uqzhgrt medications, as well asadulterants, may cause inaccurate results. Screen Onlytesting does not meet the [employer] [employer]rine Drug Testing Program requirements as aforensic urine drug test for workplace testing. All clientsmust ensure that their testing program conforms toapplicable state and federal laws and employmentagreements. [id number] 14:09:00* Test Item Value Reference Range Interpretation Comme nts Specific [place] (test code = SpecificGravity) 1.011 pH (test [...]
[2023-08-11] MEDS ORDERED: NA CHLORIDE 0.9% 1,000 ML ONE (18:02)
[2023-08-11] MEDS ORDERED: LORazepam 2 MG/ML VIAL ONE (18:02)
[2023-08-11 18:11] LABS: Absolute Eosinophils 0.4 K/uL (0-0.5); Absolute Lymphocytes (CBC) 1.4 K/uL (0.7-4.9); Absolute Monocytes 0.7 K/uL (0.1-1.3); Absolute Neutrophil 4.8 K/uL (1.8-8.0); Basophils % 0.2 % (0-1.3); Eosinophils % 5.7 % (0-4.4); Hematocrit 38.6 % (39.6-49.0); Hemoglobin 13.3 g/dL (13.6-17.9); Lymphocytes % 19.4 % (15.3-44.8); MCH 30.3 pg (27.0-35.0); MCHC 34.4 g/dL (32.0-36.0); MPV 6.1 fL (7.6-11.3); Monocytes % 9.9 % (3.3-12.3); Neutrophils % 64.8 % (41.7-73.7); Nucleated Red Blood Cells % 0.1 % (0-0); Platelets 308 thou/uL (152-406); RBC Red Blood Cell Count 4.39 M/uL (4.33-5.43); Red Cell Distribution Width 13.3 % (12.1-15.2)
[2023-08-11 18:16] LABS: PT Prothrombin Time 11.8 SECONDS (9.5-12.5); Protime INR 1.07
[2023-08-11 18:20] LABS: Specific Gravity < 1.005 (1.005-1.030); Urine Bilirubin NEGATIVE (Negative); Urine Blood Negative (Negative); Urine Clarity Clear (Clear); Urine Color Colorless (Yellow); Urine Glucose NEGATIVE (Negative); Urine Ketones NEGATIVE (Negative); Urine Microscopic Reflex YN NO UMIC; Urine Nitrite NEGATIVE (Negative); Urine Protein NEGATIVE (Negative); Urine Urobilinogen Normal (Normal); Urine pH 7.5 (5.0-7.0)
--- NOTE | 2023-08-11 18:24 | RAD REPORT ---
EXAM DESCRIPTION: RADChest Single View08/11/2023 6:06 pm CLINICAL HISTORY: COUGH COMPARISON: Chest Single View dated 08/25/2020 TECHNIQUE: Portable AP view of the chest. FINDINGS: The lungs are clear. No pneumothorax or effusion. The cardiomediastinal contours are unre markable. IMPRESSION: No acute cardiopulmonary process.
--- NOTE | 2023-08-11 18:28 | RAD REPORT ---
EXAM DESCRIPTION: CT - Head Brain Wo Cont - 08/11/2023 6:12 pm CLINICAL HISTORY: DIZZINESS COMPARISON: No comparisons TECHNIQUE: Noncontrast head CT images were obtained without IV contrast. Multiplanar reformats were generated and reviewed. All CT scans are performed using dose optimization technique as appropriate and may include automated exposure control or mA/KV adjustment according to patient size. FINDINGS: No intracranial hemorrhage, mass, or edema. Midline structures are unremarkable. Normal ventricular caliber for age. Kim-white matter differentiation is preserved, without evidence of acute infarct. No abnormal extra- axial fluid collections. Mastoid air cells and visualized portions of the paranasal sinuses are clear. No acute bony findings. IMPRESSION: No evidence of an acute intracranial process.
[2023-08-11 18:31] LABS: ALT/SGPT 32 U/L (16-61); AST/SGOT 12 U/L (15-37); Albumin 3.8 g/dL (3.4-5.0); Albumin/Globulin Ratio 1.1 (1.1-1.8); Alkaline Phosphatase 88 U/L (45-117); Anion Gap 10.8 mEq/L (5.0-15.0); BUN Blood Urea Nitrogen 10 mg/dL (7-18); Bicarbonate 26 mEq/L (21-32); Bilirubin Total 0.5 mg/dL (0.2-1.0); Globulin 3.4 g/dL (2.3-3.5); Glomerular Filtration Rate 87 ml/min (=/>90); Glucose Level 115 mg/dL (74-106); Magnesium 2.1 mg/dL (1.6-2.4); NT PRO-BNP 71 pg/mL (<125); Potassium 3.8 mEq/L (3.5-5.1); Protein, Total 7.2 g/dL (6.4-8.2); Sodium Level 127 mEq/L (136-145); Troponin High Sensitivity 5.4 pg/mL (<58.9)
[2023-08-11 18:37] LABS: Bilirubin Direct < 0.2 mg/dL (0-0.2); Bilirubin Indirect, Calculated 0.3 mg/dL (0.2-0.8)
--- NOTE | 2023-08-11 18:50 | EDPHYS ---
Physician Documentation [facility] Name: Jose Armando Gilliland Age: 67 yrs Sex: Male : 1955 Arrival Date: 08/11/2023 Time: 17:44 Bed 7 Private MD: WILMA Physician Cayetano Mejia HPI: 08/10 17:49 This 67 yrs old Male presents to ER via Unassigned with complaints of Anxiety. brett 17:49 The patient presents to the emergency department with anxiety. Onset: The brett symptoms/episode began/occurred just prior to arrival, today. Past psychiatric history: Prior diagnosis: ANXIETY. ANXIETY, DIZZY , GOT HOT. The patient presents with dizziness, generalized weakness. Modifying factors: The symptoms are alleviated by Antivert, the symptoms are aggravated by standing up. Severity of symptoms: At their worst the symptoms were moderate in the emergency department the symptoms have improved moderately. Patient's baseline: Neuro: alert and fully oriented. Historical: - Allergies: 17:50 No Known Allergies; mb9 - Home Meds: 17:50 lisinopril 30 mg Oral tablet 1 tab daily [Active]; gabapentin oral [Active]; mb9 - PMHx: 17:50 Alcoholism; Hypertension; Bipolar disorder; PTSD; Anxiety; mb9 - PSHx: 17:50 Appendectomy; mb9 - Immunization history:: Adult Immunizations up to date. - Infectious Disease History:: Denies. - Family history:: not pertinent. - Social history:: Smoking status: Patient denies any tobacco usage or history of. ROS: 17:49 Constitutional: Negative for fever, chills, and weight loss, Eyes: Negative for injury, brett pain, redness, and discharge, ENT: Negative for injury, pain, and discharge, Neck: Negative for injury, pain, and swelling, Cardiovascular: Negative for chest pain, palpitations, and edema, Respiratory: Negative for shortness of breath, cough, wheezing, and pleuritic chest pain, Abdomen/GI: Negative for abdominal pain, nausea, vomiting, diarrhea, and constipation, Back: Negative for injury and pain, : Negative for injury, bleeding, discharge, and swelling, MS/Extremity: Negative for injury and deformity, Skin: Negative for injury, rash, and discoloration, Allergy/Immunology: Negative for hives, rash, and allergies, Endocrine: Negative for neck swelling, polydipsia, polyuria, polyphagia, and marked weight changes, Hematologic/Lymphatic: Negative for swollen nodes, abnormal bleeding, and unusual bruising, 17:49 Neuro: Positive for dizziness, headache, weakness, of the face, scalp, back, chest, right arm, left arm, right leg and left leg, Exam: 17:51 Constitutional: This is a well developed, well nourished patient who is awake, alert, brett and in no acute distress. Head/Face: Normocephalic, atraumatic. Eyes: Pupils equal round and reactive to light, extra-ocular motions intact. Lids and lashes normal. Conjunctiva and sclera are non-icteric and not injected. Cornea within normal limits. Periorbital areas with no swelling, redness, or edema. ENT: Nares patent. No nasal discharge, no septal abnormalities noted. Tympanic membranes are normal and external auditory canals are clear. Oropharynx with no redness, swelling, or masses, exudates, or evidence of obstruction, uvula midline. Mucous membranes moist. Neck: Trachea midline, no thyromegaly or masses palpated, and no cervical lymphadenopathy. Supple, full range of motion without nuchal rigidity, or vertebral point tenderness. No Meningismus. Chest/axilla: Normal chest wall appearance and motion. Nontender with no deformity. No lesions are appreciated. Cardiovascular: Regular rate and rhythm with a normal S1 and S2. No gallops, murmurs, or rubs. Normal PMI, no JVD. No pulse deficits. Respiratory: Lungs have equal breath sounds bilaterally, clear to auscultation and percussion. No rales, rhonchi or wheezes noted. No increased work of breathing, no retractions or nasal flaring. Abdomen/GI: Soft, non-tender, with normal bowel sounds. No distension or tympany. No guarding or rebound. No evidence of tenderness throughout. Back: No spinal tenderness. No costovertebral tenderness. Full range of motion. Male : Normal genitalia with no discharge or lesions. Skin: Warm, dry with normal turgor. Normal color with no rashes, no lesions, and no evidence of cellulitis. MS/ Extremity: Pulses equal, no cyanosis. Neurovascular intact. Full, normal range of motion. Neuro: Awake and alert, GCS 15, oriented to person, place, time, and situation. Cranial nerves II-XII grossly intact. Motor strength 5/5 in all extremities. Sensory grossly intact. Cerebellar exam normal. Normal gait. Psych: Awake, alert, with orientation to person, place and time. Behavior, mood, and affect are within normal limits. 17:51 Musculoskeletal/extremity: Tendon exam: specific tendon testing normal through active and passive range of motion DVT Exam: No signs of deep vein thrombosis. no pain, no swelling, no tenderness, negative Homans' sign noted on exam, no appreciated bluish discoloration, no erythema, no increased warmth, 17:51 Neuro: Orientation: is normal, appropriate for stated age, no acute changes, Mentation: is normal, appropriate for stated age, no acute changes, Memory: is normal, appropriate for stated age, no acute changes, Cerebellar function: is grossly normal, Motor: is normal, moves all fours, strength is normal, strength is 5/5 in all extremities, Gait: not tested. seizure activity, is not displayed by the patient, 18:20 ECG was reviewed by the Attending Physician. brett Vital Signs: 17:49 BP 194 / 100; Pulse 78; Resp 18; Temp 98.2(O); Pulse Ox 100% ; Weight 68.95 kg; Height mb9 5 ft. 5 in. ; 18:50 BP 182 / 98; Pulse 74; Resp 18; Pulse Ox 100% on R/A; mb9 17:49 Body Mass Index 25.29 (68.95 kg, 165.1 cm) mb9 NIH Stroke Scale Scores: 18:32 NIHSS Score: 0 brett MDM: 17:47 Patient medically screened. brett 17:52 Differential diagnosis: drug withdrawal. acute psychotic break, depression, psychosis brett secondary to non-compliance. Differential Diagnosis altered mental status, sepsis, flu. Differential diagnosis: cardiac arrhythmia, CVA, generalized weakness, GI bleed, hyperventilation, idiopathic dizziness, near-syncope, TIA, vertigo. Data reviewed: vital signs, nurses notes, EMS record, lab test result(s), EKG, radiologic studies, CT scan, plain films. Consideration of Admission/Observation Escalation of care including admission/observation considered. I considered the following discharge prescriptions or medication management in the emergency department Medications were administered in the Emergency Department. See MAR. Independent interpretation of the following test(s) in the Emergency Department EKG: See my EKG interpretation above. Test considered but Not performed: MRI: NO MRI BRAIN. Historians other than the Patient: EMS: EMS WELL INFORMED. Care significantly affected by the following chronic conditions: Hypertension, ANXIETY, ALCOHOL, BIPOLAR. 08/10 17:48 Order name: Basic Metabolic Panel; Complete Time: 18:47 [facility] 08/10 17:48 Order name: CBC with Diff; Complete Time: 18:25 [facility] 08/10 17:48 Order name: LFT's; Complete Time: 18:47 [facility] 08/10 17:48 Order name: Magnesium; Complete Time: 18:47 [facility] 08/10 17:48 Order name: NT PRO-BNP; Complete Time: 18:47 [facility] 08/10 17:48 Order name: PT-INR; Complete Time: 18:25 [facility] 08/10 17:48 Order name: Troponin HS; Complete Time: 18:47 [facility] 08/10 17:49 Order name: Urinalysis w/ reflexes; Complete Time: 18:25 [facility] 08/10 17:48 Order name: XRAY Chest (1 view); Complete Time: 18:25 [facility] 08/10 17:48 Order name: CT Head Brain wo Cont; Complete Time: 18:32 [facility] 08/10 17:48 Order name: EKG; Complete Time: 17:49 [facility] 08/10 17:48 Order name: Cardiac monitoring; Complete Time: 17:52 [facility] 08/10 17:48 Order name: EKG - Nurse/Tech; Complete Time: 17:52 [facility] 08/10 17:48 Order name: IV Saline Lock; Complete Time: 18:06 [facility] 08/10 17:48 Order name: Labs collected and sent; Complete Time: 18:06 [facility] 08/10 17:48 Order name: O2 Per Protocol; Complete Time: 17:52 [facility] 08/10 17:48 Order name: O2 Sat Monitoring; Complete Time: 17:52 [facility] EC:20 Rate is 58 beats/min. Rhythm is regular. QRS [place] is Normal. DC interval is normal. QRS brett interval is normal. QT interval is prolonged at 230 msec. No Q waves. T waves are Normal. No ST changes noted. Clinical impression: Sinus bradycardia and No evidence of ischemia. Interpreted by me. Reviewed by me. Administered Medications: 18:06 Drug: NS 0.9% IV 1000 ml IV at 1 bolus Per protocol; 1000 mL bolus Route: IV; Rate: 1 mb9 bolus; Site: right antecubital; 18:54 Follow up: Response: No adverse reaction; IV Status: Completed infusion mb9 18:06 Drug: Ativan IVP 1 mg IVP once Route: IVP; Site: right antecubital; mb9 18:49 Follow up: Response: No adverse reaction mb9 18:51 Drug: Thiamine IV 100 mg IV at per protocol once Route: IV; Rate: per protocol; Site: mb9 right antecubital; 18:59 Follow up: Response: No adverse reaction mb9 18:52 Drug: Norvasc PO 5 mg PO once Route: PO; mb9 18:59 Follow up: Response: No adverse reaction mb9 Disposition Summary: 08/11/23 18:49 Discharge Ordered Notes: Location: Home brett Problem: new brett Symptoms: have improved brett Condition: Stable brett Diagnosis - Adjustment disorder with anxiety brett - Dizziness and giddiness brett - Hypo-osmolality and hyponatremia brett Followup: brett - With: Private Physician - When: 2 - 3 days - Reason: Recheck today's complaints, Continuance of care, Re-evaluation by your physician Followup: brett - With: Tian Crawley MD - When: 2 - 3 days - Reason: Recheck today's complaints, Re-evaluation by your physician Discharge Instructions: - Discharge Summary Sheet brett - Adjustment Disorder, Adult brett - Allergies, Adult brett - Panic Attack brett - Alcohol Use Disorder brett - Dizziness brett - Hyponatremia brett - Near-Syncope, [id number] brett - Alcohol Abuse and Nutrition brett - Dizziness, [id number] brett Forms: - Medication Reconciliation Form brett - Antibiotic Education brett - Prescription Opioid Use brett - Patient Portal Instructions brett - Leadership Thank You Letter brett Prescriptions: - Klonopin 1 mg Oral Tablet - take 1 tablet ORAL route every 12 hours As needed; 20 tablet; Refills: 0, brett Product Selection Permitted NIH Stroke Scale - NIH Stroke Score Date: 08/11/2023 Time: 18:32 Total Score = 0 10. Dysarthria (speech clarity - read or repeat words) - 0(Normal) 11. Extinction and Inattention (visual/tactile/auditory/spatial/personal) - 0(No abnormality) 1a. Level of Consciousness (LOC) - 0(Alert) 1b. Level of Consciousness (LOC) (Month \T\ Age) - 0(Both) 1c. LOC Commands (Open \T\ Closes Eyes/Brewer Helper) - 0(Both) 2. Best Gaze (Lateral Gaze Paresis) - 0(Normal) 3. Visual Field Loss - 0(No visual loss) 4. Facial Palsy - 0(Normal) 5a. Left Arm: Motor (10-second hold) - 0(No drift) 5b. Right Arm: Motor (10-second hold) - 0(No drift) 6a. Left Leg: Motor (5-second hold - always test supine) - 0(No drift) 6b. Right Leg: Motor (5-second hold - always test supine) - 0(No drift) 7. Limb Ataxia (finger/nose \T\ heel/spears - test with eyes open) - 0(Absent) 8. Sensory Loss (pinprick arms/legs/face) - 0(Normal) 9. Best Language: Aphasia (description/naming/reading) - 0(No aphasia) Initials: brett Signatures: Dispatcher [employer] Cayeatno Keating, Jayna Fortune MD, cha, RN RN mb9
--- NOTE | 2023-08-11 18:50 | ER ---
Nurse's Notes [facility] Name: Jose Armando Gilliland Age: 67 yrs Sex: Male : 1955 Arrival Date: 08/11/2023 Time: 17:44 Bed 7 Private MD: Diagnosis: Adjustment disorder with anxiety;Dizziness and giddiness;Hypo-osmolality and hyponatremia Presentation: 08/10 17:49 Chief complaint: EMS states: "toned out for anxiety and SOB while sitting at home.". mb9 Coronavirus screen: Vaccine status: Patient reports being unvaccinated. Ebola Screen: No symptoms or risks identified at this time. Initial Sepsis Screen: Does the patient meet any 2 criteria? No. Patient's initial sepsis screen is negative. Does the patient have a suspected source of infection? No. Patient's initial sepsis screen is negative. Risk Assessment: Do you want to hurt yourself or someone else? Patient reports no desire to harm self or others. Onset of symptoms was August 11, 2023. 17:49 Method Of Arrival: EMS: [facility] mb9 17:49 Acuity: YESSENIA 2 mb9 Triage Assessment: 17:51 General: Appears uncomfortable, Behavior is anxious. Pain: Denies pain. EENT: No signs mb9 and/or symptoms were reported regarding the EENT system. Neuro: Salter Agitation-Sedation Scale (RASS): 0 - Alert and Calm Level of Consciousness is awake, alert, obeys commands, Oriented to person, place, time, situation, Appropriate for age. Cardiovascular: Heart tones S1 S2 present Patient's skin is warm and dry. Respiratory: Airway is patent Respiratory effort is even, unlabored, Respiratory pattern is regular, symmetrical, Breath sounds are clear bilaterally. Respiratory: Reports shortness of breath. GI: Abdomen is round non-distended. : No signs and/or symptoms were reported regarding the genitourinary system. Derm: Skin is pink, warm \\T\\ dry. Musculoskeletal: Range of motion: intact in all extremities. Historical: - Allergies: 17:50 No Known Allergies; mb9 - Home Meds: 17:50 lisinopril 30 mg Oral tablet 1 tab daily [Active]; gabapentin oral [Active]; mb9 - PMHx: 17:50 Alcoholism; Hypertension; Bipolar disorder; PTSD; Anxiety; mb9 - PSHx: 17:50 Appendectomy; mb9 - Immunization history:: Adult Immunizations up to date. - Infectious Disease History:: Denies. - Family history:: not pertinent. - Social history:: Smoking status: Patient denies any tobacco usage or history of. Screenin:52 [facility] ED Fall Risk Assessment (Adult) History of falling in the last 3 months, mb9 including since admission No falls in past 3 months (0 pts) Confusion or Disorientation No (0 pts) Intoxicated or Sedated No (0 pts) Impaired Gait No (0 pts) Mobility Assist Device Used No (0 pt) Altered Elimination No (0 pt) Score/Fall Risk Level 0 - 2 = Low Risk Oriented to surroundings, Maintained a safe environment, Educated pt \\T\\ family on fall prevention, incl call for assistance when getting out of bed. Abuse screen: Denies threats or abuse. Nutritional screening: No deficits noted. Tuberculosis screening: No symptoms or risk factors identified. Assessment: 17:52 Reassessment: see triage assessment. mb9 18:50 Reassessment: Patient appears in no apparent distress at this time. Patient and/or mb9 family updated on plan of care and expected duration. Pain level reassessed. Patient is alert, oriented x 3, equal unlabored respirations, skin warm/dry/pink. Patient states symptoms have improved. Vital Signs: 17:49 BP 194 / 100; Pulse 78; Resp 18; Temp 98.2(O); Pulse Ox 100% ; Weight 68.95 kg; Height mb9 5 ft. 5 in. ; 18:50 BP 182 / 98; Pulse 74; Resp 18; Pulse Ox 100% on R/A; mb9 17:49 Body Mass Index 25.29 (68.95 kg, 165.1 cm) mb9 NIH Stroke Scale Scores: 18:32 NIHSS Score: 0 [facility] ED Course: 17:46 Patient arrived in ED. ld1 17:47 Cayetano Mejia MD is Attending Physician. [facility] 17:49 Jayna Mcgee RN is Primary Nurse. mb9 17:50 Triage completed. mb9 17:51 Arm band placed on. mb9 17:53 Placed in gown. Bed in low position. Call light in reach. Side rails up X 1. Provided mb9 Education on: press call light if needing anything. Client placed on continuous cardiac and pulse oximetry monitoring. NIBP monitoring applied. mold tooling technician on. 18:06 Initial lab(s) drawn, by me, sent to lab. EKG done, by ED staff, reviewed by Cayetano Mejia MD. Inserted saline lock: 20 gauge in right antecubital area, using aseptic technique. 18:08 XRAY Chest (1 view) In Process Unspecified. EDMS 18:14 CT Head Brain wo Cont In Process Unspecified. EDMS 18:49 Tian Crawley MD is Referral Physician. [facility] 18:59 No provider procedures requiring assistance completed. IV discontinued, intact, mb9 bleeding controlled, No redness/swelling at site. Pressure dressing applied. Administered Medications: 18:06 Drug: NS 0.9% IV 1000 ml IV at 1 bolus Per protocol; 1000 mL bolus Route: IV; Rate: 1 mb9 bolus; Site: right antecubital; 18:54 Follow up: Response: No adverse reaction; IV Status: Completed infusion mb9 18:06 Drug: Ativan IVP 1 mg IVP once Route: IVP; Site: right antecubital; mb9 18:49 Follow up: Response: No adverse reaction mb9 18:51 Drug: Thiamine IV 100 mg IV at per protocol once Route: IV; Rate: per protocol; Site: mb9 right antecubital; 18:59 Follow up: Response: No adverse reaction mb9 18:52 Drug: Norvasc PO 5 mg PO once Route: PO; mb9 18:59 Follow up: Response: No adverse reaction mb9 Medication: 17:53 VIS not applicable for this client. mb9 Outcome: 18:49 Discharge ordered by . brett 18:59 Discharged to home ambulatory, mb9 18:59 Condition: stable 18:59 Discharge instructions given to patient, Instructed on discharge instructions, follow up and referral plans. Demonstrated understanding of instructions, follow-up care, medications, Prescriptions given X 1, 18:59 Patient left the ED. mb9 NIH Stroke Scale - NIH Stroke Score Date: 08/11/2023 Time: 18:32 Total Score = 0 10. Dysarthria (speech clarity - read or repeat words) - 0(Normal) 11. Extinction and Inattention (visual/tactile/auditory/spatial/personal) - 0(No abnormality) 1a. Level of Consciousness (LOC) - 0(Alert) 1b. Level of Consciousness (LOC) (Month \\T\\ Age) - 0(Both) 1c. LOC Commands (Open \\T\\ Closes Eyes/Condenser Tester) - 0(Both) 2. Best Gaze (Lateral Gaze Paresis) - 0(Normal) 3. Visual Field Loss - 0(No visual loss) 4. Facial Palsy - 0(Normal) 5a. Left Arm: Motor (10-second hold) - 0(No drift) 5b. Right Arm: Motor (10-second hold) - 0(No drift) 6a. Left Leg: Motor (5-second hold - always test supine) - 0(No drift) 6b. Right Leg: Motor (5-second hold - always test supine) - 0(No drift) 7. Limb Ataxia (finger/nose \\T\\ heel/spears - test with eyes open) - 0(Absent) 8. Sensory Loss (pinprick arms/legs/face) - 0(Normal) 9. Best Language: Aphasia (description/naming/reading) - 0(No aphasia) Initials: brett Signatures: Dispatcher [employer] Cayetano Keating MD MD cha Sims, Lauren, RN RN ld1 Jayna Mcgee, RN RN mb9
[2023-08-11] MEDS ORDERED: THIAMINE 200 MG/2 ML INJ ONE (18:51)
[2023-08-11] MEDS ORDERED: AMLODIPINE 5 MG TAB ONE (18:51)
[2023-08-11 19:19] VITALS: BP 182/98; TEMP 98.2; O2SAT 100
--- NOTE | 2023-08-15 15:06 | EKG ---
Test Date: 2023-08-11 Test Time: 17:53:39 [employer] Supervisor: JACINDA MEASUREMENT RESULTS: Intervals: Rate: 58 GA: 230 QRSD: 94 QT: 396 QTc: 388 [place]: P: 66 GA: 230 QRS: 55 T: 58 INTERPRETIVE STATEMENTS: Sinus bradycardia with 1st degree AV block Otherwise normal ECG Compared to ECG 08/09/2021 19:55:52 First degree AV block now present Sinus rhythm no longer present Myocardial infarct finding no longer present Electronically Signed On 08-15-23 14:55:24 CDT by Alexander Vera
== END 2023-08-11 18:59 | disposition home or self-care (01) ==
LOC: ER 17:44
DX: F43.22 Adjustment disorder with anxiety (principal); E87.1 Hypo-osmolality and hyponatremia; F10.20 Alcohol dependence, uncomplicated
CPT/HCPCS: 96361; 93005; 85025; 80048; 36415; 83735; 85610; 80076; 81003; 84484; 83880; 70450; 71045; 96375; 96374; 99285; J3411; J7030